=== PATIENT | female | born 1945 | race Caucasian/White ===

== ENCOUNTER 2021-06-27 11:33 | Inpatient (IN) | payer MEDICARE, SELFPAY ==
[2021-06-27] VITALS (10 sets, daily range): BP systolic 122–143; BP diastolic 59–66; PULSE 74–90; RESP 18–24; TEMP 37.4–37.6; O2SAT 87–97; BMI 22.8; BMI 20.2
--- NOTE | 2021-06-27 11:38 | ECG_ITS ---
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 Measurements Intervals [place] Rate: 84 P: 24 [place]: 155 QRS: -1 QRSD: 98 T: 13 QT: 357 QTc: 423 Interpretive Statements SINUS RHYTHM No previous ECG available for comparison Electronically Signed On 06-27-2021 17:29:30 CDT by Serg Asencio M.D. [id number]
--- NOTE | 2021-06-27 11:38 | XR_ITS ---
WS: [id number] PORTABLE CHEST HISTORY: dyspnea/cough COMPARISON: 10/25/2015 New subtle areas of increasing opacification in the RIGHT upper and RIGHT lower lobes and at the ling dominik. No dense areas of consolidation. No pleural effusion or pneumothorax. Cardiac size: Normal. Mediastinum/Aorta: Mild atherosclerosis aorta. Bilateral humeral head prostheses. Advanced thoracolumbar spondylosis. XR/XR chest 1V portable [id number] IMPRESSION: 1. New scattered subtle areas of subsegmental pneumonitis as above. 2. Mild atherosclerosis aorta.
[2021-06-27 12:05] LABS: ABG PCO2 31.2 mmHg (35-45); Arterial Blood Gas Hematocrit 39.8 % (37-47); Base Excess ABG 1.5 mmol/L (-2.0-2.0); Blood Gas Allen Test Pos; Blood Gas Operator Identificat glc; Blood Gas Sample Site Radial, left; Blood Gas Sample Type Arterial; Carboxyhemoglobin 0.6 %THgb (0.4-20.1); HCO3 ABG 24.1 mmol/L (22-26); HGB O2 Sat 92.4 % (95-100); Methemoglobin 0.4 % (0.4-1.5); Oxygen Device NC; Oxygen Saturation ABG 93.3; PO2 ABG 59.4 mmHg (80.0-100.0); Potassium Level - ABG 2.7 mmol/L (3.5-5.0)
[2021-06-27 12:39] LABS: Basophils % 0.2 %; Hematocrit 40.3 % (37.0-47.0); Hemoglobin 12.6 g/dL (11.5-15.3); Lymphocytes # 0.6 10^3/uL (0.8-4.8); Lymphocytes % 5.6 %; Mean Corpuscular HGB Conc 31.3 g/dL (30.0-36.0); Mean Corpuscular Hemoglobin 27.7 pg (28.0-34.0); Mean Corpuscular Volume 88.6 fl (81-99); Mean Platelet Volume 11.9 fL (7.4-10.4); Monocytes # 0.3 10^3/uL (0.2-0.9); Monocytes % 3.2 %; Neutrophils # 9.07 10^3/uL (1.8-7.7); Neutrophils % 86.9 %; Nucleated Red Blood Cells % 0 %; Platelet Count 146 10^3/cmm (130-400); Red Blood Count 4.55 10^6/uL (4.1-5.3); Red Cell Distribution Width 13.1 % (12.1-15.1); White Blood Count 10.4 10^3/uL (4.0-10.0)
--- NOTE | 2021-06-27 12:48 | CT_ITS ---
WS: [id number] CT CHEST ANGIOGRAPHY WITH REFORMATS HISTORY: COVID /hypoxia TECHNIQUE: Contiguous axial images are obtained through the chest during arterial injection of intrav enous contrast. Images are reconstructed to evaluate the pulmonary arteries. MIP imaging also reviewe d. All CT scans at [facility] use at least one of these dose optimization techniques: automat ed exposure control; mA and/or kV adjustment per patient size (includes targeted exams where dose is matched to clinical indication); or iterative reconstruction. CONTRAST: Visipaque 320; 70 mL IV. DLP: 415.06 mGy.cm COMPARISON: None available. Excellent opacification of the pulmonary arteries. No filling defects are evident. The opacification is limited in the periphery of the of all lobes due to the adjacent airspace disease. Pulmonary arter y is normal at 2.8 cm. Mild atherosclerosis aorta. Mild enlargement of LEFT heart chambers. No RIGHT heart strain. There is extensive, multi lobar groundglass opacifications and denser consolidations. The dense conso lidations are at the lung bases bilaterally. There is extensive soft tissue at the RIGHT hilum which is probably a combination of airspace disease and lymphadenopathy. Extensive small hiatal hernia. Janae or cholecystectomy. Advanced degenerative disc disease throughout the mid and lower thoracic spine. No fractures. Prior b ilateral humeral head prostheses. CT/CT angio chest PE protcl [id number] IMPRESSION: 1. No pulmonary embolism. 2. Multi lobar groundglass opacifications and consolidations from pneumonia as sociated with Covid 19. 3. RIGHT hilar consolidation probably combination of pneumonia and adenopathy. Consider follow-up chest CT angiogram after resolution of Covid 19 to be sure there is no underlying lymphadenopathy or persistent mass. 4. Mild LEFT heart enlargement.
[2021-06-27 13:10] LABS: Alanine Aminotransferase 15 U/L (0-33); Albumin Level 3.4 g/dL (3.5-5.2); Alkaline Phosphatase 92 IU/L (35-105); Aspartate Amino Transferase 55 U/L (0-32); Blood Urea Nitrogen 20 mg/dL (8-23); Calcium 8.3 mg/dL (8.5-10.5); Carbon Dioxide 23 mmol/L (22-29); Chloride 101 mmol/L (98-107); Creatine Phosphokinase 182 U/L (26-192); Glucose 130 mg/dL (65-115); Lactic Sepsis W/Reflex 2.4 mmol/L (0.5-2.2); Lipase 57 U/L (13-60); Osmolality Calculated 294 mOsm/kg (285-295); Sodium 140 mmol/L (136-145); Total Bilirubin 0.3 mg/dL (0.15-1.2); Total Protein 6.4 g/dL (6.6-8.7)
--- NOTE | 2021-06-27 13:23 | PC.PHAR ---
pt and pts unable to verify medications-pts states the pt normally takes care of her medications-pt brought in medication bottles-pt brought in medications bottles dated 04/21/2020 for zocor,hctz,protonix,carafate-pt brought in robaxin without a label it was last filled 12/2019-notes are made in the pharmacy comments
--- NOTE | 2021-06-27 13:28 | ED_ITS ---
HPI - COVID General: Chief Complaint: Shortness of Breath/Dyspnea Stated Complaint: AMS, COVID Time Seen by Provider: 06/27/21 11:35 Triage information: Has fever, cough or shortness of breath . Exposure to COVID + person last 14 days History of Present Illness: HPI Narrative: 76-year-old female presents the emergency room with complaints of cough shortness of breath she is mildly confused. Her was diagnosed last week with Covid and was hospitalized. She began having symptoms 5 days ago was tested on the same day at [facility] with a rapid antigen test as outpatient she does not have any documentation but she reports it was positive. Since then she become increasingly short of breath. On arrival here this morning via EMS she was hypoxic and requiring up to 6 L by nasal cannula. Patient mildly confused. She does remember when her symptoms started she reports she has had diarrhea cough and shortness of breath cough minimally productive myalgias as well. MD complaint: known COVID positive (Home [facility] test result not available) and reported COVID exposure Prior covid testing: yes, results known Prior testing date: 06/22/21 COVID 19 common symptoms: positive fever(s), chills, cough, non-productive cough, dyspnea, fatigue, body aches, headache(s), loss of sense of smell and/or taste, throat pain, nasal congestion, nausea, vomiting and diarrhea COVID 19 other sytmptoms: positive requiring oxygen; negative chest pain Onset (ago): day(s) (5) Pertinent comorbid conditions: hypertension Treatment prior to arrival: steroids COVID Results: SARS-CoV-2 Antigen (Rapid) Positive (Negative) H 06/27/21 13:46 06/27/21 Nasal/Oral Coronavirus 2019 PCR Pending 06/27/21 13:46 06/27/21 Review of Systems Const: Reports: fever(s), chills, body aches and fatigue ENMT: Reports: throat pain and nasal congestion Card: Denies: chest pain, edema, dyspnea on exertion or orthopnea Resp: Reports: dyspnea and non-productive cough GI: Reports: nausea, vomiting and diarrhea : Denies: flank pain, difficulty voiding, dysuria, urinary frequency or urinary urgency Skin/Breast: Denies: rash or pruritus Neuro: Reports: headache(s) Physical Exam Const: COMMON NORMALS: no acute distress GENERAL APPEARANCE: cooperative and comfortable ORIENTATION/CONSCIOUSNESS: Yes awake, Yes oriented to person, Yes oriented to place and Yes oriented to time HENMT: COMMON NORMALS: normocephalic, atraumatic and hearing grossly normal bilaterally HEAD & SCALP: normocephalic and atraumatic Neck/C-Spine: COMMON NORMALS: no JVD Lymph: LYMPHATIC: no lymphadenopathy noted and no lymphedema noted Resp: AUSCULTATION: crackles and wheezes Cardio: COMMON NORMALS: no JVD, regular rate, regular rhythm and No murmurs present (Cardio) RATE: regular rate RHYTHM: regular rhythm GI: COMMON NORMALS: Soft to palpation and No hepatosplenomegaly present AUSCULTATION: Yes normoactive bowel sounds PALPATION: Yes Soft to palpation, No Tenderness to palpation present (GI), No Guarding due to palpation present (GI) and Yes No hepatosplenomegaly present Extremity: COMMON NORMALS: normal to inspection, capillary refill normal, no c lubbing, cyanosis or edema, no calf tenderness and no pedal edema Neuro: SENSORIUM/ORIENTATION: Yes oriented to person, Yes oriented to place and Yes oriented to time Skin: COMMON NORMALS: no rashes or lesions noted GENERAL SKIN EXAM: no rashes or lesions noted Course Vital Signs: Vital signs: Vital Signs Temperature 99.3 F 06/27/21 11:54 Pulse Rate 87 06/27/21 13:56 Respiratory Rate 20 H 06/27/21 13:56 Blood Pressure 125/59 06/27/21 13:56 Pulse Oximetry 93 06/27/21 13:56 MDM - COVID MDM Narrative: Medical decision making narrative: Labs and imaging reviewed. CTA of the chest is pending Covid antigen positive patient given remdesivir dexamethasone will admit with oxygen support discussed with Dr. Diane orders written Lab Data: Labs: Lab Results 06/27/21 06/27/21 06/27/21 11:55 12:29 12:29 WBC 10.4 10^3/uL H 10 ^3/uL (4.0-10.0) RBC 4.55 10^6/uL 10^6 /uL (4.1-5.3) Hgb 12.6 g/dL g/dL (11.5-15.3) Hct 40.3 % % (37.0-47.0) MCV 88.6 fl fl (81-99) MCH 27.7 pg L pg (28.0-34.0) MCHC 31.3 g/dL g/dL (30.0-36.0) RDW 13.1 % % (12.1-15.1) Plt Count 146 10^3/cmm 10^3 /cmm (130-400) MPV 11.9 fL H fL (7.4-10.4) Neut % (Auto) 86.9 % % Lymph % (Auto) 5.6 % % [place] % (Auto) 3.2 % % Eos % (Auto) 0.0 % % Baso % (Auto) 0.2 % % Neut # (Auto) 9.07 10^3/uL H 10 ^3/uL (1.8-7.7) Lymph # (Auto) 0.6 10^3/uL L 10^ 3/uL (0.8-4.8) [place] # (Auto) 0.3 10^3/uL 10^3/ uL (0.2-0.9) Eos # (Auto) 0.0 10^3/uL 10^3/ uL (0.0-0.8) Baso # (Auto) 0.0 10^3/uL 10^3/ uL (0.0-0.1) Nucleated RBC % (a uto) 0 % % Nucleated RBCs # 0.0 /100WBC /100W BC Specimen Type Arterial Sample Site Radial, left ABG pH 7.50 H (7.35-7.45) ABG pCO2 31.2 mmHg L mmHg (35-45) ABG pO2 59.4 mmHg L mmHg (80.0-100.0) ABG HCO3 24.1 mmol/L mmol/ L (22-26) ABG O2 Saturation 93.3 ABG Base Excess 1.5 mmol/L mmol/L (-2.0-2.0) Tr Test Pos A-a O2 Gradient 28.0 mmHg H mmHg (5-10) Hematocrit 39.8 % % (37-47) Hgb O2 Saturation 92.4 % L % (95-100) Carboxyhemoglobin 0.6 %THgb %THgb (0.4-20.1) Methemoglobin 0.4 % % (0.4-1.5) Total Hemoglobin 13.0 g/dL g/dL (12-16) Sodium 143.0 mmol/L mmol /L (131-143) Potassium 2.7 mmol/L L mmol /L (3.5-5.0) Glucose 140.0 mg/dL H mg/ dL (70-115) Ionized Calcium 1.0 mmol/L L mmol /L (1.1-1.4) O2 Delivery Device Nc O2 Liters/Min 6.0 % % FiO2 44.0 % % [employer]or Reconnaissance Vehicle Crewman ID glc Chloride Carbon Dioxide Anion Gap BUN Creatinine GFR Calculation Calculated Osmolal ity Lactic Acid 2.4 mmol/L H mmol /L (0.5-2.2) Calcium Magnesium Total Bilirubin AST ALT Alkaline Phosphata se Creatine Kinase Total Protein Albumin Globulin Lipase Urine Color Urine Appearance Urine pH Ur Specific Gravit y Urine Protein Urine Glucose (UA) Urine Ketones Urine Blood Urine Nitrate Urine Bilirubin Urine Urobilinogen Ur Leukocyte Celi ase Urine RBC Urine WBC Ur Squamous Epith Cells Amorphous Sediment Urine Bacteria Urine Mucus SARS-CoV-2 Ag (Rap id) 06/27/21 06/27/21 06/27/21 12:29 12:37 13:46 WBC RBC Hgb Hct MCV MCH MCHC RDW Plt Count MPV Neut % (Auto) Lymph % (Auto) [place] % (Auto) Eos % (Auto) Baso % (Auto) Neut # (Auto) Lymph # (Auto) [place] # (Auto) Eos # (Auto) Baso # (Auto) Nucleated RBC % (a uto) Nucleated RBCs # Specimen Type Sample Site ABG pH ABG pCO2 ABG pO2 ABG HCO3 ABG O2 Saturation ABG Base Excess Tr Test A-a O2 Gradient Hematocrit Hgb O2 Saturation Carboxyhemoglobin Methemoglobin Total Hemoglobin Sodium 140 mmol/L mmol/L (136-145) Potassium 3.0 mmol/L L mmol /L (3.5-5.1) Glucose 130 mg/dL H mg/dL (65-115) Ionized Calcium O2 Delivery Device O2 Liters/Min FiO2 Arm[employer] Vehicle Crewman ID Chloride 101 mmol/L mmol/L (98-107) Carbon Dioxide 23 mmol/L mmol/L (22-29) Anion Gap 19.0 (5-19) BUN 20 mg/dL mg/dL (8-23) Creatinine 1.1 mg/dL H mg/dL (0.5-0.9) GFR Calculation Not Reportable Calculated Osmolal ity 294 mOsm/kg mOsm/ kg (285-295) Lactic Acid Calcium 8.3 mg/dL L mg/dL (8.5-10.5) Magnesium 2.0 mg/dL mg/dL (1.7-2.3) Total Bilirubin 0.3 mg/dL mg/dL (0.15-1.2) AST 55 U/L H U/L (0-32) ALT 15 U/L U/L (0-33) Alkaline Phosphata se 92 IU/L IU/L (35-105) Creatine Kinase 182 U/L U/L (26-192) Total Protein 6.4 g/dL L g/dL (6.6-8.7) Albumin 3.4 g/dL L g/dL (3.5-5.2) Globulin 3.0 g/dL g/dL (1.3-4.6) Lipase 57 U/L U/L (13-60) Urine Color Straw (Yellow) Urine Appearance Hazy A (CLEAR) Urine pH 6.5 (5-7) Ur Specific Gravit y 1.010 (1.005-1.030) Urine Protein 2+ H (Negative) Urine Glucose (UA) Norm (Normal) Urine Ketones Negative (Negative) Urine Blood 2+ H (Negative) Urine Nitrate Negative (Negative) Urine Bilirubin Neg (Negative) Urine Urobilinogen Norm mg/dL mg/dL (Negative) Ur Leukocyte Celi ase Negative (Negative) Urine RBC 0-4 /hpf H /hpf (0-2) Urine WBC 0-4 /hpf H /hpf (0-5) Ur Squamous Epith Cells 5-10 /hpf H /hpf (0-5) Amorphous Sediment Not Reportable Urine Bacteria Trace /hpf /hpf (NONE) Urine Mucus Trace /hpf /hpf SARS-CoV-2 Ag (Rap id) Positive H (Negative) COVID Results: SARS-CoV-2 Antigen (Rapid) Positive (Negative) H 06/27/21 13:46 06/27/21 Nasal/Oral Coronavirus 2019 PCR Pending 06/27/21 13:46 06/27/21 Discharge Plan Discharge Patient Disposition: Admitted As Inpatient Clinical Impression: Pneumonia due to 2019 novel coronavirus Condition: Stable Prescriptions: No Action trazodone 50 mg tablet 50 mg PO BEDTIME RF: 0 potassium chloride 10 mEq tablet extended release 5 meq PO DAILY RF: 0 pramipexole 0.25 mg tablet 0.5 mg PO DAILY RF: 0 Carafate 1 gram Tablet 1 g PO .BEFORE MEALS AND HS RF: 0 prednisolone acetate 1 % Drops,Suspension 1 drp ophthalmic (eye) . 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
[2021-06-27 13:42] LABS: Add Urine Microscopic? YES; Bilirubin Urine Neg (Negative); Blood Urine 2+ (Negative); Glucose Urine UA Norm (Normal); Ketones Urine Negative (Negative); Leukocyte Esterase Urine Negative (Negative); Nitrate Urine Negative (Negative); Protein Urine 2+ (Negative); Urine Appearance Hazy (CLEAR); Urine Color Straw (Yellow); Urobilinogen Urine Norm (Negative); pH Urine 6.5 (5-7)
[2021-06-27 13:43] LABS: Add Urine Culture? No; Bacteria Urine TRACE /hpf; Mucus Urine TRACE /hpf; RBC Urine 0-4 /hpf (0-2); WBC Urine 0-4 /hpf (0-5)
[2021-06-27 14:23] LABS: Reflex Lactate Order REFLEX LACTIC ORDERD
[2021-06-27] MEDS: iodixanol 320 mg/mL 100mL Btl IV (14:37)
[2021-06-27 14:46] LABS: SARS Covid-2 Antigen Positive (Negative)
[2021-06-27] MEDS: dexamethasone 10 mg/mL INJ 6 MG IVP (14:54)
[2021-06-27] MEDS: remdesivir 200 MG in sodium chloride 0.9% (100 ml) 60 ML 100 MG IV (14:55)
--- NOTE | 2021-06-27 15:05 | CT_ITS ---
WS: [id number] CT head wo con* [id number] REASON FOR EXAM: AMS IV CONTRAST ADMINISTERED: No intravenous contrast was administered however the examination is enhance d since it immediately followed a CT scan of the chest with contrast. TOTAL EXAM DLP: 755.[address] scans at [facility] use at least one of these dose optimization techniques: automat ed exposure control; mA and/or kV adjustment per patient size (includes targeted exams where dose is matched to clinical indication); or iterative reconstruction. FINDINGS: Current examination is unchanged compared to 8 previous study of 03/12/2017. There is no midline shift or other significant mass effect. There are no findings of intracranial hemorrhage and no extra-axial fluid collection. Calcifications in the basal ganglia. No acute brain parenchymal abnormality. CT/CT head wo con* [id number] IMPRESSION: No acute intracranial abnormality.
--- NOTE | 2021-06-27 15:16 | ECG_ITS ---
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 Measurements Intervals [place] Rate: 75 P: 17 SD: 162 QRS: -1 QRSD: 97 T: 23 QT: 381 QTc: 427 Interpretive Statements SINUS RHYTHM Compared to ECG 06/27/2021 12:09:39 No significant changes Electronically Signed On 06-27-2021 17:30:43 CDT by Serg Asencio M.D. [id number]
--- NOTE | 2021-06-27 15:20 | P.HP_ITS ---
Providers/Chief Complaint Admitting Physician: Benson Diane MD Chief Complaint: AMS, COVID History of Present Illness Clare Stewart is a 76 year old female is a 68-year-old female with a past medical history of hypertension, hyperlipidemia, who presents to [facility] due to cough, shortness of breath, confusion. Currently patient is alert to person, to place, not to time, does know who the president is, she does follow c ommands, but is quite forgetful during my examination, she does not remember how long she has had the symptoms for, she tells me that she did a home Covid test and that she was Covid positive, she does complain of cough, shortness of breath, she is not sure if she has had any fevers, denies any history of strokes, denies a history of heart attacks, no history of heart failure, no history of diabetes, no history of lung disease, denies smoking. In the emergency room patient was requiring 6 L, CT angiogram of the chest showed no pulmonary embolism, but multilobar groundglass opacifications, did show right hilar consolidation probably combination pneumonia and adenopathy. Currently patient saturating high 90s on 6 L, normotensive, normal sinus rhythm, afebrile, Review of Systems Const: Denies: fever(s) Card: Denies: chest pain Resp: Reports: dyspnea and non-productive cough GI: Denies: abdominal pain or nausea : Denies: dysuria Skin/Breast: Denies: rash Neuro: Denies: headache(s) Medications/Allergies Home Medications Medication Instructions Recorded Confirmed Last Taken Type hydrochlorothiazide 25 mg PO QAM 06/27/21 06/27/21 Unknown History methocarbamol [Robaxin] 750 - 1,500 mg PO TID PRN 06/27/21 06/27/21 Unknown History pantoprazole [Protonix] 40 mg PO DAILY 06/27/21 06/27/21 Unknown History potassium chloride 5 meq PO DAILY 06/27/21 06/27/21 Unknown History pramipexole 0.5 mg PO DAILY 06/27/21 06/27/21 Unknown History prednisolone acetate 1 drp OPHTHALMIC (EYE) . DIRECTED 06/27/21 06/27/21 Unknown History simvastatin [Zocor] 20 mg PO DAILY 06/27/21 06/27/21 Unknown History sucralfate [Carafate] 1 g PO .BEFORE MEALS AND HS 06/27/21 06/27/21 Unknown History trazodone 50 mg PO BEDTIME 06/27/21 06/27/21 Unknown History Allergies Allergy/AdvReac Type Severity Reaction Status Date / Time Unable to Assess Allergy Unverified 06/27/21 13:08 PFSH Acute PFSH: Medical History (Updated 06/27/21 @ 15:26 by Benson Diane MD) History of hyperlipidemia History of hypertension Surgical History (Updated 06/27/21 @ 15:24 by Benson Diane MD) No pertinent past surgical history Social History (Updated 06/27/21 @ 15:25 by Benson Diane MD) Smoking and tobacco status: never smoked Alcohol intake: never Substance/Drug Use: never Vitals/I&O/Wt Last Vital Signs Temp 99.3 F 06/27/21 11:54 Pulse 82 06/27/21 15:00 Resp 20 H 06/27/21 15:00 BP 143/59 06/27/21 15:00 Pulse Ox 94 06/27/21 15:00 Weight last 48 hrs Weight 56.699 kg Physical Exam Const: COMMON NORMALS: no acute distress ORIENTATION/CONSCIOUSNESS: Yes awake, Yes oriented to person and Yes confused; not oriented to place Resp: COMMON NORMALS: normal respiratory effort, No retractions, No use of accessory muscles and clear to auscultation bilaterally Cardio: COMMON NORMALS: regular rate, regular rhythm, S1 normal heart sound present and S2 normal heart sound present GI: COMMON NORMALS: Normal to inspection, nondistended, normoactive bowel sounds present, Soft to palpation and non-tender : COMMON NORMALS: Yes no CVA tenderness Extremity: COMMON NORMALS: no pedal edema Neuro: COMMON NORMALS: moves all extremities and no focal motor deficits SENSORIUM/ORIENTATION: Yes alert, Yes oriented to person, Yes oriented to place and No oriented to time OTHER: Difficult to follow neurologic testing Data : 06/27/21 12:29 06/27/21 12:29 A&P Assessment and plan (1) Pneumonia due to 2019 novel coronavirus: -Acute hypoxic respiratory failure -Acute encephalopathy -BETSY -secondary to COVID-19 pneumonia Plan: -Perform head CT -Aspiration precautions, neurochecks -Monitor respiratory status closely -Remdesivir day 1 of 5 -Decadron day 1 of 10 -Potassium for hypokalemia -Rocephin and azithromycin for secondary bacterial pneumonia -DuoNeb, budesonide -Sputum cultures, blood cultures -Vitamin C, zinc, vitamin D - incentive spirometer, flutter valve -Protonix for GI prophylaxis -Lovenox for DVT prophylaxis -Given her acute encephalopathy, for now we will continue full code Status: Acute (2) BETSY (acute kidney injury): Status: Acute (3) Acute encephalopathy: Status: Acute Attestations Medical Necessity Statement*: Patient requires hospitalization, inpatient, greater than 2 midnights, pneumonia sec to COVID-19, acute encephalopathy, BETSY Coding Level of Care Code Acute Applications Chemist for [facility] Diagnoses Pneumonia due to 2019 novel coronavirus U07.1; J12.82 BETSY (acute kidney injury) N17.9 Acute encephalopathy G93.40
[2021-06-27 16:12] LABS: Lactic Acid level (Lactate) 1.3 mmol/L (0.5-2.2)
[2021-06-27 17:15] LABS: Troponin(5th) Baseline 45 ng/L (0-10)
[2021-06-27 17:16] LABS: NT Pro B Type Natriuretic Pept 4522 pg/mL (0-450); Procalcitonin 4.34 ng/mL (0-0.5)
[2021-06-27] MEDS: docusate sodium 100 mg Capsule PO (17:21)
[2021-06-27] MEDS: pantoprazole DR 40 mg Tablet PO (17:21)
[2021-06-27] MEDS: ascorbic acid 500 mg Tablet PO (17:21)
[2021-06-27] MEDS: sucralfate 1 gm/10 mL Oral Liq UDC PO ×2 (17:22→21:54)
[2021-06-27] MEDS: cefTRIAXone 1,000 MG in sodium chloride 0.9% (plus) 50 ML 100 MG IV (17:24)
[2021-06-27 17:26] LABS: C Reactive Protein 228.2 mg/L (0.0-4.9)
[2021-06-27] MEDS: enoxaparin 40 mg/0.4 mL Syringe SUBCUT (17:30)
[2021-06-27] MEDS: lidocaine 1% 5 ML in potassium chloride premix 100 ML 25 ML IV (17:50)
[2021-06-27] MEDS: azithromycin 500 MG in sodium chloride 0.9% 250 ML 250 MG IV (18:06)
[2021-06-27 18:47] LABS: Troponin 5 2HR 48.75 ng/L (0-10); Troponin 5 2HR Delta 3.75 ABS# (0-10)
--- NOTE | 2021-06-27 19:42 | PC.NURSE ---
i reported low o2 88 to nurse
[2021-06-27] MEDS: budesonide 0.5 mg/2 mL Neb INHALATION (21:21)
[2021-06-27] MEDS: ipratropium-albuterol 3 mL Neb INHALATION (21:21)
[2021-06-27 21:42] LABS: Troponin 5 6HR 46.83 ng/L (0-10); Troponin 5 6HR Delta 1.83 ng/L (0-12)
[2021-06-28] VITALS (20 sets, daily range): BP systolic 94–137; BP diastolic 33–95; PULSE 75–107; RESP 12–24; TEMP 36.4–37.1; O2SAT 86–94
[2021-06-28 05:22] LABS: Basophils # 0.1 10^3/uL (0.0-0.1); Basophils % 0.4 %; Eosinophils % 0.1 %; Hematocrit 42.9 % (37.0-47.0); Hemoglobin 13.6 g/dL (11.5-15.3); Lymphocytes # 0.7 10^3/uL (0.8-4.8); Lymphocytes % 4.6 %; Mean Corpuscular HGB Conc 31.7 g/dL (30.0-36.0); Mean Corpuscular Volume 88.5 fl (81-99); Mean Platelet Volume 11.7 fL (7.4-10.4); Monocytes # 0.3 10^3/uL (0.2-0.9); Monocytes % 2.2 %; Neutrophils # 13.87 10^3/uL (1.8-7.7); Neutrophils % 90.5 %; Nucleated Red Blood Cells % 0 %; Platelet Count 188 10^3/cmm (130-400); Red Blood Count 4.85 10^6/uL (4.1-5.3); Red Cell Distribution Width 13.2 % (12.1-15.1); White Blood Count 15.3 10^3/uL (4.0-10.0)
[2021-06-28 05:37] LABS: INR 1.03 (0.8-1.2)
[2021-06-28 05:57] LABS: NT Pro B Type Natriuretic Pept 4847 pg/mL (0-450); Procalcitonin 7.47 ng/mL (0-0.5); Thyroid Stimulating Hormone 1.52 uIU/mL (0.27-4.20)
[2021-06-28 06:09] LABS: Alanine Aminotransferase 24 U/L (0-33); Albumin Level 3.5 g/dL (3.5-5.2); Alkaline Phosphatase 102 IU/L (35-105); Anion Gap 18.7 (5-19); Aspartate Amino Transferase 80 U/L (0-32); Blood Urea Nitrogen 21 mg/dL (8-23); Calcium 8.7 mg/dL (8.5-10.5); Carbon Dioxide 22 mmol/L (22-29); Chloride 106 mmol/L (98-107); Creatine Phosphokinase 272 U/L (26-192); Globulin 3.3 g/dL (1.3-4.6); Glucose 151 mg/dL (65-115); Magnesium 2.2 mg/dL (1.7-2.3); Osmolality Calculated 304 mOsm/kg (285-295); Phosphorus 1.9 mg/dL (2.5-4.5); Sodium 144 mmol/L (136-145); Total Bilirubin 0.4 mg/dL (0.15-1.2); Total Protein 6.8 g/dL (6.6-8.7)
[2021-06-28 06:11] LABS: Potassium 2.7 mmol/L (3.5-5.1)
[2021-06-28] MEDS: sucralfate 1 gm/10 mL Oral Liq UDC PO ×4 (06:18→20:29)
[2021-06-28 06:21] LABS: Ferritin 1678 ng/mL (15-150)
--- NOTE | 2021-06-28 07:00 | XR_ITS ---
WS: [id number] XR chest 1V portable [id number] REASON FOR EXAM: sob FINDINGS: Bilateral infiltrates are more apparent than on the examination of 06/27/2021. This appears to be due to decreased inspiratory effort. There are no new findings. XR/XR chest 1V portable [id number] IMPRESSION: Stable abnormal chest.
[2021-06-28] MEDS: docusate sodium 100 mg Capsule PO ×2 (09:06→18:10)
[2021-06-28] MEDS: cholecalciferol (vitamin D3) 1,000 unit Tablet 1000 UNIT PO (09:06)
[2021-06-28] MEDS: ascorbic acid 500 mg Tablet PO ×2 (09:06→18:09)
[2021-06-28] MEDS: pantoprazole DR 40 mg Tablet PO ×2 (09:06→18:09)
[2021-06-28] MEDS: zinc gluconate 50 mg Tablet PO (09:06)
[2021-06-28] MEDS: ipratropium-albuterol 3 mL Neb INHALATION (09:15)
[2021-06-28] MEDS: budesonide 0.5 mg/2 mL Neb INHALATION ×2 (09:20→20:45)
[2021-06-28] MEDS: vancomycin 750 MG in sodium chloride 0.9% 250 ML 250 MG IV (11:05)
--- NOTE | 2021-06-28 12:55 | PC.NUTR ---
Nutrition assessment completed for low BMI. Recommend to provide meal preferences as appropriate and encourage po intakes of meals. Recommend monitoring weight, given multiple weights of 111 vs 125 lbs at admit. Suggest diet order clarification given multiple diet orders in place. May benefit from WEDDING MAKEUP ARTIST evaluation given swallowing difficulty per admit screen. See full RD assessment for further details.
--- NOTE | 2021-06-28 13:57 | PC.NURSE ---
Patient to ICU 5 at 1340 via bed, VSS, HHFNC on and working. Patient AAOx4, no complaints of pain or discomfort. Belongings at bedside.
[2021-06-28] MEDS: dexamethasone 10 mg/mL INJ 6 MG IVP (15:12)
[2021-06-28] MEDS: FUROsemide 10 mg/mL SDV 2mL 20 MG IVP (15:13)
--- NOTE | 2021-06-28 17:44 | P.PN_ITS ---
Subjective Subjective: Interval history: This morning patient was examined, she is alert to person, to place, to time, she does require repeat questioning, she does become quite forgetful, but does follow all commands, she tells me that she feels a lot better, but her oxygen requirements have increased to 75% on high flow quickly, I am worried about her developing acute respiratory distress syn drome, given her age, I plan on moving her down to the ICU, I discussed her CODE STATUS in detail, she wants us to avoid intubation as much as possible however she is agreeable to elective intubation as a last resort, remains a full code, has not received Covid vaccinations, no history of lung disease, no history of smoking, no history of heart disease I spoke to patient's son tell me, Freddy tells me that his mom has had dementia for some time, but for the last year she has had a slower decline, has episodes of forgetfulness, which has been worsening recently, she lives with her , who is on dialysis, Vitals/I&O/Wt Last Vital Signs Temp 97.9 F 06/28/21 12:00 Pulse 75 06/28/21 14:12 Resp 22 H 06/28/21 14:12 BP 110/69 06/28/21 12:00 Pulse Ox 92 06/28/21 14:12 06/28/21 06/28/21 06/28/21 06:59 14:59 22:59 Intake Total 355 / 525 250 / 250 205.833 / 455.833 Balance 355 / 525 250 / 250 205.833 / 455.833 Weight last 48 hrs Weight 50.349 kg Weight 56.699 kg Physical Exam Narrative: EXAM NARRATIVE: Requires multiple redirections, repeat questioning, is quite forgetful, but does follow commands, does get answers correct after some period of time Const: COMMON NORMALS: no acute distress ORIENTATION/CONSCIOUSNESS: Yes awake, Yes oriented to person, Yes oriented to place and Yes oriented to time Chest: COMMONS NORMALS: normal inspection of the chest Resp: COMMON NORMALS: normal respiratory effort, No retractions, No use of accessory muscles and clear to auscultation bilaterally AUSCULTATION: clear to auscultation bilaterally Cardio: COMMON NORMALS: regular rate, regular rhythm, S1 normal heart sound present and S2 normal heart sound present RATE: regular rate RHYTHM: regular rhythm HEART SOUNDS: S1 normal heart sound present and S2 normal heart sound present GI: COMMON NORMALS: Normal to inspection, nondistended, normoactive bowel sounds present, Soft to palpation and non-tender PALPATION: Yes Soft to palpation Extremity: COMMON NORMALS: no pedal edema Neuro: SENSORIUM/ORIENTATION: Yes oriented to person, Yes oriented to place and Yes oriented to time Data : 06/28/21 05:14 06/28/21 05:14 Micro: Microbiology 06/27/21 15:28 Blood Culture - Preliminary Blood NEGATIVE TO DATE 06/27/21 15:20 Blood Culture - Preliminary Blood NEGATIVE TO DATE A&P Assessment and plan (1) Pneumonia due to 2019 novel coronavirus: -Acute respiratory distress syndrome -Acute hypoxic respiratory failure -Acute encephalopathy -BETSY -secondary to COVID-19 pneumonia Plan: -Requires ICU admission due quickly escalating oxygen requirements, increased forgetfulness, often removes her oxygen -Aspiration precautions, neurochecks -Monitor respiratory status closely -Remdesivir day 2 of 5 -Decadron day 2 of 10 -Pro-Chau 7.47, CRP 344, ferritin 1678, CT of the chest shows right hilar consolidation commendation of pneumonia and adenopathy, for now as there is concerns for possible bacterial infection will hold off on Actemra and baricitinib -BNP 4846, 1 dose Lasix, cardiac echo -Hypokalemia, replace potassium and phosphorus -Stop Rocephin azithromycin, escalate to vancomycin and Primaxin -DuoNeb, budesonide -Sputum cultures, blood cultures -Vitamin C, zinc, vitamin D - incentive spirometer, flutter valve -Protonix for GI prophylaxis -Lovenox for DVT prophylaxis -Patient is a full code Status: Acute (2) BETSY (acute kidney injury): Status: Acute (3) Acute encephalopathy: Status: Acute (4) Acute respiratory failure with hypoxia: Status: Acute (5) Acute respiratory distress syndrome: Status: Acute Attestations Medical Necessity Statement*: Patient requires hospitalization, for COVID-19 pneumonia, acute respiratory failure, acute respiratory distress syndrome Coding Level of Care Code Acute [employer] for [facility] Diagnoses Pneumonia due to 2019 novel coronavirus U07.1; J12.82 BETSY (acute kidney injury) N17.9 Acute encephalopathy G93.40 Acute respiratory failure with hypoxia J96.01 Acute respiratory distress syndrome J80
[2021-06-28] MEDS: enoxaparin 40 mg/0.4 mL Syringe SUBCUT (18:10)
[2021-06-28] MEDS: remdesivir 100 MG in sodium chloride 0.9% (100 ml) 80 ML IV (18:19)
[2021-06-29] VITALS (154 sets, daily range): BP systolic 113–161; BP diastolic 63–98; PULSE 70–113; RESP 14–30; TEMP 36.1–36.5; O2SAT 70–95
[2021-06-29 03:51] LABS: Coronavirus Test Green County Detected
[2021-06-29 04:54] LABS: ABG PCO2 33.5 mmHg (35-45); ABG PH Result 7.46 (7.35-7.45); Arterial Blood Gas Hematocrit 44.9 % (37-47); Base Excess ABG 0.7 mmol/L (-2.0-2.0); Blood Gas Allen Test Pos; Blood Gas Sample Type Arterial; HCO3 ABG 23.9 mmol/L (22-26); PO2 ABG 63.4 mmHg (80.0-100.0)
[2021-06-29 04:55] LABS: Blood Gas Sample Site Radial, right; Oxygen Device HAG
--- NOTE | 2021-06-29 05:01 | PC.NURSE ---
Shift Note Frequent safety and comfort rounds continue. Pt seemed restless at the beginning of the night but calmed down when we got her oxygen >90%. Orders and nursing care completed as indicated. Patient monitored for response to intervention and treatment. Education provided includes pain management. Patient verbalized understanding. Will continue care.
[2021-06-29] MEDS: sucralfate 1 gm/10 mL Oral Liq UDC PO ×4 (06:06→20:53)
--- NOTE | 2021-06-29 07:00 | XR_ITS ---
WS: [id number] XR chest 1V portable [id number] REASON FOR EXAM: sob FINDINGS: Compared to the previous examination of 06/28/2021, no significant improvement in the bilateral pulmon milton infiltrates predominating on the right. No new finding. XR/XR chest 1V portable [id number] IMPRESSION: Stable abnormal chest.
[2021-06-29] MEDS: ipratropium-albuterol 3 mL Neb INHALATION ×3 (08:25→20:17)
[2021-06-29] MEDS: budesonide 0.5 mg/2 mL Neb INHALATION ×2 (08:25→20:17)
--- NOTE | 2021-06-29 09:03 | PC.CHAP ---
Pastoral Care Encounter/Spiritual Assessment Type of Contact [] Declined child development director visit [] Patient/Family/Request visit [] Outpatient visit [] Follow-up visit [] Physician referral [] Code/Alert [x] Routine visit [] Staff referral [] Actively dying [] Patient sleeping [] Family support [] [] Out of room [] Palliative care [] [] Receiving care in room [] Pre-surgical visit [] Trauma [] Long length of stay [x] ICU visit [x] Other: covid Relational/Emotional Strength [] Patient feels connected with others/family/visitors/staff [] Distress [] Loneliness/isolation [] Abandonment Spirituality of Patient [] Person of Wendy [] Attends Buddhist of their Wendy [] Believes in Prayer [] Reads Bible or Sikh materials [] There are Spiritual issues to be addressed Soda Drier Feeder Interventions [x] Prayer [] Active listening [] Non-anxious presence [] Spiritual/emotional support [] Crisis/trauma care [] Spiritual counseling [] Bereavement support [] Provided bereavement packet [] Provided Bible/devotional materials [] Provided toy/stuffed animal, coloring book to patient or family member [] Provided Communion [] Anointing/[place] [] Salvation [x] Completed spiritual assessment [] Other: Impact on Illness or Injury [] Angry [] Fearful [] Anxious [] Often cries [] Exhaustion [] Unable to work [] Unable to attend catholic [] Unable to walk/stand [] Unable to read [] Unable to drive [] Unable to eat/drink [] Unable to sleep [] Unable to be with family [] Patient intubated [] Other: Summary Time spent with patient
[2021-06-29] MEDS: docusate sodium 100 mg Capsule PO ×2 (09:11→18:02)
[2021-06-29] MEDS: zinc gluconate 50 mg Tablet PO (09:11)
[2021-06-29] MEDS: pantoprazole DR 40 mg Tablet PO ×2 (09:11→18:02)
[2021-06-29] MEDS: ascorbic acid 500 mg Tablet PO ×2 (09:11→18:02)
[2021-06-29] MEDS: cholecalciferol (vitamin D3) 1,000 unit Tablet 1000 UNIT PO (09:11)
[2021-06-29 10:04] LABS: Basophils % 0.3 %; Hematocrit 40.5 % (37.0-47.0); Hemoglobin 13.1 g/dL (11.5-15.3); Lymphocytes # 0.7 10^3/uL (0.8-4.8); Lymphocytes % 4.8 %; Mean Corpuscular HGB Conc 32.3 g/dL (30.0-36.0); Mean Corpuscular Hemoglobin 28.2 pg (28.0-34.0); Mean Corpuscular Volume 87.1 fl (81-99); Mean Platelet Volume 12.1 fL (7.4-10.4); Monocytes # 0.4 10^3/uL (0.2-0.9); Monocytes % 2.8 %; Neutrophils # 14.14 10^3/uL (1.8-7.7); Neutrophils % 91.1 %; Nucleated Red Blood Cells % 0 %; Platelet Count 204 10^3/cmm (130-400); Red Blood Count 4.65 10^6/uL (4.1-5.3); Red Cell Distribution Width 13.3 % (12.1-15.1); White Blood Count 15.5 10^3/uL (4.0-10.0)
[2021-06-29 10:16] LABS: INR 1.28 (0.8-1.2)
[2021-06-29 10:25] LABS: Lactate (Lactic Acid level) 1.6 mmol/L (0.5-2.2)
[2021-06-29 10:35] LABS: NT Pro B Type Natriuretic Pept 1382 pg/mL (0-450); Procalcitonin 4.51 ng/mL (0-0.5)
[2021-06-29 10:36] LABS: Alanine Aminotransferase 22 U/L (0-33); Albumin Level 3.2 g/dL (3.5-5.2); Alkaline Phosphatase 92 IU/L (35-105); Anion Gap 17.9 (5-19); Aspartate Amino Transferase 56 U/L (0-32); Blood Urea Nitrogen 28 mg/dL (8-23); C Reactive Protein 285.7 mg/L (0.0-4.9); Calcium 8.2 mg/dL (8.5-10.5); Carbon Dioxide 23 mmol/L (22-29); Chloride 109 mmol/L (98-107); Globulin 3.1 g/dL (1.3-4.6); Glucose 129 mg/dL (65-115); Magnesium 2.2 mg/dL (1.7-2.3); NT Pro B Type Natriuretic Pept 1401 pg/mL (0-450); Osmolality Calculated 311 mOsm/kg (285-295); Phosphorus 2.9 mg/dL (2.5-4.5); Sodium 147 mmol/L (136-145); Total Bilirubin 0.5 mg/dL (0.15-1.2); Total Protein 6.3 g/dL (6.6-8.7)
[2021-06-29 10:47] LABS: Creatine Phosphokinase 311 U/L (26-192)
[2021-06-29] MEDS: polyethylene glycol 3350 Pkt 17 gm PO (10:53)
[2021-06-29 11:02] LABS: Ferritin 1575 ng/mL (15-150)
[2021-06-29 11:10] LABS: Potassium 2.9 mmol/L (3.5-5.1)
[2021-06-29] MEDS: vancomycin 750 MG in sodium chloride 0.9% 250 ML 250 MG IV (11:52)
--- NOTE | 2021-06-29 11:57 | PC.NURSE ---
Attempted to call family contact for rounding update. No answer.
[2021-06-29] MEDS: lidocaine 1% 5 ML in potassium chloride premix 100 ML 25 ML IV (12:00)
--- NOTE | 2021-06-29 13:24 | PM.PN ---
Subjective Subjective: Interval history: Patient was seen this morning, she remains on heated high flow, denies any chest pain, no nausea, vomiting, she is much more alert and awake, currently on 60 L 100%, Vitals/I&O/Wt Last Vital Signs Temp 96.9 F L 06/29/21 08:30 Pulse 87 06/29/21 11:54 Resp 24 H 06/29/21 11:54 BP 136/76 06/29/21 10:15 Pulse Ox 90 06/29/21 11:54 06/28/21 06/29/21 06/29/21 22:59 06:59 14:59 Intake Total 394.9239 / 644.9239 200 / 844.9239 100 / 100 Output Total 1000 / 1000 500 / 1500 250 / 250 Balance -605.0761 / -355.0761 -300 / -655.0761 -150 / -150 Weight last 48 hrs Weight 50.349 kg Physical Exam Const: COMMON NORMALS: no acute distress ORIENTATION/CONSCIOUSNESS: Yes awake, Yes oriented to person and Yes oriented to place; not oriented to time Resp: COMMON NORMALS: normal respiratory effort, No retractions, No use of accessory muscles and clear to auscultation bilaterally AUSCULTATION: clear to auscultation bilaterally Cardio: COMMON NORMALS: regular rate, regular rhythm, S1 normal heart sound present and S2 normal heart sound present RATE: regular rate RHYTHM: regular rhythm HEART SOUNDS: S1 normal heart sound present and S2 normal heart sound present GI: COMMON NORMALS: Normal to inspection, nondistended, normoactive bowel sounds present, Soft to palpation and non-tender PALPATION: Yes Soft to palpation Extremity: COMMON NORMALS: no pedal edema Neuro: SENSORIUM/ORIENTATION: Yes oriented to person, Yes oriented to place and No oriented to time Urinary Catheter Management^: Aggarwal: Cath Placed During This Visit: yes Reason for Continuing Indwelling Catheter: Accurate Measurement of Urinary Output in Critically Ill Patients Urinary Catheter Date of Insertion: 06/28/21 Urinary Catheter Time of Insertion: 18:41 Data : 06/29/21 09:50 06/29/21 09:50 Micro: Microbiology 06/28/21 12:13 MRSA Culture - Final Nose 06/27/21 15:28 Blood Culture - Preliminary Blood NEGATIVE TO DATE 06/27/21 15:20 Blood Culture - Preliminary Blood NEGATIVE TO DATE A&P Assessment and plan (1) Pneumonia due to 2019 novel coronavirus: -Acute respiratory distress syndrome -Acute hypoxic respiratory failure -Acute encephalopathy -BETSY -secondary to COVID-19 pneumonia Plan: -Currently being managed in ICU -Currently on heated high flow -Aspiration precautions, neurochecks -Monitor respiratory status closely -Remdesivir day 3 of 5 -Decadron day 3 of 10 -Pro-Chau 4.51, CRP 285,, CT of the chest shows right hilar consolidation commendation of pneumonia and adenopathy, for now as there is concerns for possible bacterial infection will hold off on Actemra and baricitinib -BNP 1382, hold off on Lasix, cardiac echo pending -Hyponatremia likely secondary diuresis as above hold -Hypokalemia, replace potassium and phosphorus -Stop Rocephin azithromycin, escalate to vancomycin and Primaxin -DuoNeb, budesonide -Sputum cultures, blood cultures -Vitamin C, zinc, vitamin D - incentive spirometer, flutter valve -Protonix for GI prophylaxis -Lovenox for DVT prophylaxis -Patient is a full code Status: Acute (2) BETSY (acute kidney injury): Status: Acute (3) Acute encephalopathy: Status: Acute (4) Acute respiratory failure with hypoxia: Status: Acute (5) Acute respiratory distress syndrome: Status: Acute Attestations Medical Necessity Statement*: Patient requires hospitalization for acute respiratory failure, acute respiratory distress syndrome BETSY, acute encephalopathy secondary to COVID-19 Coding Level of Care Code Acute [facility] for [facility] Diagnoses Pneumonia due to 2019 novel coronavirus U07.1; J12.82 BETSY (acute kidney injury) N17.9 Acute encephalopathy G93.40 Acute respiratory failure with hypoxia J96.01 Acute respiratory distress syndrome J80
--- NOTE | 2021-06-29 14:04 | PC.NURSE ---
Nurse called son Freddy Stewart. Gave update. Per Freddy, It is the patient's baseline to have difficulty finding words and experiences forgetfulness and brief periods of confusion, but can usually answer any questions appropriately if given enough time. This is currently the patient's baseline here in the ICU. Freddy thinks that she has early stages of dementia. Nurse observed today that when the patient was handed her glasses she appeared initially confused as to what they were and what to do with them, but figured it out after a minute or two.
--- NOTE | 2021-06-29 14:20 | PC.RESP ---
RT Shift Note Frequent safety and respiratory rounds continue. Orders completed as indicated. Patient monitored pre and post treatments throughout shift. Patient [Did.] tolerate treatments appropriately. Condition [.DidNotChange]. Patient and/or commercial pest control representative educated on respiratory treatment and medications. Patient and/or commercial pest control representative [reinforcement needed]. Will continue to monitor patient progress.
[2021-06-29] MEDS: enoxaparin 40 mg/0.4 mL Syringe SUBCUT (16:41)
[2021-06-29] MEDS: dexamethasone 10 mg/mL INJ 6 MG IVP (16:41)
[2021-06-29] MEDS: remdesivir 100 MG in sodium chloride 0.9% (100 ml) 80 ML IV (18:01)
--- NOTE | 2021-06-29 18:28 | PC.NURSE ---
SHift Summary: Uneventful shift. Patient rested in bed throughout the day. Oxygen requirements went up from 80%/45L to 100%/60L. Patient received medications as ordered. Nurse did not get patient up to a chair today as the patient desaturates to quickly to safely move at this time. Family has been updated on condition.
[2021-06-30] VITALS (62 sets, daily range): BP systolic 75–200; BP diastolic 46–118; PULSE 63–117; RESP 14–36; TEMP 36.3–36.7; O2SAT 86–100
[2021-06-30] MEDS: acetaminophen 325 mg Tablet 650 MG PO (00:48)
[2021-06-30] MEDS: ipratropium-albuterol 3 mL Neb INHALATION ×4 (03:07→20:06)
[2021-06-30 05:21] LABS: ABG PCO2 31.2 mmHg (35-45); ABG PH Result 7.49 (7.35-7.45); Arterial Blood Gas Hematocrit 37.9 % (37-47); Base Excess ABG 1.2 mmol/L (-2.0-2.0); Blood Gas Allen Test Pos; Blood Gas Sample Type Arterial; HCO3 ABG 23.9 mmol/L (22-26); PO2 ABG 55.6 mmHg (80.0-100.0)
[2021-06-30 05:23] LABS: Blood Gas Sample Site Radial, left; Oxygen Device HAG
--- NOTE | 2021-06-30 06:13 | PC.NURSE ---
Shift Note Frequent safety and comfort rounds continue. Pt confused on and off throughout the night. When confused pt would take out heated high flow. Orders and nursing care completed as indicated. Patient monitored for response to intervention and treatment(s). Education provided includes pain management. Patient verbalized understanding but needs reinforcement. Will continue care.
[2021-06-30] MEDS: sucralfate 1 gm/10 mL Oral Liq UDC PO ×3 (06:19→22:40)
[2021-06-30] MEDS: budesonide 0.5 mg/2 mL Neb INHALATION ×2 (08:22→20:06)
[2021-06-30] MEDS: FUROsemide 10 mg/mL SDV 2mL 20 MG IVP (08:34)
[2021-06-30] MEDS: lidocaine 1% 5 ML in potassium chloride premix 100 ML 25 ML IV ×2 (08:35→15:12)
[2021-06-30] MEDS: cholecalciferol (vitamin D3) 1,000 unit Tablet 1000 UNIT PO (08:36)
[2021-06-30] MEDS: ascorbic acid 500 mg Tablet PO ×2 (08:36→17:06)
[2021-06-30] MEDS: docusate sodium 100 mg Capsule PO ×2 (08:36→17:06)
[2021-06-30] MEDS: pantoprazole DR 40 mg Tablet PO (08:37)
[2021-06-30] MEDS: zinc gluconate 50 mg Tablet PO (08:37)
[2021-06-30] MEDS: polyethylene glycol 3350 Pkt 17 gm PO (08:37)
--- NOTE | 2021-06-30 10:48 | PC.CHAP ---
Pastoral Care Encounter/Spiritual Assessment Type of Contact [] Declined basketball coach visit [] Patient/Family/Request visit [] Outpatient visit [] Follow-up visit [] Physician referral [] Code/Alert [x] Routine visit [] Staff referral [] Actively dying [] Patient sleeping [] Family support [] [] Out of room [] Palliative care [] [] Receiving care in room [] Pre-surgical visit [] Trauma [] Long length of stay [x] ICU visit [x] Other: covid setting on side of bed eating breakfast Relational/Emotional Strength [] Patient feels connected with others/family/visitors/staff [] Distress [] Loneliness/isolation [] Abandonment Spirituality of Patient [] Person of Wendy [] Attends Presybeterian of their Wendy [] Believes in Prayer [] Reads Bible or Caodaism materials [] There are Spiritual issues to be addressed [place] Brusher Interventions x] Prayer [] Active listening [] Non-anxious presence [] Spiritual/emotional support [] Crisis/trauma care [] Spiritual counseling [] Bereavement support [] Provided bereavement packet [] Provided Bible/devotional materials [] Provided toy/stuffed animal, coloring book to patient or family member [] Provided Communion [] Anointing/[place] [] Salvation [x] Completed spiritual assessment [] Other: Impact on Illness or Injury [] Angry [] Fearful [] Anxious [] Often cries [] Exhaustion [] Unable to work [] Unable to attend shinto [] Unable to walk/stand [] Unable to read [] Unable to drive [] Unable to eat/drink [] Unable to sleep [] Unable to be with family [] Patient intubated [] Other: Summary Time spent with patient
[2021-06-30] MEDS: LORazepam 2 mg/mL INJ 1 mL 0.5 MG IVP (10:55)
--- NOTE | 2021-06-30 11:05 | PC.SOCIAL ---
IMM update IMM updated with patient's son. Verbalized an understanding. Initialled, dated, timed, and placed in chart.
[2021-06-30 12:27] LABS: Alanine Aminotransferase 21 U/L (0-33); Albumin Level 3.1 g/dL (3.5-5.2); Alkaline Phosphatase 108 IU/L (35-105); Blood Urea Nitrogen 24 mg/dL (8-23); Calcium 8.4 mg/dL (8.5-10.5); Carbon Dioxide 18 mmol/L (22-29); Chloride 110 mmol/L (98-107); Globulin 3.6 g/dL (1.3-4.6); Glucose 107 mg/dL (65-115); Magnesium 2.1 mg/dL (1.7-2.3); NT Pro B Type Natriuretic Pept 3001 pg/mL (0-450); Osmolality Calculated 305 mOsm/kg (285-295); Phosphorus 2.5 mg/dL (2.5-4.5); Sodium 145 mmol/L (136-145); Total Bilirubin 0.6 mg/dL (0.15-1.2); Total Protein 6.7 g/dL (6.6-8.7)
[2021-06-30 12:29] LABS: Anion Gap 20.4 (5-19); Aspartate Amino Transferase 45 U/L (0-32); Potassium 3.4 mmol/L (3.5-5.1)
[2021-06-30] MEDS: rocuronium 10 mg/mL INJ 5mL 50 MG IV (12:55)
[2021-06-30] MEDS: midazolam 1 mg/mL INJ 2 mL 2 MG IVP (12:56)
[2021-06-30] MEDS: fentaNYL 50 mcg/mL INJ 2mL IVP (12:56)
--- NOTE | 2021-06-30 13:42 | PM.PN ---
Subjective Subjective: Interval history: This morning patient was seen, she is alert to person, to place, to time, she follows all commands, she remains on 60 L, 100% FiO2, but does desat into the low 80s when talking with me, I readdressed her goals of care, she wants to remain a full code, I advised her that her oxygen requirements are maximal, we will do our best to avoid intubation, however she is a high risk of being intubated in the next few hours, she voiced understanding, is agreeable to proceed with plan, patient had a trial of BiPAP early in the morning due to evidence of respiratory distress, and desaturations however was not tolerating it the mass, was becoming more confused, decision was made to pursue intubation and mechanical ventilation I updated patient's son Freddy Stewart, about patient's critical status, he wants us to continue all medical interventions, agreeable to intubation, his father has dementia, and he tells me that he would like to talk to his father her status Vitals/I&O/Wt Last Vital Signs Temp 98.1 F 06/30/21 05:28 Pulse 107 H 06/30/21 12:30 Resp 29 H 06/30/21 12:30 BP 127/88 06/30/21 12:30 Pulse Ox 90 06/30/21 11:33 06/29/21 06/30/21 06/30/21 22:59 06:59 14:59 Intake Total 635 / 735 550 / 1285 Output Total 300 / 550 500 / 1050 Balance 335 / 185 50 / 235 Physical Exam Const: GENERAL APPEARANCE: cooperative ORIENTATION/CONSCIOUSNESS: Yes awake, Yes oriented to person, Yes oriented to place and Yes oriented to time Chest: COMMONS NORMALS: normal inspection of the chest Resp: COMMON NORMALS: normal respiratory effort, No retractions and No use of accessory muscles AUSCULTATION: wheezes Cardio: COMMON NORMALS: regular rate, regular rhythm, S1 normal heart sound present and S2 normal heart sound present RATE: regular rate RHYTHM: regular rhythm HEART SOUNDS: S1 normal heart sound present and S2 normal heart sound present GI: COMMON NORMALS: Normal to inspection, nondistended, normoactive bowel sounds present, Soft to palpation and non-tender PALPATION: Yes Soft to palpation Extremity: COMMON NORMALS: capillary refill normal, no clubbing, cyanosis or edema and no pedal edema Neuro: SENSORIUM/ORIENTATION: Yes oriented to person, Yes oriented to place and Yes oriented to time Urinary Catheter Management^: Aggarwal: Cath Placed During This Visit: yes Reason for Continuing Indwelling Catheter: Accurate Measurement of Urinary Output in Critically Ill Patients Urinary Catheter Date of Insertion: 06/28/21 Urinary Catheter Time of Insertion: 18:41 Data : 06/29/21 09:50 06/30/21 11:42 Micro: Microbiology 06/28/21 12:13 MRSA Culture - Final Nose A&P Assessment and plan (1) Pneumonia due to 2019 novel coronavirus: -Acute respiratory distress syndrome -Acute hypoxic respiratory failure -Acute encephalopathy with underlying dementia -BETSY -secondary to COVID-19 pneumonia Plan: -Currently being managed in ICU -We will proceed to intubation mechanical ventilation, pulmonary on consult -Start prone positioning tonight, with paralytic -Remdesivir day 4 of 5 -Decadron day 4 of 10 -CRP 190,, CT of the chest shows right hilar consolidation commendation of pneumonia and adenopathy, for now as there is concerns for possible bacterial infection will hold off on Actemra and baricitinib -BNP 3000, 1 dose Lasix today, cardiac echo pending -Hyponatremia likely secondary diuresis as above hold -Hypokalemia, replace potassium and phosphorus -Continue vancomycin and Primaxin -DuoNeb, budesonide -Sputum cultures, blood cultures -Vitamin C, zinc, vitamin D - incentive spirometer, flutter valve -Protonix for GI prophylaxis -Lovenox for DVT prophylaxis -Patient is a full code Status: Acute (2) BETSY (acute kidney injury): Status: Acute (3) Acute encephalopathy: Status: Acute (4) Acute respiratory failure with hypoxia: Status: Acute (5) Acute respiratory distress syndrome: Status: Acute Attestations Medical Necessity Statement*: Patient requires hospitalization for acute respiratory failure with hypoxia sec to COVID-19, acute respiratory distress syndrome, proceeding to intubation mechanical ventilation Coding Level of Care Code Acute Travelift Operator for [facility] Diagnoses Pneumonia due to 2019 novel coronavirus U07.1; J12.82 BETSY (acute kidney injury) N17.9 Acute encephalopathy G93.40 Acute respiratory failure with hypoxia J96.01 Acute respiratory distress syndrome J80
--- NOTE | 2021-06-30 13:51 | XR_ITS ---
WS: [id number] XR chest 1V portable [id number] REASON FOR EXAM: dyspnea/cough FINDINGS: Compared to the previous examination of earlier today, an endotracheal tube has been placed the tip i s at the origin of the right mainstem bronchus. Nasogastric tube is been placed with the tip at the level of the left hemidiaphragm. It is not past t he gastroesophageal junction. There is a hiatal hernia present. There is been placement of a left internal jugular central venous line. The catheter has turned later ally at the head of the clavicle and the tip is in the left axillary region probably within the left basilic/axillary vein. The chest is otherwise unchanged compared to the exam of earlier today. XR/XR chest 1V portable [id number] IMPRESSION: Tube and line placement as above.
[2021-06-30] MEDS: propofol 1,000 MG/100 ML INJ 3.02 MG IV (14:45)
--- NOTE | 2021-06-30 14:47 | PC.NURSE ---
1300 Received report on pt. RT at bedside prepping for intubation. 1319 Intubation started, etomidate given per orders, versed and fentanyl IVP given per orders. Pt intubated successfully by MD with 8.0 ETT, 24cm at lip. Vent settings per RT. OGT placed per this nurse. CVL placed by MD, turned down brachial vein per CXR. OGT advanced 4cm. CVL removed per MD orders, pressure held. New line to be placed. Rectal tube placed d/t liquid stools. Linens changed. No other issues noted. Will monitor.
--- NOTE | 2021-06-30 14:53 | PC.NURSE ---
Fentanyl and propofol gtts infusing per orders.
[2021-06-30] MEDS: dexamethasone 10 mg/mL INJ 6 MG IVP (15:49)
[2021-06-30 15:51] LABS: ABG PCO2 43.8 mmHg (35-45); ABG PH Result 7.36 (7.35-7.45); Alveolar-Arterial Oxygen Gradi 77.1 mmHg (5-10); Arterial Blood Gas Hematocrit 44.1 % (37-47); Base Excess ABG -0.8 mmol/L (-2.0-2.0); Blood Gas Allen Test Pos; Blood Gas Operator Identificat CAK; Blood Gas Sample Site Brachial, left; Blood Gas Sample Type Arterial; Blood Gas Tidal Volume 0.35; Carboxyhemoglobin 0.4 %THgb (0.4-20.1); HCO3 ABG 24.8 mmol/L (22-26); HGB O2 Sat 89.1 % (95-100); Ionized Calcium Level - ABG 1.1 mmol/L (1.1-1.4); Methemoglobin 0.7 % (0.4-1.5); Oxygen Device VENT; Oxygen Saturation ABG 90.1; PO2 ABG 64.3 mmHg (80.0-100.0); Potassium Level - ABG 3.4 mmol/L (3.5-5.0); Total Hemoglobin 14.4 g/dL (12-16)
--- NOTE | 2021-06-30 16:11 | P.CONIM_ITS ---
Providers/Reason For Consult Consulting Physician/Specialty*: Irwin Ocasio MD/ Pulmonary Critical Care Medicine Reason for Consult*: Acute hypoxic respiratory failure secondary to ARDS due to COVID-19 pneumonia impending respiratory failure on high flow nasal cannula Requesting Physician: Benson Diane MD Attending Physician: Benson Diane MD History of Present Illness History of Present Illness Clare Stewart is a 76 year old female with PMH dementia, hyperlipidemia hypertension, presented to [facility] due to cough, shortness of breath and confusion on 06/27/2021, admitted to ICU for acute hypoxic respiratory failure secondary to COVID-19 pneumonia. Upon chart review of admitting physician patient was quite forgetful during examination, she does not remember how long she has had the symptoms for and told that she did a home Covid test and was Covid positive. At that time denied cough, shortness of breath, subjective fevers, history of strokes, heart attacks, heart failure, diabetes, lung disease, smoking. In the ER patient required 6 L, CT angiogram of the chest showed no pulmonary embolism, but multilobar groundglass opacifications, did show right hilar consolidation probably combination pneumonia and adenopathy. Upon transfer to ICU her FiO2 requirements gradually increased and was placed on high flow nasal cannula 60 L 100%. Patient was becoming increasingly uncooperative. Pulmonary critical care consulted for AMS/acute hypoxic respiratory failure secondary to COVID-19 ARDS. As per patient's son-patient has had dementia for some time but for last year she has been having more episodes of forgetfulness and appears to be worsening. Patient remained full code she never received. Today I saw the patient at bedside multiple times Decision was made to intubate as she is saturating around 90% on HFNC 50 L at bedside. Post intubation she was sedated and paralyzed and plan is to prone her. She also had significant diarrhea and a rectal tube was placed. Other labs and imaging reviewed Review of Systems General: Reports: ROS unobtainable due to endotracheal tube, ROS unobtainable due to medical condition and ROS unobtainable due to mental status Meds/Allergies Home Medications and Allergies Home Medications Medication Instructions Recorded Confirmed Last Taken Type hydrochlorothiazide 25 mg PO QAM 06/27/21 06/27/21 Unknown History methocarbamol [Robaxin] 750 - 1,500 mg PO TID PRN 06/27/21 06/27/21 Unknown History pantoprazole [Protonix] 40 mg PO DAILY 06/27/21 06/27/21 Unknown History potassium chloride 5 meq PO DAILY 06/27/21 06/27/21 Unknown History pramipexole 0.5 mg PO DAILY 06/27/21 06/27/21 Unknown History prednisolone acetate 1 drp OPHTHALMIC (EYE) . DIRECTED 06/27/21 06/27/21 Unknown History simvastatin [Zocor] 20 mg PO DAILY 06/27/21 06/27/21 Unknown History sucralfate [Carafate] 1 g PO .BEFORE MEALS AND HS 06/27/21 06/27/21 Unknown History trazodone 50 mg PO BEDTIME 06/27/21 06/27/21 Unknown History Allergies Allergy/AdvReac Type Severity Reaction Status Date / Time Unable to Assess Allergy Unverified 06/27/21 13:08 Current Medications Current Medications Generic Name Dose Route Start Last Admin Trade Name Freq PRN Reason Stop Dose Admin Acetaminophen 650 mg 06/27/21 16:28 06/30/21 00:48 Acetaminophen 325 Mg Tablet PO 650 mg Q6H PRN Administration Mild/Mod Pain Or Temp >/= 101 Albuterol/Ipratropium 3 ml 06/27/21 16:28 06/30/21 14:00 Ipratropium-Albuterol 3 Ml Neb INHALATION 3 ml Q6H PRN Administration SHORTNESS OF BREATH Ascorbic Acid 500 mg 06/27/21 18:00 06/30/21 08:36 Ascorbic Acid 500 Mg Tablet PO 500 mg BID MARC Administration Budesonide 0.5 mg 06/27/21 20:00 06/30/21 08:22 Budesonide 0.5 Mg/2 Ml Neb INHALATION 0.5 mg BID.RESPIRATORY MARC Administration Dexamethasone 6 mg 06/28/21 15:30 06/30/21 15:49 Dexamethasone 10 Mg/Ml Inj IVP 6 mg Q24H MARC Administration Docusate Sodium 100 mg 06/27/21 18:00 06/30/21 08:36 Docusate Sodium 100 Mg Capsule PO 100 mg BID MARC Administration Enoxaparin Sodium 40 mg 06/27/21 17:00 06/29/21 16:41 Enoxaparin 40 Mg/0.4 Ml Syringe SUBCUT 40 mg Q24H MARC Administration Remdesivir 100 mg/ Sodium 80 mls @ 100 mls/hr 06/28/21 18:00 06/29/21 20:11 Chloride IV 07/01/21 18:47 Infused Q24H MARC Infusion Vancomycin HCl 750 mg/ Sodium 250 mls @ 250 mls/hr 06/28/21 10:30 06/29/21 17:02 Chloride IV Infused Q24H MARC Infusion Protocol As Directed Imipenem/Cilastatin Sodium 250 100 mls @ 200 mls/hr 06/28/21 11:30 06/30/21 14:43 mg/ Sodium Chloride IV Infused Q8H MARC Infusion Protocol Propofol 1,000 mg in 100 mls @ 0 mls/hr 06/30/21 13:00 06/30/21 16:10 Diprivan IV 40 mcg/kg/min .Q0M MARC 12.08 mls/hr Titration Protocol Per Protocol Fentanyl 1,000 mcg/ Sodium 100 mls @ 0 mls/hr 06/30/21 13:00 06/30/21 14:46 Chloride IV 50 mcg/hr .Q0M MARC 5 mls/hr Titration Protocol Per Protocol Lorazepam 0.5 mg 06/30/21 10:00 06/30/21 10:55 Lorazepam 2 Mg/Ml Inj 1 Ml IVP 0.5 mg Q4H PRN Administration ANXIETY Pantoprazole Sodium 40 mg 06/27/21 18:00 06/30/21 08:[address] 40 Mg Tablet PO 40 mg BID MARC Administration Polyethylene Glycol 17 gm 06/29/21 10:00 06/30/21 08:37 Polyethylene Glycol 3350 Pkt 17 Gm PO 17 gm DAILY MARC Administration Rocuronium Acra 50 mg 06/30/21 12:45 06/30/21 12:55 Rocuronium 10 Mg/Ml Inj 5ml IV 50 mg ONCE MARC Administration Sucralfate 1 gm 06/27/21 17:00 06/30/21 12:08 Sucralfate 1 Gm/10 Ml Oral Liq Udc PO Not Given AC&BEDTIME MARC Vitamin D 1,000 unit 06/28/21 09:00 06/30/21 08:36 Cholecalciferol (Vitamin D3) 1,000 Unit Tablet PO 1,000 unit DAILY MARC Administration Zinc Gluconate 50 mg 06/28/21 09:00 06/30/21 08:37 Zinc Gluconate 50 Mg Tablet PO 50 mg DAILY MARC Administration PFSH Acute PFSH: Medical History History of hyperlipidemia History of hypertension Surgical History No pertinent past surgical history Social History Smoking and tobacco status: never smoked Alcohol intake: never Substance/Drug Use: never Vitals/I&O/Wt Last Vital Signs Temp 98.1 F 06/30/21 05:28 Pulse 112 H 06/30/21 16:00 Resp 20 H 06/30/21 14:17 BP 157/114 06/30/21 16:00 Pulse Ox 90 06/30/21 16:00 06/30/21 06/30/21 06/30/21 06:59 14:59 22:59 Intake Total 550 / 1285 205.143 / 205.143 8.355 / 213.498 Output Total 500 / 1050 Balance 50 / 235 205.143 / 205.143 8.355 / 213.498 Physical Exam Narrative: EXAM NARRATIVE: PHYSICAL EXAM: General: lying in bed, sedated and intubated. HEENT:NCAT, PERRLA, EOMI Neck: Supple Lungs: Bilateral diffuse coarse abrasions Heart: s1/s2, RRR Abd: soft, NT, ND, BS + Normoactive Extremities: No edema JAVA WEB ENGINEER: sedated and limited JAVA WEB ENGINEER exam possible. SKIN: no rash LDA: # CVC: Right IJ 06/30/2021 # Aggarwal: 06/30/2021 Urinary Catheter Management^: Aggarwal: Cath Placed During This Visit: yes Reason for Continuing Indwelling Catheter: Accurate Measurement of Urinary Output in Critically Ill Patients Urinary Catheter Date of Insertion: 06/28/21 Urinary Catheter Time of Insertion: 18:41 Data Labs: Other Labs: Impressions Chest CTA 06/27/21 12:48 IMPRESSION: 1. No pulmonary embolism. 2. Multi lobar groundglass opacifications and consolidations from pneumonia associated with Covid 19. 3. RIGHT hilar consolidation probably combination of pneumonia and adenopathy. Consider follow-up chest CT angiogram after resolution of Covid 19 to be sure there is no underlying lymphadenopathy or persistent mass. 4. Mild LEFT heart enlargement. Head CT 06/27/21 15:05 IMPRESSION: No acute intracranial abnormality. Chest X-Ray 07/01/21 07:00 IMPRESSION: 1. An endotracheal tube is present, terminating above the franky by 3.5 cm. 2. Nasogastric tube has its proximal port in the lower esophagus, recommend advancement by 7-10 cm. 3. A right internal jugular central venous catheter is present, with its tip overlying the region of the superior vena cava and unchanged from prior exam. 4. Bilateral pulmonary opacities are again noted and appear unchanged. Radiation Dose CTDIVOL = (mGy): DLP = (mGy-cm) Micro: Micro: Microbiology 06/28/21 12:13 MRSA Culture - Fin al Nose A&P Assessment and plan (1) AMS (altered mental status): Status: Acute Qualifiers: Altered mental status type: disorientation Qualified Code(s): R41.0 - Disorientation, unspecified (2) Acute respiratory distress syndrome: Status: Acute (3) Acute respiratory failure with hypoxia: Status: Acute (4) Pneumonia due to 2019 novel coronavirus: Status: Acute (5) Acute encephalopathy: Status: Acute (6) BETSY (acute kidney injury): Status: Acute (7) Dementia: Status: Acute Qualifiers: Dementia type: unspecified type Dementia behavioral disturbance: without behavioral disturbance Qualified Code(s): F03.90 - Unspecified dementia without behavioral disturbance #Abdomen to status secondary to hypoxia and patient with underlying dementia #Acute hypoxic respiratory failure secondary to COVID-19 pneumonia #BETSY -Intubated 06/30/2021 -Currently sedated with propofol, fentanyl and plan is to paralyze and prone later today -ABG post intubation 7.36/43/64/24/90% on CMV 350/8/100 %FiO2 -We will continue lung protective strategies ARDS protocol-low tidal volume/high PEEP with target plateau pressures less than 30 and driving pressures less than 15 -Today day 5 remdesivir and currently dexamethasone 6 mg daily -Also receiving vancomycin for broader antibiotic coverage; patient pro Chau is high 4.34 at admission, cultures so far negative, sputum cultures pending -MRSA nares negative; I will recommend to discontinue vancomycin and imipenem, de-escalate antibiotics to Zosyn and complete 7 days treatment -Patient has diarrhea-recommended to send stool for C. difficile PCR; if positive will start p.o. vancomycin -BETSY resolved; I/O+ to 35 cc in last 24 hours-monitor I&O and try to keep net negative to even -Monitor electrolytes and renal functions -N.p.o. for now and start tube feeding at 15 mL/h when patient is not proned -GI prophylaxis PPI -Hold bowel regimen MiraLAX and Colace 100 mg p.o. twice daily as patient is having diarrhea -Sugars well controlled -DVT prophylaxis Lovenox -Prognosis guarded -Family updated Recommendations conveyed to hospitalist, RN, RT taking care of the patient Consult Attestations Medical Necessity Statement: AMS and acute hypoxic respiratory failure secondary to ARDS due to COVID-19 pneumonia Time Spent in Patient Care: Greater than 35 minutes (>than 50% of time spent in counselling and/or direct pt care on unit) . Critical Care Time: The high probability of a clinically significant, sudden or life threatening deterioration of the patient's [neurologic, pulmonary,] system(s) required my full and direct attention, intervention and personal management. The critical care time is as shown. This time is in addition to time spent performing any reported procedures but includes the following: [x] Data and vital sign review and interpretation [x] Patient assessment, examination and intervention [x] Documentation [x] Medication orders and management Critical Care Time (min): 110 Coding Level of Care Code New Pt Acute General Dentist for Chg Fwd Patient Type New History Comprehensive Exam Comprehensive Medical Decision Making High Complexity Diagnoses AMS (altered mental status) R41.0 Altered mental status type: disorientation Acute respiratory distress syndrome J80 Acute respiratory failure with hypoxia J96.01 Pneumonia due to 2019 novel coronavirus U07.1; J12.82 Acute encephalopathy G93.40 BETSY (acute kidney injury) N17.9 Dementia F03.90 Dementia type: unspecified type Dementia behavioral disturbance: without behavioral disturbance Time Spent (min) 110
--- NOTE | 2021-06-30 16:11 | PM.ACPR ---
Procedure/Consent Time out: Time Out Performed: Yes Consent: Consent for Procedure: Consent obtained from other (indicate) (VERBAL CONSENT OBTAINED FROM NOK), Emergency procedure, Risks & Benefits reviewed and Agrees to proceed with procedure Procedure Narrative: Endotracheal Intubation Procedure Note Time of the procedure:1250 Indication for endotracheal intubation: Impending respiratory failure secondary to ARDS due to COVID-19 pneumonia Consent: The patient was in immediate danger, and required the procedure emergently. Verbal consent obtained from NOK. Sedation: Etomidate 10 mg, Versed 2 mg, fentanyl 25 mg, Paralytic: rocuronium 50 mg Equipment: [place] scope blade 3 View: Grade 1 view Cricoid Pressure: No Number of attempts: 1 colorimeter, ETT location confirmed by condensation in ET tube, chest x-ray Irwin DatarMD Pulm/Critical Care Medicine Acute Procedures Epistaxis Control: Time out performed: Yes
--- NOTE | 2021-06-30 16:12 | P.PCN_ITS ---
Procedure/Consent Time out: Time Out Performed: Yes Consent: Consent for Procedure: Consent obtained from other (indicate) (Next of kin son), Risks & Benefits reviewed and Agrees to proceed with procedure Procedure Narrative: Procedure time: 1305 Procedure: Central venous access placement Indication: Multiple drips including sedation, paralytics, pressors Diving Supervisor(s): Irwin Ocasio MD Consent: Obtained from next of kin son and placed in the chart Time out called. [place] precautions applied. Site: Left internal jugular vein Catheter: 7 Fr, 20 cm, Triple Lumen Sutured at: 20 cm Anesthesia: 5 cc 1% lidocaine without epinephrine Description: Area prepped with chlorhexidine and draped in a universal sterile manner. The vessel anatomy and patency was examined by ultrasound probe which was covered with sterile probe cover. The needle was inserted into the vessel under ultrasound guidance, after venous blood aspirated the guidewire was inserted through the needle and kept in situ while the needle was removed. Placement of guidewire in the vein and in relation to the adjacent artery was verified by ultrasound. Catheter was then advanced over the guidewire after dilation and guidewire successfully removed.The catheter was sutured to the skin and sterile dressing with chlorhexidine patch placed. Number of attempts: 1 Dilator applied: 1, number of Dilations: 1 Placement Verified by: Ultrasound Blood draw from all ports and Ultrasound exam But post procedure chest x-ray showed the catheter has turned laterally at the head of the clavicle and the tip is in the left axillary region probably within the left basilic/axillary vein. EBL: 10 cc Complications: tip is in the left axillary region probably within the left basilic/axillary vein. Ultrasound guidance used: Yes Images saved: Yes Acute Procedures Epistaxis Control: Time out performed: Yes
[2021-06-30 16:16] LABS: Vancomycin Trough < 4.0 ug/mL (10-15)
--- NOTE | 2021-06-30 16:31 | PC.NUTR ---
Nutrition recommendations: On vent, oral diet remains in place, recommend clarify diet to NPO. Unclear at this time whether enteral nutrition will be warranted. NGT also appears inappropriately placed at this time. If appropriate at later time and consistent with goals of care, would suggest Osmolite 1.2, starting at 10 ml/hr, increasing by 10 ml/hr q 8 hrs to goal rate of 35 ml/hr, to provide 1008 kcal, 46 g protein, and 689 ml H2O, with additional free water flushes per MD discretion. 319 additional kcal/day from propofol at current rate. See full RD assessment for further details.
--- NOTE | 2021-06-30 16:58 | XRR_ITS ---
PROCEDURE INFORMATION: Exam: XR Chest Exam date and time: 06/30/2021 4:58 PM Age: 76 years old Clinical indication: Device placement; Other: Ett, central line, and ogt; Prior surgery; Additional info: Ett, central line and ogt TECHNIQUE: Imaging protocol: XR of the chest. Views: 1 view. Total images: 1 COMPARISON: CR XR chest 1V portable [id number] 06/30/2021 1:49 PM FINDINGS: Tubes, catheters and devices: Endotracheal tube in satisfactory position tip above the franky. Nasogastric tube tip below the diaphragm at the level of the body of the stomach. Right internal jugular central venous catheter tip right atrium. 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 Rare calcified granuloma of antecedent disease. Pleural spaces: No pleural effusion. No pneumothorax. Heart/Mediastinum: Cardiac structures and configuration with arteriosclerosis. Bones/joints: Bilateral shoulder prostheses. Scoliosis. XR/XR chest 1V portable [id number] IMPRESSION: Life support lines as detailed in text above. Radiation Dose CTDIVOL = (mGy): DLP = (mGy-cm)
[2021-06-30] MEDS: enoxaparin 40 mg/0.4 mL Syringe SUBCUT (17:06)
[2021-06-30] MEDS: remdesivir 100 MG in sodium chloride 0.9% (100 ml) 80 ML IV (17:06)
[2021-06-30] MEDS: vancomycin 750 MG in sodium chloride 0.9% 250 ML 250 MG IV (17:37)
[2021-06-30] MEDS: pantoprazole 40 mg SDV IVP (18:06)
--- NOTE | 2021-06-30 18:08 | PC.NURSE ---
Addendum entered by Osvaldo Farmer RN 06/30/21 18:10: Md gave ok to use CVL and OGT. Original Note: Shift Note Frequent safety and comfort rounds continue. Orders and/or nursing care completed as indicated. Patient monitored for response to intervention and treatment(s). Education provided includes treatment plan, medications, line and ETT placement and use. son verbalizes understanding. VSS at this time. Gtts infusing per orders. Bis monitor placed on pt, bis 66. Will monitor or adequate sedation. orders to paralyze and prone pt ana maria. Nimbex at bedside. FMS, martinez draining freely to BSD. No other issues noted. Will continue to monitor.
--- NOTE | 2021-06-30 18:23 | P.PCN_ITS ---
Procedure/Consent Time out: Time Out Performed: Yes Consent: Consent for Procedure: Consent obtained from other (indicate) (Son next of kin), Risks & Benefits reviewed and Agrees to proceed with procedure Procedure Narrative: Procedure time: 1544 Procedure: Right internal jugular Central venous access placement Indication: Post intubation left internal jugular central line placed and subsequent chest x-ray showed malposition with tip of the catheter deviated into left axillary/basilar vein. Site was removed and another consent obtained to place right internal jugular central line as patient needs multiple drips including sedation, paralytics, pressors Railroad Engineer(s): Irwin Knightr Consent: Obtained from next of kin son and placed in the chart Time out called. [place] precautions applied. Site: Left internal jugular vein Catheter: 7 Fr, 20 cm, Triple Lumen Sutured at: 20 cm Anesthesia: 5 cc 1% lidocaine without epinephrine Description: Area prepped with chlorhexidine and draped in a universal sterile manner. The vessel anatomy and patency was examined by ultrasound probe which was covered with sterile probe cover. The needle was inserted into the vessel under ultrasound guidance, after venous blood aspirated the guidewire was inserted through the needle and kept in situ while the needle was removed. Placement of guidewire in the vein and in relation to the adjacent artery was verified by ultrasound. Catheter was then advanced over the guidewire after dilation and guidewire successfully removed.The catheter was sutured to the skin and sterile dressing with chlorhexidine patch placed. Number of attempts: 1 Dilator applied: 1, number of Dilations: 1 Placement Verified by: Ultrasound; Blood draw from all ports and chest x-ray EBL: 10 cc Complications: None Ultrasound guidance used: Yes Images saved: Yes Acute Procedures Epistaxis Control: Time out performed: Yes
[2021-06-30 20:09] LABS: Basophils % 0.3 %; Hematocrit 38.2 % (37.0-47.0); Hemoglobin 12.1 g/dL (11.5-15.3); Lymphocytes # 0.4 10^3/uL (0.8-4.8); Lymphocytes % 2.7 %; Mean Corpuscular HGB Conc 31.7 g/dL (30.0-36.0); Mean Corpuscular Hemoglobin 28.3 pg (28.0-34.0); Mean Corpuscular Volume 89.5 fl (81-99); Mean Platelet Volume 11.4 fL (7.4-10.4); Monocytes # 0.4 10^3/uL (0.2-0.9); Monocytes % 2.9 %; Neutrophils # 12.91 10^3/uL (1.8-7.7); Neutrophils % 92.7 %; Nucleated Red Blood Cells % 0 %; Platelet Count 197 10^3/cmm (130-400); Red Blood Count 4.27 10^6/uL (4.1-5.3); Red Cell Distribution Width 13.6 % (12.1-15.1); White Blood Count 13.9 10^3/uL (4.0-10.0)
[2021-06-30 20:25] LABS: INR 1.38 (0.8-1.2)
[2021-06-30 20:31] LABS: Lactate (Lactic Acid level) 1.4 mmol/L (0.5-2.2)
[2021-06-30] MEDS: cisatracurium 100 MG in sodium chloride 0.9% 50 ML IV (20:32)
[2021-06-30] MEDS: propofol 1,000 MG/100 ML INJ 15.11 MG IV (20:44)
[2021-06-30 20:53] LABS: NT Pro B Type Natriuretic Pept 4436 pg/mL (0-450); Procalcitonin 1.76 ng/mL (0-0.5)
[2021-06-30 21:04] LABS: Creatine Phosphokinase 74 U/L (26-192); Ferritin 677 ng/mL (15-150)
[2021-07-01] VITALS (70 sets, daily range): BP systolic 89–130; BP diastolic 52–70; PULSE 79–101; RESP 14–16; TEMP 36–36.9; O2SAT 76–100
[2021-07-01] MEDS: propofol 1,000 MG/100 ML INJ 15.11 MG IV ×2 (02:31→06:11)
[2021-07-01] MEDS: ipratropium-albuterol 3 mL Neb INHALATION ×4 (02:44→20:38)
[2021-07-01 04:05] LABS: ABG PCO2 50.1 mmHg (35-45); ABG PH Result 7.26 (7.35-7.45); Arterial Blood Gas Hematocrit 38.6 % (37-47); Base Excess ABG -5.1 mmol/L (-2.0-2.0); Blood Gas Allen Test Pos; Blood Gas Sample Type Arterial; HCO3 ABG 22.3 mmol/L (22-26); PO2 ABG 99.2 mmHg (80.0-100.0)
[2021-07-01 04:07] LABS: Blood Gas Sample Site Radial, right; Blood Gas Tidal Volume 0.35; Oxygen Device VENT
[2021-07-01 05:18] LABS: Basophils % 0.2 %; Hematocrit 39.4 % (37.0-47.0); Hemoglobin 11.9 g/dL (11.5-15.3); Lymphocytes # 0.4 10^3/uL (0.8-4.8); Lymphocytes % 4.1 %; Mean Corpuscular HGB Conc 30.2 g/dL (30.0-36.0); Mean Corpuscular Volume 92.7 fl (81-99); Mean Platelet Volume 11.9 fL (7.4-10.4); Monocytes # 0.3 10^3/uL (0.2-0.9); Monocytes % 2.8 %; Neutrophils # 8.91 10^3/uL (1.8-7.7); Neutrophils % 91.3 %; Nucleated Red Blood Cells % 0 %; Platelet Count 165 10^3/cmm (130-400); Red Blood Count 4.25 10^6/uL (4.1-5.3); Red Cell Distribution Width 13.9 % (12.1-15.1); White Blood Count 9.8 10^3/uL (4.0-10.0)
[2021-07-01 05:46] LABS: INR 1.42 (0.8-1.2)
[2021-07-01 05:53] LABS: Alanine Aminotransferase 17 U/L (0-33); Albumin Level 2.8 g/dL (3.5-5.2); Alkaline Phosphatase 90 IU/L (35-105); Aspartate Amino Transferase 24 U/L (0-32); Blood Urea Nitrogen 33 mg/dL (8-23); Calcium 7.7 mg/dL (8.5-10.5); Carbon Dioxide 21 mmol/L (22-29); Chloride 108 mmol/L (98-107); Globulin 2.7 g/dL (1.3-4.6); Glucose 240 mg/dL (65-115); NT Pro B Type Natriuretic Pept 4348 pg/mL (0-450); Osmolality Calculated 311 mOsm/kg (285-295); Sodium 143 mmol/L (136-145); Total Bilirubin 0.3 mg/dL (0.15-1.2); Total Protein 5.5 g/dL (6.6-8.7)
[2021-07-01 05:56] LABS: Creatine Phosphokinase 62 U/L (26-192); NT Pro B Type Natriuretic Pept 4404 pg/mL (0-450)
[2021-07-01] MEDS: sucralfate 1 gm/10 mL Oral Liq UDC PO ×4 (06:00→22:51)
[2021-07-01] MEDS: pantoprazole 40 mg SDV IVP ×2 (06:00→16:59)
--- NOTE | 2021-07-01 06:25 | PC.NURSE ---
Patient remains intubated, sedated. Paralytic initiated at approx. 2030, 4/4 twitches TOF at 5mA noted. TOF checked q2h. Subsequent TOF revealed 0/4 twitches, decision to keep initiated rate of paralytic infusing as it was a very low rate (0.91mL/hr) in combination with TOF monitor unreliable. BIS 50-60 before versed infusion started, <40 after, therefore paralytic started. Proned with RT at approx. 2030. Uneventful. AM labs noted. Afebrile. VSS.
--- NOTE | 2021-07-01 07:00 | XRR_ITS ---
PROCEDURE INFORMATION: Exam: XR Chest Exam date and time: 07/01/2021 7:00 AM Age: 76 years old Clinical indication: Shortness of breath; Additional info: SOB TECHNIQUE: Imaging protocol: XR of the chest. Views: 1 view. Total images: 1 COMPARISON: CR (CHEST, ) 06/30/2021 4:54 PM FINDINGS: Tubes, catheters and devices: An endotracheal tube is present, terminating above the franky by 3.5 cm. Nasogastric tube has its proximal port in the lower esophagus, recommend advancement by 7-10 cm. A right internal jugular central venous catheter is present, with its tip overlying the region of the superior vena cava and unchanged from prior exam. Lungs: Bilateral pulmonary opacities are again noted and appear unchanged. Pleural spaces: Unremarkable. No pleural effusion. No pneumothorax. Heart/Mediastinum: Heart size is stable when compared to the prior exam. Bones/joints: Bilateral shoulder arthroplasties. Osseous structures are unchanged from the prior exam. Organs: Surgical clips are present in the right upper quadrant which are suggestive of prior cholecystectomy. XR/XR chest 1V portable [id number] IMPRESSION: 1. An endotracheal tube is present, terminating above the franky by 3.5 cm. 2. Nasogastric tube has its proximal port in the lower esophagus, recommend advancement by 7-10 cm. 3. A right internal jugular central venous catheter is present, with its tip overlying the region of the superior vena cava and unchanged from prior exam. 4. Bilateral pulmonary opacities are again noted and appear unchanged. Radiation Dose CTDIVOL = (mGy): DLP = (mGy-cm)
[2021-07-01] MEDS: lidocaine 1% 5 ML in potassium chloride premix 100 ML 25 ML IV (07:14)
--- NOTE | 2021-07-01 07:30 | PC.NURSE ---
0700 Report received, assessment completed. VSS. Pt remains intubated. Vent settings: Vt 350, Fio2 55%, RR 14, Peep 10. 23cm at lip. Bis monitor in place, bis 8 upon arrival. Sedation decreased per protocol. TOF 4/4, paralytic at 0.3mcg/kg/min. OGT remains in place, clamped. Gtts infusing per orders. FMS and martinez in place and draining freely. Will continue to monitor.
[2021-07-01] MEDS: budesonide 0.5 mg/2 mL Neb INHALATION ×2 (07:58→20:38)
[2021-07-01] MEDS: cholecalciferol (vitamin D3) 1,000 unit Tablet 1000 UNIT PO (08:28)
[2021-07-01] MEDS: zinc gluconate 50 mg Tablet PO (08:28)
[2021-07-01] MEDS: ascorbic acid 500 mg Tablet PO ×2 (08:28→16:59)
[2021-07-01] MEDS: docusate sodium 100 mg Capsule PO (08:29)
[2021-07-01] MEDS: polyethylene glycol 3350 Pkt 17 gm PO (08:29)
[2021-07-01] MEDS: FUROsemide 10 mg/mL SDV 4mL 40 MG IVP (08:29)
--- NOTE | 2021-07-01 09:07 | PM.PN ---
Subjective Subjective: Interval history: -Patient seen at bedside today -Patient is seen in prone position and saturating 93% on FiO2 65% -Plan is to return him to supine position today afternoon will taper off paralytic and sedation and start him on feeding for 8 hours -Other labs and imaging reviewed Medications: Reviewed: Yes Vitals/I&O/Wt Last Vital Signs Temp 97.2 F L 07/01/21 08:00 Pulse 93 07/01/21 09:00 Resp 14 07/01/21 08:00 BP 123/67 07/01/21 09:00 Pulse Ox 94 07/01/21 09:00 06/30/21 07/01/21 07/01/21 22:59 06:59 14:59 Intake Total 706.635 / 911.778 838.873 / 1750.651 Output Total 1000 / 1000 550 / 1550 Balance -293.365 / -88.222 288.873 / 200.651 Physical Exam Narrative: EXAM NARRATIVE: PHYSICAL EXAM: General: lying in bed, sedated and intubated, proned HEENT:NCAT, PERRLA, EOMI Neck: Supple Lungs: Bilateral diffuse crackles Heart: s1/s2, RRR Abd: soft, NT, ND, BS + Normoactive Extremities: No edema 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 SKIN: no rash LDA: # CVC: Right internal jugular 06/30/2021 # Aggarwal: 06/30/2021 Urinary Catheter Management^: Aggarwal: Cath Placed During This Visit: yes Reason for Continuing Indwelling Catheter: Accurate Measurement of Urinary Output in Critically Ill Patients Urinary Catheter Date of Insertion: 06/28/21 Urinary Catheter Time of Insertion: 18:41 Data : 07/01/21 04:05 07/01/21 04:05 Other Labs: Laboratory Results WBC 9.8 10^3/uL (4.0-10.0) 07/01/21 04:05 RBC 4.25 10^6/uL (4.1-5.3) 07/01/21 04:05 Hgb 11.9 g/dL (11.5-15.3) 07/01/21 04:05 Hct 39.4 % (37.0-47.0) 07/01/21 04:05 MCV 92.7 fl (81-99) 07/01/21 04:05 MCH 28.0 pg (28.0-34.0) 07/01/21 04:05 MCHC 30.2 g/dL (30.0-36.0) 07/01/21 04:05 RDW 13.9 % (12.1-15.1) 07/01/21 04:05 Plt Count 165 10^3/cmm (130-400) 07/01/21 04:05 MPV 11.9 fL (7.4-10.4) H 07/01/21 04:05 Neut % (Auto) 91.3 % 07/01/21 04:05 Lymph % (Auto) 4.1 % 07/01/21 04:05 [place] % (Auto) 2.8 % 07/01/21 04:05 Eos % (Auto) 0.0 % 07/01/21 04:05 Baso % (Auto) 0.2 % 07/01/21 04:05 Neut # (Auto) 8.91 10^3/uL (1.8-7.7) H 07/01/21 04:05 Lymph # (Auto) 0.4 10^3/uL (0.8-4.8) L 07/01/21 04:05 [place] # (Auto) 0.3 10^3/uL (0.2-0.9) 07/01/21 04:05 Eos # (Auto) 0.0 10^3/uL (0.0-0.8) 07/01/21 04:05 Baso # (Auto) 0.0 10^3/uL (0.0-0.1) 07/01/21 04:05 Nucleated RBC % (auto) 0 % 07/01/21 04:05 Nucleated RBCs # 0.0 /100WBC 07/01/21 04:05 PT 17.70 SECONDS (12.1-14.9) H 07/01/21 04:05 INR 1.42 (0.8-1.2) H 07/01/21 04:05 Specimen Type Arterial 07/01/21 03:51 Sample Site Radial, right 07/01/21 03:51 ABG pH 7.26 (7.35-7.45) L 07/01/21 03:51 ABG pCO2 50.1 mmHg (35-45) H 07/01/21 03:51 ABG pO2 99.2 mmHg (80.0-100.0) 07/01/21 03:51 ABG HCO3 22.3 mmol/L (22-26) 07/01/21 03:51 ABG O2 Saturation 90.1 06/30/21 15:39 ABG Base Excess -5.1 mmol/L (-2.0-2.0) L 07/01/21 03:51 Tr Test Pos 07/01/21 03:51 A-a O2 Gradient 77.1 mmHg (5-10) H 06/30/21 15:39 Hematocrit 38.6 % (37-47) 07/01/21 03:51 Hgb O2 Saturation 89.1 % (95-100) L 06/30/21 15:39 Carboxyhemoglobin 0.4 %THgb (0.4-20.1) 06/30/21 15:39 Methemoglobin 0.7 % (0.4-1.5) 06/30/21 15:39 Total Hemoglobin 14.4 g/dL (12-16) 06/30/21 15:39 Sodium 149.0 mmol/L (131-143) H 06/30/21 15:39 Potassium 3.4 mmol/L (3.5-5.0) L 06/30/21 15:39 Glucose 120.0 mg/dL (70-115) H 06/30/21 15:39 Ionized Calcium 1.1 mmol/L (1.1-1.4) 06/30/21 15:39 O2 Delivery Device Vent 07/01/21 03:51 O2 Liters/Min 60.0 % 06/30/21 05:09 FiO2 65.0 % 07/01/21 03:51 Tidal Volume 0.35 07/01/21 03:51 PEEP 10.0 cmH20 07/01/21 03:51 Jewel Diameter Gauger ID Hinja 07/01/21 03:51 Sodium 143 mmol/L (136-145) 07/01/21 04:05 Potassium 3.0 mmol/L (3.5-5.1) L 07/01/21 04:05 Chloride 108 mmol/L (98-107) H 07/01/21 04:05 Carbon Dioxide 21 mmol/L (22-29) L 07/01/21 04:05 Anion Gap 17.0 (5-19) 07/01/21 04:05 BUN 33 mg/dL (8-23) H 07/01/21 04:05 Creatinine 1.3 mg/dL (0.5-0.9) H 07/01/21 04:05 GFR Calculation Not Reportable 07/01/21 04:05 Glucose 240 mg/dL (65-115) H 07/01/21 04:05 Calculated Osmolality 311 mOsm/kg (285-295) H 07/01/21 04:05 Lactic Acid 2.4 mmol/L (0.5-2.2) H 06/27/21 12:29 Lactic Acid (Sepsis) 1.3 mmol/L (0.5-2.2) 06/27/21 15:20 Lactate 1.4 mmol/L (0.5-2.2) 06/30/21 19:45 Calcium 7.7 mg/dL (8.5-10.5) L 07/01/21 04:05 Phosphorus 2.5 mg/dL (2.5-4.5) 06/30/21 11:42 Magnesium 2.1 mg/dL (1.7-2.3) 06/30/21 11:42 Ferritin 677 ng/mL (15-150) H 06/30/21 19:45 Total Bilirubin 0.3 mg/dL (0.15-1.2) 07/01/21 04:05 AST 24 U/L (0-32) 07/01/21 04:05 ALT 17 U/L (0-33) 07/01/21 04:05 Alkaline Phosphatase 90 IU/L (35-105) 07/01/21 04:05 Creatine Kinase 62 U/L (26-192) 07/01/21 04:05 Troponin T Baseline 45 ng/L (0-10) H 06/27/21 15:20 Troponin T 120 Minute 48.75 ng/L (0-10) H 06/27/21 17:32 Delta Troponin T 3.75 ABS# (0-10) 06/27/21 17:32 Troponin T Hi Sens 6Hr 46.83 ng/L (0-10) H 06/27/21 21:03 Troponin T Hi Sens 6Hr Delta 1.83 ng/L (0-12) 06/27/21 21:03 C-Reactive Protein 190.0 mg/L (0.0-4.9) H 06/30/21 11:42 NT-Pro-B Natriuret Pep 4348 pg/mL (0-450) H 07/01/21 04:05 NT-Pro-B Natriuret Pep 4404 pg/mL (0-450) H 07/01/21 04:05 Total Protein 5.5 g/dL (6.6-8.7) L 07/01/21 04:05 Albumin 2.8 g/dL (3.5-5.2) L 07/01/21 04:05 Globulin 2.7 g/dL (1.3-4.6) 07/01/21 04:05 Lipase 57 U/L (13-60) 06/27/21 12:29 Procalcitonin 1.76 ng/mL (0-0.5) H 06/30/21 19:45 TSH 1.52 uIU/mL (0.27-4.20) 06/28/21 05:14 Urine Color Straw (Yellow) 06/27/21 12:37 Urine Appearance Hazy (CLEAR) A 06/27/21 12:37 Urine pH 6.5 (5-7) 06/27/21 12:37 Ur Specific [place] 1.010 (1.005-1.030) 06/27/21 12:37 Urine Protein 2+ (Negative) H 06/27/21 12:37 Urine Glucose (UA) Norm (Normal) 06/27/21 12:37 Urine Ketones Negative (Negative) 06/27/21 12:37 Urine Blood 2+ (Negative) H 06/27/21 12:37 Urine Nitrate Negative (Negative) 06/27/21 12:37 Urine Bilirubin Neg (Negative) 06/27/21 12:37 Urine Urobilinogen Norm mg/dL (Negative) 06/27/21 12:37 Ur Leukocyte Esterase Negative (Negative) 06/27/21 12:37 Urine RBC 0-4 /hpf (0-2) H 06/27/21 12:37 Urine WBC 0-4 /hpf (0-5) H 06/27/21 12:37 Ur Squamous Epith Cells 5-10 /hpf (0-5) H 06/27/21 12:37 Amorphous Sediment Not Reportable 06/27/21 12:37 Urine Bacteria Trace /hpf (NONE) 06/27/21 12:37 Urine Mucus Trace /hpf 06/27/21 12:37 Vancomycin Trough < 4.0 ug/mL (10-15) L 06/30/21 15:20 Nasal/Oral COVID-19 PCR Detected H 06/27/21 13:46 SARS-CoV-2 Ag (Rapid) Positive (Negative) H 06/27/21 13:46 Impressions Chest CTA 06/27/21 12:48 IMPRESSION: 1. No pulmonary embolism. 2. Multi lobar groundglass opacifications and consolidations from pneumonia associated with Covid 19. 3. RIGHT hilar consolidation probably combination of pneumonia and adenopathy. Consider follow-up chest CT angiogram after resolution of Covid 19 to be sure there is no underlying lymphadenopathy or persistent mass. 4. Mild LEFT heart enlargement. Head CT 06/27/21 15:05 IMPRESSION: No acute intracranial abnormality. Chest X-Ray 07/01/21 07:00 IMPRESSION: 1. An endotracheal tube is present, terminating above the franky by 3.5 cm. 2. Nasogastric tube has its proximal port in the lower esophagus, recommend advancement by 7-10 cm. 3. A right internal jugular central venous catheter is present, with its tip overlying the region of the superior vena cava and unchanged from prior exam. 4. Bilateral pulmonary opacities are again noted and appear unchanged. Radiation Dose CTDIVOL = (mGy): DLP = (mGy-cm) Micro: Microbiology 06/30/21 17:35 Gram Stain - Final Sputum - Endotracheal Tube Aspirate A&P Assessment and plan (1) AMS (altered mental status): Status: Acute Qualifiers: Altered mental status type: disorientation Qualified Code(s): R41.0 - Disorientation, unspecified (2) Acute respiratory distress syndrome: Status: Acute (3) Acute respiratory failure with hypoxia: Status: Acute (4) Pneumonia due to 2019 novel coronavirus: Status: Acute (5) Acute encephalopathy: Status: Acute (6) BETSY (acute kidney injury): Status: Acute (7) Dementia: Status: Acute Qualifiers: Dementia type: unspecified type Dementia behavioral disturbance: without behavioral disturbance Qualified Code(s): F03.90 - Unspecified dementia without behavioral disturbance #Abdomen to status secondary to hypoxia and patient with underlying dementia #Acute hypoxic respiratory failure secondary to COVID-19 pneumonia #BETSY -Intubated 06/30/2021 -Currently sedated with propofol, fentanyl and paralyzed and prone position -ABG 7.2 50/99/22/90% on CMV 350/65%/10-increased TV to 380 -We will continue lung protective strategies ARDS protocol-low tidal volume/high PEEP with target plateau pressures less than 30 and driving pressures less than 15 -Today day 5 remdesivir and currently dexamethasone 6 mg daily -Also receiving vancomycin for broader antibiotic coverage; patient pro Chau is high 4.34 at admission, cultures so far negative, sputum cultures pending -MRSA nares negative; I will recommend to discontinue vancomycin and imipenem, de-escalate antibiotics to Zosyn and complete 7 days treatment -Patient has diarrhea-recommended to send stool for C. difficile PCR; if positive will start p.o. vancomycin -BNP > 4000-ordered echo and Lasix 40 mg given -BETSY ; I/O+ 200 cc in last 24 hours-monitor I&O and try to keep net negative to even -Potassium 3-supplemented; monitor electrolytes and renal functions -N.p.o. for now and start tube feeding at 15 mL/h when patient is not proned -GI prophylaxis PPI -Held bowel regimen MiraLAX and Colace 100 mg p.o. twice daily as patient is having diarrhea -Sugars well controlled -DVT prophylaxis Lovenox -Prognosis guarded -Family updated Recommendations conveyed to hospitalist, RN, RT taking care of the patient Attestations Medical Necessity Statement*: AMS and acute hypoxic respiratory failure secondary to ARDS due to COVID-19 pneumonia Time Spent in Patient Care: Greater than 35 minutes (>than 50% of time spent in counselling and/or direct pt care on unit). Critical Care Time: The high probability of a clinically significant, sudden or life threatening deterioration of the patient's [neurologic, pulmonary] system(s) required my full and direct attention, intervention and personal management. The critical care time is as shown. This time is in addition to time spent performing any reported procedures but includes the following: [x] Data and vital sign review and interpretation [x] Patient assessment, examination and intervention [x] Documentation [x] Medication orders and management Critical Care Time (min): 45 Coding Level of Care Code Established Pt Acute [place] for Chg Fwd Patient Type Established History Comprehensive Exam Comprehensive Medical Decision Making High Complexity Diagnoses AMS (altered mental status) R41.0 Altered mental status type: disorientation Acute respiratory distress syndrome J80 Acute respiratory failure with hypoxia J96.01 Pneumonia due to 2019 novel coronavirus U07.1; J12.82 Acute encephalopathy G93.40 BETSY (acute kidney injury) N17.9 Dementia F03.90 Dementia type: unspecified type Dementia behavioral disturbance: without behavioral disturbance Time Spent (min) 45
[2021-07-01] MEDS: vancomycin 750 MG in sodium chloride 0.9% 250 ML 250 MG IV (10:14)
--- NOTE | 2021-07-01 13:24 | PC.NURSE ---
Pt supined at 1300. Tolerated well. Sedation decreased per orders, paralytic turned off. OGT hooked to LWS, moderate amount of yellow stomach contents returned. Bed bath given, martinez care and oral care completed. BIS disconnected at this time. Will continue to monitor.
--- NOTE | 2021-07-01 14:47 | PM.PN ---
Subjective Subjective: Interval history: Due to increasing oxygen requirements, and encephalopathy yesterday afternoon patient was intubated placed mechanical ventilation, central line placed, started on prone positioning This morning patient was seen, currently she is in prone position, afebrile overnight, normotensive, afebrile, on 55% FiO2 Vitals/I&O/Wt Last Vital Signs Temp 96.8 F L 07/01/21 12:00 Pulse 80 07/01/21 14:26 Resp 14 07/01/21 14:20 BP 122/67 07/01/21 12:00 Pulse Ox 92 07/01/21 14:20 06/30/21 07/01/21 07/01/21 22:59 06:59 14:59 Intake Total 706.635 / 911.778 838.873 / 1750.651 686.483 / 686.483 Output Total 1000 / 1000 550 / 1550 Balance -293.365 / -88.222 288.873 / 200.651 686.483 / 686.483 Physical Exam Narrative: EXAM NARRATIVE: Intubated, sedated, on prone positioning Eye: COMMON NORMALS: Equal, round and reactive pupils present PUPIL: Yes Equal, round and reactive pupils present Resp: COMMON NORMALS: normal respiratory effort, No retractions, No use of accessory muscles and clear to auscultation bilaterally AUSCULTATION: clear to auscultation bilaterally Cardio: COMMON NORMALS: regular rate, regular rhythm, S1 normal heart sound present and S2 normal heart sound present RATE: regular rate RHYTHM: regular rhythm HEART SOUNDS: S1 normal heart sound present and S2 normal heart sound present GI: COMMON NORMALS: Normal to inspection, nondistended, normoactive bowel sounds present, Soft to palpation and non-tender PALPATION: Yes Soft to palpation Extremity: COMMON NORMALS: no pedal edema Urinary Catheter Management^: Aggarwal: Cath Placed During This Visit: yes Reason for Continuing Indwelling Catheter: Accurate Measurement of Urinary Output in Critically Ill Patients Urinary Catheter Date of Insertion: 06/28/21 Urinary Catheter Time of Insertion: 18:41 Data : 07/01/21 04:05 07/01/21 04:05 Micro: Microbiology 06/30/21 17:35 Gram Stain - Final Sputum - Endotracheal Tube Aspirate A&P Assessment and plan (1) Pneumonia due to 2019 novel coronavirus: -Acute respiratory distress syndrome -Acute hypoxic respiratory failure -Acute encephalopathy with underlying dementia -BETSY -secondary to COVID-19 pneumonia -Intubated 06/30/2021 Plan: -Currently being managed in ICU -Intubated, sedated, propofol, fentanyl, Versed for sedation -Minimize tidal volume, minimize FiO2, optimize PEEP -Prone positioning 16 hours, with Nimbex, when supine and minimize sedation -Remdesivir day 5 of 5 -Decadron day 5 of 10 -Pro-Chau 1.76, CT of the chest shows right hilar consolidation commendation of pneumonia and adenopathy, for now as there is concerns for possible bacterial infection will hold off on Actemra and baricitinib -BNP elevated, 1 dose Lasix today, cardiac echo pending -Replace electrolytes as needed -Continue vancomycin and Primaxin -DuoNeb, budesonide -Sputum cultures, blood cultures -Vitamin C, zinc, vitamin D -Protonix for GI prophylaxis -Lovenox for DVT prophylaxis -Patient is a full code -Pulmonary critical care on consult Status: Acute (2) BETSY (acute kidney injury): Status: Acute (3) Acute encephalopathy: Status: Acute (4) Acute respiratory failure with hypoxia: Status: Acute (5) Acute respiratory distress syndrome: Status: Acute Attestations Medical Necessity Statement*: Patient requires hospitalization due to pneumonia secondary COVID-19, acute respiratory distress syndrome, Coding Level of Care Code 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
[2021-07-01] MEDS: dexamethasone 10 mg/mL INJ 6 MG IVP (14:54)
--- NOTE | 2021-07-01 15:16 | PC.NURSE ---
Tube feeds started per orders at 15ml/h with 60ml/h h20 flushes. Jevity 1.2. Oral care performed. VSS. Will monitor.
[2021-07-01] MEDS: enoxaparin 40 mg/0.4 mL Syringe SUBCUT (16:23)
[2021-07-01] MEDS: propofol 1,000 MG/100 ML INJ 6.04 MG IV (16:56)
[2021-07-01] MEDS: remdesivir 100 MG in sodium chloride 0.9% (100 ml) 80 ML IV (16:59)
--- NOTE | 2021-07-01 17:45 | PC.NURSE ---
Shift Note Frequent safety and comfort rounds continue. Orders and/or nursing care completed as indicated. Patient monitored for response to intervention and treatment(s). Education provided includes treatment plan, medication regimen and oxygen therapy. Son verbalizes understanding. Gtts infusing per orders. Vent settings per RT. Aggarwla and FMS draining freely to BSD. Will continue to monitor.
[2021-07-01] MEDS: piperacillin-tazobactam 3.375 GM in sodium chloride 0.9% (plus) 50 ML IV (18:04)
--- NOTE | 2021-07-01 20:23 | PC.NURSE ---
BIS monitoring placed, BIS >50, sedation increased to achieve BIS <40.
[2021-07-02] VITALS (62 sets, daily range): BP systolic 79–136; BP diastolic 49–77; PULSE 74–132; RESP 14–18; TEMP 33.7–37.7; O2SAT 85–100
[2021-07-02] MEDS: propofol 1,000 MG/100 ML INJ 12.08 MG IV (00:57)
[2021-07-02] MEDS: piperacillin-tazobactam 3.375 GM in sodium chloride 0.9% (plus) 50 ML IV (01:59)
[2021-07-02] MEDS: ipratropium-albuterol 3 mL Neb INHALATION ×4 (03:22→20:04)
[2021-07-02 03:50] LABS: ABG PCO2 45.8 mmHg (35-45); Arterial Blood Gas Hematocrit 35.8 % (37-47); Base Excess ABG -3.9 mmol/L (-2.0-2.0); Blood Gas Allen Test Pos; Blood Gas Sample Site Radial, left; Blood Gas Sample Type Arterial; Blood Gas Tidal Volume 0.38; HCO3 ABG 22.5 mmol/L (22-26); Oxygen Device VENT; PO2 ABG 74.7 mmHg (80.0-100.0)
[2021-07-02 05:22] LABS: Basophils % 0.2 %; Hemoglobin 10.9 g/dL (11.5-15.3); Lymphocytes # 0.3 10^3/uL (0.8-4.8); Lymphocytes % 2.5 %; Mean Corpuscular HGB Conc 30.3 g/dL (30.0-36.0); Mean Corpuscular Volume 92.5 fl (81-99); Mean Platelet Volume 12.4 fL (7.4-10.4); Monocytes # 0.3 10^3/uL (0.2-0.9); Monocytes % 2.9 %; Neutrophils # 10.21 10^3/uL (1.8-7.7); Neutrophils % 90.6 %; Nucleated Red Blood Cells % 0 %; Platelet Count 165 10^3/cmm (130-400); Red Blood Count 3.89 10^6/uL (4.1-5.3); White Blood Count 11.3 10^3/uL (4.0-10.0)
--- NOTE | 2021-07-02 05:46 | PC.NURSE ---
EKG performed while patient was proned.
[2021-07-02 05:48] LABS: Vancomycin Trough 17.2 ug/mL (10-15)
[2021-07-02 05:50] LABS: INR 1.29 (0.8-1.2)
[2021-07-02 05:58] LABS: Alanine Aminotransferase 12 U/L (0-33); Albumin Level 2.6 g/dL (3.5-5.2); Alkaline Phosphatase 81 IU/L (35-105); Anion Gap 17.9 (5-19); Aspartate Amino Transferase 21 U/L (0-32); Blood Urea Nitrogen 37 mg/dL (8-23); C Reactive Protein 107.5 mg/L (0.0-4.9); Calcium 7.8 mg/dL (8.5-10.5); Carbon Dioxide 22 mmol/L (22-29); Chloride 113 mmol/L (98-107); Globulin 2.6 g/dL (1.3-4.6); Glucose 185 mg/dL (65-115); Magnesium 2.1 mg/dL (1.7-2.3); NT Pro B Type Natriuretic Pept 2935 pg/mL (0-450); Osmolality Calculated 323 mOsm/kg (285-295); Phosphorus 4.6 mg/dL (2.5-4.5); Sodium 150 mmol/L (136-145); Thyroid Stimulating Hormone 0.52 uIU/mL (0.27-4.20); Total Bilirubin 0.3 mg/dL (0.15-1.2); Total Protein 5.2 g/dL (6.6-8.7)
[2021-07-02 06:00] LABS: NT Pro B Type Natriuretic Pept 2984 pg/mL (0-450); Procalcitonin 2.06 ng/mL (0-0.5)
--- NOTE | 2021-07-02 06:00 | ECG_ITS ---
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 Measurements Intervals [place] Rate: 77 P: 67 IA: 148 QRS: 43 QRSD: 94 T: 71 QT: 331 QTc: 375 Interpretive Statements SINUS RHYTHM POSSIBLE RIGHT VENTRICULAR CONDUCTION DELAY [RSR (QR) IN V1/V2] NONSPECIFIC T-WAVE ABNORMALITY Compared to ECG 06/27/2021 16:25:28 T-wave abnormality now present Electronically Signed On 07-02-2021 23:24:09 CDT by Benjie Mary M.D. [email or web address]
[2021-07-02] MEDS: sucralfate 1 gm/10 mL Oral Liq UDC PO ×4 (06:09→20:28)
[2021-07-02] MEDS: pantoprazole 40 mg SDV IVP ×2 (06:09→17:01)
[2021-07-02 06:11] LABS: Creatine Phosphokinase 137 U/L (26-192)
[2021-07-02 06:15] LABS: Potassium 2.9 mmol/L (3.5-5.1)
[2021-07-02] MEDS: propofol 1,000 MG/100 ML INJ 15.11 MG IV (06:26)
--- NOTE | 2021-07-02 06:26 | PC.NURSE ---
Patient BIS >40 beginning of shift, sedation titrated for BIS <40. Proned, paralyzed at 2200. TOF 4/4 at 7mA, 0/4 subsequent checks q2h. EKG performed d/t possible rhythm change (see note). Hypothermia noted around 0400, barehugger applied. VSS
[2021-07-02] MEDS: potassium chloride premix 100 ML 25 MEQ IV (06:33)
--- NOTE | 2021-07-02 07:00 | XRR_ITS ---
PROCEDURE INFORMATION: Exam: XR Chest Exam date and time: 07/02/2021 7:00 AM Age: 76 years old Clinical indication: Shortness of breath; Additional info: SOB TECHNIQUE: Imaging protocol: XR of the chest. Views: 1 view. COMPARISON: CR (CHEST, ) 07/01/2021 6:10 AM FINDINGS: Tubes, catheters and devices: Intubation with tip 0.8 cm above the franky. Retraction of approximately 3.5 cm is suggested. Right IJ central line with tip over the distal SVC. Gastric tube tip in the mid stomach. Lungs: Patchy ground-glass opacities in both lungs are not significantly changed. Pleural spaces: Unremarkable. No pleural effusion. No pneumothorax. Heart/Mediastinum: Unremarkable. No cardiomegaly. Bones/joints: Bilateral shoulder arthroplasties. XR/XR chest 1V portable [id number] IMPRESSION: 1. Stable multilobar pneumonia. 2. Intubation with tip 0.8 cm above the franky. Retraction of approximately 3.5 cm is suggested. Radiation Dose CTDIVOL = (mGy): DLP = (mGy-cm)
--- NOTE | 2021-07-02 07:22 | PC.NURSE ---
Report received, assessment completed. Remains intubated and sedated. BIS shows 15. Paralytic infusing per orders. Gtts infusing per orders. Ett at 23cm. Vent settings: Vt380. FiO2 45%, peep 10, RR 16. Aggarwal cath and FMS in place. Rachel hugger in place d/t hypothermia. Will continue to monitor.
[2021-07-02] MEDS: albumin 12.5 GM/50 ML VIAL IV (08:19)
[2021-07-02] MEDS: FUROsemide 10 mg/mL SDV 2mL 20 MG IVP (08:19)
[2021-07-02] MEDS: cholecalciferol (vitamin D3) 1,000 unit Tablet 1000 UNIT PO (08:20)
[2021-07-02] MEDS: zinc gluconate 50 mg Tablet PO (08:20)
[2021-07-02] MEDS: polyethylene glycol 3350 Pkt 17 gm PO (08:20)
[2021-07-02] MEDS: ascorbic acid 500 mg Tablet PO ×2 (08:20→17:01)
[2021-07-02] MEDS: budesonide 0.5 mg/2 mL Neb INHALATION ×2 (08:50→20:04)
--- NOTE | 2021-07-02 09:05 | PM.PN ---
Subjective Subjective: Interval history: She is intubated, sedated, proned. Vitals/I&O/Wt Last Vital Signs Temp 94.7 F L 07/02/21 08:00 Pulse 91 07/02/21 08:55 Resp 16 07/02/21 08:51 BP 99/53 07/02/21 08:30 Pulse Ox 94 07/02/21 08:51 07/01/21 07/02/21 07/02/21 22:59 06:59 14:59 Intake Total 319.121 / 1005.604 988.149 / 1993.753 187.02 / 187.02 Output Total 300 / 300 650 / 950 Balance 19.121 / 705.604 338.149 / 1043.753 187.02 / 187.02 Physical Exam Const: GENERAL APPEARANCE: patient mechanically ventilated OTHER: Intubated, sedated, paralyzed, proned. HENMT: COMMON NORMALS: oropharynx normal Neck/C-Spine: COMMON NORMALS: no JVD Resp: COMMON NORMALS: normal respiratory effort and clear to auscultation bilaterally AUSCULTATION: clear to auscultation bilaterally Cardio: COMMON NORMALS: no JVD, regular rhythm, S1 normal heart sound present, S2 normal heart sound present and No murmurs present (Cardio) RHYTHM: regular rhythm HEART SOUNDS: S1 normal heart sound present and S2 normal heart sound present GI: COMMON NORMALS: Normal to inspection, nondistended, normoactive bowel sounds present and Soft to palpation PALPATION: Yes Soft to palpation Extremity: COMMON NORMALS: no joint enlargement and no pedal edema Neuro: COMMON NORMALS: moves all extremities Skin: COMMON NORMALS: no rashes or lesions noted GENERAL SKIN EXAM: no rashes or lesions noted Urinary Catheter Management^: Aggarwal: Cath Placed During This Visit: yes Reason for Continuing Indwelling Catheter: Accurate Measurement of Urinary Output in Critically Ill Patients Urinary Catheter Date of Insertion: 06/28/21 Urinary Catheter Time of Insertion: 18:41 Data : 07/02/21 04:40 07/02/21 04:40 Micro: Microbiology 06/30/21 17:35 Gram Stain - Final Sputum - Endotracheal Tube Aspirate A&P Assessment and plan (1) Pneumonia due to 2019 novel coronavirus: Oxygenation gradual improvement, decreasing FiO2 requirement, currently down to 45%. Currently proning. Continue Decadron. Continue Zosyn, with worsening renal function will renally adjust dosing. Appreciate methods specialist recommendations. Discussion Lasix dose also decreased down to 20 mg, with albumin infusion currently due to worsening renal function. All sputum culture, rare gram-positive cocci in pairs, rare gram-negative rods on Gram stain. MRSA PCR negative. Continue Lovenox DVT prophylaxis Obtain TTE Completed course of remdesivir. Procalcitonin elevated. Status: Acute (2) BETSY (acute kidney injury): Worsening BETSY. Possibly secondary to COVID-19 itself. Perhaps less likely contrast-induced nephropathy as CTA was on 06/27, unless is at peak creatinine currently and may expect improvement otherwise, possibly prerenal component, Lasix dose decreased. Receiving albumin. CK normal. Monitor I&O. Status: Acute (3) Acute encephalopathy: Currently sedated, paralyzed, reassess mental status with weaning. Status: Acute (4) Acute respiratory failure with hypoxia: Status: Acute (5) Acute respiratory distress syndrome: Status: Acute Additional A&P Information Hypokalemia: Replace HTN HLD Attestations Medical Necessity Statement*: Continue admission for hypoxic respiratory failure secondary to severe COVID-19. 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
--- NOTE | 2021-07-02 10:31 | PM.PN ---
Subjective Subjective: Interval history: -Patient seen at bedside today -Currently she is sedated, paralyzed and proned for second session and will be turned supine at 2 PM -FiO2 down to 45% and saturating 92% -Labs and imaging reviewed Medications: Reviewed: Yes Vitals/I&O/Wt Last Vital Signs Temp 94.7 F L 07/02/21 08:00 Pulse 91 07/02/21 08:55 Resp 16 07/02/21 10:23 BP 99/53 07/02/21 08:30 Pulse Ox 94 07/02/21 10:23 07/01/21 07/02/21 07/02/21 22:59 06:59 14:59 Intake Total 319.121 / 1005.604 988.149 / 1993.753 237.02 / 237.02 Output Total 300 / 300 650 / 950 Balance 19.121 / 705.604 338.149 / 1043.753 237.02 / 237.02 Physical Exam Narrative: EXAM NARRATIVE: General: lying in bed, sedated and intubated, proned HEENT:NCAT, PERRLA, EOMI Neck: Supple Lungs: Improving breath sounds bilaterally Heart: s1/s2, RRR Abd: soft, NT, ND, BS + Normoactive Extremities: No edema CABLE LAYER: sedated and limited CABLE LAYER exam possible. SKIN: no rash LDA: # CVC: Right internal jugular 06/30/2021 # Aggarwal: 06/30/2021 Urinary Catheter Management^: Aggarwal: Cath Placed During This Visit: yes Reason for Continuing Indwelling Catheter: Accurate Measurement of Urinary Output in Critically Ill Patients Urinary Catheter Date of Insertion: 06/28/21 Urinary Catheter Time of Insertion: 18:41 Data : 07/02/21 04:40 07/02/21 04:40 Other Labs: Laboratory Results WBC 11.3 10^3/uL (4.0-10.0) H 07/02/21 04:40 RBC 3.89 10^6/uL (4.1-5.3) L 07/02/21 04:40 Hgb 10.9 g/dL (11.5-15.3) L 07/02/21 04:40 Hct 36.0 % (37.0-47.0) L 07/02/21 04:40 MCV 92.5 fl (81-99) 07/02/21 04:40 MCH 28.0 pg (28.0-34.0) 07/02/21 04:40 MCHC 30.3 g/dL (30.0-36.0) 07/02/21 04:40 RDW 14.0 % (12.1-15.1) 07/02/21 04:40 Plt Count 165 10^3/cmm (130-400) 07/02/21 04:40 MPV 12.4 fL (7.4-10.4) H 07/02/21 04:40 Neut % (Auto) 90.6 % 07/02/21 04:40 Lymph % (Auto) 2.5 % 07/02/21 04:40 [place] % (Auto) 2.9 % 07/02/21 04:40 Eos % (Auto) 0.0 % 07/02/21 04:40 Baso % (Auto) 0.2 % 07/02/21 04:40 Neut # (Auto) . 10^3/uL (1.8-7.7) H 07/02/21 04:40 Lymph # (Auto) 0.3 10^3/uL (0.8-4.8) L 07/02/21 04:40 [place] # (Auto) 0.3 10^3/uL (0.2-0.9) 07/02/21 04:40 Eos # (Auto) 0.0 10^3/uL (0.0-0.8) 07/02/21 04:40 Baso # (Auto) 0.0 10^3/uL (0.0-0.1) 07/02/21 04:40 Nucleated RBC % (auto) 0 % 07/02/21 04:40 Nucleated RBCs # 0.0 /100WBC 07/02/21 04:40 PT 16.40 SECONDS (12.1-14.9) H 07/02/21 04:40 INR 1.29 (0.8-1.2) H 07/02/21 04:40 Specimen Type Arterial 07/02/21 04:00 Sample Site Radial, left 07/02/21 04:00 ABG pH 7.30 (7.35-7.45) L 07/02/21 04:00 ABG pCO2 45.8 mmHg (35-45) H 07/02/21 04:00 ABG pO2 74.7 mmHg (80.0-100.0) L 07/02/21 04:00 ABG HCO3 22.5 mmol/L (22-26) 07/02/21 04:00 ABG O2 Saturation 90.1 06/30/21 15:39 ABG Base Excess -3.9 mmol/L (-2.0-2.0) L 07/02/21 04:00 Tr Test Pos 07/02/21 04:00 A-a O2 Gradient 77.1 mmHg (5-10) H 06/30/21 15:39 Hematocrit 35.8 % (37-47) L 07/02/21 04:00 Hgb O2 Saturation 89.1 % (95-100) L 06/30/21 15:39 Carboxyhemoglobin 0.4 %THgb (0.4-20.1) 06/30/21 15:39 Methemoglobin 0.7 % (0.4-1.5) 06/30/21 15:39 Total Hemoglobin 14.4 g/dL (12-16) 06/30/21 15:39 Sodium 149.0 mmol/L (131-143) H 06/30/21 15:39 Potassium 3.4 mmol/L (3.5-5.0) L 06/30/21 15:39 Glucose 120.0 mg/dL (70-115) H 06/30/21 15:39 Ionized Calcium 1.1 mmol/L (1.1-1.4) 06/30/21 15:39 O2 Delivery Device Vent 07/02/21 04:00 O2 Liters/Min 60.0 % 06/30/21 05:09 FiO2 45.0 % 07/02/21 04:00 Tidal Volume 0.38 07/02/21 04:00 PEEP 10.0 cmH20 07/02/21 04:00 Comfort Filler ID ellpe 07/02/21 04:00 Sodium 150 mmol/L (136-145) H 07/02/21 04:40 Potassium 2.9 mmol/L (3.5-5.1) L 07/02/21 04:40 Chloride 113 mmol/L (98-107) H 07/02/21 04:40 Carbon Dioxide 22 mmol/L (22-29) 07/02/21 04:40 Anion Gap 17.9 (5-19) 07/02/21 04:40 BUN 37 mg/dL (8-23) H 07/02/21 04:40 Creatinine 1.7 mg/dL (0.5-0.9) H 07/02/21 04:40 GFR Calculation Not Reportable 07/02/21 04:40 Glucose 185 mg/dL (65-115) H 07/02/21 04:40 Calculated Osmolality 323 mOsm/kg (285-295) H 07/02/21 04:40 Lactic Acid 2.4 mmol/L (0.5-2.2) H 06/27/21 12:29 Lactic Acid (Sepsis) 1.3 mmol/L (0.5-2.2) 06/27/21 15:20 Lactate 1.4 mmol/L (0.5-2.2) 06/30/21 19:45 Calcium 7.8 mg/dL (8.5-10.5) L 07/02/21 04:40 Phosphorus 4.6 mg/dL (2.5-4.5) H 07/02/21 04:40 Magnesium 2.1 mg/dL (1.7-2.3) 07/02/21 04:40 Ferritin 677 ng/mL (15-150) H 06/30/21 19:45 Total Bilirubin 0.3 mg/dL (0.15-1.2) 07/02/21 04:40 AST 21 U/L (0-32) 07/02/21 04:40 ALT 12 U/L (0-33) 07/02/21 04:40 Alkaline Phosphatase 81 IU/L (35-105) 07/02/21 04:40 Creatine Kinase 137 U/L (26-192) 07/02/21 04:40 Troponin T Baseline 45 ng/L (0-10) H 06/27/21 15:20 Troponin T 120 Minute 48.75 ng/L (0-10) H 06/27/21 17:32 Delta Troponin T 3.75 ABS# (0-10) 06/27/21 17:32 Troponin T Hi Sens 6Hr 46.83 ng/L (0-10) H 06/27/21 21:03 Troponin T Hi Sens 6Hr Delta 1.83 ng/L (0-12) 06/27/21 21:03 C-Reactive Protein 107.5 mg/L (0.0-4.9) H 07/02/21 04:40 NT-Pro-B Natriuret Pep 2935 pg/mL (0-450) H 07/02/21 04:40 NT-Pro-B Natriuret Pep 2984 pg/mL (0-450) H 07/02/21 04:40 Total Protein 5.2 g/dL (6.6-8.7) L 07/02/21 04:40 Albumin 2.6 g/dL (3.5-5.2) L 07/02/21 04:40 Globulin 2.6 g/dL (1.3-4.6) 07/02/21 04:40 Lipase 57 U/L (13-60) 06/27/21 12:29 Procalcitonin 2.06 ng/mL (0-0.5) H 07/02/21 04:40 TSH 0.52 uIU/mL (0.27-4.20) 07/02/21 04:40 Urine Color Straw (Yellow) 06/27/21 12:37 Urine Appearance Hazy (CLEAR) A 06/27/21 12:37 Urine pH 6.5 (5-7) 06/27/21 12:37 Ur Specific [place] 1.010 (1.005-1.030) 06/27/21 12:37 Urine Protein 2+ (Negative) H 06/27/21 12:37 Urine Glucose (UA) Norm (Normal) 06/27/21 12:37 Urine Ketones Negative (Negative) 06/27/21 12:37 Urine Blood 2+ (Negative) H 06/27/21 12:37 Urine Nitrate Negative (Negative) 06/27/21 12:37 Urine Bilirubin Neg (Negative) 06/27/21 12:37 Urine Urobilinogen Norm mg/dL (Negative) 06/27/21 12:37 Ur Leukocyte Esterase Negative (Negative) 06/27/21 12:37 Urine RBC 0-4 /hpf (0-2) H 06/27/21 12:37 Urine WBC 0-4 /hpf (0-5) H 06/27/21 12:37 Ur Squamous Epith Cells 5-10 /hpf (0-5) H 06/27/21 12:37 Amorphous Sediment Not Reportable 06/27/21 12:37 Urine Bacteria Trace /hpf (NONE) 06/27/21 12:37 Urine Mucus Trace /hpf 06/27/21 12:37 Vancomycin Trough 17.2 ug/mL (10-15) H 07/02/21 04:40 Nasal/Oral COVID-19 PCR Detected H 06/27/21 13:46 SARS-CoV-2 Ag (Rapid) Positive (Negative) H 06/27/21 13:46 Impressions Chest CTA 06/27/21 12:48 IMPRESSION: 1. No pulmonary embolism. 2. Multi lobar groundglass opacifications and consolidations from pneumonia associated with Covid 19. 3. RIGHT hilar consolidation probably combination of pneumonia and adenopathy. Consider follow-up chest CT angiogram after resolution of Covid 19 to be sure there is no underlying lymphadenopathy or persistent mass. 4. Mild LEFT heart enlargement. Head CT 06/27/21 15:05 IMPRESSION: No acute intracranial abnormality. Chest X-Ray 07/01/21 07:00 IMPRESSION: 1. An endotracheal tube is present, terminating above the franky by 3.5 cm. 2. Nasogastric tube has its proximal port in the lower esophagus, recommend advancement by 7-10 cm. 3. A right internal jugular central venous catheter is present, with its tip overlying the region of the superior vena cava and unchanged from prior exam. 4. Bilateral pulmonary opacities are again noted and appear unchanged. Radiation Dose CTDIVOL = (mGy): DLP = (mGy-cm) Micro: Microbiology 06/30/21 17:35 Gram Stain - Final Sputum - Endotracheal Tube Aspirate A&P Assessment and plan (1) AMS (altered mental status): Status: Acute Qualifiers: Altered mental status type: disorientation Qualified Code(s): R41.0 - Disorientation, unspecified (2) Acute respiratory distress syndrome: Status: Acute (3) Acute respiratory failure with hypoxia: Status: Acute (4) Pneumonia due to 2019 novel coronavirus: Status: Acute (5) Acute encephalopathy: Status: Acute (6) BETSY (acute kidney injury): Status: Acute (7) Dementia: Status: Acute Qualifiers: Dementia type: unspecified type Dementia behavioral disturbance: without behavioral disturbance Qualified Code(s): F03.90 - Unspecified dementia without behavioral disturbance (8) Hypernatremia: Status: Acute (9) Hyperchloremic metabolic acidosis: Status: Acute (10) Hypokalemia: Status: Acute #Abdomen to status secondary to hypoxia and patient with underlying dementia #Acute hypoxic respiratory failure secondary to COVID-19 pneumonia #BETSY #Hypernatremia and hyperchloremia-anion gap metabolic acidosis with possible hyperchloremic metabolic acidosis as well -Intubated 06/30/2021 -Currently sedated with propofol, fentanyl and paralyzed and prone position second session -ABG 7.3 0/45/74/20 2/92% on CMV 380/45%/10 -We will continue lung protective strategies ARDS protocol-low tidal volume/high PEEP with target plateau pressures less than 30 and driving pressures less than 15 -After completion of second on exertion-recommended to discontinue paralytic and Versed and taper down fentanyl to 25-50 MCG per hour -We will plan for awakening trial and breathing trial for tomorrow -S/p 5 day remdesivir and currently dexamethasone 6 mg daily -Also receiving vancomycin for broader antibiotic coverage; patient pro Chau is high 4.34 at admission, cultures so far negative, sputum cultures pending -MRSA nares negative; discontinued vancomycin and escalated imipenem to Zosyn to complete 7 days on 07/04/2021 -Patient has diarrhea-patient was on lactulose and senna-both were discontinued if patient continues to have diarrhea recommended to send stool for C. difficile PCR; if positive will start p.o. vancomycin -BNP > 4000-echo done and report pending -BETSY ; albumin 2.5 : Sodium 150, chloride 113 corrected anion gap 20 -We will change all carrier fluids into dextrose and Given 1 dose of Lasix 20 mg IV push and 1 dose albumin -I/O+ 1000 cc in last 24 hours-monitor I&O and try to keep net negative to even -potassium 2.9-supplemented; monitor electrolytes and renal functions -Repeat BMP and magnesium in the evening -start tube feeding at 15 mL/h when patient is not proned -GI prophylaxis PPI -Held bowel regimen MiraLAX and Colace 100 mg p.o. twice daily as patient is having diarrhea -Sugars well controlled -DVT prophylaxis Lovenox -Prognosis guarded -Family updated Recommendations conveyed to hospitalist, RN, RT taking care of the patient Attestations Medical Necessity Statement*: AMS and acute hypoxic respiratory failure secondary to ARDS due to COVID-19 pneumonia Time Spent in Patient Care: Greater than 35 minutes (>than 50% of time spent in counselling and/or direct pt care on unit). Critical Care Time: The high probability of a clinically significant, sudden or life threatening deterioration of the patient's [neurologic, pulmonary] system(s) required my full and direct attention, intervention and personal management. The critical care time is as shown. 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 for Chg Fwd Patient Type Established History Comprehensive Exam Comprehensive Medical Decision Making High Complexity Diagnoses AMS (altered mental status) R41.0 Altered mental status type: disorientation Acute respiratory distress syndrome J80 Acute respiratory failure with hypoxia J96.01 Pneumonia due to 2019 novel coronavirus U07.1; J12.82 Acute encephalopathy G93.40 BETSY (acute kidney injury) N17.9 Dementia F03.90 Dementia type: unspecified type Dementia behavioral disturbance: without behavioral disturbance Hypernatremia E87.0 Hyperchloremic metabolic acidosis E87.2 Hypokalemia E87.6 Time Spent (min) 36
--- NOTE | 2021-07-02 13:50 | PC.NURSE ---
Pt placed in supine position per staff x4. Tolerated repositioning fair, O2 sat in mid to upper 80's on 45% FIO2. Central line dressing changed. Aggarwal and oral care performed. Paralytic turned off. Sedation infusing per orders. No s/s of pain or SOB. Will continue to monitor.
--- NOTE | 2021-07-02 14:10 | PC.NURSE ---
FIO2 increased to 55% per RT. Rachel klein during supination. Will monitor.
[2021-07-02] MEDS: piperacillin-tazobactam 3.375 GM in dextrose 5% (plus) 50 ML IV (14:37)
[2021-07-02] MEDS: dexamethasone 10 mg/mL INJ 6 MG IVP (14:38)
[2021-07-02] MEDS: propofol 1,000 MG/100 ML INJ 9.06 MG IV ×2 (15:46→23:43)
[2021-07-02] MEDS: enoxaparin 30 mg/0.3 mL Syringe SUBCUT (17:01)
[2021-07-02 17:10] LABS: Anion Gap 17.9 (5-19); Blood Urea Nitrogen 41 mg/dL (8-23); Calcium 8.2 mg/dL (8.5-10.5); Carbon Dioxide 21 mmol/L (22-29); Chloride 113 mmol/L (98-107); Glucose 96 mg/dL (65-115); Magnesium 1.9 mg/dL (1.7-2.3); Osmolality Calculated 316 mOsm/kg (285-295); Potassium 3.9 mmol/L (3.5-5.1); Sodium 148 mmol/L (136-145)
--- NOTE | 2021-07-02 18:11 | PC.NURSE ---
Shift Note Frequent safety and comfort rounds continue. Orders and/or nursing care completed as indicated. Patient monitored for response to intervention and treatment(s). Education provided includes treatment plan and medication regimen. Patient and/or telecommunications sales representative verbalizes understanding. Pt is slightly tachycardic, MD aware, all other VSS. Temp remains WNL at this time. Vent settings per RT. Sedation infusing per orders. Pt not to be proned any more per MD orders. Aggarwal cath draining small amount of urine to BSD, MD aware. No drainage noted to FMS. Will continue to monitor.
[2021-07-03] VITALS (56 sets, daily range): BP systolic 97–171; BP diastolic 63–86; PULSE 74–124; RESP 16–17; TEMP 36.6–37.2; O2SAT 91–98
[2021-07-03] MEDS: piperacillin-tazobactam 3.375 GM in dextrose 5% (plus) 50 ML IV ×2 (02:29→13:48)
[2021-07-03] MEDS: ipratropium-albuterol 3 mL Neb INHALATION ×3 (03:07→20:14)
[2021-07-03 03:47] LABS: Basophils % 0.2 %; Eosinophils % 0.2 %; Hemoglobin 10.8 g/dL (11.5-15.3); Lymphocytes # 0.6 10^3/uL (0.8-4.8); Lymphocytes % 5.1 %; Mean Corpuscular HGB Conc 30.9 g/dL (30.0-36.0); Mean Corpuscular Hemoglobin 27.9 pg (28.0-34.0); Mean Corpuscular Volume 90.4 fl (81-99); Mean Platelet Volume 12.4 fL (7.4-10.4); Monocytes # 0.4 10^3/uL (0.2-0.9); Monocytes % 3.4 %; Neutrophils % 82.5 %; Nucleated Red Blood Cells % 0.3 %; Platelet Count 206 10^3/cmm (130-400); Red Blood Count 3.87 10^6/uL (4.1-5.3); Red Cell Distribution Width 14.5 % (12.1-15.1); White Blood Count 11.9 10^3/uL (4.0-10.0)
[2021-07-03 03:59] LABS: INR 1.29 (0.8-1.2)
[2021-07-03 04:18] LABS: Alanine Aminotransferase 17 U/L (0-33); Albumin Level 2.9 g/dL (3.5-5.2); Alkaline Phosphatase 76 IU/L (35-105); Anion Gap 18.6 (5-19); Aspartate Amino Transferase 52 U/L (0-32); Blood Urea Nitrogen 51 mg/dL (8-23); C Reactive Protein 100.1 mg/L (0.0-4.9); Calcium 7.7 mg/dL (8.5-10.5); Carbon Dioxide 21 mmol/L (22-29); Chloride 114 mmol/L (98-107); Glucose 127 mg/dL (65-115); Magnesium 2.1 mg/dL (1.7-2.3); NT Pro B Type Natriuretic Pept 2457 pg/mL (0-450); Osmolality Calculated 323 mOsm/kg (285-295); Phosphorus 3.3 mg/dL (2.5-4.5); Potassium 4.6 mmol/L (3.5-5.1); Sodium 149 mmol/L (136-145); Total Bilirubin 0.4 mg/dL (0.15-1.2); Total Protein 4.9 g/dL (6.6-8.7)
[2021-07-03 04:19] LABS: NT Pro B Type Natriuretic Pept 2404 pg/mL (0-450); Procalcitonin 1.74 ng/mL (0-0.5)
[2021-07-03 04:37] LABS: Creatine Phosphokinase 1487 U/L (26-192); Slide Review Slide Review Perform
[2021-07-03 05:47] LABS: ABG PCO2 39.9 mmHg (35-45); ABG PH Result 7.34 (7.35-7.45); Arterial Blood Gas Hematocrit 34.9 % (37-47); Base Excess ABG -4.3 mmol/L (-2.0-2.0); Blood Gas Allen Test Pos; Blood Gas Operator Identificat JB; Blood Gas Sample Site Radial, right; Blood Gas Sample Type Arterial; HCO3 ABG 21.3 mmol/L (22-26); Oxygen Device VENT; PO2 ABG 72.2 mmHg (80.0-100.0)
[2021-07-03 05:48] LABS: Blood Gas Tidal Volume 0.38
--- NOTE | 2021-07-03 06:00 | ECG_ITS ---
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 Measurements Intervals [place] Rate: 125 P: ND: QRS: 36 QRSD: 92 T: 226 QT: 283 QTc: 408 Interpretive Statements ATRIAL FLUTTER/TACHYCARDIA WITH RAPID VENTRICULAR RESPONSE ST DEVIATION AND MODERATE T-WAVE ABNORMALITY, CONSIDER LATERAL ISCHEMIA [-0.1+ mV T-WAVE IN I/aVL/V5/V6] ST DEVIATION AND MODERATE T-WAVE ABNORMALITY, CONSIDER INFERIOR ISCHEMIA [-0.1+ mV T-WAVE IN II/aVF] Compared to ECG 07/02/2021 05:32:01 Possible ischemia now present Sinus rhythm no longer present T-wave abnormality still present Electronically Signed On 07-03-2021 15:51:50 CDT by Benjie Mary M.D. [id number]
[2021-07-03] MEDS: pantoprazole 40 mg SDV IVP ×2 (06:10→17:51)
[2021-07-03] MEDS: propofol 1,000 MG/100 ML INJ 9.06 MG IV ×2 (06:17→14:44)
--- NOTE | 2021-07-03 07:44 | XR_ITS ---
WS: [id number] PORTABLE CHEST HISTORY: pneumonia COMPARISON: 07/02/2021 Tip of the endotracheal tube is directed toward the proximal RIGHT mainstem bronchus. Endotracheal tu be should be retracted 2.5 to 3.0 cm. Nasogastric tube is present. The tip is not included but extends below the GE junction. RIGHT internal jugular line is present with tip overlying the RIGHT atrium Mild haziness and coarse and reticulations predominantly at the lung bases. Overall slight improvemen t since the prior examination. No pleural effusion or pneumothorax. Cardiac size: Normal. Mediastinum/Aorta: Mild atherosclerosis aorta. Osteopenia. Bilateral humeral head prostheses. XR/XR chest 1V portable [id number] IMPRESSION: 1. Recommend retracting endotracheal tube 2.5 to 3.0 cm for optimal positionin g. 2. Recommend retracting the RIGHT IJ line 4.0 cm for more optimal positioning. 3. Mild improved aeration of both lungs.
[2021-07-03] MEDS: sucralfate 1 gm/10 mL Oral Liq UDC PO ×2 (07:58→11:31)
[2021-07-03] MEDS: polyethylene glycol 3350 Pkt 17 gm PO (07:59)
[2021-07-03] MEDS: cholecalciferol (vitamin D3) 1,000 unit Tablet 1000 UNIT PO (07:59)
[2021-07-03] MEDS: zinc gluconate 50 mg Tablet PO (07:59)
[2021-07-03] MEDS: ascorbic acid 500 mg Tablet PO (07:59)
[2021-07-03] MEDS: budesonide 0.5 mg/2 mL Neb INHALATION ×2 (08:39→20:13)
--- NOTE | 2021-07-03 09:12 | PC.NURSE ---
retracted CVL approx 4cm, new dressing applied. Orders to prone pt given. Pharmacy notified for nimbex gtt. BIS monitor placed, 30 at this time. Sedation infusing per orders. TF stopped in preparation for proning. ETT in place, vent settings per RT. VSS. Remains slightly tachycardic. Aggarwal draining small amount of urine noted. Will monitor.
--- NOTE | 2021-07-03 09:47 | PC.NURSE ---
Addendum entered by Osvaldo Farmer RN 07/03/21 09:56: TOF 12/25 Original Note: BIS 39, Nimbex infusion started. Plan to prone at 1100
--- NOTE | 2021-07-03 09:48 | PC.CHAP ---
Pastoral Care Encounter/Spiritual Assessment Type of Contact [] Declined microchip specialist visit [] Patient/Family/Request visit [] Outpatient visit [] Follow-up visit [] Physician referral [] Code/Alert [x] Routine visit [] Staff referral [] Actively dying [x] Patient sleeping [] Family support [] [] Out of room [] Palliative care [] [] Receiving care in room [] Pre-surgical visit [] Trauma [] Long length of stay [x] ICU visit [x] Other: vent Relational/Emotional Strength [] Patient feels connected with others/family/visitors/staff [] Distress [] Loneliness/isolation [] Abandonment Spirituality of Patient [] Person of Wendy [] Attends Sabianism of their Wendy [] Believes in Prayer [] Reads Bible or Amish materials [] There are Spiritual issues to be addressed 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 Interventions [x] Prayer [] Active listening [] Non-anxious presence [] Spiritual/emotional support [] Crisis/trauma care [] Spiritual counseling [] Bereavement support [] Provided bereavement packet [] Provided Bible/devotional materials [] Provided toy/stuffed animal, coloring book to patient or family member [] Provided Communion [] Anointing/[place] [] Salvation [x] Completed spiritual assessment [] Other: Impact on Illness or Injury [] Angry [] Fearful [] Anxious [] Often cries [] Exhaustion [] Unable to work [] Unable to attend mormon [] Unable to walk/stand [] Unable to read [] Unable to drive [] Unable to eat/drink [] Unable to sleep [] Unable to be with family [] Patient intubated [] Other: Summary Time spent with patient
--- NOTE | 2021-07-03 10:47 | PC.NURSE ---
Pt proned at 1035. BIS prior to proning 42, post proning bis 75. Sedation increased. Will monitor
--- NOTE | 2021-07-03 12:06 | PC.NURSE ---
Attempted to call son Freddy for family rounding. No answer. Left Voicemail.
--- NOTE | 2021-07-03 13:37 | PM.PN ---
Subjective Subjective: Interval history: Intubated, sedated, paralyzed. Vitals/I&O/Wt Last Vital Signs Temp 98.4 F 07/03/21 12:00 Pulse 107 H 07/03/21 12:00 Resp 16 07/03/21 12:00 BP 143/73 07/03/21 12:00 Pulse Ox 95 07/03/21 12:00 07/02/21 07/03/21 07/03/21 22:59 06:59 14:59 Intake Total 288.770 / 711.547 935.104 / 1646.651 303.227 / 303.227 Output Total 125 / 125 250 / 375 Balance 163.770 / 586.547 685.104 / 1271.651 303.227 / 303.227 Weight last 48 hrs Weight 49.895 kg Physical Exam Const: GENERAL APPEARANCE: patient mechanically ventilated OTHER: Intubated, sedated, paralyzed. HENMT: COMMON NORMALS: oropharynx normal Neck/C-Spine: COMMON NORMALS: no JVD Resp: COMMON NORMALS: clear to auscultation bilaterally AUSCULTATION: clear to auscultation bilaterally Cardio: COMMON NORMALS: no JVD, regular rhythm, S1 normal heart sound present, S2 normal heart sound present and No murmurs present (Cardio) RHYTHM: regular rhythm HEART SOUNDS: S1 normal heart sound present and S2 normal heart sound present GI: COMMON NORMALS: Normal to inspection, nondistended, normoactive bowel sounds present and Soft to palpation PALPATION: Yes Soft to palpation Extremity: COMMON NORMALS: no joint enlargement and no pedal edema Skin: COMMON NORMALS: no rashes or lesions noted GENERAL SKIN EXAM: no rashes or lesions noted Urinary Catheter Management^: Aggarwal: Cath Placed During This Visit: yes Reason for Continuing Indwelling Catheter: Accurate Measurement of Urinary Output in Critically Ill Patients Urinary Catheter Date of Insertion: 06/28/21 Urinary Catheter Time of Insertion: 18:41 Data : 07/03/21 03:25 07/03/21 03:25 Micro: Microbiology 06/30/21 17:35 Gram Stain - Final Sputum - Endotracheal Tube Aspirate Sputum Culture - Final Yeast 06/27/21 15:28 Blood Culture - Final Blood NO GROWTH AFTER 5 DAYS 06/27/21 15:20 Blood Culture - Final Blood NO GROWTH AFTER 5 DAYS A&P Assessment and plan (1) Pneumonia due to 2019 novel coronavirus: FiO2 improved with proning, but requirement again up to 65% this morning while supine. Repeating additional proning session. Continue Decadron. Continue Zosyn, with worsening renal function with renally adjusted dosing. All sputum culture, rare gram-positive cocci in pairs, rare gram-negative rods on Gram stain. MRSA PCR negative. Continue Lovenox DVT prophylaxis, renally adjusted Requested TTE Completed course of remdesivir. Procalcitonin elevated. Could not reach son to discuss. Status: Acute (2) BETSY (acute kidney injury): Worsening BETSY. Mild rhabdomyolysis. Recheck CK. Well request kidney ultrasound. Possibly secondary to COVID-19 itself. Perhaps less likely contrast-induced nephropathy as CTA was on 06/27, unless is peaking and may expect improvement otherwise, possibly prerenal component, Lasix stopped. Received albumin. Monitor I&O. Status: Acute (3) Acute encephalopathy: Currently sedated, paralyzed, reassess mental status with weaning. Status: Acute (4) Acute respiratory failure with hypoxia: Status: Acute (5) Acute respiratory distress syndrome: Status: Acute Additional A&P Information Hypokalemia: Replaced Possible atrial flutter: Computer read on EKG, but I do not appreciate flutter waves. Does appear to have some inferolateral T wave inversions. Follow-up TTE. Monitor on telemetry. Add aspirin. HTN HLD Attestations Medical Necessity Statement*: Continue admission for assessment of management of hypoxic respite failure secondary to severe COVID-19. Coding Level of Care Code Acute Lime Sludge Mixer for Librado Fwnir Diagnoses Pneumonia due to 2019 novel coronavirus U07.1; J12.82 BETSY (acute kidney injury) N17.9 Acute encephalopathy G93.40 Acute respiratory failure with hypoxia J96.01 Acute respiratory distress syndrome J80
[2021-07-03] MEDS: aspirin 325 mg Tablet OG-TUBE (14:35)
[2021-07-03] MEDS: dexamethasone 10 mg/mL INJ 6 MG IVP (14:35)
--- NOTE | 2021-07-03 15:59 | PM.CONSULT ---
Providers/Reason For Consult Consulting Physician/Specialty*: preet kimbrough md / telenephrology Reason for Consult*: oliguric BETSY, hypernatremia Attending Physician: Lars Valentine History of Present Illness History of Present Illness Clare Stewart is a 76 year old female w/ COVID-19 SARS PNA. She is intubated and proned. history per chart, RN, and MD. Pt has h/o htn, hyperlipidemia. She presented on 06-27-21 w/ severe SOB and had a CTA and was dx w/ COVID-19. She was treated w/ rocephon and azithromycin, vit c, vit d, and zinc. She received steroids and remdesivir. She was started on lasix on 06-28-21, and abx changed to vancomycin and primaxin. Pt continued to decline and was intubated on 06/30/21, proned, and given lasix. Pt also developed diarrhea. her abx was decreased to zosyn on 06-30-21. her cr started to rise on 07-01-21- cr 1.3 mg/dl, 07-02-21 cr was 1.7 mg/dl. renal called today as cr is 2.9 mg/dl and she is oliguric. Pt is not able to give a ROS. BP improving and not on pressers. Review of Systems General: Reports: ROS unobtainable due to mental status Meds/Allergies Home Medications and Allergies Home Medications Medication Instructions Recorded Confirmed Last Taken Type hydrochlorothiazide 25 mg PO QAM 06/27/21 06/27/21 Unknown History methocarbamol [Robaxin] 750 - 1,500 mg PO TID PRN 06/27/21 06/27/21 Unknown History pantoprazole [Protonix] 40 mg PO DAILY 06/27/21 06/27/21 Unknown History potassium chloride 5 meq PO DAILY 06/27/21 06/27/21 Unknown History pramipexole 0.5 mg PO DAILY 06/27/21 06/27/21 Unknown History prednisolone acetate 1 drp OPHTHALMIC (EYE) . DIRECTED 06/27/21 06/27/21 Unknown History simvastatin [Zocor] 20 mg PO DAILY 06/27/21 06/27/21 Unknown History sucralfate [Carafate] 1 g PO .BEFORE MEALS AND HS 06/27/21 06/27/21 Unknown History trazodone 50 mg PO BEDTIME 06/27/21 06/27/21 Unknown History Allergies Allergy/AdvReac Type Severity Reaction Status Date / Time Unable to Assess Allergy Unverified 06/27/21 13:08 Current Medications Current Medications Generic Name Dose Route Start Last Admin Trade Name Freq PRN Reason Stop Dose Admin Acetaminophen 650 mg 06/27/21 16:28 06/30/21 00:48 Acetaminophen 325 Mg Tablet PO 650 mg Q6H PRN Administration Mild/Mod Pain Or Temp >/= 101 Albuterol/Ipratropium 3 ml 06/27/21 16:28 07/03/21 08:39 Ipratropium-Albuterol 3 Ml Neb INHALATION 3 ml Q6H PRN Administration SHORTNESS OF BREATH Ascorbic Acid 500 mg 06/27/21 18:00 07/03/21 07:59 Ascorbic Acid 500 Mg Tablet PO 500 mg BID MARC Administration Aspirin 325 mg 07/03/21 13:50 07/03/21 14:35 Aspirin 325 Mg Tablet OG-TUBE 325 mg DAILY MARC Administration Budesonide 0.5 mg 06/27/21 20:00 07/03/21 08:39 Budesonide 0.5 Mg/2 Ml Neb INHALATION 0.5 mg BID.RESPIRATORY MARC Administration Dexamethasone 6 mg 06/28/21 15:30 07/03/21 14:35 Dexamethasone 10 Mg/Ml Inj IVP 6 mg Q24H MARC Administration Docusate Sodium 100 mg 06/27/21 18:00 07/01/21 08:29 Docusate Sodium 100 Mg Capsule PO 100 mg BID MARC Administration Enoxaparin Sodium 30 mg 07/02/21 17:00 07/02/21 17:01 Enoxaparin 30 Mg/0.3 Ml Syringe SUBCUT 30 mg Q24H MARC Administration Propofol 1,000 mg in 100 mls @ 0 mls/hr 06/30/21 13:00 07/03/21 14:44 Diprivan IV 30 mcg/kg/min .Q0M MARC 9.06 mls/hr Administration Protocol Per Protocol Cisatracurium Besylate 100 mg/ 100 mls @ 0 mls/hr 07/02/21 08:15 07/03/21 10:35 Dextrose IV 0.5 mcg/kg/min .Q0M MARC 1.51 mls/hr Titration Protocol Per Protocol Fentanyl 1,000 mcg/ Dextrose 100 mls @ 0 mls/hr 07/02/21 08:30 07/03/21 08:58 IV 75 mcg/hr .Q0M MARC 7.5 mls/hr Administration Protocol Per Protocol Midazolam HCl 100 mg/ Dextrose 100 mls @ 0 mls/hr 07/02/21 08:30 07/03/21 15:52 IV 3 mg/hr .Q0M MARC 3 mls/hr Titration Protocol Per Protocol Piperacillin Sod/Tazobactam 50 mls @ 12.5 mls/hr 07/02/21 14:00 07/03/21 13:48 Sod 3.375 gm/ Dextrose IV 12.5 mls/hr Q12H MARC Administration Protocol Lorazepam 0.5 mg 06/30/21 10:00 06/30/21 10:55 Lorazepam 2 Mg/Ml Inj 1 Ml IVP 0.5 mg Q4H PRN Administration ANXIETY Pantoprazole Sodium 40 mg 06/30/21 18:00 07/03/21 06:10 Pantoprazole 40 Mg Sdv IVP 40 mg Q12H MARC Administration Polyethylene Glycol 17 gm 06/29/21 10:00 07/03/21 07:59 Polyethylene Glycol 3350 Pkt 17 Gm PO 17 gm DAILY MARC Administration Sucralfate 1 gm 06/27/21 17:00 07/03/21 11:31 Sucralfate 1 Gm/10 Ml Oral Liq Udc PO 1 gm AC&BEDTIME MARC Administration Vitamin D 1,000 unit 06/28/21 09:00 07/03/21 07:59 Cholecalciferol (Vitamin D3) 1,000 Unit Tablet PO 1,000 unit DAILY MARC Administration Zinc Gluconate 50 mg 06/28/21 09:00 07/03/21 07:59 Zinc Gluconate 50 Mg Tablet PO 50 mg DAILY MARC Administration PFSH Acute PFSH: Medical History History of hyperlipidemia History of hypertension Surgical History No pertinent past surgical history Social History Smoking and tobacco status: never smoked Alcohol intake: never Substance/Drug Use: never Vitals/I&O/Wt Last Vital Signs Temp 98.4 F 07/03/21 12:00 Pulse 103 H 07/03/21 14:00 Resp 16 07/03/21 12:00 BP 143/73 07/03/21 12:00 Pulse Ox 95 07/03/21 12:00 07/03/21 07/03/21 07/03/21 06:59 14:59 22:59 Intake Total 935.104 / 1646.651 379.784 / 379.784 20.333 / 400.117 Output Total 250 / 375 Balance 685.104 / 1271.651 379.784 / 379.784 20.333 / 400.117 Weight last 48 hrs Weight 49.895 kg Physical Exam Narrative: EXAM NARRATIVE: exam by RN- as pt has COVID-19 to preserve sterility of telehealth cart vs noted vent TV 380/ Fio2=50%, PEEP 10, RR 16 heent- nc/at neck no jvp lungs clear heart- tachycardic abd soft, nt, nd, +bs ext no edema neuro- sedated Urinary Catheter Management^: Aggarwal: Cath Placed During This Visit: yes Reason for Continuing Indwelling Catheter: Accurate Measurement of Urinary Output in Critically Ill Patients Urinary Catheter Date of Insertion: 06/28/21 Urinary Catheter Time of Insertion: 18:41 Data Micro: Micro: Microbiology 06/30/21 17:35 Gram Stain - Final Sputum - Endotrac heal Tube Aspirate Sputum Culture - F inal Yeast 06/27/21 15:28 Blood Culture - Fi nal Blood NO GROWTH AFTER 5 DAYS 06/27/21 15:20 Blood Culture - Fi nal Blood NO GROWTH AFTER 5 DAYS A&P Additional A&P Information 76 yr old female SARS PNA/ COVID-19+ 1. BETSY- concern for COVID nephropathy vs prerenal azotemia, vs ATN, AIN from meds. Can be HOME- as cr started to rise 2 to 3 days after admission -recs- renal us -repeat urine studies- ua, ur eos, ur na -note original had hematuria -give ivf -monitor uop and chemistries -DOSE ALL MEDS FOR GFR UNDER 15 2. hypernatremia- check ur lytes -give LR ivf 3. mild AGMA from BETSY. may have a Non AGMA from diarrhea 4, rhabdromyolysis- ivf, monitor ck and cr seen and examine dw/ RN- telehealth visit Consult Attestations Medical Necessity Statement: vdrf, SARS PNA from COVID-19, betsy Time Spent in Patient Care: Greater than 35 minutes Coding Level of Care Code Acute Internal Medicine Nurse Practitioner for [facility]
--- NOTE | 2021-07-03 16:16 | PC.NURSE ---
Vent alarmed with high RR, went in to room, stomach contents noted in OGT. OGT connected to LWS, approximately 200ml of greenish emesis obtained. RR alarm issue resolved. Will monitor.
[2021-07-03] MEDS: lactated ringers 1,000 ML 100 ML IV (16:31)
[2021-07-03] MEDS: enoxaparin 30 mg/0.3 mL Syringe SUBCUT (16:31)
[2021-07-03 17:44] LABS: Blood Urine 3+ (Negative); Glucose Urine UA Norm (Normal); Ketones Urine 1+ (Negative); Protein Urine 1+ (Negative); Urine Appearance Cloudy (CLEAR); Urine Color Yellow (Yellow); pH Urine 5 (5-7)
[2021-07-03 17:45] LABS: Add Urine Culture? No; Amorphous Sediment Urine 1+ /hpf; Bacteria Urine 1+ /hpf; Bilirubin Urine Neg (Negative); Coarse Granular Casts Urine 25-40 /lpf; Leukocyte Esterase Urine Negative (Negative); Nitrate Urine Negative (Negative); Squamous Epithelial Cell Urine 0-4 /hpf (0-5); Transitional Epi Cells Urine 0-4 /hpf; Urobilinogen Urine Norm (Negative); WBC Urine 0-4 /hpf (0-5)
--- NOTE | 2021-07-03 18:04 | PC.NURSE ---
Shift Note Frequent safety and comfort rounds continue. Orders and/or nursing care completed as indicated. Patient monitored for response to intervention and treatment(s). Education provided includes treatment plan, medications, oxygen and proning. Son verbalizes understanding. VSS, BIS in place, 32. TOF 4/4. Sedation and paralytic infusing per orders. OGT continues to be connected to LWS d/t stomach contents. Increased UOP from yesterday, LR infusing per nephrology orders. Will continue to monitor.
[2021-07-03 18:23] LABS: Alanine Aminotransferase 27 U/L (0-33); Albumin Level 2.7 g/dL (3.5-5.2); Alkaline Phosphatase 85 IU/L (35-105); Anion Gap 17.3 (5-19); Aspartate Amino Transferase 123 U/L (0-32); Blood Urea Nitrogen 61 mg/dL (8-23); Calcium 7.9 mg/dL (8.5-10.5); Carbon Dioxide 20 mmol/L (22-29); Chloride 111 mmol/L (98-107); Globulin 2.4 g/dL (1.3-4.6); Glucose 141 mg/dL (65-115); Osmolality Calculated 318 mOsm/kg (285-295); Potassium 4.3 mmol/L (3.5-5.1); Sodium 144 mmol/L (136-145); Thyroid Stimulating Hormone 0.45 uIU/mL (0.27-4.20); Total Bilirubin 0.4 mg/dL (0.15-1.2); Total Protein 5.1 g/dL (6.6-8.7); Uric Acid 4.9 mg/dL (2.4-5.7)
[2021-07-03 18:43] LABS: Creatine Phosphokinase 3295 U/L (26-192)
--- NOTE | 2021-07-03 18:51 | PC.NURSE ---
Spoke with Dr. Ocasio concerning critical CK level. He advised me that nephrology ordered. Called telenephrology line to inform them and left message with call back number. Oncoming nurse notified of level
--- NOTE | 2021-07-03 19:33 | PM.PN ---
Subjective Subjective: Interval history: -Patient seen at bedside today - FiO2 back up to 65% with PaO2 72 -Patient made to perform her for third session today and accordingly placed her back on paralytic, Versed along with fentanyl and propofol -Nephrology consulted for worsening renal functions-appreciate renal recommendations -Pull ET tube 2 cm and also retracted right IJ CVC 3 cm based on chest x-ray -Labs and imaging reviewed Medications: Reviewed: Yes Vitals/I&O/Wt Last Vital Signs Temp 97.9 F 07/03/21 16:00 Pulse 97 07/03/21 16:00 Resp 16 07/03/21 18:07 BP 149/81 07/03/21 16:00 Pulse Ox 97 07/03/21 18:07 07/03/21 07/03/21 07/03/21 06:59 14:59 22:59 Intake Total 935.104 / 1646.651 379.784 / 379.784 149.812 / 529.596 Output Total 250 / 375 450 / 450 Balance 685.104 / 1271.651 379.784 / 379.784 -300.188 / 79.596 Weight last 48 hrs Weight 110 lb Physical Exam Narrative: EXAM NARRATIVE: General: lying in bed, sedated and intubated, proned HEENT:NCAT, PERRLA, EOMI Neck: Supple Lungs: Improving breath sounds bilaterally Heart: s1/s2, RRR Abd: soft, NT, ND, BS + Normoactive Extremities: No edema MANAGER TRAINEE: sedated and limited MANAGER TRAINEE exam possible. SKIN: no rash LDA: # CVC: Right internal jugular 06/30/2021 # Aggarwal: 06/30/2021 Urinary Catheter Management^: Aggarwal: Cath Placed During This Visit: yes Reason for Continuing Indwelling Catheter: Accurate Measurement of Urinary Output in Critically Ill Patients Urinary Catheter Date of Insertion: 06/28/21 Urinary Catheter Time of Insertion: 18:41 Data : 07/03/21 03:25 07/03/21 17:18 Other Labs: Laboratory Results WBC 11.9 10^3/uL (4.0-10.0) H 07/03/21 03:25 RBC 3.87 10^6/uL (4.1-5.3) L 07/03/21 03:25 Hgb 10.8 g/dL (11.5-15.3) L 07/03/21 03:25 Hct 35.0 % (37.0-47.0) L 07/03/21 03:25 MCV 90.4 fl (81-99) 07/03/21 03:25 MCH 27.9 pg (28.0-34.0) L 07/03/21 03:25 MCHC 30.9 g/dL (30.0-36.0) 07/03/21 03:25 RDW 14.5 % (12.1-15.1) 07/03/21 03:25 Plt Count 206 10^3/cmm (130-400) 07/03/21 03:25 MPV 12.4 fL (7.4-10.4) H 07/03/21 03:25 Neut % (Auto) 82.5 % 07/03/21 03:25 Lymph % (Auto) 5.1 % 07/03/21 03:25 Millard % (Auto) 3.4 % 07/03/21 03:25 Eos % (Auto) 0.2 % 07/03/21 03:25 Baso % (Auto) 0.2 % 07/03/21 03:25 Neut # (Auto) 9.80 10^3/uL (1.8-7.7) H 07/03/21 03:25 Lymph # (Auto) 0.6 10^3/uL (0.8-4.8) L 07/03/21 03:25 Millard # (Auto) 0.4 10^3/uL (0.2-0.9) 07/03/21 03:25 Eos # (Auto) 0.0 10^3/uL (0.0-0.8) 07/03/21 03:25 Baso # (Auto) 0.0 10^3/uL (0.0-0.1) 07/03/21 03:25 Nucleated RBC % (auto) 0.3 % 07/03/21 03:25 Nucleated RBCs # 0.0 /100WBC 07/03/21 03:25 PT 16.40 SECONDS (12.1-14.9) H 07/03/21 03:25 INR 1.29 (0.8-1.2) H 07/03/21 03:25 Specimen Type Arterial 07/03/21 05:34 Sample Site Radial, right 07/03/21 05:34 ABG pH 7.34 (7.35-7.45) L 07/03/21 05:34 ABG pCO2 39.9 mmHg (35-45) 07/03/21 05:34 ABG pO2 72.2 mmHg (80.0-100.0) L 07/03/21 05:34 ABG HCO3 21.3 mmol/L (22-26) L 07/03/21 05:34 ABG O2 Saturation 90.1 06/30/21 15:39 ABG Base Excess -4.3 mmol/L (-2.0-2.0) L 07/03/21 05:34 Tr Test Pos 07/03/21 05:34 A-a O2 Gradient 77.1 mmHg (5-10) H 06/30/21 15:39 Hematocrit 34.9 % (37-47) L 07/03/21 05:34 Hgb O2 Saturation 89.1 % (95-100) L 06/30/21 15:39 Carboxyhemoglobin 0.4 %THgb (0.4-20.1) 06/30/21 15:39 Methemoglobin 0.7 % (0.4-1.5) 06/30/21 15:39 Total Hemoglobin 14.4 g/dL (12-16) 06/30/21 15:39 Sodium 149.0 mmol/L (131-143) H 06/30/21 15:39 Potassium 3.4 mmol/L (3.5-5.0) L 06/30/21 15:39 Glucose 120.0 mg/dL (70-115) H 06/30/21 15:39 Ionized Calcium 1.1 mmol/L (1.1-1.4) 06/30/21 15:39 O2 Delivery Device Vent 07/03/21 05:34 O2 Liters/Min 60.0 % 06/30/21 05:09 FiO2 65.0 % 07/03/21 05:34 Tidal Volume 0.38 07/03/21 05:34 PEEP 10.0 cmH20 07/03/21 05:34 Sdv Pilot/Navigator/Dds Operator ID Vargas 07/03/21 05:34 Sodium 144 mmol/L (136-145) 07/03/21 17:18 Potassium 4.3 mmol/L (3.5-5.1) 07/03/21 17:18 Chloride 111 mmol/L (98-107) H 07/03/21 17:18 Carbon Dioxide 20 mmol/L (22-29) L 07/03/21 17:18 Anion Gap 17.3 (5-19) 07/03/21 17:18 BUN 61 mg/dL (8-23) H 07/03/21 17:18 Creatinine 3.0 mg/dL (0.5-0.9) H 07/03/21 17:18 GFR Calculation Not Reportable 07/03/21 17:18 Glucose 141 mg/dL (65-115) H 07/03/21 17:18 Calculated Osmolality 318 mOsm/kg (285-295) H 07/03/21 17:18 Lactic Acid 2.4 mmol/L (0.5-2.2) H 06/27/21 12:29 Lactic Acid (Sepsis) 1.3 mmol/L (0.5-2.2) 06/27/21 15:20 Lactate 1.4 mmol/L (0.5-2.2) 06/30/21 19:45 Uric Acid 4.9 mg/dL (2.4-5.7) 07/03/21 17:18 Uric Acid Cancelled 07/03/21 17:18 Calcium 7.9 mg/dL (8.5-10.5) L 07/03/21 17:18 Phosphorus 3.3 mg/dL (2.5-4.5) 07/03/21 03:25 Magnesium 2.1 mg/dL (1.7-2.3) 07/03/21 03:25 Ferritin 677 ng/mL (15-150) H 06/30/21 19:45 Total Bilirubin 0.4 mg/dL (0.15-1.2) 07/03/21 17:18 AST 123 U/L (0-32) H 07/03/21 17:18 ALT 27 U/L (0-33) 07/03/21 17:18 Alkaline Phosphatase 85 IU/L (35-105) 07/03/21 17:18 Creatine Kinase 3295 U/L (26-192) H* D 07/03/21 17:18 Troponin T Baseline 45 ng/L (0-10) H 06/27/21 15:20 Troponin T 120 Minute 48.75 ng/L (0-10) H 06/27/21 17:32 Delta Troponin T 3.75 ABS# (0-10) 06/27/21 17:32 Troponin T Hi Sens 6Hr 46.83 ng/L (0-10) H 06/27/21 21:03 Troponin T Hi Sens 6Hr Delta 1.83 ng/L (0-12) 06/27/21 21:03 C-Reactive Protein 100.1 mg/L (0.0-4.9) H 07/03/21 03:25 NT-Pro-B Natriuret Pep 2404 pg/mL (0-450) H 07/03/21 03:25 NT-Pro-B Natriuret Pep 2457 pg/mL (0-450) H 07/03/21 03:25 Total Protein 5.1 g/dL (6.6-8.7) L 07/03/21 17:18 Albumin 2.7 g/dL (3.5-5.2) L 07/03/21 17:18 Globulin 2.4 g/dL (1.3-4.6) 07/03/21 17:18 Lipase 57 U/L (13-60) 06/27/21 12:29 Procalcitonin 1.74 ng/mL (0-0.5) H 07/03/21 03:25 TSH 0.45 uIU/mL (0.27-4.20) 07/03/21 17:18 Urine Color Yellow (Yellow) 07/03/21 16:48 Urine Appearance Cloudy (CLEAR) 07/03/21 16:48 Urine pH 5 (5-7) 07/03/21 16:48 Ur Specific [place] 1.010 (1.005-1.030) 07/03/21 16:48 Urine Protein 1+ (Negative) H 07/03/21 16:48 Urine Glucose (UA) Norm (Normal) 07/03/21 16:48 Urine Ketones 1+ (Negative) H 07/03/21 16:48 Urine Blood 3+ (Negative) H 07/03/21 16:48 Urine Nitrate Negative (Negative) 07/03/21 16:48 Urine Bilirubin Neg (Negative) 07/03/21 16:48 Urine Urobilinogen Norm mg/dL (Negative) 07/03/21 16:48 Ur Leukocyte Esterase Negative (Negative) 07/03/21 16:48 Urine RBC 5-10 /hpf (0-2) H 07/03/21 16:48 Urine WBC 0-4 /hpf (0-5) H 07/03/21 16:48 Ur Squamous Epith Cells 0-4 /hpf (0-5) H 07/03/21 16:48 Ur Transition Epith Cell 0-4 /hpf 07/03/21 16:48 Amorphous Sediment 1+ /hpf 07/03/21 16:48 Urine Bacteria 1+ /hpf (NONE) H 07/03/21 16:48 Coarse Granular Casts 25-40 /lpf H 07/03/21 16:48 Urine Mucus Trace /hpf 06/27/21 12:37 Vancomycin Trough 17.2 ug/mL (07-07) H 07/02/21 04:40 Nasal/Oral COVID-19 PCR Detected H 06/27/21 13:46 SARS-CoV-2 Ag (Rapid) Positive (Negative) H 06/27/21 13:46 Impressions Chest CTA 06/27/21 12:48 IMPRESSION: 1. No pulmonary embolism. 2. Multi lobar groundglass opacifications and consolidations from pneumonia associated with Covid 19. 3. RIGHT hilar consolidation probably combination of pneumonia and adenopathy. Consider follow-up chest CT angiogram after resolution of Covid 19 to be sure there is no underlying lymphadenopathy or persistent mass. 4. Mild LEFT heart enlargement. Head CT 06/27/21 15:05 IMPRESSION: No acute intracranial abnormality. Chest X-Ray 07/03/21 07:44 IMPRESSION: 1. Recommend retracting endotracheal tube 2.5 to 3.0 cm for optimal positioning. 2. Recommend retracting the RIGHT IJ line 4.0 cm for more optimal positioning. 3. Mild improved aeration of both lungs. Micro: Microbiology 06/30/21 17:35 Gram Stain - Final Sputum - Endotracheal Tube Aspirate Sputum Culture - Final Yeast 06/27/21 15:28 Blood Culture - Final Blood NO GROWTH AFTER 5 DAYS 06/27/21 15:20 Blood Culture - Final Blood NO GROWTH AFTER 5 DAYS A&P Assessment and plan (1) AMS (altered mental status): Status: Acute Qualifiers: Altered mental status type: disorientation Qualified Code(s): R41.0 - Disorientation, unspecified (2) Acute respiratory distress syndrome: Status: Acute (3) Acute respiratory failure with hypoxia: Status: Acute (4) Pneumonia due to 2019 novel coronavirus: Status: Acute (5) Acute encephalopathy: Status: Acute (6) BETSY (acute kidney injury): Status: Acute (7) Dementia: Status: Acute Qualifiers: Dementia type: unspecified type Dementia behavioral disturbance: without behavioral disturbance Qualified Code(s): F03.90 - Unspecified dementia without behavioral disturbance (8) Hypernatremia: Status: Acute (9) Hyperchloremic metabolic acidosis: Status: Acute (10) Hypokalemia: Status: Acute #Abdomen to status secondary to hypoxia and patient with underlying dementia #Acute hypoxic respiratory failure secondary to COVID-19 pneumonia #BETSY-prerenal BETSY versus prerenal #Hypernatremia and hyperchloremia-anion gap metabolic acidosis with possible hyperchloremic metabolic acidosis as well -Intubated 06/30/2021; -Currently sedated with propofol, fentanyl and paralyzed and prone position 3rd session -ABG 7.3 4/39/72/21/90% on CMV 380/65%/10 -We will continue lung protective strategies ARDS protocol-low tidal volume/high PEEP with target plateau pressures less than 30 and driving pressures less than 15 -S/p 5 day remdesivir and currently dexamethasone 6 mg daily - patient pro Chau is high 4.34 at admission, cultures so far negative, sputum cultures-yeast -MRSA nares negative; discontinued vancomycin and deescalated imipenem to Zosyn to complete 7 days on 07/04/2021 -Patient has diarrhea-patient was on lactulose and senna-both were discontinued if patient continues to have diarrhea recommended to send stool for C. difficile PCR; if positive will start p.o. vancomycin -BNP > 4000-echo done and report pending -BETSY ; gradually worsening renal functions, albumin 2. 7: Sodium 144, chloride 111 corrected anion gap 24 -Renal recommended LR at 100 cc/h progress prerenal component -I/O+ 1200 cc in last 24 hours-monitor I&O and try to keep net negative to even -Monitor electrolytes and renal functions -start tube feeding at 15 mL/h when patient is not proned -GI prophylaxis PPI -Held bowel regimen MiraLAX and Colace 100 mg p.o. twice daily as patient is having diarrhea -Sugars well controlled -DVT prophylaxis Lovenox -Prognosis guarded -Family updated Recommendations conveyed to hospitalist, RN, RT taking care of the patient Attestations Medical Necessity Statement*: AMS and acute hypoxic respiratory failure secondary to ARDS due to COVID-19 pneumonia Time Spent in Patient Care: Greater than 35 minutes (>than 50% of time spent in counselling and/or direct pt care on unit). Critical Care Time: The high probability of a clinically significant, sudden or life threatening deterioration of the patient's [neurologic, pulmonary, renal] system(s) required my full and direct attention, intervention and personal management. The critical care time is as shown. This time is in addition to time spent performing any reported procedures but includes the following: [x] Data and vital sign review and interpretation [x] Patient assessment, examination and intervention [x] Documentation [x] Medication orders and management Critical Care Time (min): 41 Coding Level of Care Code Acute Wood Drill Operator for [facility] Fwd Diagnoses AMS (altered mental status) R41.0 Altered mental status type: disorientation Acute respiratory distress syndrome J80 Acute respiratory failure with hypoxia J96.01 Pneumonia due to 2019 novel coronavirus U07.1; J12.82 Acute encephalopathy G93.40 BETSY (acute kidney injury) N17.9 Dementia F03.90 Dementia type: unspecified type Dementia behavioral disturbance: without behavioral disturbance Hypernatremia E87.0 Hyperchloremic metabolic acidosis E87.2 Hypokalemia E87.6
[2021-07-03] MEDS: propofol 1,000 MG/100 ML INJ 15.11 MG IV (22:10)
[2021-07-04] VITALS (61 sets, daily range): BP systolic 100–189; BP diastolic 56–90; PULSE 42–123; RESP 16–21; TEMP 33.3–37.6; O2SAT 89–98
[2021-07-04 02:14] LABS: Potassium, Radom Urine 44 mmol/L; Urine Creatinine 65 mg/dL (28-217); Urine Random Chloride 28 mmol/L; Urine Random Sodium 38 mmol/L
[2021-07-04] MEDS: piperacillin-tazobactam 3.375 GM in dextrose 5% (plus) 50 ML IV ×2 (02:29→14:42)
[2021-07-04] MEDS: labetalol 5 mg/mL SDV 20mL 10 MG IVP (02:29)
[2021-07-04] MEDS: lactated ringers 1,000 ML 100 ML IV (02:32)
[2021-07-04] MEDS: ipratropium-albuterol 3 mL Neb INHALATION ×4 (02:49→20:08)
[2021-07-04 03:52] LABS: Basophils % 0.4 %; Eosinophils % 0.2 %; Hematocrit 32.5 % (37.0-47.0); Hemoglobin 10.5 g/dL (11.5-15.3); Lymphocytes # 0.5 10^3/uL (0.8-4.8); Lymphocytes % 4.5 %; Mean Corpuscular HGB Conc 32.3 g/dL (30.0-36.0); Mean Corpuscular Volume 86.7 fl (81-99); Mean Platelet Volume 12.6 fL (7.4-10.4); Monocytes # 0.3 10^3/uL (0.2-0.9); Monocytes % 2.3 %; Neutrophils # 9.17 10^3/uL (1.8-7.7); Neutrophils % 82.5 %; Nucleated Red Blood Cells % 0 %; Platelet Count 172 10^3/cmm (130-400); Red Blood Count 3.75 10^6/uL (4.1-5.3); Red Cell Distribution Width 14.4 % (12.1-15.1); White Blood Count 11.1 10^3/uL (4.0-10.0)
[2021-07-04 04:00] LABS: INR 1.19 (0.8-1.2)
[2021-07-04 04:02] LABS: D Dimer 1.85 ug/mIFEU (0-0.59)
[2021-07-04 04:04] LABS: ABG PCO2 36.1 mmHg (35-45); ABG PH Result 7.37 (7.35-7.45); Arterial Blood Gas Hematocrit 45.8 % (37-47); Base Excess ABG -3.6 mmol/L (-2.0-2.0); Blood Gas Allen Test Pos; Blood Gas Sample Type Arterial
[2021-07-04 04:05] LABS: Blood Gas Operator Identificat JB; Blood Gas Sample Site Radial, left; Blood Gas Tidal Volume 0.38; Oxygen Device VENT
[2021-07-04 04:07] LABS: Alanine Aminotransferase 30 U/L (0-33); Albumin Level 2.5 g/dL (3.5-5.2); Alkaline Phosphatase 80 IU/L (35-105); Anion Gap 16.1 (5-19); Aspartate Amino Transferase 127 U/L (0-32); Blood Urea Nitrogen 58 mg/dL (8-23); C Reactive Protein 123.5 mg/L (0.0-4.9); Calcium 7.8 mg/dL (8.5-10.5); Carbon Dioxide 20 mmol/L (22-29); Chloride 112 mmol/L (98-107); Globulin 2.4 g/dL (1.3-4.6); Glucose 165 mg/dL (65-115); Magnesium 2.1 mg/dL (1.7-2.3); Osmolality Calculated 318 mOsm/kg (285-295); Phosphorus 4.3 mg/dL (2.5-4.5); Potassium 4.1 mmol/L (3.5-5.1); Sodium 144 mmol/L (136-145); Total Bilirubin 0.3 mg/dL (0.15-1.2); Total Protein 4.9 g/dL (6.6-8.7)
[2021-07-04 04:12] LABS: NT Pro B Type Natriuretic Pept 1186 pg/mL (0-450); Procalcitonin 0.95 ng/mL (0-0.5)
[2021-07-04 04:13] LABS: Slide Review Slide Review Perform
[2021-07-04 04:43] LABS: Creatine Phosphokinase 2667 U/L (26-192)
--- NOTE | 2021-07-04 05:39 | PC.NURSE ---
Shift Note Frequent safety and comfort rounds continue. Orders and/or nursing care completed as indicated. Patient monitored for response to intervention and treatment(s). Education provided includes positioning for optimal ventilation . 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 Will continue to monitor.
[2021-07-04] MEDS: sucralfate 1 gm/10 mL Oral Liq UDC PO ×4 (05:57→21:32)
[2021-07-04] MEDS: pantoprazole 40 mg SDV IVP ×2 (05:57→17:08)
--- NOTE | 2021-07-04 06:30 | XR_ITS ---
WS: [id number] XR chest 1V portable [id number] REASON FOR EXAM: pnemonia FINDINGS: Right jugular central venous line, endotracheal tube, nasogastric tube remain in proper position. No significant interval change in the bilateral infiltrates compared to 07/03/2021. No new findings. XR/XR chest 1V portable [id number] IMPRESSION: Stable abnormal chest.
--- NOTE | 2021-07-04 06:47 | PC.NURSE ---
Report received, assessment completed. Pt resting in bed with eyes closed. No s/s of pain or SOB. ETT at 23cm, Vt 38, FIO2 40%, peep 10, RR 16. OGT in place with TF infusing at 15ml/h. Bradycardia noted. MD aware. Aggarwal cath draining freely. Gtts infusing per orders. Will monitor.
--- NOTE | 2021-07-04 06:56 | P.PN_ITS ---
Subjective Subjective: Interval history: sedated on vent Medications: Reviewed: Yes Medication Review Details: Current Medications Acetaminophen (Acetaminophen 325 Mg Tablet) 650 mg PO Q6H PRN PRN Reason: Mild/Mod Pain Or Temp >/= 101 Last Admin: 06/30/21 00:48 Dose: 650 mg Documented by: Albuterol/Ipratropium (Ipratropium-Albuterol 3 Ml Neb) 3 ml INHALATION Q6H PRN PRN Reason: SHORTNESS OF BREATH Last Admin: 07/04/21 02:49 Dose: 3 ml Documented by: Artificial Tears (Artificial Tears Op Oint 3.5 Gm) 1 applic EYE-BOTH PRN PRN PRN Reason: DRY EYE(S) Ascorbic Acid (Ascorbic Acid 500 Mg Tablet) 500 mg PO BID [facility] Last Admin: 07/03/21 17:50 Dose: Not Given Documented by: Aspirin (Aspirin 325 Mg Tablet) 325 mg OG-TUBE DAILY [facility] Last Admin: 07/03/21 14:35 Dose: 325 mg Documented by: Bisacodyl (Bisacodyl 10 Mg Supp) 10 mg [place] ONCE PRN; Protocol PRN Reason: Constipation (see protocol) Budesonide (Budesonide 0.5 Mg/2 Ml Neb) 0.5 mg INHALATION BID.RESPIRATORY MARC Last Admin: 07/03/21 20:13 Dose: 0.5 mg Documented by: Dexamethasone (Dexamethasone 10 Mg/Ml Inj) 6 mg IVP Q24H MARC Last Admin: 07/03/21 14:35 Dose: 6 mg Documented by: Docusate Sodium (Docusate Sodium 100 Mg Capsule) 100 mg PO BID MARC Last Admin: 07/01/21 08:29 Dose: 100 mg Documented by: Enoxaparin Sodium (Enoxaparin 30 Mg/0.3 Ml Syringe) 30 mg SUBCUT Q24H MARC Last Admin: 07/03/21 16:31 Dose: 30 mg Documented by: Norepinephrine Bitartrate 4 mg (/ Dextrose) 254 mls @ 0 mls/hr IV .Q0M MARC; Protocol Propofol (Diprivan) 1,000 mg in 100 mls @ 0 mls/hr IV .Q0M MARC; Protocol Last Titration: 07/04/21 04:42 Dose: 50 mcg/kg/min, 15.11 mls/hr Documented by: Cisatracurium Besylate 100 mg/ (Dextrose) 100 mls @ 0 mls/hr IV .Q0M MARC; Protocol Last Titration: 07/03/21 10:35 Dose: 0.5 mcg/kg/min, 1.51 mls/hr Documented by: Fentanyl 1,000 mcg/ Dextrose 100 mls @ 0 mls/hr IV .Q0M MARC; Protocol Last Admin: 07/03/21 19:37 Dose: 75 mcg/hr, 7.5 mls/hr Documented by: Midazolam HCl 100 mg/ Dextrose 100 mls @ 0 mls/hr IV .Q0M MARC; Protocol Last Titration: 07/04/21 06:47 Dose: 2 mg/hr, 2 mls/hr Documented by: Piperacillin Sod/Tazobactam (Sod 3.375 gm/ Dextrose) 50 mls @ 12.5 mls/hr IV Q12H MARC; Protocol Last Infusion: 07/04/21 06:47 Dose: Infused Documented by: Lactated Ringer's (Lactated Ringers) 1,000 mls @ 100 mls/hr IV .Q10H MARC Last Admin: 07/04/21 02:32 Dose: 100 mls/hr Documented by: Lactulose (Lactulose Oral Liq 20 Gm/30 Ml Udc) 10 gm PO DAILY PRN; Protocol PRN Reason: Constipation (see protocol) Lorazepam (Lorazepam 2 Mg/Ml Inj 1 Ml) 0.5 mg IVP Q4H PRN PRN Reason: ANXIETY Last Admin: 06/30/21 10:55 Dose: 0.5 mg Documented by: Ondansetron HCl (Ondansetron 2 Mg/Ml Sdv 2 Ml) 4 mg IVP Q8H PRN PRN Reason: vomiting, or N/V if npo Pantoprazole Sodium (Pantoprazole 40 Mg Sdv) 40 mg IVP Q12H MARC Last Admin: 07/04/21 05:57 Dose: 40 mg Documented by: Polyethylene Glycol (Polyethylene Glycol 3350 Pkt 17 Gm) 17 gm PO DAILY [facility] Last Admin: 07/03/21 07:59 Dose: 17 gm Documented by: Sucralfate (Sucralfate 1 Gm/10 Ml Oral Liq Udc) 1 gm PO AC&BEDTIME MARC Last Admin: 07/04/21 05:57 Dose: 1 gm Documented by: Vitamin D (Cholecalciferol (Vitamin D3) 1,000 Unit Tablet) 1,000 unit PO DAILY [facility] Last Admin: 07/03/21 07:59 Dose: 1,000 unit Documented by: Zinc Gluconate (Zinc Gluconate 50 Mg Tablet) 50 mg PO DAILY [facility] Last Admin: 07/03/21 07:59 Dose: 50 mg Documented by: Vitals/I&O/Wt Last Vital Signs Temp 98.8 F 07/04/21 04:00 Pulse 49 L 07/04/21 05:58 Resp 16 07/04/21 02:51 BP 187/84 07/04/21 04:30 Pulse Ox 93 07/04/21 04:30 07/03/21 07/03/21 07/04/21 14:59 22:59 06:59 Intake Total 379.784 / 379.784 320.768 / 043.034 5485.219 / 3653.771 Output Total 450 / 450 550 / 1000 Balance 379.784 / 379.784 -129.232 / 925.783 1106.219 / 2653.771 Weight last 48 hrs Weight 50.349 kg Weight 49.895 kg Physical Exam Narrative: EXAM NARRATIVE: exam by RN- telehealth visit vs noted - bp elevated, bradycardic vent TV 380/ Fio2=40%, PEEP 10, RR 16 heent- nc/at neck no jvp lungs clear heart- tachycardic abd soft, nt, nd, +bs ext no edema neuro- sedated Urinary Catheter Management^: Aggarwal: Cath Placed During This Visit: yes Reason for Continuing Indwelling Catheter: Accurate Measurement of Urinary Output in Critically Ill Patients Urinary Catheter Date of Insertion: 06/28/21 Urinary Catheter Time of Insertion: 18:41 Data : 07/04/21 03:00 07/04/21 03:00 Micro: Microbiology 06/30/21 17:35 Gram Stain - Final Sputum - Endotracheal Tube Aspirate Sputum Culture - Final Yeast A&P Additional A&P Information 76 yr old female SARS PNA/ COVID-19+ 1. BETSY- concern for COVID nephropathy vs prerenal azotemia, vs ATN, AIN from meds. Can be HOME- as cr started to rise 2 to 3 days after admission -recs- renal us pending -cr improving -repeat urine studies noted- u/a with 3+ blood, 5-10 rbc- q rhabdo, q from infection related gn or COVID-nephropathy, ur eos pending, - ur na 36 c/w ATN- though after lasix -renal fxn improved w/ ivf - dec dose -monitor uop and chemistries -DOSE ALL MEDS FOR GFR UNDER 15 2. hypernatremia- improving w/ ivf 3. mild AGMA from BETSY. may have a Non AGMA from diarrhea 4, rhabdromyolysis- ivf, monitor ck and cr- ck down from 3295 to 2667 5. hgb stable at 10.5 6. acid/ base status- balanced 7. 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
[2021-07-04] MEDS: propofol 1,000 MG/100 ML INJ 12.08 MG IV (07:13)
--- NOTE | 2021-07-04 07:45 | PC.NURSE ---
Rectal temp 91.9, natasha hugger applied. Restraints applied per orders.
[2021-07-04] MEDS: budesonide 0.5 mg/2 mL Neb INHALATION ×2 (08:03→20:07)
[2021-07-04] MEDS: zinc gluconate 50 mg Tablet PO (08:04)
[2021-07-04] MEDS: ascorbic acid 500 mg Tablet PO ×2 (08:04→17:09)
[2021-07-04] MEDS: aspirin 325 mg Tablet OG-TUBE (08:04)
[2021-07-04] MEDS: polyethylene glycol 3350 Pkt 17 gm PO (08:04)
[2021-07-04] MEDS: cholecalciferol (vitamin D3) 1,000 unit Tablet 1000 UNIT PO (08:04)
--- NOTE | 2021-07-04 09:13 | USCV_ITS ---
Clare Stewart Age: 76 Gender: F : 1945 Exam Date: 07/04/2021 09:02 Ordering Phys: Lars Valentine MD Technologist: Loreta Ordoñez Exam Location: [facility] [place] Indication: HPOXIA RESP FAILURE BP: 125 / 62 HR: 55 Rhythm: Sinus Technical Quality: Technically difficult study MEASUREMENTS (Male / Female) Normal Values 2D ECHO LV Diastolic Diameter PLAX 3.7 cm 4.2 - 5.9 / 3.9 - 5.3 cm LV Systolic Diameter PLAX 2.3 cm IVS Diastolic Thickness 1.1 cm 0.6 - 1.0 / 0.6 - 0.9 cm IVS Systolic Thickness 1.7 cm LVPW Diastolic Thickness 1.5 cm 0.6 - 1.0 / 0.6 - 0.9 cm LVPW Systolic Thickness 1.8 cm LVOT Diameter 2.0 cm LV Ejection Fraction 2D Teich 69.0 % LV Ejection Fraction MOD 2C 83.9 % LV Ejection Fraction 2C AL 84.7 % LA Diameter 2.8 cm LA Width 2.5 cm LA Height 2.6 cm Aorta at Sinotubular Diameter 2.8 cm M-MODE MV E Point Septal Separation 0.1 cm DOPPLER AV Peak Velocity 108.0 cm/s LVOT Peak Velocity 111.0 cm/s AV Area Cont Eq vti 2.2 cm squared AV Area Cont Eq pk 3.2 cm squared MV Peak Velocity 83.0 cm/s MV Area PHT 3.1 cm squared Mitral E to A Ratio 1.1 MV E' Velocity 34.0 cm/s Mitral E to MV E' Ratio 12.6 Mitral E to LV E' Lateral Ratio 10.9 Mitral E to LV E' Septal Ratio 15.5 Right Atrial Pressure 3.0 mmHg FINDINGS Left Ventricle Normal left ventricular size and systolic function, EF 88 %. Mild left ventricular hypertrophy. No regional wall motion abnormalities. Grade I/IV diastolic dysfunction (abnormal relaxation filling pattern), normal to mildly elevated filling pressures. Right Ventricle Normal right ventricular size and systolic function. Right Atrium The right atrium is normal in size. Left Atrium The left atrium is normal in size. Mitral Valve Minimally thickened mitral valve Aortic Valve Trace to mild aortic valve regurgitation. hickened aortic valve. T Tricuspid Valve No gross abnormalities noted Pulmonic Valve Not visualized well Pericardium Normal pericardium without effusion. Aorta Normal ascending aorta dimension. CONCLUSIONS Normal left ventricular size and systolic function, EF 88 %. Mild left ventricular hypertrophy. No regional wall motion abnormalities. Grade I/IV diastolic dysfunction (abnormal relaxation filling pattern), normal to mildly elevated filling pressures. Minimally thickened mitral valve. Thickened aortic valve. Trace to mild aortic valve regurgitation. There is no pericardial effusion. There are no intracardiac masses. No similar previous studies are available for comparison Dr Serg Asencio MD FAC (Electronically Signed) Final Date: 04 July 2021 23:32 S
--- NOTE | 2021-07-04 09:45 | PC.SOCIAL ---
IMM Not Updated Pg. 2 of IMM not updated; patient intubated and not anticipated to discharge within the next 48hours.
--- NOTE | 2021-07-04 10:45 | PC.NUTR ---
When proning finished and when appropriate to resume current order of TF Jevity 1.2 @ 15 ml/hr with 60 ml H2O flushes Q6H, recommend consideration of goal rate of 25 ml/hr. Jevity 1.2 @ 25 ml/hr will provide 720 kcals + 319 kcal from Prop = 1039 kcals or 95% est kcal needs as well as 33 grams prot or 60% est prot needs and 484 ml H2O plus 240 ml from FW flushes. See RD assessment for more details.
--- NOTE | 2021-07-04 11:09 | P.PN_ITS ---
Subjective Subjective: Interval history: Intubated, sedated. Weaning of paralytics. Vitals/I&O/Wt Last Vital Signs Temp 91.9 F L 07/04/21 08:00 Pulse 50 L 07/04/21 08:32 Resp 16 07/04/21 08:52 BP 139/69 07/04/21 08:00 Pulse Ox 91 07/04/21 08:52 07/03/21 07/04/21 07/04/21 22:59 06:59 14:59 Intake Total 320.768 / 301.470 1572.219 / 3653.771 647.145 / 647.145 Output Total 450 / 450 550 / 1000 Balance -129.232 / 305.912 8498.219 / 2653.771 647.145 / 647.145 Weight last 48 hrs Weight 50.349 kg Weight 49.895 kg Physical Exam Const: GENERAL APPEARANCE: patient mechanically ventilated OTHER: Int ubated, sedated. HENMT: COMMON NORMALS: oropharynx normal Neck/C-Spine: COMMON NORMALS: no JVD Resp: COMMON NORMALS: clear to auscultation bilaterally AUSCULTATION: clear to auscultation bilaterally Cardio: COMMON NORMALS: no JVD, regular rhythm, S1 normal heart sound present, S2 normal heart sound present and No murmurs present (Cardio) RHYTHM: regular rhythm HEART SOUNDS: S1 normal heart sound present and S2 normal heart sound present GI: COMMON NORMALS: Normal to inspection, nondistended, normoactive bowel sounds present and Soft to palpation PALPATION: Yes Soft to palpation Extremity: COMMON NORMALS: no joint enlargement and no pedal edema Neuro: COMMON NORMALS: moves all extremities Skin: COMMON NORMALS: no rashes or lesions noted GENERAL SKIN EXAM: no rashes or lesions noted Urinary Catheter Management^: Aggarwal: Cath Placed During This Visit: yes Reason for Continuing Indwelling Catheter: Accurate Measurement of Urinary Output in Critically Ill Patients Urinary Catheter Date of Insertion: 06/28/21 Urinary Catheter Time of Insertion: 18:41 Data : 07/04/21 03:00 07/04/21 03:00 Micro: Microbiology 06/30/21 17:35 Gram Stain - Final Sputum - Endotracheal Tube Aspirate Sputum Culture - Final Yeast A&P Assessment and plan (1) Pneumonia due to 2019 novel coronavirus: CAPOX. Supinated today. Average requirement down to 40%. Weaning of paralytics. Appreciate brim plater recommendations. Will wean off sedation today, assess mental status, reassess respiratory status, weaning trial, consideration of possible extubation. Discussed with her son, discussed no guarantees that she may be able to extubate today, however, overall seems to be showing gradual improvement. Continue Decadron. Continue Zosyn. All sputum culture, rare gram-positive cocci in pairs, rare gram-negative rods on Gram stain. MRSA PCR negative. Continue Lovenox DVT prophylaxis, renally adjusted Requested TTE Completed course of remdesivir. Procalcitonin elevated. Status: Acute (2) BETSY (acute kidney injury): Now with improvement. Responding to gentle fluid challenge. Mild rhabdomyolysis. Decreasing CK. Well request kidney ultrasound. Possibly secondary to COVID-19 itself. Perhaps less likely contrast-induced nephropathy as CTA was on 06/27, unless is peaking and may expect improvement otherwise, possibly prerenal component. Monitor I&O. Status: Acute (3) Acute encephalopathy: Currently sedated, paralyzed, reassess mental status with weaning. Status: Acute (4) Acute respiratory failure with hypoxia: Status: Acute (5) Acute respiratory distress syndrome: Status: Acute Additional A&P Information Hypokalemia: Replaced Possible atrial flutter: Computer read on EKG, but I do not appreciate flutter waves. Does appear to have some inferolateral T wave inversions. Follow-up TTE. Monitor on telemetry. Added aspirin. HTN HLD Attestations Medical Necessity Statement*: Continue admission for assessment management of hypoxic respiratory failure secondary to severe COVID-19, weaning down paralytics, sedation, mechanical ventilatory support, reassessment for possibility of extubation. Coding Level of Care Code Acute Urban Designer for [facility] Fwd Diagnoses Pneumonia due to 2019 novel coronavirus U07.1; J12.82 BETSY (acute kidney injury) N17.9 Acute encephalopathy G93.40 Acute respiratory failure with hypoxia J96.01 Acute respiratory distress syndrome J80
--- NOTE | 2021-07-04 13:41 | PC.NURSE ---
250ml residual noted in OGT. Spoke with MD and received order for reglan 5mg per tube to increase gastric motility. TF continues at 15ml/h, will monitor.
[2021-07-04] MEDS: metoclopramide 10 mg Tablet 5 MG PO ×2 (14:40→21:33)
[2021-07-04] MEDS: dexamethasone 10 mg/mL INJ 6 MG IVP (14:40)
[2021-07-04] MEDS: lactated ringers 1,000 ML 65 ML IV (14:43)
--- NOTE | 2021-07-04 16:17 | US_ITS ---
WS: [id number] RENAL ULTRASOUND HISTORY: cristino COMPARISON: None available. TECHNIQUE: 2-D and color Doppler imaging of the kidney submitted. Right kidney: 10.2 cm x 4.5 cm x 4.3 cm. Normal echogenicity with no hydronephrosis or mass. Left kidney: 9.5 cm x 5.4 cm x 3.8 cm. Normal echogenicity with no hydronephrosis or mass. Aorta: Mild atherosclerosis with no aneurysm. Urinary Bladder: Nondistended bladder. Aggarwal catheter balloon is noted distended within the bladder. US/US renal BI* [id number] IMPRESSION: Normal renal ultrasound.
[2021-07-04] MEDS: enoxaparin 30 mg/0.3 mL Syringe SUBCUT (17:08)
--- NOTE | 2021-07-04 18:02 | PC.NURSE ---
Shift Note Frequent safety and comfort rounds continue. Orders and/or nursing care completed as indicated. Patient monitored for response to intervention and treatment(s). Education provided includes treatment plan and medications. Spoke with son, Dimas, and explained that pt is off sedation but is not waking up at this time. If pt does not wake up by tomorrow, plans for head CT. Urine draining freely. Temp normalized, natasha hugger still in use. Will continue to monitor.
--- NOTE | 2021-07-04 22:16 | PM.PN ---
Subjective Subjective: Interval history: -Patient seen at bedside today -Observation-patient is still very drowsy-continue awakening trial -Renal functions improving with LR 100 mL/h; reduced to 65 ml hour -Patient had gastric residuals to 50 cc-started on Reglan -Other labs and imaging reviewed Medications: Reviewed: Yes Vitals/I&O/Wt Last Vital Signs Temp 96.9 F L 07/04/21 16:00 Pulse 111 H 07/04/21 20:08 Resp 19 H 07/04/21 20:09 BP 116/61 07/04/21 16:00 Pulse Ox 92 07/04/21 20:09 07/04/21 07/04/21 07/04/21 06:59 14:59 22:59 Intake Total 2953.219 / 3653.771 1169.059 / 1169.059 410 / 1579.059 Output Total 550 / 1000 850 / 850 Balance 2403.219 / 2653.771 1169.059 / 1169.059 -440 / 729.059 Weight last 48 hrs Weight 111 lb Weight 110 lb Physical Exam Narrative: EXAM NARRATIVE: General: lying in bed, sedated and intubated, proned HEENT:NCAT, PERRLA, EOMI Neck: Supple Lungs: Improving breath sounds bilaterally Heart: s1/s2, RRR Abd: soft, NT, ND, BS + Normoactive Extremities: No edema GLOBAL MARKETING COORDINATOR: sedated and limited GLOBAL MARKETING COORDINATOR exam possible. SKIN: no rash LDA: # CVC: Right internal jugular 06/30/2021 # Aggarwal: 06/30/2021 Urinary Catheter Management^: Aggarwal: Cath Placed During This Visit: yes Reason for Continuing Indwelling Catheter: Accurate Measurement of Urinary Output in Critically Ill Patients Urinary Catheter Date of Insertion: 06/28/21 Urinary Catheter Time of Insertion: 18:41 Data : 07/05/21 04:30 07/05/21 04:30 Micro: Microbiology 07/04/21 01:20 C.difficile Toxin B Gene (PCR) - Final Stool A&P Assessment and plan (1) AMS (altered mental status): Status: Acute Qualifiers: Altered mental status type: disorientation Qualified Code(s): R41.0 - Disorientation, unspecified (2) Acute respiratory distress syndrome: Status: Acute (3) Acute respiratory failure with hypoxia: Status: Acute (4) Pneumonia due to 2019 novel coronavirus: Status: Acute (5) Acute encephalopathy: Status: Acute (6) BETSY (acute kidney injury): Status: Acute (7) Dementia: Status: Acute Qualifiers: Dementia type: unspecified type Dementia behavioral disturbance: without behavioral disturbance Qualified Code(s): F03.90 - Unspecified dementia without behavioral disturbance (8) Hypernatremia: Status: Acute (9) Hyperchloremic metabolic acidosis: Status: Acute (10) Hypokalemia: Status: Acute #Abdomen to status secondary to hypoxia and patient with underlying dementia #Acute hypoxic respiratory failure secondary to COVID-19 pneumonia #BETSY-prerenal BETSY vs Covid nephropathy/HOME -Intubated 06/30/2021; -completed 3 proning sessions -Currently sedated with propofol, fentanyl-plan is to taper off sedation and continue awakening trial -ABG 7.3 04/21/129/21 on CMV 380/10/40 % -We will continue lung protective strategies ARDS protocol-low tidal volume/high PEEP with target plateau pressures less than 30 and driving pressures less than 15 -S/p 5 day remdesivir and currently dexamethasone 6 mg daily - patient pro Chau is high 4.34 at admission, cultures so far negative, sputum cultures-yeast -MRSA nares negative; discontinued vancomycin and deescalated imipenem to Zosyn -C. difficile PCR negative-no more diarrhea; -BNP > 4000-echo normal LV systolic function with EF 88% grade 1 diastolic dysfunction. Thickened aortic valve. -BETSY-prerenal versus Covid nephropathy/HOME; -Improving LR at 100 cc/h-today reduced to 65 cc/h -I/O+ 2600 cc in last 24 hours-monitor I&O and try to keep net negative to even -Monitor electrolytes and renal functions -start tube feeding at 15 mL/h when patient is not proned -GI prophylaxis PPI -Started on Reglan -Sugars well controlled -DVT prophylaxis Lovenox -Prognosis guarded -Family updated Recommendations conveyed to hospitalist, RN, RT taking care of the patient Attestations Medical Necessity Statement*: AMS and acute hypoxic respiratory failure secondary to ARDS due to COVID-19 pneumonia Time Spent in Patient Care: Greater than 35 minutes (>than 50% of time spent in counselling and/or direct pt care on unit). Critical Care Time: The high probability of a clinically significant, sudden or life threatening deterioration of the patient's [neurologic, pulmonary, renal] system(s) required my full and direct attention, intervention and personal management. The critical care time is as shown. 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
[2021-07-05] VITALS (65 sets, daily range): BP systolic 119–187; BP diastolic 64–104; PULSE 83–114; RESP 16–29; TEMP 36.6–37.1; O2SAT 85–99; BMI 24.7
[2021-07-05] MEDS: piperacillin-tazobactam 3.375 GM in dextrose 5% (plus) 50 ML IV ×2 (02:27→14:32)
[2021-07-05] MEDS: ipratropium-albuterol 3 mL Neb INHALATION ×4 (02:30→20:05)
[2021-07-05 04:56] LABS: Basophils # 0.1 10^3/uL (0.0-0.1); Basophils % 0.6 %; Eosinophils % 0.3 %; Hematocrit 34.3 % (37.0-47.0); Hemoglobin 10.9 g/dL (11.5-15.3); Lymphocytes # 0.6 10^3/uL (0.8-4.8); Lymphocytes % 4.5 %; Mean Corpuscular HGB Conc 31.8 g/dL (30.0-36.0); Mean Corpuscular Hemoglobin 27.7 pg (28.0-34.0); Mean Corpuscular Volume 87.1 fl (81-99); Mean Platelet Volume 13.1 fL (7.4-10.4); Monocytes # 0.4 10^3/uL (0.2-0.9); Monocytes % 3.5 %; Neutrophils # 9.87 10^3/uL (1.8-7.7); Neutrophils % 79.9 %; Nucleated Red Blood Cells % 0.2 %; Platelet Count 221 10^3/cmm (130-400); Red Blood Count 3.94 10^6/uL (4.1-5.3); Red Cell Distribution Width 14.4 % (12.1-15.1); White Blood Count 12.4 10^3/uL (4.0-10.0)
[2021-07-05 05:02] LABS: ABG PH Result 7.46 (7.35-7.45); Arterial Blood Gas Hematocrit 46.5 % (37-47); Base Excess ABG -1.3 mmol/L (-2.0-2.0); Blood Gas Allen Test Pos; Blood Gas Sample Site Radial, right; Blood Gas Sample Type Arterial; Blood Gas Tidal Volume 0.38; HCO3 ABG 21.3 mmol/L (22-26); Oxygen Device VENT; PO2 ABG 50.6 mmHg (80.0-100.0)
[2021-07-05] MEDS: pantoprazole 40 mg SDV IVP ×2 (05:05→17:33)
[2021-07-05] MEDS: lactated ringers 1,000 ML 65 ML IV (05:05)
[2021-07-05 05:16] LABS: D Dimer 2.79 ug/mIFEU (0-0.59)
[2021-07-05 05:22] LABS: Alanine Aminotransferase 34 U/L (0-33); Albumin Level 2.6 g/dL (3.5-5.2); Alkaline Phosphatase 80 IU/L (35-105); Aspartate Amino Transferase 102 U/L (0-32); Blood Urea Nitrogen 57 mg/dL (8-23); Calcium 7.9 mg/dL (8.5-10.5); Carbon Dioxide 21 mmol/L (22-29); Chloride 108 mmol/L (98-107); Globulin 2.7 g/dL (1.3-4.6); Glucose 121 mg/dL (65-115); Magnesium 1.9 mg/dL (1.7-2.3); Osmolality Calculated 311 mOsm/kg (285-295); Phosphorus 3.1 mg/dL (2.5-4.5); Sodium 142 mmol/L (136-145); Total Bilirubin 0.3 mg/dL (0.15-1.2); Total Protein 5.3 g/dL (6.6-8.7)
[2021-07-05 05:31] LABS: Slide Review Slide Review Perform
[2021-07-05 05:33] LABS: Creatine Phosphokinase 1270 U/L (26-192)
--- NOTE | 2021-07-05 06:18 | PC.NURSE ---
Shift Note Frequent safety and comfort rounds continue. Orders and/or nursing care completed as indicated. Patient monitored for response to intervention and treatment(s). The patient has been off sedation since day shift with only a few episodes bucking the ventilator, with respirations in the upper 20's. Neuo perla the patient does not respond to commands, does not react to painful stimuli, positive for weak gag with no cough, and pupils are equal round and sluggish to light. Urine output for the patient was 565 mL, and a critical CK lab was reported this morning as being decreased since the night before. Rectal tube had about 95 cc of brownish loose stool with lumps. Vitals have been within normal limits during the shift.
[2021-07-05] MEDS: sucralfate 1 gm/10 mL Oral Liq UDC PO ×4 (06:51→21:27)
--- NOTE | 2021-07-05 07:13 | PM.PN ---
Subjective Subjective: Interval history: moves eyes, not verbal. on vent Medications: Reviewed: Yes Medication Review Details: Current Medications Acetaminophen (Acetaminophen 325 Mg Tablet) 650 mg PO Q6H PRN PRN Reason: Mild/Mod Pain Or Temp >/= 101 Last Admin: 06/30/21 00:48 Dose: 650 mg Documented by: Albuterol/Ipratropium (Ipratropium-Albuterol 3 Ml Neb) 3 ml INHALATION Q6H PRN PRN Reason: SHORTNESS OF BREATH Last Admin: 07/05/21 02:30 Dose: 3 ml Documented by: Artificial Tears (Artificial Tears Op Oint 3.5 Gm) 1 applic EYE-BOTH PRN PRN PRN Reason: DRY EYE(S) Ascorbic Acid (Ascorbic Acid 500 Mg Tablet) 500 mg PO BID [facility] Last Admin: 07/04/21 17:09 Dose: 500 mg Documented by: Aspirin (Aspirin 325 Mg Tablet) 325 mg OG-TUBE DAILY MARC Last Admin: 07/04/21 08:04 Dose: 325 mg Documented by: Bisacodyl (Bisacodyl 10 Mg Supp) 10 mg AK ONCE PRN; Protocol PRN Reason: Constipation (see protocol) Budesonide (Budesonide 0.5 Mg/2 Ml Neb) 0.5 mg INHALATION BID.RESPIRATORY MARC Last Admin: 07/04/21 20:07 Dose: 0.5 mg Documented by: Dexamethasone (Dexamethasone 10 Mg/Ml Inj) 6 mg IVP Q24H MARC Last Admin: 07/04/21 14:40 Dose: 6 mg Documented by: Docusate Sodium (Docusate Sodium 100 Mg Capsule) 100 mg PO BID MARC Last Admin: 07/01/21 08:29 Dose: 100 mg Documented by: Enoxaparin Sodium (Enoxaparin 30 Mg/0.3 Ml Syringe) 30 mg SUBCUT Q24H MARC Last Admin: 07/04/21 17:08 Dose: 30 mg Documented by: Norepinephrine Bitartrate 4 mg (/ Dextrose) 254 mls @ 0 mls/hr IV .Q0M MARC; Protocol Propofol (Diprivan) 1,000 mg in 100 mls @ 0 mls/hr IV .Q0M MARC; Protocol Last Titration: 07/04/21 13:36 Dose: 0 mcg/kg/min, 0 mls/hr Documented by: Cisatracurium Besylate 100 mg/ (Dextrose) 100 mls @ 0 mls/hr IV .Q0M MARC; Protocol Last Titration: 07/04/21 07:09 Dose: 0 mcg/kg/min, 0 mls/hr Documented by: Fentanyl 1,000 mcg/ Dextrose 100 mls @ 0 mls/hr IV .Q0M MARC; Protocol Last Titration: 07/04/21 13:36 Dose: 0 mcg/hr, 0 mls/hr Documented by: Midazolam HCl 100 mg/ Dextrose 100 mls @ 0 mls/hr IV .Q0M MARC; Protocol Last Titration: 07/04/21 10:31 Dose: 0 mg/hr, 0 mls/hr Documented by: Piperacillin Sod/Tazobactam (Sod 3.375 gm/ Dextrose) 50 mls @ 12.5 mls/hr IV Q12H MARC; Protocol Last Admin: 07/05/21 02:27 Dose: 12.5 mls/hr Documented by: Lactated Ringer's (Lactated Ringers) 1,000 mls @ 65 mls/hr IV .[id number] MARC Last Admin: 07/05/21 05:05 Dose: 65 mls/hr Documented by: Lactulose (Lactulose Oral Liq 20 Gm/30 Ml Udc) 10 gm PO DAILY PRN; Protocol PRN Reason: Constipation (see protocol) Metoclopramide HCl (Metoclopramide 10 Mg Tablet) 5 mg PO TID MARC Last Admin: 07/04/21 21:33 Dose: 5 mg Documented by: Ondansetron HCl (Ondansetron 2 Mg/Ml Sdv 2 Ml) 4 mg IVP Q8H PRN PRN Reason: vomiting, or N/V if npo Pantoprazole Sodium (Pantoprazole 40 Mg Sdv) 40 mg IVP Q12H MARC Last Admin: 07/05/21 05:05 Dose: 40 mg Documented by: Polyethylene Glycol (Polyethylene Glycol 3350 Pkt 17 Gm) 17 gm PO DAILY MARC Last Admin: 07/04/21 08:04 Dose: 17 gm Documented by: Sucralfate (Sucralfate 1 Gm/10 Ml Oral Liq Udc) 1 gm PO AC&BEDTIME MARC Last Admin: 07/05/21 06:51 Dose: 1 gm Documented by: Vitamin D (Cholecalciferol (Vitamin D3) 1,000 Unit Tablet) 1,000 unit PO DAILY [facility] Last Admin: 07/04/21 08:04 Dose: 1,000 unit Documented by: Zinc Gluconate (Zinc Gluconate 50 Mg Tablet) 50 mg PO DAILY [facility] Last Admin: 07/04/21 08:04 Dose: 50 mg Documented by: Vitals/I&O/Wt Last Vital Signs Temp 98.2 F 07/05/21 04:00 Pulse 89 07/05/21 06:00 Resp 22 H 07/05/21 05:40 BP 133/79 07/05/21 06:00 Pulse Ox 91 07/05/21 06:00 07/04/21 07/05/21 07/05/21 22:59 06:59 14:59 Intake Total 410 / 1961.706 1335.833 / 2782.892 Output Total 850 / 850 565 / 1415 Balance -440 / 729.059 638.833 / 1367.892 Weight last 48 hrs Weight 61.49 kg Weight 50.349 kg Physical Exam Narrative: EXAM NARRATIVE: exam by RN- telehealth visit vs noted and normal vent TV 380/ Fio2=45%, PEEP 10, RR 18 heent- nc/at neck no jvp lungs clear heart- RRR, + s1, s2, no rub abd soft, nt, nd, +bs ext no edema neuro-off of sedation, moves eyes, not moving extremities Urinary Catheter Management^: Aggarwal: Cath Placed During This Visit: yes Reason for Continuing Indwelling Catheter: Accurate Measurement of Urinary Output in Critically Ill Patients Urinary Catheter Date of Insertion: 06/28/21 Urinary Catheter Time of Insertion: 18:41 Data : 07/05/21 04:30 07/05/21 04:30 Micro: Microbiology 07/04/21 01:20 C.difficile Toxin B Gene (PCR) - Final Stool A&P Additional A&P Information 76 yr old female SARS PNA/ COVID-19+ 1. BETSY- concern for COVID nephropathy vs prerenal azotemia, vs ATN, AIN from meds. Can be HOME- as cr started to rise 2 to 3 days after admission -normal renal us -cr improving -repeat urine studies noted- u/a with 3+ blood, 5-10 rbc- q rhabdo, q from infection related gn or COVID-nephropathy, ur eos pending, - ur na 36 c/w ATN- though after lasix -renal fxn improved w/ ivf - dec dose -monitor uop and chemistries -DOSE ALL MEDS FOR GFR UNDER 15 2. hypernatremia- improved w/ ivf 3. resp alkalosis 4, rhabdomyolysis- ivf, monitor ck and cr- ck down from 3295 to 2667 to 1270- dec ivf 5. hgb stable at 10.9 6. poor MS / neuro exam per medicine seen and examined w/ RN- telehealth visit Attestations Medical Necessity Statement*: vdrf, betsy, covid- per medicine Time Spent in Patient Care: 16 - 35 minutes Coding Level of Care Code Acute Commutator Operator for Librado Paz
[2021-07-05] MEDS: ascorbic acid 500 mg Tablet PO ×2 (08:27→17:33)
[2021-07-05] MEDS: cholecalciferol (vitamin D3) 1,000 unit Tablet 1000 UNIT PO (08:27)
[2021-07-05] MEDS: aspirin 325 mg Tablet OG-TUBE (08:27)
[2021-07-05] MEDS: metoclopramide 10 mg Tablet 5 MG PO ×3 (08:27→21:27)
[2021-07-05] MEDS: budesonide 0.5 mg/2 mL Neb INHALATION ×2 (08:27→20:05)
[2021-07-05] MEDS: polyethylene glycol 3350 Pkt 17 gm PO (08:27)
[2021-07-05] MEDS: zinc gluconate 50 mg Tablet PO (08:27)
--- NOTE | 2021-07-05 09:19 | PC.CHAP ---
Pastoral Care Encounter/Spiritual Assessment Type of Contact [] Declined recovery room rn visit [] Patient/Family/Request visit [] Outpatient visit [] Follow-up visit [] Physician referral [] Code/Alert [x] Routine visit [] Staff referral [] Actively dying [] Patient sleeping [] Family support [] [] Out of room [] Palliative care [] [] Receiving care in room [] Pre-surgical visit [] Trauma [] Long length of stay [x] ICU visit [x] Other:x covid vent Relational/Emotional Strength [] Patient feels connected with others/family/visitors/staff [] Distress [] Loneliness/isolation [] Abandonment Spirituality of Patient [] Person of Wendy [] Attends Uatsdin of their Wendy [] Believes in Prayer [] Reads Bible or Scientologist materials [] There are Spiritual issues to be addressed Economics Instructor Interventions [x] Prayer [] Active listening [] Non-anxious presence [] Spiritual/emotional support [] Crisis/trauma care [] Spiritual counseling [] Bereavement support [] Provided bereavement packet [] Provided Bible/devotional materials [] Provided toy/stuffed animal, coloring book to patient or family member [] Provided Communion [] Anointing/[place] [] Salvation [x] Completed spiritual assessment [] Other: Impact on Illness or Injury [] Angry [] Fearful [] Anxious [] Often cries [] Exhaustion [] Unable to work [] Unable to attend catholic [] Unable to walk/stand [] Unable to read [] Unable to drive [] Unable to eat/drink [] Unable to sleep [] Unable to be with family [] Patient intubated [] Other: Summary Time spent with patient
[2021-07-05] MEDS: dexamethasone 10 mg/mL INJ 6 MG IVP (14:25)
[2021-07-05] MEDS: enoxaparin 30 mg/0.3 mL Syringe SUBCUT (17:33)
--- NOTE | 2021-07-05 18:16 | PM.PN ---
Subjective Subjective: Interval history: Initially well incision appears to be looking in the direction of her name being called, however, not following commands, not answering questions, subsequently sedation had to be resumed. Vitals/I&O/Wt Last Vital Signs Temp 98.2 F 07/05/21 16:00 Pulse 88 07/05/21 16:00 Resp 25 H 07/05/21 17:59 BP 133/79 07/05/21 16:00 Pulse Ox 94 07/05/21 17:59 07/05/21 07/05/21 07/05/21 06:59 14:59 22:59 Intake Total 1253.833 / 2832.892 Output Total 565 / 1415 Balance 688.833 / 1417.892 Weight last 48 hrs Weight 61.49 kg Weight 50.349 kg Physical Exam Const: GENERAL APPEARANCE: patient mechanically ventilated OTHER: Intubated, sedated. Eyes partially open spontaneously, does not appear to have gaze preference, not making eye contact HENMT: COMMON NORMALS: oropharynx normal Neck/C-Spine: COMMON NORMALS: no JVD Resp: COMMON NORMALS: clear to auscultation bilaterally AUSCULTATION: clear to auscultation bilaterally Cardio: COMMON NORMALS: no JVD, regular rhythm, S1 normal heart sound present, S2 normal heart sound present and No murmurs present (Cardio) RHYTHM: regular rhythm HEART SOUNDS: S1 normal heart sound present and S2 normal heart sound present GI: COMMON NORMALS: Normal to inspection, nondistended, normoactive bowel sounds present and Soft to palpation PALPATION: Yes Soft to palpation Extremity: COMMON NORMALS: no joint enlargement and no pedal edema Neuro: COMMON NORMALS: moves all extremities Skin: COMMON NORMALS: no rashes or lesions noted GENERAL SKIN EXAM: no rashes or lesions noted Urinary Catheter Management^: Aggarwal: Cath Placed During This Visit: yes Reason for Continuing Indwelling Catheter: Accurate Measurement of Urinary Output in Critically Ill Patients Urinary Catheter Date of Insertion: 06/28/21 Urinary Catheter Time of Insertion: 18:41 Data : 07/05/21 04:30 07/05/21 04:30 Micro: Microbiology 07/04/21 01:20 C.difficile Toxin B Gene (PCR) - Final Stool A&P Assessment and plan (1) Pneumonia due to 2019 novel coronavirus: With delirium, persistent acute encephalopathy not improving so far, unable to wake up well to follow commands, answer questions. Unsuccessful weaning attempt of sedation today. Sedation resumed. Reattempt weaning. EEG has been ordered. Requesting that it be coordinated with weaning of sedation. Continue attempts to wean. Continue Decadron. Continue Zosyn. Strep agalactiae growing in sputum. All sputum culture, rare gram-positive cocci in pairs, rare gram-negative rods on Gram stain. MRSA PCR negative. Continue Lovenox DVT prophylaxis, renally adjusted TTE with normal ejection fraction, mild LVH, no regional wall motion abnormality, grade 1 diastolic dysfunction mild AR Completed course of remdesivir. Status: Acute (2) BETSY (acute kidney injury): Improving. Appears to be responding to gentle fluid challenge. Some worsening hypoxia today. IVF rate decreased. Mild rhabdomyolysis improving. Decreasing CK. Unremarkable renal US. Possibly secondary to COVID-19 itself. Perhaps less likely contrast-induced nephropathy as CTA was on 06/27, unless is peaking and may expect improvement otherwise, possibly prerenal component. Monitor I&O. Status: Acute (3) Acute encephalopathy: Currently sedated, paralyzed, reassess mental status with weaning. Status: Acute (4) Acute respiratory failure with hypoxia: Status: Acute (5) Acute respiratory distress syndrome: Status: Acute Additional A&P Information Anemia: Normocytic, some worsening hemoglobin down to 10.9. Check Hemoccult. Hypokalemia: Replaced Possible atrial flutter: Computer read on EKG, but I do not appreciate flutter waves. Does appear to have some inferolateral T wave inversions. Nonvalvular. Monitor on telemetry. Added aspirin. HTN HLD Attestations Medical Necessity Statement*: Continue admission for assessment management of hypoxic respiratory failure, weaning of sedation, waking trials, attempts to wean off mechanical ventilation. Coding Level of Care Code Acute Public Information Coordinator for g Fwd Diagnoses Pneumonia due to 2019 novel coronavirus U07.1; J12.82 BETSY (acute kidney injury) N17.9 Acute encephalopathy G93.40 Acute respiratory failure with hypoxia J96.01 Acute respiratory distress syndrome J80
--- NOTE | 2021-07-05 18:31 | PC.NURSE ---
Shift Note Frequent safety and comfort rounds continue. Orders and/or nursing care completed as indicated. Patient monitored for response to intervention and treatment(s). Education provided includes sedation weaning to family. Patient and/or phlebotomy services representative verbalize understanding. Will continue to monitor.
[2021-07-05] MEDS: fentaNYL 50 mcg/mL INJ 2mL 25 MCG IVP (19:25)
--- NOTE | 2021-07-05 22:29 | P.PN_ITS ---
Subjective Subjective: Interval history: -Patient seen at bedside today -Continue with awakening trial-today opens eyes and appears to follow commands- still very drowsy -Labs and imaging reviewed Medications: Reviewed: Yes Vitals/I&O/Wt Last Vital Signs Temp 98.8 F 07/05/21 20:00 Pulse 92 07/05/21 20:11 Resp 20 H 07/05/21 21:51 BP 133/79 07/05/21 16:00 Pulse Ox 93 07/05/21 21:51 07/05/21 07/05/21 07/05/21 06:59 14:59 22:59 Intake Total 1253.833 / 2832.892 350 / 350 Output Total 565 / 1415 920 / 920 Balance 688.833 / 1417.892 -570 / -570 Weight last 48 hrs Weight 135 lb 9 oz Weight 111 lb Physical Exam Narrative: EXAM NARRATIVE: General: lying in bed, sedated and intubated HEENT:NCAT, PERRLA, EOMI Neck: Supple Lungs: Improving breath sounds bilaterally Heart: s1/s2, RRR Abd: soft, NT, ND, BS + Normoactive Extremities: No edema APPRENTICE PATTERN MAKER: sedated and limited APPRENTICE PATTERN MAKER exam possible. SKIN: no rash LDA: # CVC: Right internal jugular 06/30/2021 # Aggarwal: 06/30/2021 Urinary Catheter Management^: Aggarwal: Cath Placed During This Visit: yes Reason for Continuing Indwelling Catheter: Accurate Measurement of Urinary Output in Critically Ill Patients Urinary Catheter Date of Insertion: 06/28/21 Urinary Catheter Time of Insertion: 18:41 Data : 07/05/21 04:30 07/05/21 04:30 Other Labs: Laboratory Results WBC 12.4 10^3/uL (4.0-10.0) H 07/05/21 04:30 RBC 3.94 10^6/uL (4.1-5.3) L 07/05/21 04:30 Hgb 10.9 g/dL (11.5-15.3) L 07/05/21 04:30 Hct 34.3 % (37.0-47.0) L 07/05/21 04:30 MCV 87.1 fl (81-99) 07/05/21 04:30 MCH 27.7 pg (28.0-34.0) L 07/05/21 04:30 MCHC 31.8 g/dL (30.0-36.0) 07/05/21 04:30 RDW 14.4 % (12.1-15.1) 07/05/21 04:30 Plt Count 221 10^3/cmm (130-400) 07/05/21 04:30 MPV 13.1 fL (7.4-10.4) H 07/05/21 04:30 Neut % (Auto) 79.9 % 07/05/21 04:30 Lymph % (Auto) 4.5 % 07/05/21 04:30 [place] % (Auto) 3.5 % 07/05/21 04:30 Eos % (Auto) 0.3 % 07/05/21 04:30 Baso % (Auto) 0.6 % 07/05/21 04:30 Neut # (Auto) 9.87 10^3/uL (1.8-7.7) H 07/05/21 04:30 Lymph # (Auto) 0.6 10^3/uL (0.8-4.8) L 07/05/21 04:30 [place] # (Auto) 0.4 10^3/uL (0.2-0.9) 07/05/21 04:30 Eos # (Auto) 0.0 10^3/uL (0.0-0.8) 07/05/21 04:30 Baso # (Auto) 0.1 10^3/uL (0.0-0.1) 07/05/21 04:30 Nucleated RBC % (auto) 0.2 % 07/05/21 04:30 Nucleated RBCs # 0.0 /100WBC 07/05/21 04:30 PT 15.50 SECONDS (12.1-14.9) H 07/04/21 03:00 INR 1.19 (0.8-1.2) 07/04/21 03:00 D-Dimer 2.79 ug/mIFEU (0-0.59) H 07/05/21 04:30 Specimen Type Arterial 07/05/21 04:45 Sample Site Radial, right 07/05/21 04:45 ABG pH 7.46 (7.35-7.45) H 07/05/21 04:45 ABG pCO2 30.0 mmHg (35-45) L 07/05/21 04:45 ABG pO2 50.6 mmHg (80.0-100.0) L 07/05/21 04:45 ABG HCO3 21.3 mmol/L (22-26) L 07/05/21 04:45 ABG O2 Saturation 90.1 06/30/21 15:39 ABG Base Excess -1.3 mmol/L (-2.0-2.0) 07/05/21 04:45 Tr Test Pos 07/05/21 04:45 A-a O2 Gradient 77.1 mmHg (5-10) H 06/30/21 15:39 Hematocrit 46.5 % (37-47) 07/05/21 04:45 Hgb O2 Saturation 89.1 % (95-100) L 06/30/21 15:39 Carboxyhemoglobin 0.4 %THgb (0.4-20.1) 06/30/21 15:39 Methemoglobin 0.7 % (0.4-1.5) 06/30/21 15:39 Total Hemoglobin 14.4 g/dL (12-16) 06/30/21 15:39 Sodium 149.0 mmol/L (131-143) H 06/30/21 15:39 Potassium 3.4 mmol/L (3.5-5.0) L 06/30/21 15:39 Glucose 120.0 mg/dL (70-115) H 06/30/21 15:39 Ionized Calcium 1.1 mmol/L (1.1-1.4) 06/30/21 15:39 Respiration Rate 16.0 % 07/05/21 04:45 O2 Delivery Device Vent 07/05/21 04:45 O2 Liters/Min 60.0 % 06/30/21 05:09 FiO2 40.0 % 07/05/21 04:45 Tidal Volume 0.38 07/05/21 04:45 PEEP 10.0 cmH20 07/05/21 04:45 Emergency Medical Dispatcher ID Krista 07/05/21 04:45 Sodium 142 mmol/L (136-145) 07/05/21 04:30 Potassium 4.0 mmol/L (3.5-5.1) 07/05/21 04:30 Chloride 108 mmol/L (98-107) H 07/05/21 04:30 Carbon Dioxide 21 mmol/L (22-29) L 07/05/21 04:30 Anion Gap 17.0 (5-19) 07/05/21 04:30 BUN 57 mg/dL (8-23) H 07/05/21 04:30 Creatinine 2.2 mg/dL (0.5-0.9) H 07/05/21 04:30 GFR Calculation Not Reportable 07/05/21 04:30 Glucose 121 mg/dL (65-115) H 07/05/21 04:30 Calculated Osmolality 311 mOsm/kg (285-295) H 07/05/21 04:30 Lactic Acid 2.4 mmol/L (0.5-2.2) H 06/27/21 12:29 Lactic Acid (Sepsis) 1.3 mmol/L (0.5-2.2) 06/27/21 15:20 Lactate 1.4 mmol/L (0.5-2.2) 06/30/21 19:45 Uric Acid 4.9 mg/dL (2.4-5.7) 07/03/21 17:18 Uric Acid Cancelled 07/03/21 17:18 Calcium 7.9 mg/dL (8.5-10.5) L 07/05/21 04:30 Phosphorus 3.1 mg/dL (2.5-4.5) 07/05/21 04:30 Magnesium 1.9 mg/dL (1.7-2.3) 07/05/21 04:30 Ferritin 677 ng/mL (15-150) H 06/30/21 19:45 Total Bilirubin 0.3 mg/dL (0.15-1.2) 07/05/21 04:30 AST 102 U/L (0-32) H 07/05/21 04:30 ALT 34 U/L (0-33) H 07/05/21 04:30 Alkaline Phosphatase 80 IU/L (35-105) 07/05/21 04:30 Creatine Kinase 1270 U/L (26-192) H* 07/05/21 04:30 Troponin T Baseline 45 ng/L (0-10) H 06/27/21 15:20 Troponin T 120 Minute 48.75 ng/L (0-10) H 06/27/21 17:32 Delta Troponin T 3.75 ABS# (0-10) 06/27/21 17:32 Troponin T Hi Sens 6Hr 46.83 ng/L (0-10) H 06/27/21 21:03 Troponin T Hi Sens 6Hr Delta 1.83 ng/L (0-12) 06/27/21 21:03 C-Reactive Protein 123.5 mg/L (0.0-4.9) H 07/04/21 03:00 NT-Pro-B Natriuret Pep 1186 pg/mL (0-450) H 07/04/21 03:00 Total Protein 5.3 g/dL (6.6-8.7) L 07/05/21 04:30 Albumin 2.6 g/dL (3.5-5.2) L 07/05/21 04:30 Globulin 2.7 g/dL (1.3-4.6) 07/05/21 04:30 Lipase 57 U/L (13-60) 06/27/21 12:29 Procalcitonin 0.95 ng/mL (0-0.5) H 07/04/21 03:00 TSH 0.45 uIU/mL (0.27-4.20) 07/03/21 17:18 Urine Color Yellow (Yellow) 07/03/21 16:48 Urine Appearance Cloudy (CLEAR) 07/03/21 16:48 Urine pH 5 (5-7) 07/03/21 16:48 Ur Specific Loman 1.010 (1.005-1.030) 07/03/21 16:48 Urine Protein 1+ (Negative) H 07/03/21 16:48 Urine Glucose (UA) Norm (Normal) 07/03/21 16:48 Urine Ketones 1+ (Negative) H 07/03/21 16:48 Urine Blood 3+ (Negative) H 07/03/21 16:48 Urine Nitrate Negative (Negative) 07/03/21 16:48 Urine Bilirubin Neg (Negative) 07/03/21 16:48 Urine Urobilinogen Norm mg/dL (Negative) 07/03/21 16:48 Ur Leukocyte Esterase Negative (Negative) 07/03/21 16:48 Urine RBC 5-10 /hpf (0-2) H 07/03/21 16:48 Urine WBC 0-4 /hpf (0-5) H 07/03/21 16:48 Ur Squamous Epith Cells 0-4 /hpf (0-5) H 07/03/21 16:48 Ur Transition Epith Cell 0-4 /hpf 07/03/21 16:48 Amorphous Sediment 1+ /hpf 07/03/21 16:48 Urine Bacteria 1+ /hpf (NONE) H 07/03/21 16:48 Coarse Granular Casts 25-40 /lpf H 07/03/21 16:48 Urine Mucus Trace /hpf 06/27/21 12:37 Ur Random Sodium 38 mmol/L 07/04/21 01:20 Ur Random Potassium 44 mmol/L 07/04/21 01:20 Ur Random Chloride 28 mmol/L 07/04/21 01:20 Urine Creatinine 65 mg/dL (28-217) 07/04/21 01:20 Vancomycin Trough 17.2 ug/mL (10-15) H 07/02/21 04:40 Nasal/Oral COVID-19 PCR Detected H 06/27/21 13:46 SARS-CoV-2 Ag (Rapid) Positive (Negative) H 06/27/21 13:46 Impressions Chest CTA 06/27/21 12:48 IMPRESSION: 1. No pulmonary embolism. 2. Multi lobar groundglass opacifications and consolidations from pneumonia associated with Covid 19. 3. RIGHT hilar consolidation probably combination of pneumonia and adenopathy. Consider follow-up chest CT angiogram after resolution of Covid 19 to be sure there is no underlying lymphadenopathy or persistent mass. 4. Mild LEFT heart enlargement. Head CT 06/27/21 15:05 IMPRESSION: No acute intracranial abnormality. Chest X-Ray 07/04/21 06:30 IMPRESSION: Stable abnormal chest. Renal Ultrasound 07/04/21 16:17 IMPRESSION: Normal renal ultrasound. A&P Assessment and plan (1) AMS (altered mental status): Status: Acute Qualifiers: Altered mental status type: disorientation Qualified Code(s): R41.0 - Disorientation, unspecified (2) Acute respiratory distress syndrome: Status: Acute (3) Acute respiratory failure with hypoxia: Status: Acute (4) Pneumonia due to 2019 novel coronavirus: Status: Acute (5) Acute encephalopathy: Status: Acute (6) BETSY (acute kidney injury): Status: Acute (7) Dementia: Status: Acute Qualifiers: Dementia type: unspecified type Dementia behavioral disturbance: without behavioral disturbance Qualified Code(s): F03.90 - Unspecified dementia without behavioral disturbance (8) Hypernatremia: Status: Acute (9) Hyperchloremic metabolic acidosis: Status: Acute (10) Hypokalemia: Status: Acute #Abdomen to status secondary to hypoxia and patient with underlying dementia #Acute hypoxic respiratory failure secondary to COVID-19 pneumonia #BETSY-prerenal BETSY vs Covid nephropathy/HOME #Transaminitis secondary to Covid-improving -Intubated 06/30/2021; -completed 3 proning sessions -Currently sedated with propofol, fentanyl-plan is to taper off sedation and continue awakening trial -ABG 7.4 6/50/21 on CMV 380/10/40 % -We will continue lung protective strategies ARDS protocol-low tidal volume/high PEEP with target plateau pressures less than 30 and driving pressures less than 15 -S/p 5 day remdesivir and currently dexamethasone 6 mg daily - patient pro Chau is high 4.34 at admission, cultures so far negative, sputum cultures-yeast identification pending -MRSA nares negative; discontinued vancomycin and deescalated imipenem to Zosyn -C. difficile PCR negative-no more diarrhea; -BNP > 4000-echo normal LV systolic function with EF 88% grade 1 diastolic dysfunction. Thickened aortic valve. -BETSY-prerenal versus Covid nephropathy/HOME;Improving LR at 65 cc/h-today reduced to 25 cc/h -I/O+ 1400 cc in last 24 hours-monitor I&O and try to keep net negative to even -Improving CK -Monitor electrolytes and renal functions -tube feeding at 15 mL/h when patient is not proned -GI prophylaxis PPI ; bowel regimen Colace, on Reglan -COVID-19 transaminitis-improving -Sugars well controlled -DVT prophylaxis Lovenox -Prognosis guarded -Family updated Recommendations conveyed to hospitalist, RN, RT taking care of the patient Attestations Medical Necessity Statement*: AMS and acute hypoxic respiratory failure secondary to ARDS due to COVID-19 pneumonia Time Spent in Patient Care: Greater than 35 minutes (>than 50% of time spent in counselling and/or direct pt care on unit) . Critical Care Time: The high probability of a clinically significant, sudden or life threatening deterioration of the patient's [neurologic, pulmonary, renal] system(s) required my full and direct attention, intervention and personal management. The critical care time is as shown. This time is in addition to time spent performing any reported procedures but includes the following: [x] Data and vital sign review and interpretation [x] Patient assessment, examination and intervention [x] Documentation [x] Medication orders and management Critical Care Time (min): 45 Coding Level of Care Code Established Pt Acute Filler Machine Operator for Chg Fwd Patient Type Established History Comprehensive Exam Comprehensive Medical Decision Making High Complexity Diagnoses AMS (altered mental status) R41.0 Altered mental status type: disorientation Acute respiratory distress syndrome J80 Acute respiratory failure with hypoxia J96.01 Pneumonia due to 2019 novel coronavirus U07.1; J12.82 Acute encephalopathy G93.40 BETSY (acute kidney injury) N17.9 Dementia F03.90 Dementia type: unspecified type Dementia behavioral disturbance: without behavioral disturbance Hypernatremia E87.0 Hyperchloremic metabolic acidosis E87.2 Hypokalemia E87.6 Time Spent (min) 45
[2021-07-06] VITALS (64 sets, daily range): BP systolic 112–199; BP diastolic 63–107; PULSE 63–105; RESP 12–30; TEMP 36.4–36.9; O2SAT 86–98; BMI 24.6
[2021-07-06] MEDS: piperacillin-tazobactam 3.375 GM in dextrose 5% (plus) 50 ML IV ×2 (01:59→14:31)
[2021-07-06] MEDS: hyDRALAzine 20 mg/mL INJ 1 mL 10 MG IVP ×3 (03:36→17:08)
[2021-07-06] MEDS: dexmedeTOMIDine 0.9 % NaCL 400 MCG/100 ML PREMIX IV (04:09)
[2021-07-06 04:45] LABS: ABG PH Result 7.53 (7.35-7.45); Arterial Blood Gas Hematocrit 36.1 % (37-47); Base Excess ABG -0.3 mmol/L (-2.0-2.0); Blood Gas Allen Test Pos; Blood Gas Sample Site Radial, left; Blood Gas Sample Type Arterial; HCO3 ABG 21.4 mmol/L (22-26); Oxygen Device VENT; PO2 ABG 51.8 mmHg (80.0-100.0)
[2021-07-06 04:46] LABS: Blood Gas Tidal Volume 0.38
[2021-07-06] MEDS: pantoprazole 40 mg SDV IVP ×2 (05:02→16:59)
[2021-07-06 05:05] LABS: Hematocrit 34.2 % (37.0-47.0); Hemoglobin 11.2 g/dL (11.5-15.3); Mean Corpuscular HGB Conc 32.7 g/dL (30.0-36.0); Mean Corpuscular Hemoglobin 27.8 pg (28.0-34.0); Mean Corpuscular Volume 84.9 fl (81-99); Mean Platelet Volume 12.8 fL (7.4-10.4); Platelet Count 228 10^3/cmm (130-400); Red Blood Count 4.03 10^6/uL (4.1-5.3); Red Cell Distribution Width 14.4 % (12.1-15.1); White Blood Count 11.8 10^3/uL (4.0-10.0)
[2021-07-06 05:29] LABS: Alanine Aminotransferase 30 U/L (0-33); Albumin Level 2.6 g/dL (3.5-5.2); Alkaline Phosphatase 83 IU/L (35-105); Anion Gap 15.4 (5-19); Aspartate Amino Transferase 67 U/L (0-32); Blood Urea Nitrogen 50 mg/dL (8-23); Calcium 7.8 mg/dL (8.5-10.5); Carbon Dioxide 21 mmol/L (22-29); Chloride 105 mmol/L (98-107); Glucose 118 mg/dL (65-115); Magnesium 1.9 mg/dL (1.7-2.3); Osmolality Calculated 300 mOsm/kg (285-295); Phosphorus 2.7 mg/dL (2.5-4.5); Potassium 3.4 mmol/L (3.5-5.1); Sodium 138 mmol/L (136-145); Total Bilirubin 0.4 mg/dL (0.15-1.2); Total Protein 5.6 g/dL (6.6-8.7)
[2021-07-06 05:32] LABS: Slide Review Slide Review Perform
[2021-07-06 05:37] LABS: Absolute Neutrophil 9.7 10^3/cmm (1.4-6.5); Absolute Segmented Neutrophil 9.3 10/cmm (1.6-7.1); Band Neutrophils Absolute 0.4 10^3/cmm (0.0-1.2); Eosinophils 0 %; Lymphocytes 7 %; Lymphocytes Absolute 0.9 10^3/cmm (1.2-3.4); Monocytes Absolute 0.1 10^3/cmm (0.1-0.6); Platelet Estimate Normal (Normal); Segmented Neutrophils 79 %; Total Cells Counted 100 (0-100)
[2021-07-06 05:42] LABS: Creatine Phosphokinase 649 U/L (26-192)
[2021-07-06] MEDS: sucralfate 1 gm/10 mL Oral Liq UDC PO ×4 (06:04→20:44)
--- NOTE | 2021-07-06 07:08 | PC.NURSE ---
Shift Note Frequent safety and comfort rounds continue. Orders and/or nursing care completed as indicated. Patient monitored for response to intervention and treatment(s). Patient is still intubated and sedation was turned on during the shift due to the patient fighting the ventilator. A fentanyl drip is currently running along with a precedex drip, and a LR drip. The patient was observed during the shift to reach for her tube, so a new order for restraints was received. Before the precedex drip was turned on the patient was starting to look around the room. Patient did not follow commands, and did not tract with her eyes. From the previous power and recovery shift engineer the patient would only blankly stare in one direction, so the movement of the arms and the eyes moving around the room was a new development. Temperature, and heart rate were both within normal ranges during the shift. The first part of the shift the patient was experiencing episodes of hypertension, which was later controlled with medication. Urine output was 625 mL and the rectal tube had about 50 mL of stool.
--- NOTE | 2021-07-06 07:13 | P.PN_ITS ---
Subjective Subjective: Interval history: sedated on vent Medications: Reviewed: Yes Medication Review Details: Current Medications Acetaminophen (Acetaminophen 325 Mg Tablet) 650 mg PO Q6H PRN PRN Reason: Mild/Mod Pain Or Temp >/= 101 Last Admin: 06/30/21 00:48 Dose: 650 mg Documented by: Albuterol/Ipratropium (Ipratropium-Albuterol 3 Ml Neb) 3 ml INHALATION Q6H PRN PRN Reason: SHORTNESS OF BREATH Last Admin: 07/05/21 20:05 Dose: 3 ml Documented by: Artificial Tears (Artificial Tears Op Oint 3.5 Gm) 1 applic EYE-BOTH PRN PRN PRN Reason: DRY EYE(S) Ascorbic Acid (Ascorbic Acid 500 Mg Tablet) 500 mg PO BID [facility] Last Admin: 07/05/21 17:33 Dose: 500 mg Documented by: Aspirin (Aspirin 325 Mg Tablet) 325 mg OG-TUBE DAILY [facility] Last Admin: 07/05/21 08:27 Dose: 325 mg Documented by: Bisacodyl (Bisacodyl 10 Mg Supp) 10 mg OK ONCE PRN; Protocol PRN Reason: Constipation (see protocol) Budesonide (Budesonide 0.5 Mg/2 Ml Neb) 0.5 mg INHALATION BID.RESPIRATORY [facility] Last Admin: 07/05/21 20:05 Dose: 0.5 mg Documented by: Dexamethasone (Dexamethasone 10 Mg/Ml Inj) 6 mg IVP Q24H [facility] Last Admin: 07/05/21 14:25 Dose: 6 mg Documented by: Docusate Sodium (Docusate Sodium 100 Mg Capsule) 100 mg PO BID [facility] Last Admin: 07/01/21 08:29 Dose: 100 mg Documented by: Enoxaparin Sodium (Enoxaparin 30 Mg/0.3 Ml Syringe) 30 mg SUBCUT Q24H [facility] Last Admin: 07/05/21 17:33 Dose: 30 mg Documented by: Fentanyl (Fentanyl 50 Mcg/Ml Inj 2ml) 25 mcg IVP Q2H PRN PRN Reason: SEVERE PAIN Last Admin: 07/05/21 19:25 Dose: 25 mcg Documented by: Hydralazine HCl (Hydralazine 20 Mg/Ml Inj 1 Ml) 10 mg IVP Q6H PRN PRN Reason: HYPERTENSION Last Admin: 07/06/21 03:36 Dose: 10 mg Documented by: Norepinephrine Bitartrate 4 mg (/ Dextrose) 254 mls @ 0 mls/hr IV .Q0M [facility]; Protocol Propofol (Diprivan) 1,000 mg in 100 mls @ 0 mls/hr IV .Q0M [facility]; Protocol Last Titration: 07/04/21 13:36 Dose: 0 mcg/kg/min, 0 mls/hr Documented by: Cisatracurium Besylate 100 mg/ (Dextrose) 100 mls @ 0 mls/hr IV .Q0M [facility]; Protocol Last Titration: 07/04/21 07:09 Dose: 0 mcg/kg/min, 0 mls/hr Documented by: Fentanyl 1,000 mcg/ Dextrose 100 mls @ 0 mls/hr IV .Q0M [facility]; Protocol Last Titration: 07/06/21 01:55 Dose: 50 mcg/hr, 5 mls/hr Documented by: Midazolam HCl 100 mg/ Dextrose 100 mls @ 0 mls/hr IV .Q0M [facility]; Protocol Last Titration: 07/04/21 10:31 Dose: 0 mg/hr, 0 mls/hr Documented by: Piperacillin Sod/Tazobactam (Sod 3.375 gm/ Dextrose) 50 mls @ 12.5 mls/hr IV Q12H [facility]; Protocol Last Admin: 07/06/21 01:59 Dose: 12.5 mls/hr Documented by: dexmedeTOMIDine 0.9 % NaCL (Dexmedetomidine-Ns) 400 mcg in 100 mls @ 0 mls/hr IV .Q0M [facility]; Protocol Last Titration: 07/06/21 05:00 Dose: 0.3 mcg/kg/hr, 4.61 mls/hr Documented by: Lactulose (Lactulose Oral Liq 20 Gm/30 Ml Udc) 10 gm PO DAILY PRN; Protocol PRN Reason: Constipation (see protocol) Metoclopramide HCl (Metoclopramide 10 Mg Tablet) 5 mg PO TID [facility] Last Admin: 07/05/21 21:27 Dose: 5 mg Documented by: Ondansetron HCl (Ondansetron 2 Mg/Ml Sdv 2 Ml) 4 mg IVP Q8H PRN PRN Reason: vomiting, or N/V if npo Pantoprazole Sodium (Pantoprazole 40 Mg Sdv) 40 mg IVP Q12H [facility] Last Admin: 07/06/21 05:02 Dose: 40 mg Documented by: Polyethylene Glycol (Polyethylene Glycol 3350 Pkt 17 Gm) 17 gm PO DAILY [facility] Last Admin: 07/05/21 08:27 Dose: 17 gm Documented by: Sucralfate (Sucralfate 1 Gm/10 Ml Oral Liq Udc) 1 gm PO AC&BEDTIME [facility] Last Admin: 07/06/21 06:04 Dose: 1 gm Documented by: Vitamin D (Cholecalciferol (Vitamin D3) 1,000 Unit Tablet) 1,000 unit PO DAILY [facility] Last Admin: 07/05/21 08:27 Dose: 1,000 unit Documented by: Zinc Gluconate (Zinc Gluconate 50 Mg Tablet) 50 mg PO DAILY [facility] Last Admin: 07/05/21 08:27 Dose: 50 mg Documented by: Vitals/I&O/Wt Last Vital Signs Temp 98.1 F 07/06/21 04:00 Pulse 90 07/06/21 06:00 Resp 18 07/06/21 06:28 BP 184/107 07/06/21 03:00 Pulse Ox 93 07/06/21 06:28 07/05/21 07/06/21 07/06/21 22:59 06:59 14:59 Intake Total 350 / 350 291.871 / 641.871 Output Total 920 / 920 675 / 1595 Balance -570 / -570 -383.129 / -953.129 Weight last 48 hrs Weight 61.037 kg Weight 61.49 kg Physical Exam Narrative: EXAM NARRATIVE: sedated in bed, on vent no pressers vent ac/va rr 16 tv 380 fio2=50%, peep 10 heent- nc/at, eomi, anicteric neck supple lungs clear heart reg, no rub abd soft, nt, nd, + bs ext- no edema neuro- sedated Urinary Catheter Management^: Aggarwal: Cath Placed During This Visit: yes Reason for Continuing Indwelling Catheter: Accurate Measurement of Urinary Output in Critically Ill Patients Urinary Catheter Date of Insertion: 06/28/21 Urinary Catheter Time of Insertion: 18:41 Data : 07/06/21 04:40 07/06/21 04:40 A&P Additional A&P Information 76 yr old female COVID-19 PNA 1. VDRF and resp alkalosis as per medicine -consider lasix 2. BETSY- improving cr -D dx is COVID- nephropathy vs HOME vs ATN -less likely rhabdo as ck always under 10,000 -renal us w/o hydronephrosis -u/a noted w/ 3+ blood , 5-10 rbc 3. hgb stable 4. replete k bu OG tube 5. ck down to 649 seen and examined w/ RN- telehealth visit time spent 30 min renal will see prn Attestations Medical Necessity Statement*: VDRF, COVID-19 pna Time Spent in Patient Care: 16 - 35 minutes Coding Level of Care Code Acute Fur Drummer for Librado Paz
--- NOTE | 2021-07-06 07:56 | PC.NURSE ---
Report received, assessment completed. Remains ventilated, settings per RT flowsheet. Gtts infusing per protocol. Reacts to verbal and tactile stimuli. Restraints in place per orders. Aggarwal cath FMS in place. VSS. Will monitor.
[2021-07-06] MEDS: aspirin 325 mg Tablet OG-TUBE (08:06)
[2021-07-06] MEDS: cholecalciferol (vitamin D3) 1,000 unit Tablet 1000 UNIT PO (08:06)
[2021-07-06] MEDS: metoclopramide 10 mg Tablet 5 MG PO ×3 (08:06→20:44)
[2021-07-06] MEDS: polyethylene glycol 3350 Pkt 17 gm PO (08:06)
[2021-07-06] MEDS: zinc gluconate 50 mg Tablet PO (08:06)
[2021-07-06] MEDS: ascorbic acid 500 mg Tablet PO ×2 (08:06→16:59)
[2021-07-06] MEDS: potassium chloride oral liq 20 mEq/15 mL UDC 40 MEQ PO (08:06)
--- NOTE | 2021-07-06 08:43 | PC.SOCIAL ---
IMM update IMM not updated as patient is intubated and not expected to dc in the next 24-48 hours.
--- NOTE | 2021-07-06 09:07 | P.PN_ITS ---
Subjective Subjective: Interval history: Intubated, sedated. Opens eyes to loud voice, but does not make eye contact, does not communicate or follow commands. Vitals/I&O/Wt Last Vital Signs Temp 97.9 F 07/06/21 08:00 Pulse 75 07/06/21 08:30 Resp 18 07/06/21 06:28 BP 148/80 07/06/21 08:30 Pulse Ox 91 07/06/21 08:30 07/05/21 07/06/21 07/06/21 22:59 06:59 14:59 Intake Total 350 / 350 291.871 / 847.334 3499 / 1050 Output Total 920 / 920 675 / 1595 Balance -570 / -570 -383.129 / -215.596 9257 / 1050 Weight last 48 hrs Weight 61.037 kg Weight 61.49 kg Physical Exam Const: GENERAL APPEARANCE: patient mechanically ventilated ORIENTATION/CONSCIOUSNESS: Yes confused OTHER: Intubated, sedated. Opens eyes, does not appear to have gaze preference, not making eye contact HENMT: COMMON NORMALS: oropharynx normal Neck/C-Spine: COMMON NORMALS: no JVD Resp: COMMON NORMALS: clear to auscultation bilaterally AUSCULTATION: clear to auscultation bilaterally Cardio: COMMON NORMALS: no JVD, regular rhythm, S1 normal heart sound present, S2 normal heart sound present and No murmurs present (Cardio) RHYTHM: regular rhythm HEART SOUNDS: S1 normal heart sound present and S2 normal heart sound present GI: COMMON NORMALS: Normal to inspection, nondistended, normoactive bowel sounds present and Soft to palpation PALPATION: Yes Soft to palpation Extremity: COMMON NORMALS: no joint enlargement and no pedal edema Skin: COMMON NORMALS: no rashes or lesions noted GENERAL SKIN EXAM: no rashes or lesions noted Urinary Catheter Management^: Aggarwal: Cath Placed During This Visit: yes Reason for Continuing Indwelling Catheter: Accurate Measurement of Urinary Output in Critically Ill Patients Urinary Catheter Date of Insertion: 06/28/21 Urinary Catheter Time of Insertion: 18:41 Data : 07/06/21 04:40 07/06/21 04:40 A&P Assessment and plan (1) Pneumonia due to 2019 novel coronavirus: Appears to be awake, opens eyes, but not communicating, not following commands. Acute encephalopathy with delirium, SPECT multifactorial secondary to medications, sedatives, possibly withdrawal from home medicines including Robaxin, pramipexole. At home was also on trazodone. Oxygenation with gradual improvement. FiO2 requirement down to 45%. Yeast growing in sputum, although continues to improve, so doubt active infection at this time. MRSA PCR negative. Continue Decadron. Continue Zosyn. Continue Lovenox DVT prophylaxis, renally adjusted TTE with normal ejection fraction, mild LVH, no regional wall motion abnormality, grade 1 diastolic dysfunction mild AR Completed course of remdesivir. As per discusssion with software project engineer this morning, discussed with his son and will discuss with case management about possible arrangements for LTAC. Status: Acute (2) Acute encephalopathy: Making it difficult to wean. She is waking up somewhat, open the eyes, but not communicating, not following commands. Suspect multifactorial due to acute illness, hypoxia, sedatives, as well as medications, at home on methocarbamol, pramipexole, which could be contributing. Also on trazodone. Son also states that even at home he noticed occasional mild confusion. Appears she may be more prone to delirium compared to average. Status: Acute (3) BETSY (acute kidney injury): Improving. Responded to gentle fluid challenge. Stopped. Mild rhabdomyolysis improving. Decreasing CK. Unremarkable renal US. Possibly secondary to COVID-19 itself. Perhaps less likely contrast-induced nephropathy as CTA was on 06/27, unless is peaking and may expect improvement otherwise, possibly prerenal component. Monitor I&O. Status: Acute (4) Acute respiratory failure with hypoxia: Status: Acute (5) Acute respiratory distress syndrome: Status: Acute Additional A&P Information Anemia: Normocytic, some worsening hemoglobin down to 10.9. Check Hemoccult. Hypokalemia: Replaced Possible atrial flutter: Computer read on EKG, but I do not appreciate flutter waves. Does appear to have some inferolateral T wave inversions. Nonvalvular. Monitor on telemetry. Aspirin. Consider event monitor. HTN HLD Attestations Medical Necessity Statement*: Continue admission for assessment of management of hypoxic respiratory failure secondary to severe COVID-19, delirium. Coding Level of Care Code Acute Management Supervisor for Chg Fwd Exam Comprehensive Diagnoses Pneumonia due to 2019 novel coronavirus U07.1; J12.82 Acute encephalopathy G93.40 BETSY (acute kidney injury) N17.9 Acute respiratory failure with hypoxia J96.01 Acute respiratory distress syndrome J80
--- NOTE | 2021-07-06 09:10 | PC.CHAP ---
Pastoral Care Encounter/Spiritual Assessment Type of Contact [] Declined water treatment plant repairer visit [] Patient/Family/Request visit [] Outpatient visit [] Follow-up visit [] Physician referral [] Code/Alert [x] Routine visit [] Staff referral [] Actively dying [] Patient sleeping [] Family support [] [] Out of room [] Palliative care [] [x] Receiving care in room [] Pre-surgical visit [] Trauma [] Long length of stay [x] ICU visit [x] Other: vent Relational/Emotional Strength [] Patient feels connected with others/family/visitors/staff [] Distress [] Loneliness/isolation [] Abandonment Spirituality of Patient [] Person of Wendy [] Attends Mormon of their Wendy [] Believes in Prayer [] Reads Bible or Protestant materials [] There are Spiritual issues to be addressed Train Controller Interventions [x] Prayer [] Active listening [] Non-anxious presence [] Spiritual/emotional support [] Crisis/trauma care [] Spiritual counseling [] Bereavement support [] Provided bereavement packet [] Provided Bible/devotional materials [] Provided toy/stuffed animal, coloring book to patient or family member [] Provided Communion [] Anointing/[place] [] Salvation [x] Completed spiritual assessment [] Other: Impact on Illness or Injury [] Angry [] Fearful [] Anxious [] Often cries [] Exhaustion [] Unable to work [] Unable to attend restorationist [] Unable to walk/stand [] Unable to read [] Unable to drive [] Unable to eat/drink [] Unable to sleep [] Unable to be with family [] Patient intubated [] Other: Summary Time spent with patient
[2021-07-06] MEDS: ipratropium-albuterol 3 mL Neb INHALATION ×3 (09:11→20:15)
[2021-07-06] MEDS: budesonide 0.5 mg/2 mL Neb INHALATION ×2 (09:11→20:15)
[2021-07-06] MEDS: docusate sodium 100 mg Capsule PO ×2 (09:43→16:59)
--- NOTE | 2021-07-06 10:04 | PM.PN ---
Subjective Subjective: Interval history: -Patient seen at bedside today -Opening eyes and plan is to taper off sedation and continue awakening trial -Yesterday night patient is tachypneic and still has to start her back on sedation -Today morning ABG showed respiratory alkalosis and PO2 51 on 45%-time patient minute ventilation was 16 L-not for sedation patient-patient was down to 7.2 and also her FiO2 increased to 50% -Other labs and imaging reviewed Medications: Reviewed: Yes Vitals/I&O/Wt Last Vital Signs Temp 97.9 F 07/06/21 08:00 Pulse 79 07/06/21 09:22 Resp 12 07/06/21 09:19 BP 148/80 07/06/21 08:30 Pulse Ox 93 07/06/21 09:19 07/05/21 07/06/21 07/06/21 22:59 06:59 14:59 Intake Total 350 / 350 291.871 / 803.217 5247.417 / 1087.417 Output Total 920 / 920 675 / 1595 Balance -570 / -570 -383.129 / -661.231 4794.417 / 1087.417 Weight last 48 hrs Weight 134 lb 9 oz Weight 135 lb 9 oz Physical Exam Narrative: EXAM NARRATIVE: Laboratory Results WBC 11.8 10^3/uL (4.0 -10.0) H 07/06/21 04:40 RBC 4.03 10^6/uL (4.1 -5.3) L 07/06/21 04:40 Hgb 11.2 g/dL (11.5-1 5.3) L 07/06/21 04:40 Hct 34.2 % (37.0-47.0 ) L 07/06/21 04:40 MCV 84.9 fl (81-99) 07/06/21 04:40 MCH 27.8 pg (28.0-34. 0) L 07/06/21 04:40 MCHC 32.7 g/dL (30.0-3 6.0) 07/06/21 04:40 RDW 14.4 % (12.1-15.1 ) 07/06/21 04:40 Plt Count 228 10^3/cmm (130 -400) 07/06/21 04:40 MPV 12.8 fL (7.4-10.4 ) H 07/06/21 04:40 Neut % (Auto) 79.9 % 07/05/21 04:30 Lymph % (Auto) Not Reportable 07/06/21 04:40 [place] % (Auto) Not Reportable 07/06/21 04:40 Eos % (Auto) 0.3 % 07/05/21 04:30 Baso % (Auto) 0.6 % 07/05/21 04:30 Neut # (Auto) 9.87 10^3/uL (1.8 -7.7) H 07/05/21 04:30 Lymph # (Auto) Not Reportable 07/06/21 04:40 [place] # (Auto) Not Reportable 07/06/21 04:40 Eos # (Auto) 0.0 10^3/uL (0.0- 0.8) 07/05/21 04:30 Baso # (Auto) 0.1 10^3/uL (0.0- 0.1) 07/05/21 04:30 Nucleated RBC % (a uto) 0.2 % 07/05/21 04:30 Total Counted 100 (0-100) 07/06/21 04:40 Atypical Lymphs % 1.0 % (0-5) 07/06/21 04:40 Absolute Neutrophi ls 9.7 10^3/cmm (1.4 -6.5) H 07/06/21 04:40 Segmented Neutroph ils 79 % 07/06/21 04:40 Abs Segm Neuts (Ma n) 9.3 10/cmm (1.6-7 .1) H 07/06/21 04:40 Band Neutrophils 3.0 % 07/06/21 04:40 Abs Band Neuts (Ma n) 0.4 10^3/cmm (0.0 -1.2) 07/06/21 04:40 Absolute Lymphocyt es 0.9 10^3/cmm (1.2 -3.4) L 07/06/21 04:40 Lymphocytes (Manua l) 7 % 07/06/21 04:40 Monocytes (Manual) 1.0 % 07/06/21 04:40 Absolute Monocytes 0.1 10^3/cmm (0.1 -0.6) 07/06/21 04:40 Eosinophils (Manua l) 0 % 07/06/21 04:40 Absolute Eosinophi ls 0.0 10^3/cmm (0.0 -0.7) 07/06/21 04:40 Basophils (Manual) 0.0 % 07/06/21 04:40 Absolute Basophils 0.0 10^3/cmm (0.0 -0.2) 07/06/21 04:40 Metamyelocytes 9.0 % 07/06/21 04:40 Nucleated RBCs # 0.0 /100WBC 07/05/21 04:30 Platelet Estimate Normal (Normal) 07/06/21 04:40 PT 15.50 SECONDS (12 .1-14.9) H 07/04/21 03:00 INR 1.19 (0.8-1.2) 07/04/21 03:00 D-Dimer 2.79 ug/mIFEU (0- 0.59) H 07/05/21 04:30 Specimen Type Arterial 07/06/21 04:33 Sample Site Radial, left 07/06/21 04:33 ABG pH 7.53 (7.35-7.45) H 07/06/21 04:33 ABG pCO2 26.0 mmHg (35-45) L 07/06/21 04:33 ABG pO2 51.8 mmHg (80.0-1 00.0) L 07/06/21 04:33 ABG HCO3 21.4 mmol/L (22-2 6) L 07/06/21 04:33 ABG O2 Saturation 90.1 06/30/21 15:39 ABG Base Excess -0.3 mmol/L (-2.0 -2.0) 07/06/21 04:33 Tr Test Pos 07/06/21 04:33 A-a O2 Gradient 77.1 mmHg (5-10) H 06/30/21 15:39 Hematocrit 36.1 % (37-47) L 07/06/21 04:33 Hgb O2 Saturation 89.1 % (95-100) L 06/30/21 15:39 Carboxyhemoglobin 0.4 %THgb (0.4-20 .1) 06/30/21 15:39 Methemoglobin 0.7 % (0.4-1.5) 06/30/21 15:39 Total Hemoglobin 14.4 g/dL (12-16) 06/30/21 15:39 Sodium 149.0 mmol/L (131 -143) H 06/30/21 15:39 Potassium 3.4 mmol/L (3.5-5 .0) L 06/30/21 15:39 Glucose 120.0 mg/dL (70-1 15) H 06/30/21 15:39 Ionized Calcium 1.1 mmol/L (1.1-1 .4) 06/30/21 15:39 Respiration Rate 16.0 % 07/05/21 04:45 O2 Delivery Device Vent 07/06/21 04:33 O2 Liters/Min 60.0 % 06/30/21 05:09 FiO2 45.0 % 07/06/21 04:33 Tidal Volume 0.38 07/06/21 04:33 PEEP 10.0 cmH20 07/06/21 04:33 Machine Straw Hat Presser ID Buttr 07/06/21 04:33 Sodium 138 mmol/L (136-1 45) 07/06/21 04:40 Potassium 3.4 mmol/L (3.5-5 .1) L 07/06/21 04:40 Chloride 105 mmol/L (98-10 7) 07/06/21 04:40 Carbon Dioxide 21 mmol/L (22-29) L 07/06/21 04:40 Anion Gap 15.4 (5-19) 07/06/21 04:40 BUN 50 mg/dL (8-23) H 07/06/21 04:40 Creatinine 1.5 mg/dL (0.5-0. 9) H 07/06/21 04:40 GFR Calculation Not Reportable 07/06/21 04:40 Glucose 118 mg/dL (65-115 ) H 07/06/21 04:40 Calculated Osmolal ity 300 mOsm/kg (285- 295) H 07/06/21 04:40 Lactic Acid 2.4 mmol/L (0.5-2 .2) H 06/27/21 12:29 Lactic Acid (Sepsi s) 1.3 mmol/L (0.5-2 .2) 06/27/21 15:20 Lactate 1.4 mmol/L (0.5-2 .2) 06/30/21 19:45 Uric Acid 4.9 mg/dL (2.4-5. 7) 07/03/21 17:18 Uric Acid Cancelled 07/03/21 17:18 Calcium 7.8 mg/dL (8.5-10 .5) L 07/06/21 04:40 Phosphorus 2.7 mg/dL (2.5-4. 5) 07/06/21 04:40 Magnesium 1.9 mg/dL (1.7-2. 3) 07/06/21 04:40 Ferritin 677 ng/mL (15-150 ) H 06/30/21 19:45 Total Bilirubin 0.4 mg/dL (0.15-1 .2) 07/06/21 04:40 AST 67 U/L (0-32) H 07/06/21 04:40 ALT 30 U/L (0-33) 07/06/21 04:40 Alkaline Phosphata se 83 IU/L (35-105) 07/06/21 04:40 Creatine Kinase 649 U/L (26-192) H* 07/06/21 04:40 Troponin T Baselin e 45 ng/L (0-10) H 06/27/21 15:20 Troponin T 120 Min [place] 48.75 ng/L (0-10) H 06/27/21 17:32 Delta Troponin T 3.75 ABS# (0-10) 06/27/21 17:32 Troponin T Hi Sens 6Hr 46.83 ng/L (0-10) H 06/27/21 21:03 Troponin T Hi Sens 6Hr Delta 1.83 ng/L (0-12) 06/27/21 21:03 C-Reactive Protein 123.5 mg/L (0.0-4 .9) H 07/04/21 03:00 NT-Pro-B Natriuret Pep 1186 pg/mL (0-450 ) H 07/04/21 03:00 Total Protein 5.6 g/dL (6.6-8.7 ) L 07/06/21 04:40 Albumin 2.6 g/dL (3.5-5.2 ) L 07/06/21 04:40 Globulin 3.0 g/dL (1.3-4.6 ) 07/06/21 04:40 Lipase 57 U/L (13-60) 06/27/21 12:29 Procalcitonin 0.95 ng/mL (0-0.5 ) H 07/04/21 03:00 TSH 0.45 uIU/mL (0.27 -4.20) 07/03/21 17:18 Urine Color Yellow (Yellow) 07/03/21 16:48 Urine Appearance Cloudy (CLEAR) 07/03/21 16:48 Urine pH 5 (5-7) 07/03/21 16:48 Ur Specific Gravit y 1.010 (1.005-1.0 30) 07/03/21 16:48 Urine Protein 1+ (Negative) H 07/03/21 16:48 Urine Glucose (UA) Norm (Normal) 07/03/21 16:48 Urine Ketones 1+ (Negative) H 07/03/21 16:48 Urine Blood 3+ (Negative) H 07/03/21 16:48 Urine Nitrate Negative (Negati ve) 07/03/21 16:48 Urine Bilirubin Neg (Negative) 07/03/21 16:48 Urine Urobilinogen Norm mg/dL (Negat lewis) 07/03/21 16:48 Ur Leukocyte Celi ase Negative (Negati ve) 07/03/21 16:48 Urine RBC 5-10 /hpf (0-2) H 07/03/21 16:48 Urine WBC 0-4 /hpf (0-5) H 07/03/21 16:48 Ur Squamous Epith Cells 0-4 /hpf (0-5) H 07/03/21 16:48 Ur Transition Epit h Cell 0-4 /hpf 07/03/21 16:48 Amorphous Sediment 1+ /hpf 07/03/21 16:48 Urine Bacteria 1+ /hpf (NONE) H 07/03/21 16:48 Coarse Granular Ca sts 25-40 /lpf H 07/03/21 16:48 Urine Mucus Trace /hpf 06/27/21 12:37 Ur Random Sodium 38 mmol/L 07/04/21 01:20 Ur Random Potassiu m 44 mmol/L 07/04/21 01:20 Ur Random Chloride 28 mmol/L 07/04/21 01:20 Urine Creatinine 65 mg/dL (28-217) 07/04/21 01:20 Vancomycin Trough 17.2 ug/mL (10-15 ) H 07/02/21 04:40 Nasal/Oral COVID-1 9 PCR Detected H 06/27/21 13:46 SARS-CoV-2 Ag (Rap id) Positive (Negati ve) H 06/27/21 13:46 Impressions Chest CTA 06/27/21 12:48 IMPRESSION: 1. No pulmonary embolism. 2. Multi lobar groundglass opacifications and consolidations from pneumonia associated with Covid 19. 3. RIGHT hilar consolidation probably combination of pneumonia and adenopathy. Consider follow-up chest CT angiogram after resolution of Covid 19 to be sure there is no underlying lymphadenopathy or persistent mass. 4. Mild LEFT heart enlargement. Head CT 06/27/21 15:05 IMPRESSION: No acute intracranial abnormality. Chest X-Ray 07/04/21 06:30 IMPRESSION: Stable abnormal chest. Renal Ultrasound 07/04/21 16:17 IMPRESSION: Normal renal ultrasound. Urinary Catheter Management^: Aggarwal: Cath Placed During This Visit: yes Reason for Continuing Indwelling Catheter: Accurate Measurement of Urinary Output in Critically Ill Patients Urinary Catheter Date of Insertion: 06/28/21 Urinary Catheter Time of Insertion: 18:41 Data : 07/06/21 04:40 07/06/21 04:40 Other Labs: Laboratory Results WBC 11.8 10^3/uL (4.0-10.0) H 07/06/21 04:40 RBC 4.03 10^6/uL (4.1-5.3) L 07/06/21 04:40 Hgb 11.2 g/dL (11.5-15.3) L 07/06/21 04:40 Hct 34.2 % (37.0-47.0) L 07/06/21 04:40 MCV 84.9 fl (81-99) 07/06/21 04:40 MCH 27.8 pg (28.0-34.0) L 07/06/21 04:40 MCHC 32.7 g/dL (30.0-36.0) 07/06/21 04:40 RDW 14.4 % (12.1-15.1) 07/06/21 04:40 Plt Count 228 10^3/cmm (130-400) 07/06/21 04:40 MPV 12.8 fL (7.4-10.4) H 07/06/21 04:40 Neut % (Auto) 79.9 % 07/05/21 04:30 Lymph % (Auto) Not Reportable 07/06/21 04:40 [place] % (Auto) Not Reportable 07/06/21 04:40 Eos % (Auto) 0.3 % 07/05/21 04:30 Baso % (Auto) 0.6 % 07/05/21 04:30 Neut # (Auto) 9.87 10^3/uL (1.8-7.7) H 07/05/21 04:30 Lymph # (Auto) Not Reportable 07/06/21 04:40 [place] # (Auto) Not Reportable 07/06/21 04:40 Eos # (Auto) 0.0 10^3/uL (0.0-0.8) 07/05/21 04:30 Baso # (Auto) 0.1 10^3/uL (0.0-0.1) 07/05/21 04:30 Nucleated RBC % (auto) 0.2 % 07/05/21 04:30 Total Counted 100 (0-100) 07/06/21 04:40 Atypical Lymphs % 1.0 % (0-5) 07/06/21 04:40 Absolute Neutrophils 9.7 10^3/cmm (1.4-6.5) H 07/06/21 04:40 Segmented Neutrophils 79 % 07/06/21 04:40 Abs Segm Neuts (Man) 9.3 10/cmm (1.6-7.1) H 07/06/21 04:40 Band Neutrophils 3.0 % 07/06/21 04:40 Abs Band Neuts (Man) 0.4 10^3/cmm (0.0-1.2) 07/06/21 04:40 Absolute Lymphocytes 0.9 10^3/cmm (1.2-3.4) L 07/06/21 04:40 Lymphocytes (Manual) 7 % 07/06/21 04:40 Monocytes (Manual) 1.0 % 07/06/21 04:40 Absolute Monocytes 0.1 10^3/cmm (0.1-0.6) 07/06/21 04:40 Eosinophils (Manual) 0 % 07/06/21 04:40 Absolute Eosinophils 0.0 10^3/cmm (0.0-0.7) 07/06/21 04:40 Basophils (Manual) 0.0 % 07/06/21 04:40 Absolute Basophils 0.0 10^3/cmm (0.0-0.2) 07/06/21 04:40 Metamyelocytes 9.0 % 07/06/21 04:40 Nucleated RBCs # 0.0 /100WBC 07/05/21 04:30 Platelet Estimate Normal (Normal) 07/06/21 04:40 PT 15.50 SECONDS (12.1-14.9) H 07/04/21 03:00 INR 1.19 (0.8-1.2) 07/04/21 03:00 D-Dimer 2.79 ug/mIFEU (0-0.59) H 07/05/21 04:30 Specimen Type Arterial 07/06/21 04:33 Sample Site Radial, left 07/06/21 04:33 ABG pH 7.53 (7.35-7.45) H 07/06/21 04:33 ABG pCO2 26.0 mmHg (35-45) L 07/06/21 04:33 ABG pO2 51.8 mmHg (80.0-100.0) L 07/06/21 04:33 ABG HCO3 21.4 mmol/L (22-26) L 07/06/21 04:33 ABG O2 Saturation 90.1 06/30/21 15:39 ABG Base Excess -0.3 mmol/L (-2.0-2.0) 07/06/21 04:33 Tr Test Pos 07/06/21 04:33 A-a O2 Gradient 77.1 mmHg (5-10) H 06/30/21 15:39 Hematocrit 36.1 % (37-47) L 07/06/21 04:33 Hgb O2 Saturation 89.1 % (95-100) L 06/30/21 15:39 Carboxyhemoglobin 0.4 %THgb (0.4-20.1) 06/30/21 15:39 Methemoglobin 0.7 % (0.4-1.5) 06/30/21 15:39 Total Hemoglobin 14.4 g/dL (12-16) 06/30/21 15:39 Sodium 149.0 mmol/L (131-143) H 06/30/21 15:39 Potassium 3.4 mmol/L (3.5-5.0) L 06/30/21 15:39 Glucose 120.0 mg/dL (70-115) H 06/30/21 15:39 Ionized Calcium 1.1 mmol/L (1.1-1.4) 06/30/21 15:39 Respiration Rate 16.0 % 07/05/21 04:45 O2 Delivery Device Vent 07/06/21 04:33 O2 Liters/Min 60.0 % 06/30/21 05:09 FiO2 45.0 % 07/06/21 04:33 Tidal Volume 0.38 07/06/21 04:33 PEEP 10.0 cmH20 07/06/21 04:33 Machine Straw Hat Presser ID Buttr 07/06/21 04:33 Sodium 138 mmol/L (136-145) 07/06/21 04:40 Potassium 3.4 mmol/L (3.5-5.1) L 07/06/21 04:40 Chloride 105 mmol/L (98-107) 07/06/21 04:40 Carbon Dioxide 21 mmol/L (22-29) L 07/06/21 04:40 Anion Gap 15.4 (5-19) 07/06/21 04:40 BUN 50 mg/dL (8-23) H 07/06/21 04:40 Creatinine 1.5 mg/dL (0.5-0.9) H 07/06/21 04:40 GFR Calculation Not Reportable 07/06/21 04:40 Glucose 118 mg/dL (65-115) H 07/06/21 04:40 Calculated Osmolality 300 mOsm/kg (285-295) H 07/06/21 04:40 Lactic Acid 2.4 mmol/L (0.5-2.2) H 06/27/21 12:29 Lactic Acid (Sepsis) 1.3 mmol/L (0.5-2.2) 06/27/21 15:20 Lactate 1.4 mmol/L (0.5-2.2) 06/30/21 19:45 Uric Acid 4.9 mg/dL (2.4-5.7) 07/03/21 17:18 Uric Acid Cancelled 07/03/21 17:18 Calcium 7.8 mg/dL (8.5-10.5) L 07/06/21 04:40 Phosphorus 2.7 mg/dL (2.5-4.5) 07/06/21 04:40 Magnesium 1.9 mg/dL (1.7-2.3) 07/06/21 04:40 Ferritin 677 ng/mL (15-150) H 06/30/21 19:45 Total Bilirubin 0.4 mg/dL (0.15-1.2) 07/06/21 04:40 AST 67 U/L (0-32) H 07/06/21 04:40 ALT 30 U/L (0-33) 07/06/21 04:40 Alkaline Phosphatase 83 IU/L (35-105) 07/06/21 04:40 Creatine Kinase 649 U/L (26-192) H* 07/06/21 04:40 Troponin T Baseline 45 ng/L (0-10) H 06/27/21 15:20 Troponin T 120 Minute 48.75 ng/L (0-10) H 06/27/21 17:32 Delta Troponin T 3.75 ABS# (0-10) 06/27/21 17:32 Troponin T Hi Sens 6Hr 46.83 ng/L (0-10) H 06/27/21 21:03 Troponin T Hi Sens 6Hr Delta 1.83 ng/L (0-12) 06/27/21 21:03 C-Reactive Protein 123.5 mg/L (0.0-4.9) H 07/04/21 03:00 NT-Pro-B Natriuret Pep 1186 pg/mL (0-450) H 07/04/21 03:00 Total Protein 5.6 g/dL (6.6-8.7) L 07/06/21 04:40 Albumin 2.6 g/dL (3.5-5.2) L 07/06/21 04:40 Globulin 3.0 g/dL (1.3-4.6) 07/06/21 04:40 Lipase 57 U/L (13-60) 06/27/21 12:29 Procalcitonin 0.95 ng/mL (0-0.5) H 07/04/21 03:00 TSH 0.45 uIU/mL (0.27-4.20) 07/03/21 17:18 Urine Color Yellow (Yellow) 07/03/21 16:48 Urine Appearance Cloudy (CLEAR) 07/03/21 16:48 Urine pH 5 (5-7) 07/03/21 16:48 Ur Specific [facility] 1.010 (1.005-1.030) 07/03/21 16:48 Urine Protein 1+ (Negative) H 07/03/21 16:48 Urine Glucose (UA) Norm (Normal) 07/03/21 16:48 Urine Ketones 1+ (Negative) H 07/03/21 16:48 Urine Blood 3+ (Negative) H 07/03/21 16:48 Urine Nitrate Negative (Negative) 07/03/21 16:48 Urine Bilirubin Neg (Negative) 07/03/21 16:48 Urine Urobilinogen Norm mg/dL (Negative) 07/03/21 16:48 Ur Leukocyte Esterase Negative (Negative) 07/03/21 16:48 Urine RBC 5-10 /hpf (0-2) H 07/03/21 16:48 Urine WBC 0-4 /hpf (0-5) H 07/03/21 16:48 Ur Squamous Epith Cells 0-4 /hpf (0-5) H 07/03/21 16:48 Ur Transition Epith Cell 0-4 /hpf 07/03/21 16:48 Amorphous Sediment 1+ /hpf 07/03/21 16:48 Urine Bacteria 1+ /hpf (NONE) H 07/03/21 16:48 Coarse Granular Casts 25-40 /lpf H 07/03/21 16:48 Urine Mucus Trace /hpf 06/27/21 12:37 Ur Random Sodium 38 mmol/L 07/04/21 01:20 Ur Random Potassium 44 mmol/L 07/04/21 01:20 Ur Random Chloride 28 mmol/L 07/04/21 01:20 Urine Creatinine 65 mg/dL (28-217) 07/04/21 01:20 Vancomycin Trough 17.2 ug/mL (10-15) H 07/02/21 04:40 Nasal/Oral COVID-19 PCR Detected H 06/27/21 13:46 SARS-CoV-2 Ag (Rapid) Positive (Negative) H 06/27/21 13:46 Impressions Chest CTA 06/27/21 12:48 IMPRESSION: 1. No pulmonary embolism. 2. Multi lobar groundglass opacifications and consolidations from pneumonia associated with Covid 19. 3. RIGHT hilar consolidation probably combination of pneumonia and adenopathy. Consider follow-up chest CT angiogram after resolution of Covid 19 to be sure there is no underlying lymphadenopathy or persistent mass. 4. Mild LEFT heart enlargement. Head CT 06/27/21 15:05 IMPRESSION: No acute intracranial abnormality. Chest X-Ray 07/04/21 06:30 IMPRESSION: Stable abnormal chest. Renal Ultrasound 07/04/21 16:17 IMPRESSION: Normal renal ultrasound. Micro: Microbiology 07/06/21 08:50 Occult Blood (FIT) - Final Stool - Stool Aspirate A&P Assessment and plan (1) AMS (altered mental status): Status: Acute Qualifiers: Altered mental status type: disorientation Qualified Code(s): R41.0 - Disorientation, unspecified (2) Acute respiratory distress syndrome: Status: Acute (3) Acute respiratory failure with hypoxia: Status: Acute (4) Pneumonia due to 2019 novel coronavirus: Status: Acute (5) Acute encephalopathy: Status: Acute (6) BETSY (acute kidney injury): Status: Acute (7) Dementia: Status: Acute Qualifiers: Dementia type: unspecified type Dementia behavioral disturbance: without behavioral disturbance Qualified Code(s): F03.90 - Unspecified dementia without behavioral disturbance (8) Hypernatremia: Status: Acute (9) Hyperchloremic metabolic acidosis: Status: Acute (10) Hypokalemia: Status: Acute #Abdomen to status secondary to hypoxia and patient with underlying dementia #Acute hypoxic respiratory failure secondary to COVID-19 pneumonia #BETSY-prerenal BETSY vs Covid nephropathy/HOME #Transaminitis secondary to Covid-improving -Intubated 06/30/2021; -completed 3 proning sessions -Currently sedated with propofol, fentanyl-plan is to taper off sedation and continue awakening trial -ABG 7.5 12/16/ on CMV 45%/380/10 -FiO2 increased to 50% -We will continue lung protective strategies ARDS protocol-low tidal volume/high PEEP with target plateau pressures < 30 and driving pressures less than 15 -S/p 5 day remdesivir and currently dexamethasone 6 mg daily - patient pro Chau is high 4.34 at admission, cultures so far negative, sputum cultures-yeast identification pending -MRSA nares negative; discontinued vancomycin and deescalated imipenem to Zosyn -C. difficile PCR negative-no more diarrhea; -BNP > 4000-echo normal LV systolic function with EF 88% grade 1 diastolic dysfunction. Thickened aortic valve. -BETSY-prerenal versus Covid nephropathy/HOME;Improving with LR -I/O - 900 cc in last 24 hours-monitor I&O and try to keep net negative to even -Will discuss respiratory status and urine output give Lasix 20 mg if needed -Improving CK -Hypokalemia 3.4-supplemented Plan monitor electrolytes and renal functions -Continue tube feeding -GI prophylaxis PPI ; bowel regimen Colace, on Reglan -COVID-19 transaminitis-improving -Sugars well controlled -DVT prophylaxis Lovenox -Prognosis guarded -Family updated Elderly patient on ventilator for 6 days-needs rehab-if unable to extubate him next 2 days-goals of care discussions regarding trach and PEG with family and transfer to LTAC Recommendations conveyed to hospitalist, RN, RT taking care of the patient Attestations Medical Necessity Statement*: AMS and acute hypoxic respiratory failure secondary to ARDS due to COVID-19 pneumonia Time Spent in Patient Care: Greater than 35 minutes (>than 50% of time spent in counselling and/or direct pt care on unit). Critical Care Time: The high probability of a clinically significant, sudden or life threatening deterioration of the patient's [neurologic, pulmonary, renal] system(s) required my full and direct attention, intervention and personal management. The critical care time is as shown. This time is in addition to time spent performing any reported procedures but includes the following: [x] Data and vital sign review and interpretation [x] Patient assessment, examination and intervention [x] Documentation [x] Medication orders and management Critical Care Time (min): 45 Coding Level of Care Code Established Pt Acute Hardscape Foreman for g Fwd Patient Type Established History Comprehensive Exam Comprehensive Medical Decision Making High Complexity Diagnoses AMS (altered mental status) R41.0 Altered mental status type: disorientation Acute respiratory distress syndrome J80 Acute respiratory failure with hypoxia J96.01 Pneumonia due to 2019 novel coronavirus U07.1; J12.82 Acute encephalopathy G93.40 BETSY (acute kidney injury) N17.9 Dementia F03.90 Dementia type: unspecified type Dementia behavioral disturbance: without behavioral disturbance Hypernatremia E87.0 Hyperchloremic metabolic acidosis E87.2 Hypokalemia E87.6 Time Spent (min) 45
--- NOTE | 2021-07-06 10:27 | XR_ITS ---
WS: [id number] XR chest 1V portable [id number] REASON FOR EXAM: pneumonia FINDINGS: The chest is unchanged compared to 07/04/2021. Right jugular vein central venous line, endotracheal tube, and nasogastric tube remain in proper posi tion. Diffuse bilateral pulmonary infiltrates predominating in the lower lobes. No significant interval donna nge. No new findings. XR/XR chest 1V portable [id number] IMPRESSION: Stable abnormal chest.
--- NOTE | 2021-07-06 12:09 | PC.NUTR ---
Pt currently receiving TF of Jevity 1.2 @ 15 ml/hr with 60 ml FW flushes Q6H. If medically necessary to continue w/TF, recommend consideration of increasing goal rate to Jevity 1.2 @ 30 ml/hr with 60 ml FW flushes Q6H.
[2021-07-06] MEDS: dexamethasone 10 mg/mL INJ 6 MG IVP (14:32)
[2021-07-06 15:33] LABS: ABG PCO2 23.8 mmHg (35-45); ABG PH Result 7.55 (7.35-7.45); Alveolar-Arterial Oxygen Gradi 9.1 mmHg (5-10); Arterial Blood Gas Hematocrit 35.7 % (37-47); Base Excess ABG -0.2 mmol/L (-2.0-2.0); Blood Gas Allen Test Pos; Blood Gas Operator Identificat CAK; Blood Gas Sample Site Brachial, left; Blood Gas Sample Type Arterial; Carboxyhemoglobin 0.6 %THgb (0.4-20.1); HCO3 ABG 20.9 mmol/L (22-26); HGB O2 Sat 87.7 % (95-100); Ionized Calcium Level - ABG 1.2 mmol/L (1.1-1.4); Oxygen Device VENT; Oxygen Saturation ABG 89.1; PO2 ABG 48.8 mmHg (80.0-100.0); Potassium Level - ABG 3.4 mmol/L (3.5-5.0); Total Hemoglobin 11.7 g/dL (12-16)
--- NOTE | 2021-07-06 16:06 | PC.NURSE ---
PT had CPAP trial, Po2 came back low and pt placed back on AC. VSS. Pt repositioned and pral care and martinez care performed. Will monitor.
[2021-07-06] MEDS: enoxaparin 30 mg/0.3 mL Syringe SUBCUT (16:59)
[2021-07-06] MEDS: propofol 1,000 MG/100 ML INJ 6.04 MG IV (17:52)
[2021-07-06] MEDS: dexmedeTOMIDine 0.9 % NaCL 400 MCG/100 ML PREMIX 10.76 MCG IV (17:57)
--- NOTE | 2021-07-06 17:58 | PC.NURSE ---
Shift Note Frequent safety and comfort rounds continue. Orders and/or nursing care completed as indicated. Patient monitored for response to intervention and treatment(s). Education provided includes treatment plan, medications, ventilator and LTAC plans. Son verbalizes understanding. Attempted CPAP, had to place back on AC. Sedation increased per orders, propofol restarted. VSS. Will monitor. Will continue to monitor.
[2021-07-07] VITALS (65 sets, daily range): BP systolic 102–182; BP diastolic 52–96; PULSE 56–97; RESP 14–27; TEMP 36.4–37.5; O2SAT 81–99; BMI 24.7
[2021-07-07] MEDS: piperacillin-tazobactam 3.375 GM in dextrose 5% (plus) 50 ML IV ×2 (01:30→14:55)
[2021-07-07] MEDS: dexmedeTOMIDine 0.9 % NaCL 400 MCG/100 ML PREMIX 10.76 MCG IV (02:06)
[2021-07-07] MEDS: ipratropium-albuterol 3 mL Neb INHALATION ×3 (02:38→20:18)
[2021-07-07 05:04] LABS: Basophils % 0.3 %; Eosinophils % 0.1 %; Hematocrit 33.4 % (37.0-47.0); Hemoglobin 10.8 g/dL (11.5-15.3); Lymphocytes # 0.5 10^3/uL (0.8-4.8); Lymphocytes % 4.6 %; Mean Corpuscular HGB Conc 32.3 g/dL (30.0-36.0); Mean Corpuscular Hemoglobin 28.3 pg (28.0-34.0); Mean Corpuscular Volume 87.7 fl (81-99); Mean Platelet Volume 12.9 fL (7.4-10.4); Monocytes # 0.4 10^3/uL (0.2-0.9); Monocytes % 3.6 %; Neutrophils # 9.48 10^3/uL (1.8-7.7); Neutrophils % 84.5 %; Nucleated Red Blood Cells % 0 %; Platelet Count 218 10^3/cmm (130-400); Red Blood Count 3.81 10^6/uL (4.1-5.3); Red Cell Distribution Width 14.6 % (12.1-15.1); White Blood Count 11.2 10^3/uL (4.0-10.0)
[2021-07-07 05:33] LABS: Alanine Aminotransferase 29 U/L (0-33); Albumin Level 2.4 g/dL (3.5-5.2); Alkaline Phosphatase 80 IU/L (35-105); Anion Gap 15.8 (5-19); Aspartate Amino Transferase 52 U/L (0-32); Blood Urea Nitrogen 46 mg/dL (8-23); Calcium 8.1 mg/dL (8.5-10.5); Carbon Dioxide 21 mmol/L (22-29); Chloride 110 mmol/L (98-107); Creatine Phosphokinase 224 U/L (26-192); Globulin 2.7 g/dL (1.3-4.6); Glucose 133 mg/dL (65-115); Osmolality Calculated 310 mOsm/kg (285-295); Potassium 3.8 mmol/L (3.5-5.1); Sodium 143 mmol/L (136-145); Total Bilirubin 0.3 mg/dL (0.15-1.2); Total Protein 5.1 g/dL (6.6-8.7)
[2021-07-07] MEDS: pantoprazole 40 mg SDV IVP ×2 (05:43→17:37)
[2021-07-07] MEDS: sucralfate 1 gm/10 mL Oral Liq UDC PO ×4 (06:03→20:43)
[2021-07-07 06:06] LABS: Slide Review Slide Review Perform
--- NOTE | 2021-07-07 06:31 | PC.NURSE ---
Shift Note Frequent safety and comfort rounds continue. Orders and/or nursing care completed as indicated. Patient monitored for response to intervention and treatment(s). The only change that occurred with the patient was during the middle of the shift when her temperature dropped. The temperature drop of the patient required a bear hugger. Last temperature taken was 99.2.
--- NOTE | 2021-07-07 07:06 | PC.NURSE ---
Gave shift report [place].
[2021-07-07] MEDS: propofol 1,000 MG/100 ML INJ 6.04 MG IV (07:22)
[2021-07-07] MEDS: budesonide 0.5 mg/2 mL Neb INHALATION ×2 (08:10→20:18)
[2021-07-07] MEDS: aspirin 325 mg Tablet OG-TUBE (08:46)
[2021-07-07] MEDS: ascorbic acid 500 mg Tablet PO ×2 (08:47→17:37)
[2021-07-07] MEDS: cholecalciferol (vitamin D3) 1,000 unit Tablet 1000 UNIT PO (08:47)
[2021-07-07] MEDS: zinc gluconate 50 mg Tablet PO (08:47)
[2021-07-07] MEDS: metoclopramide 10 mg Tablet 5 MG PO ×3 (08:47→20:43)
[2021-07-07] MEDS: docusate sodium 100 mg Capsule PO (08:47)
--- NOTE | 2021-07-07 08:56 | CT_ITS ---
WS: [id number] CT head wo con* [id number] REASON FOR EXAM: not responding to stimuli IV CONTRAST ADMINISTERED: None TOTAL EXAM DLP: 718.[address] scans at [facility] use at least one of these dose optimization techniques: automat ed exposure control; mA and/or kV adjustment per patient size (includes targeted exams where dose is matched to clinical indication); or iterative reconstruction. FINDINGS: The current examination is unchanged compared to the previous study of 06/27/2021. There is no midline shift or other significant mass effect. There are no findings of intracranial hemorrhage and no extra-axial fluid collection is noted. There are symmetric bilateral basal ganglia calcifications. No focal acute brain parenchymal abnormality in the cerebral hemispheres, cerebellar hemispheres, bra instem is identified. CT/CT head wo con* [id number] IMPRESSION: No change in the examination with no acute intracranial abnormality identified.
[2021-07-07 09:03] LABS: ABG PCO2 26.6 mmHg (35-45); ABG PH Result 7.51 (7.35-7.45); Alveolar-Arterial Oxygen Gradi 35.1 mmHg (5-10); Arterial Blood Gas Hematocrit 35.6 % (37-47); Base Excess ABG -0.5 mmol/L (-2.0-2.0); Blood Gas Allen Test Pos; Blood Gas Operator Identificat CAK; Blood Gas Sample Site Radial, left; Blood Gas Sample Type Arterial; Blood Gas Tidal Volume 0.38; Carboxyhemoglobin 0.7 %THgb (0.4-20.1); HCO3 ABG 21.4 mmol/L (22-26); HGB O2 Sat 87.5 % (95-100); Ionized Calcium Level - ABG 1.2 mmol/L (1.1-1.4); Oxygen Device VENT; Oxygen Saturation ABG 89.1; PO2 ABG 50.3 mmHg (80.0-100.0); Potassium Level - ABG 3.5 mmol/L (3.5-5.0); Total Hemoglobin 11.6 g/dL (12-16)
[2021-07-07] MEDS: dexmedeTOMIDine 0.9 % NaCL 400 MCG/100 ML PREMIX 15.37 MCG IV ×3 (10:18→21:31)
--- NOTE | 2021-07-07 11:27 | PC.CHAP ---
Pastoral Care Encounter/Spiritual Assessment Type of Contact [] Declined information resources director visit [] Patient/Family/Request visit [] Outpatient visit [] Follow-up visit [] Physician referral [] Code/Alert [x] Routine visit [] Staff referral [] Actively dying [] Patient sleeping [] Family support [] [] Out of room [] Palliative care [] [x] Receiving care in room [] Pre-surgical visit [] Trauma [] Long length of stay [x] ICU visit [x] Other: covid/vent... changes from day to day Relational/Emotional Strength [] Patient feels connected with others/family/visitors/staff [] Distress [] Loneliness/isolation [] Abandonment Spirituality of Patient [] Person of Wendy [] Attends Jain of their Wendy [] Believes in Prayer [] Reads Bible or Uatsdin materials [] There are Spiritual issues to be addressed Community Support Specialist Interventions [x] Prayer [] Active listening [] Non-anxious presence [] Spiritual/emotional support [] Crisis/trauma care [] Spiritual counseling [] Bereavement support [] Provided bereavement packet [] Provided Bible/devotional materials [] Provided toy/stuffed animal, coloring book to patient or family member [] Provided Communion [] Anointing/[place] [] Salvation [x] Completed spiritual assessment [] Other: Impact on Illness or Injury [] Angry [] Fearful [] Anxious [] Often cries [] Exhaustion [] Unable to work [] Unable to attend yarsani [] Unable to walk/stand [] Unable to read [] Unable to drive [] Unable to eat/drink [] Unable to sleep [] Unable to be with family [] Patient intubated [] Other: Summary Time spent with patient
--- NOTE | 2021-07-07 14:25 | PM.PN ---
Subjective Subjective: Interval history: Intubated, sedated. Vitals/I&O/Wt Last Vital Signs Temp 99.5 F 07/07/21 11:19 Pulse 86 07/07/21 13:00 Resp 18 07/07/21 13:16 BP 150/91 07/07/21 13:00 Pulse Ox 93 07/07/21 13:16 07/06/21 07/07/21 07/07/21 22:59 06:59 14:59 Intake Total 444.330 / 1663.289 417.694 / 2080.983 173.076 / 173.076 Output Total 525 / 645 395 / 1040 Balance -80.670 / 1018.289 22.694 / 1040.983 173.076 / 173.076 Weight last 48 hrs Weight 61.377 kg Weight 61.037 kg Physical Exam Const: GENERAL APPEARANCE: patient mechanically ventilated ORIENTATION/CONSCIOUSNESS: Yes confused OTHER: Intubated, sedated. HENMT: COMMON NORMALS: oropharynx normal Neck/C-Spine: COMMON NORMALS: no JVD Resp: COMMON NORMALS: clear to auscultation bilaterally AUSCULTATION: clear to auscultation bilaterally Cardio: COMMON NORMALS: no JVD, regular rhythm, S1 normal heart sound present, S2 normal heart sound present and No murmurs present (Cardio) RHYTHM: regular rhythm HEART SOUNDS: S1 normal heart sound present and S2 normal heart sound present GI: COMMON NORMALS: Normal to inspection, nondistended, normoactive bowel sounds present and Soft to palpation PALPATION: Yes Soft to palpation Extremity: COMMON NORMALS: no joint enlargement and no pedal edema Neuro: COMMON NORMALS: moves all extremities Skin: COMMON NORMALS: no rashes or lesions noted GENERAL SKIN EXAM: no rashes or lesions noted Urinary Catheter Management^: Aggarwal: Cath Placed During This Visit: yes Reason for Continuing Indwelling Catheter: Accurate Measurement of Urinary Output in Critically Ill Patients Urinary Catheter Date of Insertion: 06/28/21 Urinary Catheter Time of Insertion: 18:41 Data : 07/07/21 04:30 07/07/21 04:30 Micro: Microbiology 07/06/21 08:50 Occult Blood (FIT) - Final Stool - Stool Aspirate A&P Assessment and plan (1) Pneumonia due to 2019 novel coronavirus: Some worsening hypoxia today, had to go up to 50% FiO2 to bring up saturation to 88-89%, ICU that they had to increase FiO2 further. Will give 20 mg IV Lasix push as per discussion. Additional weaning off sedation today. Reassess mental status. Obtain CT of the head. Yeast growing in sputum, was not considered an infection as she has been improving. If no significant improvement in oxygenation with Lasix, consider adding antifungal. MRSA PCR negative. Continue Decadron. Continue Zosyn. Continue Lovenox DVT prophylaxis TTE with normal ejection fraction, mild LVH, no regional wall motion abnormality, grade 1 diastolic dysfunction mild AR Completed course of remdesivir. As per discusssion with manager aerospace this morning, discussed with his son and will discuss with case management about possible arrangements for LTAC. Status: Acute (2) Acute encephalopathy: Additional attempt to wean sedation. Assess CT head. Making it difficult to wean. She is waking up somewhat, open the eyes, but not communicating, not following commands. Suspect multifactorial due to acute illness, hypoxia, sedatives, as well as medications, at home on methocarbamol, pramipexole, which could be contributing. Also on trazodone. Son also states that even at home he noticed occasional mild confusion. Appears she may be more prone to delirium compared to average. Status: Acute (3) BETSY (acute kidney injury): Improving. Responded to gentle fluid challenge. Stopped. Mild rhabdomyolysis improving. Decreasing CK. Unremarkable renal US. Possibly secondary to COVID-19 itself. Perhaps less likely contrast-induced nephropathy as CTA was on 06/27, unless is peaking and may expect improvement otherwise, possibly prerenal component. Monitor I&O. Status: Acute (4) Acute respiratory failure with hypoxia: Status: Acute (5) Acute respiratory distress syndrome: Status: Acute Additional A&P Information Anemia: Normocytic, some worsening hemoglobin down to 10.9. Negative Hemoccult. Hypokalemia: Replaced Possible atrial flutter: Follow-up twelve-lead EKG. Computer read on EKG, but I do not appreciate flutter waves. Does appear to have some inferolateral T wave inversions. Nonvalvular. Monitor on telemetry. Aspirin. Consider event monitor. HTN HLD Attestations Medical Necessity Statement*: Continue attempts to liberate off sedation, mechanical ventilation. Additional assessment of persistent encephalopathy. Coding Level of Care Code Acute Head Of Training And Development for Chg Fwd Diagnoses Pneumonia due to 2019 novel coronavirus U07.1; J12.82 Acute encephalopathy G93.40 BETSY (acute kidney injury) N17.9 Acute respiratory failure with hypoxia J96.01 Acute respiratory distress syndrome J80
--- NOTE | 2021-07-07 14:33 | ECG_ITS ---
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 Measurements Intervals [place] Rate: 82 P: 33 HI: 168 QRS: 55 QRSD: 92 T: 75 QT: 356 QTc: 416 Interpretive Statements SINUS RHYTHM Compared to ECG 07/03/2021 09:16:58 Atrial flutter no longer present T-wave abnormality no longer present Possible ischemia no longer present Electronically Signed On 07-07-2021 18:39:11 CDT by Benjie Mary M.D. [id number]
[2021-07-07] MEDS: dexamethasone 10 mg/mL INJ 6 MG IVP (14:56)
[2021-07-07] MEDS: FUROsemide 10 mg/mL SDV 2mL 20 MG IVP (14:56)
--- NOTE | 2021-07-07 16:15 | PC.NURSE ---
Son called unit, update given.
[2021-07-07] MEDS: enoxaparin 30 mg/0.3 mL Syringe SUBCUT (17:37)
--- NOTE | 2021-07-07 17:40 | PM.PN ---
Subjective Subjective: Interval history: -Seen patient at bedside today -Still no meaningful neurological response, opens eyes but does not move her limbs displayed being off of Versed and fentanyl -Went for CT head-did not show any acute changes -Increased FiO2 to 60%-continue to prone 1 more session -Overall I feel-without much neurological recovery-patient would most likely need trach and PEG and long-term acute care facility placement Labs and other imaging reviewed Medications: Reviewed: Yes Vitals/I&O/Wt Last Vital Signs Temp 99.5 F 07/07/21 11:19 Pulse 75 07/07/21 17:00 Resp 14 07/07/21 17:00 BP 156/89 07/07/21 17:00 Pulse Ox 93 07/07/21 17:00 07/07/21 07/07/21 07/07/21 06:59 14:59 22:59 Intake Total 417.694 / 2080.983 216.118 / 216.118 87.865 / 303.983 Output Total 395 / 1040 Balance 22.694 / 1040.983 216.118 / 216.118 87.865 / 303.983 Weight last 48 hrs Weight 135 lb 5 oz Weight 134 lb 9 oz Physical Exam Narrative: EXAM NARRATIVE: EXAM NARRATIVE: General: lying in bed, sedated and intubated HEENT:NCAT, PERRLA, EOMI Neck: Supple Lungs: Improving breath sounds bilaterally Heart: s1/s2, RRR Abd: soft, NT, ND, BS + Normoactive Extremities: No edema [employer]: sedated and limited [employer] exam possible. SKIN: no rash LDA: # CVC: Right internal jugular 06/30/2021 # Aggarwal: 06/30/2021 Urinary Catheter Management^: Aggarwal: Cath Placed During This Visit: yes Reason for Continuing Indwelling Catheter: Accurate Measurement of Urinary Output in Critically Ill Patients Urinary Catheter Date of Insertion: 06/28/21 Urinary Catheter Time of Insertion: 18:41 Data : 07/08/21 04:15 07/08/21 04:15 Other Labs: Laboratory Results WBC 11.7 10^3/uL (4.0-10.0) H 07/08/21 04:15 RBC 3.67 10^6/uL (4.1-5.3) L 07/08/21 04:15 Hgb 10.2 g/dL (11.5-15.3) L 07/08/21 04:15 Hct 32.8 % (37.0-47.0) L 07/08/21 04:15 MCV 89.4 fl (81-99) 07/08/21 04:15 MCH 27.8 pg (28.0-34.0) L 07/08/21 04:15 MCHC 31.1 g/dL (30.0-36.0) 07/08/21 04:15 RDW 14.4 % (12.1-15.1) 07/08/21 04:15 Plt Count 176 10^3/cmm (130-400) 07/08/21 04:15 MPV 13.3 fL (7.4-10.4) H 07/08/21 04:15 Neut % (Auto) 86.9 % 07/08/21 04:15 Lymph % (Auto) 4.4 % 07/08/21 04:15 [place] % (Auto) 3.8 % 07/08/21 04:15 Eos % (Auto) 0.3 % 07/08/21 04:15 Baso % (Auto) 0.3 % 07/08/21 04:15 Neut # (Auto) 10.18 10^3/uL (1.8-7.7) H 07/08/21 04:15 Lymph # (Auto) 0.5 10^3/uL (0.8-4.8) L 07/08/21 04:15 [place] # (Auto) 0.5 10^3/uL (0.2-0.9) 07/08/21 04:15 Eos # (Auto) 0.0 10^3/uL (0.0-0.8) 07/08/21 04:15 Baso # (Auto) 0.0 10^3/uL (0.0-0.1) 07/08/21 04:15 Nucleated RBC % (auto) 0 % 07/08/21 04:15 Total Counted 100 (0-100) 07/06/21 04:40 Atypical Lymphs % 1.0 % (0-5) 07/06/21 04:40 Absolute Neutrophils 9.7 10^3/cmm (1.4-6.5) H 07/06/21 04:40 Segmented Neutrophils 79 % 07/06/21 04:40 Abs Segm Neuts (Man) 9.3 10/cmm (1.6-7.1) H 07/06/21 04:40 Band Neutrophils 3.0 % 07/06/21 04:40 Abs Band Neuts (Man) 0.4 10^3/cmm (0.0-1.2) 07/06/21 04:40 Absolute Lymphocytes 0.9 10^3/cmm (1.2-3.4) L 07/06/21 04:40 Lymphocytes (Manual) 7 % 07/06/21 04:40 Monocytes (Manual) 1.0 % 07/06/21 04:40 Absolute Monocytes 0.1 10^3/cmm (0.1-0.6) 07/06/21 04:40 Eosinophils (Manual) 0 % 07/06/21 04:40 Absolute Eosinophils 0.0 10^3/cmm (0.0-0.7) 07/06/21 04:40 Basophils (Manual) 0.0 % 07/06/21 04:40 Absolute Basophils 0.0 10^3/cmm (0.0-0.2) 07/06/21 04:40 Metamyelocytes 9.0 % 07/06/21 04:40 Nucleated RBCs # 0.0 /100WBC 07/08/21 04:15 Platelet Estimate Normal (Normal) 07/06/21 04:40 PT 15.50 SECONDS (12.1-14.9) H 07/04/21 03:00 INR 1.19 (0.8-1.2) 07/04/21 03:00 D-Dimer 2.79 ug/mIFEU (0-0.59) H 07/05/21 04:30 Specimen Type Arterial 07/07/21 08:52 Sample Site Radial, left 07/07/21 08:52 ABG pH 7.51 (7.35-7.45) H 07/07/21 08:52 ABG pCO2 26.6 mmHg (35-45) L 07/07/21 08:52 ABG pO2 50.3 mmHg (80.0-100.0) L 07/07/21 08:52 ABG HCO3 21.4 mmol/L (22-26) L 07/07/21 08:52 ABG O2 Saturation 89.1 10/15/21 08:52 ABG Base Excess -0.5 mmol/L (-2.0-2.0) 07/07/21 08:52 Tr Test Pos 07/07/21 08:52 A-a O2 Gradient 35.1 mmHg (5-10) H 07/07/21 08:52 Hematocrit 35.6 % (37-47) L 07/07/21 08:52 Hgb O2 Saturation 87.5 % (95-100) L 07/07/21 08:52 Carboxyhemoglobin 0.7 %THgb (0.4-20.1) 07/07/21 08:52 Methemoglobin 1.0 % (0.4-1.5) 07/07/21 08:52 Total Hemoglobin 11.6 g/dL (12-16) L 07/07/21 08:52 Sodium 143.0 mmol/L (131-143) 07/07/21 08:52 Potassium 3.5 mmol/L (3.5-5.0) 07/07/21 08:52 Glucose 88.0 mg/dL (70-115) 07/07/21 08:52 Ionized Calcium 1.2 mmol/L (1.1-1.4) 07/07/21 08:52 Respiration Rate 16.0 % 07/05/21 04:45 O2 Delivery Device Vent 07/07/21 08:52 O2 Liters/Min 60.0 % 06/30/21 05:09 FiO2 50.0 % 07/07/21 08:52 Tidal Volume 0.38 07/07/21 08:52 PEEP 8.0 cmH20 07/07/21 08:52 Compress Machine Operator ID Cak 07/07/21 08:52 Sodium 143 mmol/L (136-145) 07/08/21 04:15 Potassium 3.5 mmol/L (3.5-5.1) 07/08/21 04:15 Chloride 109 mmol/L (98-107) H 07/08/21 04:15 Carbon Dioxide 22 mmol/L (22-29) 07/08/21 04:15 Anion Gap 15.5 (5-19) 07/08/21 04:15 BUN 40 mg/dL (8-23) H 07/08/21 04:15 Creatinine 1.2 mg/dL (0.5-0.9) H 07/08/21 04:15 GFR Calculation Not Reportable 07/08/21 04:15 Glucose 120 mg/dL (65-115) H 07/08/21 04:15 Calculated Osmolality 307 mOsm/kg (285-295) H 07/08/21 04:15 Lactic Acid 2.4 mmol/L (0.5-2.2) H 06/27/21 12:29 Lactic Acid (Sepsis) 1.3 mmol/L (0.5-2.2) 06/27/21 15:20 Lactate 1.4 mmol/L (0.5-2.2) 06/30/21 19:45 Uric Acid 4.9 mg/dL (2.4-5.7) 07/03/21 17:18 Uric Acid Cancelled 07/03/21 17:18 Calcium 8.0 mg/dL (8.5-10.5) L 07/08/21 04:15 Phosphorus 2.7 mg/dL (2.5-4.5) 07/06/21 04:40 Magnesium 1.9 mg/dL (1.7-2.3) 07/06/21 04:40 Ferritin 677 ng/mL (15-150) H 06/30/21 19:45 Total Bilirubin 0.2 mg/dL (0.15-1.2) 07/08/21 04:15 AST 30 U/L (0-32) 07/08/21 04:15 ALT 26 U/L (0-33) 07/08/21 04:15 Alkaline Phosphatase 82 IU/L (35-105) 07/08/21 04:15 Creatine Kinase 224 U/L (26-192) H 07/07/21 04:30 Troponin T Baseline 45 ng/L (0-10) H 06/27/21 15:20 Troponin T 120 Minute 48.75 ng/L (0-10) H 06/27/21 17:32 Delta Troponin T 3.75 ABS# (0-10) 06/27/21 17:32 Troponin T Hi Sens 6Hr 46.83 ng/L (0-10) H 06/27/21 21:03 Troponin T Hi Sens 6Hr Delta 1.83 ng/L (0-12) 06/27/21 21:03 C-Reactive Protein 123.5 mg/L (0.0-4.9) H 07/04/21 03:00 NT-Pro-B Natriuret Pep 1186 pg/mL (0-450) H 07/04/21 03:00 Total Protein 5.3 g/dL (6.6-8.7) L 07/08/21 04:15 Albumin 2.5 g/dL (3.5-5.2) L 07/08/21 04:15 Globulin 2.8 g/dL (1.3-4.6) 07/08/21 04:15 Lipase 57 U/L (13-60) 06/27/21 12:29 Procalcitonin 0.95 ng/mL (0-0.5) H 07/04/21 03:00 TSH 0.45 uIU/mL (0.27-4.20) 07/03/21 17:18 Urine Color Yellow (Yellow) 07/03/21 16:48 Urine Appearance Cloudy (CLEAR) 07/03/21 16:48 Urine pH 5 (5-7) 07/03/21 16:48 Ur Specific [place] 1.010 (1.005-1.030) 07/03/21 16:48 Urine Protein 1+ (Negative) H 07/03/21 16:48 Urine Glucose (UA) Norm (Normal) 07/03/21 16:48 Urine Ketones 1+ (Negative) H 07/03/21 16:48 Urine Blood 3+ (Negative) H 07/03/21 16:48 Urine Nitrate Negative (Negative) 07/03/21 16:48 Urine Bilirubin Neg (Negative) 07/03/21 16:48 Urine Urobilinogen Norm mg/dL (Negative) 07/03/21 16:48 Ur Leukocyte Esterase Negative (Negative) 07/03/21 16:48 Urine RBC 5-10 /hpf (0-2) H 07/03/21 16:48 Urine WBC 0-4 /hpf (0-5) H 07/03/21 16:48 Ur Squamous Epith Cells 0-4 /hpf (0-5) H 07/03/21 16:48 Ur Transition Epith Cell 0-4 /hpf 07/03/21 16:48 Amorphous Sediment 1+ /hpf 07/03/21 16:48 Urine Bacteria 1+ /hpf (NONE) H 07/03/21 16:48 Coarse Granular Casts 25-40 /lpf H 07/03/21 16:48 Urine Mucus Trace /hpf 06/27/21 12:37 Ur Random Sodium 38 mmol/L 07/04/21 01:20 Ur Random Potassium 44 mmol/L 07/04/21 01:20 Ur Random Chloride 28 mmol/L 07/04/21 01:20 Urine Creatinine 65 mg/dL (28-217) 07/04/21 01:20 Vancomycin Trough 17.2 ug/mL (10-15) H 07/02/21 04:40 Nasal/Oral COVID-19 PCR Detected H 06/27/21 13:46 SARS-CoV-2 Ag (Rapid) Positive (Negative) H 06/27/21 13:46 Impressions Chest CTA 06/27/21 12:48 IMPRESSION: 1. No pulmonary embolism. 2. Multi lobar groundglass opacifications and consolidations from pneumonia associated with Covid 19. 3. RIGHT hilar consolidation probably combination of pneumonia and adenopathy. Consider follow-up chest CT angiogram after resolution of Covid 19 to be sure there is no underlying lymphadenopathy or persistent mass. 4. Mild LEFT heart enlargement. Renal Ultrasound 07/04/21 16:17 IMPRESSION:Normal renal ultrasound. Chest X-Ray 07/06/21 10:27 IMPRESSION: Stable abnormal chest. Head CT 07/07/21 08:56 IMPRESSION: No change in the examination with no acute intracranial abnormality identified. A&P Assessment and plan (1) AMS (altered mental status): Status: Acute Qualifiers: Altered mental status type: disorientation Qualified Code(s): R41.0 - Disorientation, unspecified (2) Acute respiratory distress syndrome: Status: Acute (3) Acute respiratory failure with hypoxia: Status: Acute (4) Pneumonia due to 2019 novel coronavirus: Status: Acute (5) Acute encephalopathy: Status: Acute (6) BETSY (acute kidney injury): Status: Acute (7) Dementia: Status: Acute Qualifiers: Dementia type: unspecified type Dementia behavioral disturbance: without behavioral disturbance Qualified Code(s): F03.90 - Unspecified dementia without behavioral disturbance (8) Hypernatremia: Status: Acute (9) Hyperchloremic metabolic acidosis: Status: Acute (10) Hypokalemia: Status: Acute #Abdomen to status secondary to hypoxia and patient with underlying dementia #Acute hypoxic respiratory failure secondary to COVID-19 pneumonia #BETSY-prerenal BETSY vs Covid nephropathy/HOME #Transaminitis secondary to Covid-improving -Intubated 06/30/2021; -completed 3 proning sessions -Currently sedated with propofol, fentanyl-plan is to taper off sedation and continue awakening trial -Opens eyes but does not have meaningful response to commands -CT head-no acute -ABG 7.5 10/18/50/20 % on CMV 50 %/380/10 -FiO2 increased to 60% later in the evening-decided to do 1 more proning session -We will continue lung protective strategies ARDS protocol-low tidal volume/high PEEP with target plateau pressures < 30 and driving pressures less than 15 -S/p 5 day remdesivir and currently dexamethasone 6 mg daily - patient pro Chau is high 4.34 at admission, cultures so far negative, sputum cultures-yeast identification pending -MRSA nares negative; discontinued vancomycin and deescalated imipenem to Zosyn -Continues to have diarrhea-earlier C. difficile PCR is negative, we will resend C. difficile PCR -BNP > 4000-echo normal LV systolic function with EF 88% grade 1 diastolic dysfunction. Thickened aortic valve. -BETSY-prerenal versus Covid nephropathy/HOME;Improving with LR -I/O +1040cc in last 24 hours-monitor I&O and try to keep net negative to even-Given 1 dose Lasix 20 mg -Improving CK -Hypokalemia 3.5-supplemented.; Plan monitor electrolytes and renal functions -Continue tube feeding -GI prophylaxis PPI ; bowel regimen Colace, on Reglan -COVID-19 transaminitis-improving -Sugars well controlled -DVT prophylaxis Lovenox -Prognosis guarded -Family updated Elderly patient on ventilator for 7 days-needs rehab-given poor mental status-goals of care discussions regarding trach and PEG with family and transfer to LTAC Recommendations conveyed to hospitalist, RN, RT taking care of the patient Attestations Medical Necessity Statement*: AMS and acute hypoxic respiratory failure secondary to ARDS due to COVID-19 pneumonia Time Spent in Patient Care: Greater than 35 minutes (>than 50% of time spent in counselling and/or direct pt care on unit). Critical Care Time: The high probability of a clinically significant, sudden or life threatening deterioration of the patient's [neurologic, pulmonary, renal] system(s) required my full and direct attention, intervention and personal management. The critical care time is as shown. This time is in addition to time spent performing any reported procedures but includes the following: [x] Data and vital sign review and interpretation [x] Patient assessment, examination and intervention [x] Documentation [x] Medication orders and management Critical Care Time (min): 45 Coding Level of Care Code Established Pt Acute Stable Helper for Chg Fwd Patient Type Established History Comprehensive Exam Comprehensive Medical Decision Making High Complexity Diagnoses AMS (altered mental status) R41.0 Altered mental status type: disorientation Acute respiratory distress syndrome J80 Acute respiratory failure with hypoxia J96.01 Pneumonia due to 2019 novel coronavirus U07.1; J12.82 Acute encephalopathy G93.40 BETSY (acute kidney injury) N17.9 Dementia F03.90 Dementia type: unspecified type Dementia behavioral disturbance: without behavioral disturbance Hypernatremia E87.0 Hyperchloremic metabolic acidosis E87.2 Hypokalemia E87.6 Time Spent (min) 45
[2021-07-07] MEDS: propofol 1,000 MG/100 ML INJ 12.08 MG IV (23:44)
[2021-07-08] VITALS (45 sets, daily range): BP systolic 88–175; BP diastolic 47–82; PULSE 65–99; RESP 14–19; TEMP 36.2–36.5; O2SAT 89–97; BMI 26.9
[2021-07-08] MEDS: hyDRALAzine 20 mg/mL INJ 1 mL 10 MG IVP (00:47)
[2021-07-08] MEDS: ipratropium-albuterol 3 mL Neb INHALATION ×3 (02:41→20:30)
[2021-07-08] MEDS: piperacillin-tazobactam 3.375 GM in dextrose 5% (plus) 50 ML IV ×2 (02:45→15:45)
[2021-07-08] MEDS: dexmedeTOMIDine 0.9 % NaCL 400 MCG/100 ML PREMIX 15.37 MCG IV (03:40)
[2021-07-08 04:56] LABS: Basophils % 0.3 %; Eosinophils % 0.3 %; Hematocrit 32.8 % (37.0-47.0); Hemoglobin 10.2 g/dL (11.5-15.3); Lymphocytes # 0.5 10^3/uL (0.8-4.8); Lymphocytes % 4.4 %; Mean Corpuscular HGB Conc 31.1 g/dL (30.0-36.0); Mean Corpuscular Hemoglobin 27.8 pg (28.0-34.0); Mean Corpuscular Volume 89.4 fl (81-99); Mean Platelet Volume 13.3 fL (7.4-10.4); Monocytes # 0.5 10^3/uL (0.2-0.9); Monocytes % 3.8 %; Neutrophils # 10.18 10^3/uL (1.8-7.7); Neutrophils % 86.9 %; Nucleated Red Blood Cells % 0 %; Platelet Count 176 10^3/cmm (130-400); Red Blood Count 3.67 10^6/uL (4.1-5.3); Red Cell Distribution Width 14.4 % (12.1-15.1); White Blood Count 11.7 10^3/uL (4.0-10.0)
[2021-07-08] MEDS: pantoprazole 40 mg SDV IVP ×2 (05:27→17:30)
[2021-07-08 05:28] LABS: Alanine Aminotransferase 26 U/L (0-33); Albumin Level 2.5 g/dL (3.5-5.2); Alkaline Phosphatase 82 IU/L (35-105); Anion Gap 15.5 (5-19); Aspartate Amino Transferase 30 U/L (0-32); Blood Urea Nitrogen 40 mg/dL (8-23); Carbon Dioxide 22 mmol/L (22-29); Chloride 109 mmol/L (98-107); Globulin 2.8 g/dL (1.3-4.6); Glucose 120 mg/dL (65-115); Osmolality Calculated 307 mOsm/kg (285-295); Potassium 3.5 mmol/L (3.5-5.1); Sodium 143 mmol/L (136-145); Total Bilirubin 0.2 mg/dL (0.15-1.2); Total Protein 5.3 g/dL (6.6-8.7)
[2021-07-08] MEDS: propofol 1,000 MG/100 ML INJ 13.59 MG IV ×2 (06:10→12:39)
[2021-07-08] MEDS: sucralfate 1 gm/10 mL Oral Liq UDC PO ×4 (06:14→20:55)
--- NOTE | 2021-07-08 06:52 | PC.NURSE ---
Shift Note Frequent safety and comfort rounds continue. Orders and/or nursing care completed as indicated. Patient monitored for response to intervention and treatment(s). Patient was proned at 2215 with respiratory assisting. Patient tolerated the proning well during the shift. Tidal volume has been in the mid 300 range and ventilator synchrony had been achieve for most of the shift. There were a few episodes experience where the BIS was either too low or too high after moving the patient to a different position. The first part of the shift the patient was having slightly higher blood pressure, so hydralazine was administered once. Following drips are currently running: Fentanyl, Propofol, Precedex, and Nimbex.
[2021-07-08] MEDS: budesonide 0.5 mg/2 mL Neb INHALATION ×2 (07:47→20:30)
[2021-07-08] MEDS: ascorbic acid 500 mg Tablet PO ×2 (09:04→17:31)
[2021-07-08] MEDS: metoclopramide 10 mg Tablet 5 MG PO ×3 (09:05→20:55)
[2021-07-08] MEDS: aspirin 325 mg Tablet OG-TUBE (09:05)
[2021-07-08] MEDS: cholecalciferol (vitamin D3) 1,000 unit Tablet 1000 UNIT PO (09:05)
[2021-07-08] MEDS: zinc gluconate 50 mg Tablet PO (09:05)
--- NOTE | 2021-07-08 12:30 | PC.NUTR ---
PT currently NPO R/T proning and high residuals from TF. When medically appropriate, recommend resuming Jevity 1.2 @ 15ml/hr with H2O flushes 60 ml Q6H; with a goal rate of 30 ml/hr with H2O flushes 60 ml Q6H. See full RD assessment for details.
--- NOTE | 2021-07-08 13:57 | PC.SOCIAL ---
IMM Update pg 2 of IMM updated via voice mail for son Freddy.
--- NOTE | 2021-07-08 14:56 | PM.PN ---
Subjective Subjective: Interval history: Intubated, sedated, paralyzed, prone. Vitals/I&O/Wt Last Vital Signs Temp 97.7 F 07/08/21 12:00 Pulse 66 07/08/21 12:00 Resp 14 07/08/21 12:00 BP 95/56 07/08/21 12:00 Pulse Ox 94 07/08/21 12:00 07/07/21 07/08/21 07/08/21 22:59 06:59 14:59 Intake Total 573.629 / 789.747 262.857 / 1052.604 275.371 / 275.371 Output Total 1225 / 1225 700 / 1925 Balance -651.371 / -435.253 -437.143 / -872.396 275.371 / 275.371 Weight last 48 hrs Weight 66.877 kg Weight 61.377 kg Physical Exam Const: GENERAL APPEARANCE: patient mechanically ventilated ORIENTATION/CONSCIOUSNESS: Yes confused OTHER: Intubated, sedated, paralyzed, proned. HENMT: COMMON NORMALS: oropharynx normal Neck/C-Spine: COMMON NORMALS: no JVD Resp: AUSCULTATION: rhonchi (Suctioned) Cardio: COMMON NORMALS: no JVD, regular rhythm, S1 normal heart sound present, S2 normal heart sound present and No murmurs present (Cardio) RHYTHM: regular rhythm HEART SOUNDS: S1 normal heart sound present and S2 normal heart sound present GI: COMMON NORMALS: Normal to inspection, nondistended, normoactive bowel sounds present and Soft to palpation PALPATION: Yes Soft to palpation Extremity: COMMON NORMALS: no joint enlargement and no pedal edema Neuro: COMMON NORMALS: moves all extremities Skin: COMMON NORMALS: no rashes or lesions noted GENERAL SKIN EXAM: no rashes or lesions noted Urinary Catheter Management^: Aggarwal: Cath Placed During This Visit: yes Reason for Continuing Indwelling Catheter: Accurate Measurement of Urinary Output in Critically Ill Patients Urinary Catheter Date of Insertion: 06/28/21 Urinary Catheter Time of Insertion: 18:41 Data : 07/08/21 04:15 07/08/21 04:15 A&P Assessment and plan (1) Pneumonia due to 2019 novel coronavirus: Worsening hypoxia per discussion with uc architect, requiring up to 70% FiO2, sedated again, paralyzed, proned. If unable to wean down further, consider tracheostomy early next week. Some worsening hypoxia today, had to go up to 50% FiO2 to bring up saturation to 88-89%, ICU that they had to increase FiO2 further. Will give 20 mg IV Lasix push as per discussion. Additional weaning off sedation today. Reassess mental status. Obtain CT of the head. Yeast growing in sputum, was not considered an infection, however, with worsening hypoxia we will add Diflucan. MRSA PCR negative. Continue Decadron. Continue Zosyn. Continue Lovenox DVT prophylaxis TTE with normal ejection fraction, mild LVH, no regional wall motion abnormality, grade 1 diastolic dysfunction mild AR Completed course of remdesivir. Per discussion with case management, as per her insurance may qualify for LTAC after 21 days in ICU, if considering tracheostomy, after 7 days following tracheostomy. Status: Acute (2) Acute encephalopathy: To be resedated, paralyzed, proned due to worsening oxygenation. Once improving, reassess mental status for improvement in delirium, resume attempts at weaning sedation. She was waking up somewhat, would open eyes, but not communicating, not following commands. Suspected multifactorial due to acute illness, hypoxia, sedatives, as well as medications, at home on methocarbamol, pramipexole, which could be contributing. Also on trazodone. Son also states that even at home he noticed occasional mild confusion. Reported forgetfulness. Appears she may be more prone to delirium compared to average. Status: Acute (3) BETSY (acute kidney injury): Improving. Responded to gentle fluid challenge. Stopped. Mild rhabdomyolysis improving. Decreasing CK. Unremarkable renal US. Possibly secondary to COVID-19 itself. Perhaps less likely contrast-induced nephropathy as CTA was on 06/27, unless is peaking and may expect improvement otherwise, possibly prerenal component. Monitor I&O. Status: Acute (4) Acute respiratory failure with hypoxia: Status: Acute (5) Acute respiratory distress syndrome: Status: Acute Additional A&P Information Anemia: Normocytic, some worsening hemoglobin down to 10.9. Negative Hemoccult. Hypokalemia: Replaced Possible atrial flutter: Repeat EKG with sinus rhythm. Computer read on EKG, but I do not appreciate flutter waves. Does appear to have some inferolateral T wave inversions. Nonvalvular. Monitor on telemetry. Aspirin. Consider event monitor. Diarrhea: C. difficile negative HTN HLD Attestations Medical Necessity Statement*: Continue admission for hypoxic respiratory failure following severe COVID-19, persistent encephalopathy and delirium, currently worsening hypoxia requiring additional paralytic and proning. Coding Level of Care Code Acute Vacuum Metalizer Operator for [facility] Fwd Diagnoses Pneumonia due to 2019 novel coronavirus U07.1; J12.82 Acute encephalopathy G93.40 BETSY (acute kidney injury) N17.9 Acute respiratory failure with hypoxia J96.01 Acute respiratory distress syndrome J80
[2021-07-08] MEDS: dexamethasone 10 mg/mL INJ 6 MG IVP (15:46)
[2021-07-08] MEDS: fluconazole premix 400 MG/200 ML PIGGYBACK 200 MG IV (16:32)
[2021-07-08] MEDS: enoxaparin 30 mg/0.3 mL Syringe SUBCUT (16:32)
[2021-07-08] MEDS: propofol 1,000 MG/100 ML INJ 4.53 MG IV (22:45)
[2021-07-09] VITALS (61 sets, daily range): BP systolic 86–165; BP diastolic 50–79; PULSE 67–95; RESP 14–20; TEMP 35.6–36.7; O2SAT 92–99
[2021-07-09] MEDS: piperacillin-tazobactam 3.375 GM in dextrose 5% (plus) 50 ML IV ×3 (02:25→18:03)
[2021-07-09] MEDS: ipratropium-albuterol 3 mL Neb INHALATION ×3 (02:36→20:10)
--- NOTE | 2021-07-09 02:36 | PC.NURSE ---
bis 60s to 70s, propofol and fentanyl maxed out, bp 80s/40s, dr. Claros notified and gave t.o. for versed and levophed drip
[2021-07-09 04:17] LABS: Basophils % 0.2 %; Hemoglobin 10.1 g/dL (11.5-15.3); Lymphocytes # 0.3 10^3/uL (0.8-4.8); Lymphocytes % 2.2 %; Mean Corpuscular HGB Conc 30.6 g/dL (30.0-36.0); Mean Corpuscular Hemoglobin 27.7 pg (28.0-34.0); Mean Corpuscular Volume 90.4 fl (81-99); Mean Platelet Volume 13.4 fL (7.4-10.4); Monocytes # 0.3 10^3/uL (0.2-0.9); Neutrophils # 11.42 10^3/uL (1.8-7.7); Neutrophils % 91.6 %; Nucleated Red Blood Cells % 0 %; Platelet Count 176 10^3/cmm (130-400); Red Blood Count 3.65 10^6/uL (4.1-5.3); Red Cell Distribution Width 14.5 % (12.1-15.1); White Blood Count 12.5 10^3/uL (4.0-10.0)
[2021-07-09 04:42] LABS: Alanine Aminotransferase 25 U/L (0-33); Albumin Level 2.4 g/dL (3.5-5.2); Alkaline Phosphatase 91 IU/L (35-105); Anion Gap 17.4 (5-19); Aspartate Amino Transferase 26 U/L (0-32); Blood Urea Nitrogen 41 mg/dL (8-23); Carbon Dioxide 21 mmol/L (22-29); Chloride 103 mmol/L (98-107); Globulin 3.2 g/dL (1.3-4.6); Glucose 114 mg/dL (65-115); Osmolality Calculated 297 mOsm/kg (285-295); Potassium 3.4 mmol/L (3.5-5.1); Sodium 138 mmol/L (136-145); Total Bilirubin 0.3 mg/dL (0.15-1.2); Total Protein 5.6 g/dL (6.6-8.7)
[2021-07-09] MEDS: sucralfate 1 gm/10 mL Oral Liq UDC PO ×3 (05:27→20:06)
[2021-07-09] MEDS: pantoprazole 40 mg SDV IVP ×2 (05:27→17:29)
[2021-07-09] MEDS: propofol 1,000 MG/100 ML INJ 6.04 MG IV (07:34)
[2021-07-09] MEDS: budesonide 0.5 mg/2 mL Neb INHALATION ×2 (09:02→20:10)
[2021-07-09] MEDS: lanolin oint 7 gm 1 APPLIC TOPICAL (10:40)
[2021-07-09] MEDS: aspirin 325 mg Tablet OG-TUBE (12:04)
[2021-07-09] MEDS: cholecalciferol (vitamin D3) 1,000 unit Tablet 1000 UNIT PO (12:04)
[2021-07-09] MEDS: metoclopramide 10 mg Tablet 5 MG PO ×2 (12:05→20:06)
[2021-07-09] MEDS: zinc gluconate 50 mg Tablet PO (12:05)
[2021-07-09] MEDS: docusate sodium 100 mg Capsule PO ×2 (12:05→17:29)
[2021-07-09] MEDS: ascorbic acid 500 mg Tablet PO ×2 (12:05→17:29)
[2021-07-09] MEDS: dexamethasone 10 mg/mL INJ 6 MG IVP (15:17)
[2021-07-09] MEDS: fluconazole premix 400 MG/200 ML PIGGYBACK 200 MG IV (15:20)
[2021-07-09] MEDS: enoxaparin 30 mg/0.3 mL Syringe SUBCUT (17:29)
--- NOTE | 2021-07-09 18:12 | PC.NURSE ---
Prone to Supine 1500: Pt turned from prone to supine with the help of RT and nursing staff.
--- NOTE | 2021-07-09 18:33 | PM.PN ---
Subjective Subjective: Interval history: Patient was seen this morning, is currently in prone position, third cycle, remains on minimal Levophed, remains afebrile, 50% FiO2 Vitals/I&O/Wt Last Vital Signs Temp 98.0 F 07/09/21 16:00 Pulse 72 07/09/21 16:00 Resp 14 07/09/21 17:48 BP 104/59 07/09/21 16:00 Pulse Ox 98 07/09/21 17:48 07/09/21 07/09/21 07/09/21 06:59 14:59 22:59 Intake Total 98.342 / 813.980 38.386 / 38.386 450.62 / 489.006 Output Total 400 / 1025 950 / 950 Balance -301.658 / -211.020 38.386 / 38.386 -499.38 / -460.994 Weight last 48 hrs Weight 66.3 kg Weight 66.877 kg Physical Exam Narrative: EXAM NARRATIVE: Currently prone, paralyzed, Urinary Catheter Management^: Aggarwal: Cath Placed During This Visit: yes Reason for Continuing Indwelling Catheter: Accurate Measurement of Urinary Output in Critically Ill Patients Urinary Catheter Date of Insertion: 06/28/21 Urinary Catheter Time of Insertion: 18:41 Data : 07/09/21 03:30 07/09/21 03:30 A&P Assessment and plan (1) Pneumonia due to 2019 novel coronavirus: Worsening hypoxia per discussion with casino cage cashier, requiring up to 70% FiO2, sedated again, paralyzed, proned. Currently completing third session of proning, currently on 50% FiO2, when supine can start tube feedings, Plan on discussing with family of trach and PEG in the next 2448 hrs. Hold Lasix for today minimal sedation today when supine. Reassess mental status. CT head within normal limits Yeast growing in sputum, was not considered an infection, however, with worsening hypoxia Diflucan was added MRSA PCR negative. Continue Decadron. Continue Zosyn. Continue Lovenox DVT prophylaxis TTE with normal ejection fraction, mild LVH, no regional wall motion abnormality, grade 1 diastolic dysfunction mild AR Completed course of remdesivir. Per discussion with case management, as per her insurance may qualify for LTAC after 21 days in ICU, if considering tracheostomy, after 7 days following tracheostomy. Status: Acute (2) Acute encephalopathy: Complaining proning session. Once improving, reassess mental status for improvement in delirium, resume attempts at weaning sedation. Suspected multifactorial due to acute illness, hypoxia, sedatives, as well as medications, at home on methocarbamol, pramipexole, which could be contributing. Also on trazodone. Son also states that even at home he noticed occasional mild confusion. Reported forgetfulness. Appears she may be more prone to delirium compared to average. Status: Acute (3) BETSY (acute kidney injury): Improving. Responded to gentle fluid challenge. Stopped. Mild rhabdomyolysis improving. Decreasing CK. Unremarkable renal US. Possibly secondary to COVID-19 itself. Perhaps less likely contrast-induced nephropathy as CTA was on 06/27, unless is peaking and may expect improvement otherwise, possibly prerenal component. Monitor I&O. Status: Acute (4) Acute respiratory failure with hypoxia: Status: Acute (5) Acute respiratory distress syndrome: Status: Acute Additional A&P Information Anemia: Normocytic, some worsening hemoglobin down to 10.9. Negative Hemoccult. Hypokalemia: Replaced Possible atrial flutter: Repeat EKG with sinus rhythm. Computer read on EKG, but I do not appreciate flutter waves. Does appear to have some inferolateral T wave inversions. Nonvalvular. Monitor on telemetry. Aspirin. Consider event monitor. Diarrhea: C. difficile negative, diarrhea, rectal tube in place HTN HLD Attestations Medical Necessity Statement*: Patient requires hospitalization for acute respiratory failure, acute encephalopathy Coding Level of Care Code Acute Manager Water Wastewater for [facility] Fwd Diagnoses Pneumonia due to 2019 novel coronavirus U07.1; J12.82 Acute encephalopathy G93.40 BETSY (acute kidney injury) N17.9 Acute respiratory failure with hypoxia J96.01 Acute respiratory distress syndrome J80
--- NOTE | 2021-07-09 18:50 | PC.NURSE ---
Shift Note Frequent safety and comfort rounds continue. Orders and/or nursing care completed as indicated. Patient monitored for response to intervention and treatment(s). Education provided includes possible trach and peg placement to miguel Hayes. Patient and/or signs sales representative verbalized understanding. Pt's nimbex stopped at 1800. Levophed off. Will continue to monitor.
[2021-07-09 19:02] LABS: INR 1.04 (0.8-1.2)
[2021-07-09] MEDS: propofol 1,000 MG/100 ML INJ 7.55 MG IV (19:30)
[2021-07-10] VITALS (62 sets, daily range): BP systolic 102–188; BP diastolic 55–93; PULSE 71–110; RESP 13–25; TEMP 36.1–36.9; O2SAT 91–97
[2021-07-10] MEDS: ipratropium-albuterol 3 mL Neb INHALATION ×4 (02:46→19:50)
[2021-07-10] MEDS: piperacillin-tazobactam 3.375 GM in dextrose 5% (plus) 50 ML IV ×3 (02:54→18:05)
[2021-07-10 04:34] LABS: ABG PCO2 35.6 mmHg (35-45); ABG PH Result 7.42 (7.35-7.45); Arterial Blood Gas Hematocrit 38.2 % (37-47); Base Excess ABG -1.2 mmol/L (-2.0-2.0); Blood Gas Sample Type Arterial; HCO3 ABG 22.9 mmol/L (22-26); PO2 ABG 65.8 mmHg (80.0-100.0)
[2021-07-10 04:36] LABS: Blood Gas Sample Site Brachial, right; Blood Gas Tidal Volume 0.38; Oxygen Device VENT
[2021-07-10 05:24] LABS: Basophils % 0.2 %; Hemoglobin 9.6 g/dL (11.5-15.3); Lymphocytes # 0.2 10^3/uL (0.8-4.8); Lymphocytes % 2.1 %; Mean Corpuscular Hemoglobin 27.7 pg (28.0-34.0); Mean Corpuscular Volume 89.3 fl (81-99); Mean Platelet Volume 13.5 fL (7.4-10.4); Monocytes # 0.2 10^3/uL (0.2-0.9); Monocytes % 1.8 %; Neutrophils # 10.18 10^3/uL (1.8-7.7); Neutrophils % 93.2 %; Nucleated Red Blood Cells % 0 %; Platelet Count 178 10^3/cmm (130-400); Red Blood Count 3.47 10^6/uL (4.1-5.3); Red Cell Distribution Width 14.6 % (12.1-15.1); White Blood Count 10.9 10^3/uL (4.0-10.0)
[2021-07-10 05:31] LABS: INR 1.06 (0.8-1.2)
[2021-07-10] MEDS: pantoprazole 40 mg SDV IVP ×2 (05:54→18:05)
[2021-07-10 05:55] LABS: NT Pro B Type Natriuretic Pept 716 pg/mL (0-450); Procalcitonin 0.22 ng/mL (0-0.5)
[2021-07-10 06:06] LABS: Alanine Aminotransferase 22 U/L (0-33); Albumin Level 2.4 g/dL (3.5-5.2); Alkaline Phosphatase 88 IU/L (35-105); Anion Gap 15.5 (5-19); Aspartate Amino Transferase 19 U/L (0-32); Blood Urea Nitrogen 37 mg/dL (8-23); C Reactive Protein 73.8 mg/L (0.0-4.9); Carbon Dioxide 20 mmol/L (22-29); Chloride 105 mmol/L (98-107); Creatine Phosphokinase 48 U/L (26-192); Globulin 2.9 g/dL (1.3-4.6); Glucose 154 mg/dL (65-115); Magnesium 1.9 mg/dL (1.7-2.3); Osmolality Calculated 296 mOsm/kg (285-295); Phosphorus 3.5 mg/dL (2.5-4.5); Potassium 3.5 mmol/L (3.5-5.1); Sodium 137 mmol/L (136-145); Total Bilirubin 0.2 mg/dL (0.15-1.2); Total Protein 5.3 g/dL (6.6-8.7)
--- NOTE | 2021-07-10 06:11 | PC.NURSE ---
Patient was stable throughout shift. RN able to wean sedation down per protocol. Oral care and repositioning done Q2. Vitals remains table. Will continue to monitor.
--- NOTE | 2021-07-10 07:00 | XRR_ITS ---
PROCEDURE INFORMATION: Exam: XR Chest Exam date and time: 07/10/2021 7:00 AM Age: 76 years old Clinical indication: Dyspnea; Additional info: SOB TECHNIQUE: Imaging protocol: XR of the chest. Views: 1 view. COMPARISON: CR XR chest 1V portable [id number] 07/06/2021 10:30 AM FINDINGS: Tubes, catheters and devices: An endotracheal tube is placed with its tip 3.3 cm from the franky. A nasogastric tube is present with its tip at least in the proximal stomach. A right internal jugular vein central venous line is placed with its tip at the level of the superior cavoatrial junction. Lungs: Bilateral interstitial infiltrates are again seen predominately within the lower hemithoraces appearing stable compared with 07/06/2021. Pleural spaces: Unremarkable. No pleural effusion. No pneumothorax. Heart/Mediastinum: Unremarkable. No cardiomegaly. Bones/joints: Status post bilateral shoulder replacements. XR/XR chest 1V portable [id number] IMPRESSION: 1. Stable life support tubing 2. Bilateral predominately lower lobe interstitial infiltrates essentially unchanged from 07/06/2021. Radiation Dose CTDIVOL = (mGy): DLP = (mGy-cm)
[2021-07-10] MEDS: aspirin 325 mg Tablet OG-TUBE (08:14)
[2021-07-10] MEDS: sucralfate 1 gm/10 mL Oral Liq UDC PO ×3 (08:15→15:48)
[2021-07-10] MEDS: zinc gluconate 50 mg Tablet PO (08:15)
[2021-07-10] MEDS: ascorbic acid 500 mg Tablet PO (08:15)
[2021-07-10] MEDS: metoclopramide 10 mg Tablet 5 MG PO ×2 (08:15→15:47)
[2021-07-10] MEDS: docusate sodium 100 mg Capsule PO (08:15)
[2021-07-10] MEDS: polyethylene glycol 3350 Pkt 17 gm PO (08:15)
[2021-07-10] MEDS: cholecalciferol (vitamin D3) 1,000 unit Tablet 1000 UNIT PO (08:15)
[2021-07-10] MEDS: budesonide 0.5 mg/2 mL Neb INHALATION ×2 (08:25→19:50)
[2021-07-10] MEDS: lidocaine 1% 5 ML in potassium chloride premix 100 ML 50 ML IV (08:51)
[2021-07-10] MEDS: FUROsemide 10 mg/mL SDV 4mL 40 MG IVP (08:51)
--- NOTE | 2021-07-10 11:50 | PC.NUTR ---
Current TF is Jevity 1.2 @ 15 ml/hr with FW flushes 60 ml Q6H. If TF continues and if medically appropriate, recommend increasing goal rate to Jevity 1.2 @ 25 ml/hr with H2O flushes 60 ml Q6H. See full RD assessment for details.
[2021-07-10] MEDS: fluconazole premix 400 MG/200 ML PIGGYBACK 200 MG IV (15:48)
[2021-07-10] MEDS: dexamethasone 10 mg/mL INJ 6 MG IVP (15:48)
[2021-07-10] MEDS: enoxaparin 30 mg/0.3 mL Syringe SUBCUT (15:48)
--- NOTE | 2021-07-10 16:00 | PM.PN ---
Subjective Subjective: Interval history: The patient was seen and examined. She is on MV, 45% FiO2. On no sedation. Opening her eyes intermittently, not following commands. Blinks to visual threatening. Medications: Reviewed: Yes Vitals/I&O/Wt Last Vital Signs Temp 97.2 F L 07/10/21 04:00 Pulse 100 07/10/21 14:42 Resp 16 07/10/21 15:28 BP 134/76 07/10/21 12:30 Pulse Ox 92 07/10/21 15:28 07/10/21 07/10/21 07/10/21 06:59 14:59 22:59 Intake Total 417.95 / 1029.033 311.433 / 311.433 50 / 361.433 Output Total 450 / 1400 Balance -32.05 / -370.967 311.433 / 311.433 50 / 361.433 Weight last 48 hrs Weight 146 lb Weight 146 lb 2.664 oz Physical Exam Narrative: EXAM NARRATIVE: General: Patient is intubated. Not on sedation. Opens eyes intermittently, not following commands Neck: No JVD Respiratory: Auscultation: Minimal crackles at bilateral lung bases, no wheezing or rhonchi Cardiovascular: Regular rate and rhythm, S1-S2 present, no murmur, no peripheral edema. Abdomen: Soft, nondistended, positive bowel sound Skin: No rash Neuro: Opens eyes intermittently, not moving her extremities Urinary Catheter Management^: Aggarwal: Cath Placed During This Visit: yes Reason for Continuing Indwelling Catheter: Accurate Measurement of Urinary Output in Critically Ill Patients Urinary Catheter Date of Insertion: 06/28/21 Urinary Catheter Time of Insertion: 18:41 Data : 07/10/21 04:36 07/10/21 04:36 Attestation for Other Data: I personally reviewed and interpreted the following: Other data: I have reviewed the patient's laboratory, microbiologic and radiologic data. The patient has mild anion gap metabolic acidosis. Procalcitonin level is normal. Creatinine is coming down. The chest x-ray appears to be similar to before. A&P Assessment and plan (1) Acute respiratory distress syndrome: This is a 76-year-old lady with severe COVID-19. She suffered from ARDS secondary to COVID-19. Currently the patient is on 45% oxygen. She is on MV. The patient is empirically covered with Zosyn for the time being. The primary problem with attempts to extubation is the patient's mental status. The patient is opening her eyes however she is unable to follow any command. Her CT scan had been negative for any vascular insult. At this point, the patient is not any sedation. We will continue without any sedation for the time being. If the patient is uncomfortable, we will start the patient on small dose of Precedex. Status: Acute (2) Acute respiratory failure with hypoxia: See above Status: Acute (3) Pneumonia due to 2019 novel coronavirus: The patient has received more than 10 days of dexamethasone. At this point I am going to discontinue it. Status: Acute (4) AMS (altered mental status): The altered mental status is the primary deterrent for extubation evaluation. I am going to start the patient on half dose of her home trazodone. If she does not have any meaningful mental status she will likely need a tracheostomy and PEG tube placement. Status: Acute Qualifiers: Altered mental status type: disorientation Qualified Code(s): R41.0 - Disorientation, unspecified (5) BETSY (acute kidney injury): She is recovering from her BETSY. The patient has mild anion gap metabolic acidosis. I will give her a 500 cc dose of Ringer's lactate. Status: Acute Attestations Medical Necessity Statement*: Will defer to the primary team Coding Level of Care Code Acute Radio Interference Supervisor for [facility] Fw Diagnoses Acute respiratory distress syndrome J80 Acute respiratory failure with hypoxia J96.01 Pneumonia due to 2019 novel coronavirus U07.1; J12.82 AMS (altered mental status) R41.0 Altered mental status type: disorientation BETSY (acute kidney injury) N17.9 Time Spent (min) 33
[2021-07-10] MEDS: lactated ringers 500 ML 50 ML IV (16:28)
--- NOTE | 2021-07-10 16:55 | P.PN_ITS ---
Subjective Subjective: Interval history: This morning patient was examined, she is afebrile, normotensive, on 40% FiO2, her sedation has been slowly weaned down, she does have spontaneous eye opening, does not withdraw from pain, does have a gag reflex, does have pupillary reflexes, but does not follow commands I had a discussion with patient's son in the presence of nursing staff, -Currently patient's does not want to be present, he is on dialysis, but his son tells me that he talks his father every day about his mother status, and that his father wants everything done, and his son represents his decisions -I discussed our current concerns for Clare's persistent encephalopathy, c oncerning for hypoxia, COVID-19, polypharmacy, sedating medications -She remains ventilator dependent, however her mentation precludes us from any extubation trials -I discussed her options available include proceeding with comfort care versus continued medical intervention in pursuing tracheostomy and PEG tube placement -Patient's son tells me that it was her desire to continue to live, she has many grandchildren's, and he wants to give his mother a chance -After discussing the risks and benefits of all options, he voiced understanding, all questions answered, agreed to proceed with medical i nterventions including tracheostomy and PEG tube -I discussed the risks and benefits involved of tracheostomy PEG tube placement, he voiced understanding, all questions answered agreed to proceed -I advised him that we will continue to hold her sedation for the next 24 to 48 hours, continue to monitor mentation, possibly pursue trach and PEG placement in the next few days and ultimately placement at a long-term care facility -He agreed with current plan Vitals/I&O/Wt Last Vital Signs Temp 97.2 F L 07/10/21 04:00 Pulse 97 07/10/21 16:30 Resp 16 07/10/21 16:00 BP 133/76 07/10/21 16:30 Pulse Ox 94 07/10/21 16:30 07/10/21 07/10/21 07/10/21 06:59 14:59 22:59 Intake Total 417.95 / 1029.033 311.433 / 311.433 50 / 361.433 Output Total 450 / 1400 1600 / 1600 Balance -32.05 / -370.967 311.433 / 311.433 -1550 / -1238.567 Weight last 48 hrs Weight 66.224 kg Weight 66.3 kg Physical Exam 2 Narrative: EXAM NARRATIVE: Currently intubated, on minimal sedation, does have eye opening, does not follow commands, does not withdraw from pain, does have pupillary reflexes Resp: COMMON NORMALS: normal respiratory effort, No retractions, No use of accessory muscles and clear to auscultation bilaterally AUSCULTATION: clear to auscultation bilaterally Cardio: COMMON NORMALS: regular rate, regular rhythm, S1 normal heart sound present and S2 normal heart sound present RATE: regular rate RHYTHM: regular rhythm HEART SOUNDS: S1 normal heart sound present and S2 normal heart sound present GI: COMMON NORMALS: Normal to inspection, nondistended, normoactive bowel sounds present, Soft to palpation and non-tender PALPATION: Yes Soft to palpation Extremity: COMMON NORMALS: no pedal edema Urinary Catheter Management^: Aggarwal: Cath Placed During This Visit: yes Reason for Continuing Indwelling Catheter: Accurate Measurement of Urinary Output in Critically Ill Patients Urinary Catheter Date of Insertion: 06/28/21 Urinary Catheter Time of Insertion: 18:41 Data : 07/10/21 04:36 07/10/21 04:36 A&P Assessment and plan (1) Pneumonia due to 2019 novel coronavirus: Acute hypoxic respiratory failure secondary to COVID-19 pneumonia -With acute respiratory distress syndrome -Completed remdesivir course -Decadron will be discontinued today -Completed three proning sessions completed -Empirically covered with Zosyn -Currently intubated, on mechanical ventilation, minimize tidal volume, minimize FiO2 -Sedating medications on hold monitoring mentation, as needed for agitation, if uncomfortable -Currently altered mental status precluding extubation trial -Plan on tracheostomy and PEG tube placement in the next 24-48 hrs. Acute encephalopathy, multifactorial hypoxia, COVID-19, polypharmacy, underlying dementia, CT head so far negative for vascular insult, carotid artery ultrasound pending, continue neurochecks, monitor mentation, hold sedating medications BETSY, creatinine 1.0 Anemia, Status: Acute (2) Acute encephalopathy: Status: Acute (3) BETSY (acute kidney injury): Improving. Responded to gentle fluid challenge. Stopped. Mild rhabdomyolysis improving. Decreasing CK. Unremarkable renal US. Possibly secondary to COVID-19 itself. Perhaps less likely contrast-induced nephropathy as CTA was on 10/5, unless is peaking and may expect improvement otherwise, possibly prerenal component. Monitor I&O. Status: Acute (4) Acute respiratory failure with hypoxia: Status: Acute (5) Acute respiratory distress syndrome: Status: Acute Additional A&P Information Anemia: Normocytic, some worsening hemoglobin down to 10.9. Negative Hemoccult. Hypokalemia: Replaced Possible atrial flutter: Repeat EKG with sinus rhythm. Computer read on EKG, but I do not appreciate flutter waves. Does appear to have some inferolateral T wave inversions. Nonvalvular. Monitor on telemetry. Aspirin. Consider event monitor. Diarrhea: C. difficile negative, diarrhea, rectal tube in place HTN HLD Attestations Medical Necessity Statement*: Patient requires hospitalization for COVID-19 pneumonia, acute respiratory distress syndrome, with acute encephalopathy Coding Level of Care Code Acute Customer Solutions Specialist for [facility] Fw Diagnoses Pneumonia due to 2019 novel coronavirus U07.1; J12.82 Acute encephalopathy G93.40 BETSY (acute kidney injury) N17.9 Acute respiratory failure with hypoxia J96.01 Acute respiratory distress syndrome J80
--- NOTE | 2021-07-10 18:22 | PC.NURSE ---
Shift Note Frequent safety and comfort rounds continue. Orders and nursing care completed as indicated. Patient off sedation this am, complainant with the ventilator. Pt not responding to commands, keeps eyes open but doesn't track movement. Pt had 1,600ml out in urine. Family meeting with sonFreddy this evening discussing plans of care- see physician's note. Pt position changed Q2H along with oral care with assistance of other nursing staff. Patient monitored for response to intervention and treatments. ]. Will continue to monitor.
[2021-07-10] MEDS: hyDRALAzine 20 mg/mL INJ 1 mL 10 MG IVP (20:01)
[2021-07-10] MEDS: trazodone 50 mg Tablet 25 MG PO (21:24)
[2021-07-11] VITALS (61 sets, daily range): BP systolic 96–165; BP diastolic 53–105; PULSE 69–108; RESP 13–28; TEMP 36.8–36.9; O2SAT 88–99
[2021-07-11] MEDS: dexmedeTOMIDine 0.9 % NaCL 400 MCG/100 ML PREMIX IV (00:14)
[2021-07-11] MEDS: piperacillin-tazobactam 3.375 GM in dextrose 5% (plus) 50 ML IV ×3 (02:19→18:09)
[2021-07-11] MEDS: hyDRALAzine 20 mg/mL INJ 1 mL 10 MG IVP (02:45)
[2021-07-11] MEDS: ipratropium-albuterol 3 mL Neb INHALATION ×3 (02:58→20:11)
[2021-07-11 03:25] LABS: ABG PCO2 31.2 mmHg (35-45); ABG PH Result 7.49 (7.35-7.45); Arterial Blood Gas Hematocrit 32.5 % (37-47); Blood Gas Allen Test Pos; Blood Gas Sample Site Radial, right; Blood Gas Sample Type Arterial; HCO3 ABG 23.9 mmol/L (22-26); Oxygen Device VENT; PO2 ABG 66.1 mmHg (80.0-100.0)
[2021-07-11 04:45] LABS: Basophils % 0.2 %; Hematocrit 31.4 % (37.0-47.0); Lymphocytes # 0.3 10^3/uL (0.8-4.8); Lymphocytes % 2.2 %; Mean Corpuscular HGB Conc 31.8 g/dL (30.0-36.0); Mean Corpuscular Hemoglobin 27.9 pg (28.0-34.0); Mean Corpuscular Volume 87.5 fl (81-99); Mean Platelet Volume 12.9 fL (7.4-10.4); Monocytes # 0.4 10^3/uL (0.2-0.9); Monocytes % 3.5 %; Neutrophils # 10.66 10^3/uL (1.8-7.7); Nucleated Red Blood Cells % 0 %; Platelet Count 188 10^3/cmm (130-400); Red Blood Count 3.59 10^6/uL (4.1-5.3); Red Cell Distribution Width 14.3 % (12.1-15.1); White Blood Count 11.6 10^3/uL (4.0-10.0)
[2021-07-11 05:10] LABS: INR 1.06 (0.8-1.2)
[2021-07-11 05:17] LABS: Lactate (Lactic Acid level) 1.1 mmol/L (0.5-2.2)
[2021-07-11 05:35] LABS: Alanine Aminotransferase 21 U/L (0-33); Albumin Level 2.5 g/dL (3.5-5.2); Alkaline Phosphatase 89 IU/L (35-105); Anion Gap 15.9 (5-19); Aspartate Amino Transferase 18 U/L (0-32); Blood Urea Nitrogen 40 mg/dL (8-23); C Reactive Protein 44.5 mg/L (0.0-4.9); Calcium 7.9 mg/dL (8.5-10.5); Carbon Dioxide 23 mmol/L (22-29); Chloride 100 mmol/L (98-107); Glucose 127 mg/dL (65-115); Magnesium 1.7 mg/dL (1.7-2.3); Osmolality Calculated 293 mOsm/kg (285-295); Phosphorus 3.1 mg/dL (2.5-4.5); Sodium 136 mmol/L (136-145); Total Bilirubin 0.3 mg/dL (0.15-1.2); Total Protein 5.5 g/dL (6.6-8.7)
[2021-07-11] MEDS: pantoprazole 40 mg SDV IVP ×2 (05:40→18:10)
[2021-07-11 05:45] LABS: NT Pro B Type Natriuretic Pept 1726 pg/mL (0-450); Procalcitonin 0.19 ng/mL (0-0.5)
[2021-07-11 06:01] LABS: Creatine Phosphokinase 33 U/L (26-192)
[2021-07-11 06:02] LABS: Potassium 2.9 mmol/L (3.5-5.1)
[2021-07-11] MEDS: budesonide 0.5 mg/2 mL Neb INHALATION ×2 (08:15→20:11)
[2021-07-11] MEDS: aspirin 81 mg Chew Tablet PO (08:35)
[2021-07-11] MEDS: lidocaine 1% 5 ML in potassium chloride premix 100 ML 25 ML IV (08:35)
[2021-07-11] MEDS: polyethylene glycol 3350 Pkt 17 gm PO (08:35)
--- NOTE | 2021-07-11 11:17 | P.PN_ITS ---
Subjective Subjective: Interval history: The patient was seen and examined. No significant overnight events. Her mental status has remained more or less the same. Not really following commands. She has been off of sedation since yesterday morning. Medications: Reviewed: Yes Vitals/I&O/Wt Last Vital Signs Temp 98.4 F 07/11/21 04:00 Pulse 81 07/11/21 09:30 Resp 16 07/11/21 07:47 BP 117/64 07/11/21 09:30 Pulse Ox 95 07/11/21 09:30 07/10/21 07/11/21 07/11/21 22:59 06:59 14:59 Intake Total 600 / 911.433 782.096 / 1693.529 Output Total 1600 / 1600 750 / 2350 Balance -1000 / -688.567 32.096 / -656.471 Weight last 48 hrs Weight 146 lb Weight 146 lb Physical Exam Narrative: EXAM NARRATIVE: General: Patient is intubated. Not on sedation. Opens eyes intermittently, not following commands Neck: No JVD Respiratory: Auscultation: Minimal crackles at bilateral lung bases, no wheezing or rhonchi Cardiovascular: Regular rate and rhythm, S1-S2 present, no murmur, no peripheral edema. Abdomen: Soft, nondistended, positive bowel sound Skin: No rash Neuro: Opens eyes intermittently, not moving her extremities Urinary Catheter Management^: Aggarwal: Cath Placed During This Visit: yes Reason for Continuing Indwelling Catheter: Accurate Measurement of Urinary Output in Critically Ill Patients Urinary Catheter Date of Insertion: 06/28/21 Urinary Catheter Time of Insertion: 18:41 Data : 07/11/21 04:15 07/11/21 04:15 Attestation for Other Data: I personally reviewed and interpreted the following: Other data: I have reviewed the patient's laboratory, microbiologic and radiologic data. She has developed hypokalemia. The BUN and creatinine is s table. A&P Assessment and plan (1) Acute respiratory distress syndrome: This is a 76-year-old lady with severe COVID-19. She suffered from ARDS secondary to COVID-19. Currently the patient is on 45% oxygen. She is on pressure support ventilation and doing well. The patient is empirically covered with Zosyn for the time being. The primary problem with attempts to extubation is the patient's mental status. The patient is opening her eyes however she is unable to follow any command. Her CT scan had been negative for any vascular insult. At this point, the patient is not any sedation. If there is no significant change in the mental status, the patient will get tracheostomy and PEG tube placement. Status: Acute (2) Acute respiratory failure with hypoxia: See above Status: Acute (3) Pneumonia due to 2019 novel coronavirus: Dexamethasone was discontinued on July 10. Status: Acute (4) AMS (altered mental status): The altered mental status is the primary deterrent for extubation evaluation. Her trazodone was started yesterday. Overall, no significant change. Status: Acute Qualifiers: Altered mental status type: disorientation Qualified Code(s): R41.0 - Disorientation, unspecified (5) BETSY (acute kidney injury): The patient is likely in polyuric phase of ATN. She has also developed hypokalemia. Starting her on a D5 LR with potassium drip for a total of 2 L. Status: Acute Attestations Medical Necessity Statement*: Will defer to the primary team Coding Level of Care Code Acute Prn Physical Therapist for [facility] Diagnoses Acute respiratory distress syndrome J80 Acute respiratory failure with hypoxia J96.01 Pneumonia due to 2019 novel coronavirus U07.1; J12.82 AMS (altered mental status) R41.0 Altered mental status type: disorientation BETSY (acute kidney injury) N17.9
--- NOTE | 2021-07-11 17:16 | P.PN_ITS ---
Subjective Subjective: Interval history: Patient was seen this morning, she does have's some degree of spontaneous eye opening, does not withdraw from pain, remained afebrile overnight, normotensive, on 40% vent Vitals/I&O/Wt Last Vital Signs Temp 98.4 F 07/11/21 04:00 Pulse 88 07/11/21 16:30 Resp 14 07/11/21 16:00 BP 159/82 07/11/21 16:30 Pulse Ox 93 07/11/21 16:30 07/11/21 07/11/21 07/11/21 06:59 14:59 22:59 Intake Total 782.096 / 1693.529 105 / 105 50 / 155 Output Total 750 / 2350 Balance 32.096 / -656.471 105 / 105 50 / 155 Weight last 48 hrs Weight 66.224 kg Weight 66.224 kg Physical Exam Const: COMMON NORMALS: no acute distress OTHER: Intubated, off sedation Resp: COMMON NORMALS: normal respiratory effort, No retractions, No use of accessory muscles and clear to auscultation bilaterally AUSCULTATION: clear to auscultation bilaterally Cardio: COMMON NORMALS: regular rate, regular rhythm, S1 normal heart sound present and S2 normal heart sound present RATE: regular rate RHYTHM: regular rhythm HEART SOUNDS: S1 normal heart sound present and S2 normal heart sound present GI: COMMON NORMALS: Normal to inspection, nondistended, normoactive bowel sounds present and Soft to palpation PALPATION: Yes Soft to palpation OTHER: Rectal tube in place Urinary Catheter Management^: Aggarwal: Cath Placed During This Visit: yes Reason for Continuing Indwelling Catheter: Accurate Measurement of Urinary Output in Critically Ill Patients Urinary Catheter Date of Insertion: 06/28/21 Urinary Catheter Time of Insertion: 18:41 Data : 07/11/21 04:15 07/11/21 04:15 A&P Assessment and plan (1) Pneumonia due to 2019 novel coronavirus: Acute hypoxic respiratory failure secondary to COVID-19 pneumonia -With acute respiratory distress syndrome -Completed remdesivir course -Decadron will be discontinued today -Completed three proning sessions completed -Empirically covered with Zosyn -Currently intubated, on mechanical ventilation, minimize tidal volume, minimize FiO2 -Sedating medications on hold monitoring mentation, as needed for agitation, if uncomfortable -Currently altered mental status precluding extubation trial -Plan on tracheostomy and PEG tube placement in the next 24-48 hrs. Acute encephalopathy, multifactorial hypoxia, COVID-19, polypharmacy, underlying dementia, CT head so far negative for vascular insult, carotid artery ultrasound pending, continue neurochecks, monitor mentation, hold sedating medications BETSY, creatinine 1.2 Anemia, Status: Acute (2) Acute encephalopathy: Status: Acute (3) BETSY (acute kidney injury): Improving. Responded to gentle fluid challenge. Stopped. Mild rhabdomyolysis improving. Decreasing CK. Unremarkable renal US. Possibly secondary to COVID-19 itself. Perhaps less likely contrast-induced nephropathy as CTA was on 06/27, unless is peaking and may expect improvement otherwise, possibly prerenal component. Monitor I&O. Status: Acute (4) Acute respiratory failure with hypoxia: Status: Acute (5) Acute respiratory distress syndrome: Status: Acute Additional A&P Information Anemia: Normocytic, some worsening hemoglobin down to 10.9. Negative Hemoccult. Hypokalemia: Replaced Possible atrial flutter: Repeat EKG with sinus rhythm. Computer read on EKG, but I do not appreciate flutter waves. Does appear to have some inferolateral T wave inversions. Nonvalvular. Monitor on telemetry. Aspirin. Consider event monitor. Diarrhea: C. difficile negative, diarrhea, rectal tube in place HTN HLD Attestations Medical Necessity Statement*: Patient requires hospitalization due to pneumonia secondary COVID-19, acute encephalopathy Coding Level of Care Code Acute Mba Internship for [facility] F[facility] Diagnoses Pneumonia due to 2019 novel coronavirus U07.1; J12.82 Acute encephalopathy G93.40 BETSY (acute kidney injury) N17.9 Acute respiratory failure with hypoxia J96.01 Acute respiratory distress syndrome J80
[2021-07-11] MEDS: enoxaparin 30 mg/0.3 mL Syringe SUBCUT (18:09)
--- NOTE | 2021-07-11 18:18 | PC.NURSE ---
Shift Note Frequent safety and comfort rounds continue. Orders and nursing care completed as indicated. Pt still remains intubated with sedation off. Pt responding slightly more than yesterday- moving head towards her name being called and squeezing of the hands when asked occasionally. Pt turned and oral care given every 2 hours with assistance of other nursing staff. 550ml out in urine output this shift and 300ml total in tube feeding. SonFreddy was called and updated on Pt status and to come visit tomorrow afternoon, physician aware. Patient monitored for response to intervention and treatments. Will continue to monitor.
--- NOTE | 2021-07-11 19:09 | PC.NURSE ---
Nurse entered room for beeping IV pump. Patient was tracking nurse with her eyes. Was able to very lightly squeeze both hands. Was able to shake her head yes to command.
[2021-07-11] MEDS: trazodone 50 mg Tablet 25 MG PO (20:12)
[2021-07-12] VITALS (59 sets, daily range): BP systolic 138–179; BP diastolic 64–107; PULSE 77–106; RESP 16–29; TEMP 36.5–37.4; O2SAT 90–99; BMI 11.4
[2021-07-12] MEDS: fentaNYL 50 mcg/mL INJ 2mL 25 MCG IVP (01:23)
[2021-07-12] MEDS: piperacillin-tazobactam 3.375 GM in dextrose 5% (plus) 50 ML IV ×3 (02:50→20:00)
[2021-07-12 04:16] LABS: Basophils % 0.3 %; Eosinophils % 0.1 %; Hematocrit 33.7 % (37.0-47.0); Hemoglobin 10.8 g/dL (11.5-15.3); Lymphocytes # 0.5 10^3/uL (0.8-4.8); Lymphocytes % 3.1 %; Mean Corpuscular Hemoglobin 28.2 pg (28.0-34.0); Mean Platelet Volume 12.8 fL (7.4-10.4); Monocytes # 0.5 10^3/uL (0.2-0.9); Monocytes % 3.3 %; Neutrophils # 14.31 10^3/uL (1.8-7.7); Neutrophils % 91.3 %; Nucleated Red Blood Cells % 0 %; Platelet Count 245 10^3/cmm (130-400); Red Blood Count 3.83 10^6/uL (4.1-5.3); Red Cell Distribution Width 14.6 % (12.1-15.1); White Blood Count 15.7 10^3/uL (4.0-10.0)
[2021-07-12 04:34] LABS: INR 1.05 (0.8-1.2)
[2021-07-12 04:37] LABS: Lactate (Lactic Acid level) 1.8 mmol/L (0.5-2.2)
[2021-07-12 04:38] LABS: Alanine Aminotransferase 26 U/L (0-33); Albumin Level 2.6 g/dL (3.5-5.2); Alkaline Phosphatase 98 IU/L (35-105); Anion Gap 16.1 (5-19); Aspartate Amino Transferase 29 U/L (0-32); Blood Urea Nitrogen 32 mg/dL (8-23); Calcium 8.2 mg/dL (8.5-10.5); Carbon Dioxide 22 mmol/L (22-29); Chloride 104 mmol/L (98-107); Globulin 3.2 g/dL (1.3-4.6); Glucose 103 mg/dL (65-115); Magnesium 1.6 mg/dL (1.7-2.3); Osmolality Calculated 295 mOsm/kg (285-295); Phosphorus 1.6 mg/dL (2.5-4.5); Potassium 3.1 mmol/L (3.5-5.1); Sodium 139 mmol/L (136-145); Total Bilirubin 0.3 mg/dL (0.15-1.2); Total Protein 5.8 g/dL (6.6-8.7)
[2021-07-12 05:11] LABS: ABG PCO2 30.6 mmHg (35-45); ABG PH Result 7.49 (7.35-7.45); Arterial Blood Gas Hematocrit 46.2 % (37-47); Base Excess ABG 0.6 mmol/L (-2.0-2.0); Blood Gas Operator Identificat JB; Blood Gas Sample Site Brachial, right; Blood Gas Sample Type Arterial; Blood Gas Tidal Volume 0.38; HCO3 ABG 23.1 mmol/L (22-26); Oxygen Device VENT; PO2 ABG 68.7 mmHg (80.0-100.0)
[2021-07-12 06:03] LABS: NT Pro B Type Natriuretic Pept 1761 pg/mL (0-450); Procalcitonin 0.22 ng/mL (0-0.5)
[2021-07-12 06:15] LABS: Creatine Phosphokinase 40 U/L (26-192)
[2021-07-12] MEDS: pantoprazole 40 mg SDV IVP ×2 (06:31→17:41)
--- NOTE | 2021-07-12 07:13 | PC.NURSE ---
Shift Note Frequent safety and comfort rounds continue. Orders and/or nursing care completed as indicated. Patient monitored for response to intervention and treatment(s). There were no significant changes with the patient during the shift. The patient had been completely off sedation since day shift, and there was a fentanyl push that was given once during overnight caregiver to help with the tachypnea. Respirations ranged from 19 bpm to 33 bpm.
[2021-07-12] MEDS: budesonide 0.5 mg/2 mL Neb INHALATION ×2 (08:20→20:22)
[2021-07-12] MEDS: ipratropium-albuterol 3 mL Neb INHALATION ×2 (08:20→20:22)
--- NOTE | 2021-07-12 08:51 | PC.NURSE ---
Shift Note Frequent safety and comfort rounds continue. Orders and/or nursing care completed as indicated. Patient monitored for response to intervention and treatment(s). Education provided includes[nutrition, skin integrity, and possible extubation]. 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 Will continue to monitor. Received bed side shift report from off going nurse. Pt's plan of care reviewed. Pt resting in bed. Respirations are even and unlabored. No s/sx of distress noted. Pt is able to follow me with her eyes and I was able to get her to squeeze my hand with her right hand. When explaining to her that we are planning to remove to tube from her throat she nodded her head yes. Pt appear to be resting comfortably at this time. Bed in lowest and locked position, call light within reach, x's 3 rails up. Will continue to monitor pt.
[2021-07-12] MEDS: aspirin 81 mg Chew Tablet PO (09:10)
--- NOTE | 2021-07-12 09:36 | P.PN_ITS ---
Subjective Subjective: Interval history: The patient was seen and examined this morning. Her mental status has actually improved. The patient is more awake alert and actually following commands. She has been on pressure support ventilation without any significant difficulty. Mild electrolyte abnormalities. Medications: Reviewed: Yes Vitals/I&O/Wt Last Vital Signs Temp 98.5 F 07/12/21 08:00 Pulse 90 07/12/21 08:06 Resp 18 07/12/21 08:02 BP 179/80 07/12/21 08:00 Pulse Ox 94 07/12/21 08:02 07/11/21 07/12/21 07/12/21 22:59 06:59 14:59 Intake Total 400 / 505 230 / 735 Output Total 550 / 550 525 / 1075 Balance -150 / -45 -295 / -340 Weight last 48 hrs Weight 62 lb 5 oz Weight 146 lb Physical Exam Narrative: EXAM NARRATIVE: General: Patient is definitely more awake, able to follow simple commands. Likely significant hearing difficulty Neck: No JVD Respiratory: Auscultation: Minimal crackles at bilateral lung bases, no wheezing or rhonchi Cardiovascular: Regular rate and rhythm, S1-S2 present, no murmur, no peripheral edema. Abdomen: Soft, nontender, nondistended, positive bowel sound Skin: No rash Neuro: More awake and able to follow command, Moving extremities Urinary Catheter Management^: Aggarwal: Cath Placed During This Visit: yes Reason for Continuing Indwelling Catheter: Accurate Measurement of Urinary Output in Critically Ill Patients Urinary Catheter Date of Insertion: 06/28/21 Urinary Catheter Time of Insertion: 18:41 Data : 07/12/21 03:45 07/12/21 03:45 Attestation for Other Data: I personally reviewed and interpreted the following: Other data: Reviewed her laboratory, microbiologic and radiologic data. There is mild worsening of the leukocytosis. The potassium is improving slowly. The creatinine stable. Mild reduction in mag and phosphorus level. A&P Assessment and plan (1) Acute respiratory distress syndrome: This is a 76-year-old lady with severe COVID-19. She suffered from ARDS secondary to COVID-19. The patient is doing very well today on pressure support ventilation. More importantly, her mental status has improved significantly. The patient is actually able to follow commands. The plan is for extubating her today. Status: Acute (2) Acute respiratory failure with hypoxia: See above Status: Acute (3) Pneumonia due to 2019 novel coronavirus: Dexamethasone was discontinued on July 10. The patient is currently on Zosyn. There is mild worsening leukocytosis. We will keep an eye on that. Status: Acute (4) AMS (altered mental status): Her mental status is improved. Hopefully she will do well after extubation. Status: Acute Qualifiers: Altered mental status type: disorientation Qualified Code(s): R41.0 - Disorientation, unspecified (5) BETSY (acute kidney injury): The patient is likely in polyuric phase of ATN. Currently the patient is on dextrose, LR and potassium. We will replete electrolytes for hypokalemia, hypomagnesemia and hypophosphatemia. Hypophosphatemia can actually affect diaphragmatic function. I am hoping the patient will improve in the next couple of days. Status: Acute Attestations Medical Necessity Statement*: Will defer to the primary team Coding Level of Care Code Acute Glazing Machine Operator for [facility] Diagnoses Acute respiratory distress syndrome J80 Acute respiratory failure with hypoxia J96.01 Pneumonia due to 2019 novel coronavirus U07.1; J12.82 AMS (altered mental status) R41.0 Altered mental status type: disorientation BETSY (acute kidney injury) N17.9 Time Spent (min) 31
--- NOTE | 2021-07-12 09:48 | PC.CHAP ---
Pastoral Care Encounter/Spiritual Assessment Type of Contact [] Declined investigator claims visit [] Patient/Family/Request visit [] Outpatient visit [] Follow-up visit [] Physician referral [] Code/Alert x] Routine visit [] Staff referral [] Actively dying [] Patient sleeping [] Family support [] [] Out of room [] Palliative care [] [] Receiving care in room [] Pre-surgical visit [] Trauma [] Long length of stay [x] ICU visit [x] Other: eyes open .. Relational/Emotional Strength [] Patient feels connected with others/family/visitors/staff [] Distress [] Loneliness/isolation [] Abandonment Spirituality of Patient [] Person of Wendy [] Attends Bahai of their Wendy [] Believes in Prayer [] Reads Bible or Latter Day materials [] There are Spiritual issues to be addressed [place] Interventions [x] Prayer [] Active listening [] Non-anxious presence [] Spiritual/emotional support [] Crisis/trauma care [] Spiritual counseling [] Bereavement support [] Provided bereavement packet [] Provided Bible/devotional materials [] Provided toy/stuffed animal, coloring book to patient or family member [] Provided Communion [] Anointing/Coventry [] Salvation [x] Completed spiritual assessment [] Other: Impact on Illness or Injury [] Angry [] Fearful [] Anxious [] Often cries [] Exhaustion [] Unable to work [] Unable to attend sabianism [] Unable to walk/stand [] Unable to read [] Unable to drive [] Unable to eat/drink [] Unable to sleep [] Unable to be with family [] Patient intubated [] Other: Summary Time spent with patient
[2021-07-12] MEDS: magnesium sulfate premix 2 GM/50 ML PIGGYBACK IV (10:58)
--- NOTE | 2021-07-12 12:00 | PC.NURSE ---
Pt was extubated and transitioned over to heated high flow at 40L and 35% Fio2. Pt tolerated well and is saturating 92%. Attempted to inserted NG tube twice while ET was still placed. NG was attempted once by 2 nurses without success. Will give the pt a break and try again later. Bilateral soft wrist restraints were taken off at this time. Pt is resting comfortably at this time on heated high flow. Bed in lowest and locked position, call light within reach, x's 3 rails up. Bed alarm on. Will continue to monitor pt.
--- NOTE | 2021-07-12 14:20 | PC.SOCIAL ---
IMM Updated Updated pt's son, Freddy, on IMM, via phone. No questions voiced. Provided pt care nurse a copy to give to pt. Initialed, dated, & timed copy in chart.
--- NOTE | 2021-07-12 16:02 | PC.NURSE ---
Attempted to inserted NG tube using a 10F and still unsuccessful. Pt is unable to follow commands and tube continues to travel towards the lungs. Dr. Diane was notified.
--- NOTE | 2021-07-12 17:14 | PM.PN ---
Subjective Subjective: Interval history: This morning patient was seen, she is on pressure support, off sedation, she is following commands, she squeezes my fingers, she is able to follow me, she is able to nod her head, afebrile overnight, normotensive, Vitals/I&O/Wt Last Vital Signs Temp 98.0 F 07/12/21 16:30 Pulse 82 07/12/21 16:30 Resp 24 H 07/12/21 16:30 BP 168/89 07/12/21 16:30 Pulse Ox 94 07/12/21 16:30 07/12/21 07/12/21 07/12/21 06:59 14:59 22:59 Intake Total 1230 / 1735 50 / 50 159.0909 / 209.0909 Output Total 525 / 1075 Balance 705 / 660 50 / 50 159.0909 / 209.0909 Weight last 48 hrs Weight 28.264 kg Weight 66.224 kg Physical Exam Const: COMMON NORMALS: no acute distress ORIENTATION/CONSCIOUSNESS: Yes awake and Yes oriented to person; not oriented to place and not oriented to time Resp: COMMON NORMALS: normal respiratory effort, No retractions, No use of accessory muscles and clear to auscultation bilaterally AUSCULTATION: clear to auscultation bilaterally Cardio: COMMON NORMALS: regular rate, regular rhythm, S1 normal heart sound present and S2 normal heart sound present RATE: regular rate RHYTHM: regular rhythm HEART SOUNDS: S1 normal heart sound present and S2 normal heart sound present GI: COMMON NORMALS: Normal to inspection, nondistended, normoactive bowel sounds present, Soft to palpation and non-tender PALPATION: Yes Soft to palpation Extremity: COMMON NORMALS: no pedal edema Neuro: SENSORIUM/ORIENTATION: Yes oriented to person, No oriented to place and No oriented to time Urinary Catheter Management^: Aggarwal: Cath Placed During This Visit: yes Reason for Continuing Indwelling Catheter: Accurate Measurement of Urinary Output in Critically Ill Patients Urinary Catheter Date of Insertion: 06/28/21 Urinary Catheter Time of Insertion: 18:41 Data : 07/12/21 03:45 07/12/21 03:45 A&P Assessment and plan (1) Pneumonia due to 2019 novel coronavirus: Acute hypoxic respiratory failure secondary to COVID-19 pneumonia -With acute respiratory distress syndrome -Completed remdesivir course -Decadron will be discontinued today -Completed three proning sessions completed -Empirically covered with Zosyn -Currently intubated, on mechanical ventilation, minimize tidal volume, minimize FiO2 -Continue spontaneous breathing trial, plan on extubation later on this morning -Currently mentation significantly improved, following commands, Acute encephalopathy, improved, multifactorial hypoxia, COVID-19, polypharmacy, underlying dementia, CT head so far negative for vascular insult, carotid artery ultrasound pending, continue neurochecks, monitor mentation, hold sedating medications BETSY, creatinine 1.1 Hypokalemia, hypomagnesemia, hypophosphatemia, will replace Anemia, continue to monitor Status: Acute (2) Acute encephalopathy: Status: Acute (3) BETSY (acute kidney injury): Improving. Responded to gentle fluid challenge. Stopped. Mild rhabdomyolysis improving. Decreasing CK. Unremarkable renal US. Possibly secondary to COVID-19 itself. Perhaps less likely contrast-induced nephropathy as CTA was on 06/27, unless is peaking and may expect improvement otherwise, possibly prerenal component. Monitor I&O. Status: Acute (4) Acute respiratory failure with hypoxia: Status: Acute (5) Acute respiratory distress syndrome: Status: Acute Additional A&P Information Anemia: Normocytic, some worsening hemoglobin down to 10.9. Negative Hemoccult. Hypokalemia: Replaced Possible atrial flutter: Repeat EKG with sinus rhythm. Computer read on EKG, but I do not appreciate flutter waves. Does appear to have some inferolateral T wave inversions. Nonvalvular. Monitor on telemetry. Aspirin. Consider event monitor. Diarrhea: C. difficile negative, diarrhea, rectal tube in place HTN HLD Attestations Medical Necessity Statement*: Patient requires hospitalization due to pneumonia secondary COVID-19, acute encephalopathy Coding Level of Care Code Acute Specialty Department Supervisor for [facility] Diagnoses Pneumonia due to 2019 novel coronavirus U07.1; J12.82 Acute encephalopathy G93.40 BETSY (acute kidney injury) N17.9 Acute respiratory failure with hypoxia J96.01 Acute respiratory distress syndrome J80
[2021-07-12] MEDS: enoxaparin 30 mg/0.3 mL Syringe SUBCUT (17:41)
[2021-07-13] VITALS (37 sets, daily range): BP systolic 136–170; BP diastolic 63–83; PULSE 67–104; RESP 16–26; TEMP 36.6–37.1; O2SAT 88–97; BMI 12.0
[2021-07-13] MEDS: pantoprazole 40 mg SDV IVP ×2 (05:10→17:41)
[2021-07-13] MEDS: piperacillin-tazobactam 3.375 GM in dextrose 5% (plus) 50 ML IV ×3 (05:10→18:51)
[2021-07-13 05:26] LABS: Basophils % 0.2 %; Eosinophils # 0.1 10^3/uL (0.0-0.8); Hemoglobin 9.8 g/dL (11.5-15.3); Lymphocytes # 0.5 10^3/uL (0.8-4.8); Lymphocytes % 4.8 %; Mean Corpuscular HGB Conc 31.6 g/dL (30.0-36.0); Mean Corpuscular Hemoglobin 27.8 pg (28.0-34.0); Mean Corpuscular Volume 88.1 fl (81-99); Monocytes # 0.3 10^3/uL (0.2-0.9); Monocytes % 2.3 %; Neutrophils # 9.83 10^3/uL (1.8-7.7); Neutrophils % 90.2 %; Nucleated Red Blood Cells % 0 %; Platelet Count 216 10^3/cmm (130-400); Red Blood Count 3.52 10^6/uL (4.1-5.3); Red Cell Distribution Width 14.6 % (12.1-15.1); White Blood Count 10.9 10^3/uL (4.0-10.0)
[2021-07-13 05:35] LABS: Alanine Aminotransferase 20 U/L (0-33); Albumin Level 2.3 g/dL (3.5-5.2); Alkaline Phosphatase 92 IU/L (35-105); Anion Gap 12.9 (5-19); Aspartate Amino Transferase 23 U/L (0-32); Blood Urea Nitrogen 23 mg/dL (8-23); C Reactive Protein 189.4 mg/L (0.0-4.9); Calcium 7.9 mg/dL (8.5-10.5); Carbon Dioxide 23 mmol/L (22-29); Chloride 105 mmol/L (98-107); Globulin 3.2 g/dL (1.3-4.6); Glucose 87 mg/dL (65-115); Magnesium 1.8 mg/dL (1.7-2.3); Osmolality Calculated 289 mOsm/kg (285-295); Phosphorus 3.2 mg/dL (2.5-4.5); Sodium 138 mmol/L (136-145); Total Bilirubin 0.4 mg/dL (0.15-1.2); Total Protein 5.5 g/dL (6.6-8.7)
[2021-07-13 06:01] LABS: NT Pro B Type Natriuretic Pept 5375 pg/mL (0-450); Procalcitonin 0.23 ng/mL (0-0.5)
[2021-07-13 06:11] LABS: Creatine Phosphokinase 31 U/L (26-192)
[2021-07-13 06:13] LABS: Potassium 2.9 mmol/L (3.5-5.1)
--- NOTE | 2021-07-13 07:00 | XR_ITS ---
WS: [id number] Portable AP semiupright chest, 07/13/2021 Clinical Data: sob Comparison: Portable chest, 07/10/2021 Findings: The internal jugular venous catheter, nasogastric tube and endotracheal tube have been jade aislinn. The patchy bilateral pulmonary opacities remain the same. Bilateral shoulder prostheses are in p osition. Monitor leads are on the chest wall. XR/XR chest 1V portable [id number] Impression: 1. Removal of multiple tubes. 2. No change in bilateral pulmonary opacities.
--- NOTE | 2021-07-13 07:08 | PC.NURSE ---
Shift Note Frequent safety and comfort rounds continue. Orders and/or nursing care completed as indicated. Patient monitored for response to intervention and treatment(s). Education provided to patient, however patient does not talk. It's uncertain how much she actually understands. During the shift the patient experienced several hypertensive episodes where the SBP was in the high 160's to high 170's. Current SBP is in the 140's. The patient did well on heated HiFLO at 35/40, with a oxygen saturation that remained in the low 90's. It was difficult to determine if the patient could follow any commands, as her response was not very quick when being asked to squeeze the hands. The patient's central line was pulled during the shift per request from a daytime physician. A critical lab was called this morning for a low potassium of 2.9.
--- NOTE | 2021-07-13 07:43 | PC.NURSE ---
Shift report received, patient assessed and found to have diminished, clear lung sounds throughout. 2+ lower extremity edema bilaterally. Pupils equal and reactive to light approximately 5mm. Patient shook head, denying pain at this time, no verbal response.
[2021-07-13] MEDS: lidocaine 1% 5 ML in potassium chloride premix 100 ML 25 ML IV (07:55)
[2021-07-13] MEDS: budesonide 0.5 mg/2 mL Neb INHALATION ×2 (08:03→20:41)
[2021-07-13] MEDS: ipratropium-albuterol 3 mL Neb INHALATION (08:03)
--- NOTE | 2021-07-13 08:58 | CT_ITS ---
WS: [id number] CT HEAD TECHNIQUE: Noncontrast CT of the head obtained from the skullbase to the vertex. CLINICAL INFORMATION: right hand weakness COMPARISON: July 07, 2021 DLP: 2080.[address] scans at [facility] use at least one of these dose optimization techniques: automated e xposure control; mA and/or kV adjustment per patient size (includes targeted exams where dose is matc hed to clinical indication); or iterative reconstruction. FINDINGS: No evidence of intracranial hemorrhage or mass effect. Ventricular system and basal cisterns are hamlin nt. Mild small vessel changes with moderate parenchymal volume loss. No extra-axial fluid collections . No evidence of mass or mass effect. Benign basal ganglia calcifications. Opacification left greater than right mastoid air cells. Fluid in the ethmoid air cells and sphenoid sinuses. Small amount of mucosal thickening in the right middle ear. CT/CT head wo con* [id number] IMPRESSION: 1. No evidence of intracranial hemorrhage or mass effect. 2. Mild small vessel changes. Moderate parenchymal volume loss. 3. Opacification left greater than right mastoid air cells. Fluid in the ethmo id air cells and sphenoid sinuses. 4. No acute intracranial findings.
--- NOTE | 2021-07-13 08:58 | USCV_ITS ---
Clare Stewart Age: 76 Gender: F : 1945 Exam Date: 07/13/2021 09:40 Ordering Phys: Benson Diane MD Technologist: Exam Location[place] [facility] [place]: RT HAND WEAKNESS Risk Factors: Previous Vascular Surgery: Right Brachial BP: / Left Brachial BP: / Right Left Velocity (cm/s) Spectral Plaque Velocity (cm/s) Spectral Plaque Syst/Diast Broadening Syst/Diast Broadening 55.45/ 9.80 Prox CCA 89.50 / 10.70 67.40/ 9.60 Mid CCA 75.90 / 9.70 62.25/ 8.80 Distal CCA 69.10 / 8.80 59.10/ 7.25 Prox ICA 81.50 / 9.10 48.90/ 5.80 Mid ICA 85.60 / 9.90 51.45/ 8.50 Distal ICA 83.10 / 9.90 99.50 ECA 74.90 0.84 ICA/CCA 0.96 Antegrade Vertebral Antegrade 30.00/ 7.90 cm/s 65.00/ 22.20 cm/s Tri Subclavian Tri 44.70 73.20 CONCLUSIONS Right ICA stenosis <50%. Mild calcified atheromatous plaque right carotid bulb/ICA. Left ICA stenosis <50%. Mild calcified atheromatous plaque left carotid bulb/ICA. Normal antegrade Doppler flow noted in the right vertebral artery. Normal antegrade Doppler flow noted in the left vertebral artery. Mckay Hightower MD (Electronically Signed) Final Date: 13 July 2021 17:30 S
--- NOTE | 2021-07-13 09:24 | XR_ITS ---
WS: [id number] Portable AP upright chest, 07/13/2021, 0932 hours Clinical Data: NG placement Comparison: Portable chest, 07/13/2021, 0521 hours Findings: A nasogastric tube has been inserted and the distal tip is at the gastroesophageal junction . XR/XR chest 1V portable [id number] Impression: Nasogastric tube ends at the gastroesophageal junction.
--- NOTE | 2021-07-13 10:21 | XR_ITS ---
WS: [id number] Portable AP semiupright chest, 07/13/2021, 1030 hours Clinical Data: NG placement Comparison: Portable chest, today, 0932 hours. Findings: The nasogastric tube has been advanced into the stomach and now probably ends in the body o f the stomach XR/XR chest 1V portable [id number] Impression: Nasogastric tube probably ending in body of the stomach.
--- NOTE | 2021-07-13 10:47 | PC.CHAP ---
Pastoral Care Encounter/Spiritual Assessment Type of Contact [] Declined office machine repair shop supervisor visit [] Patient/Family/Request visit [] Outpatient visit [] Follow-up visit [] Physician referral [] Code/Alert [x] Routine visit [] Staff referral [] Actively dying [x] Patient sleeping [] Family support [] [] Out of room [] Palliative care [] [] Receiving care in room [] Pre-surgical visit [] Trauma [] Long length of stay [x] ICU visit [] Other: Relational/Emotional Strength [] Patient feels connected with others/family/visitors/staff [] Distress [] Loneliness/isolation [] Abandonment Spirituality of Patient [] Person of Wendy [] Attends [employer] of their Wendy [] Believes in Prayer [] Reads Bible or Yarsanism materials [] There are Spiritual issues to be addressed Baking Powder Mixer Interventions [x] Prayer [] Active listening [] Non-anxious presence [] Spiritual/emotional support [] Crisis/trauma care [] Spiritual counseling [] Bereavement support [] Provided bereavement packet [] Provided Bible/devotional materials [] Provided toy/stuffed animal, coloring book to patient or family member [] Provided Communion [] Anointing/[place] [] Salvation [x] Completed spiritual assessment [] Other: Impact on Illness or Injury [] Angry [] Fearful [] Anxious [] Often cries [] Exhaustion [] Unable to work [] Unable to attend mu-ism [] Unable to walk/stand [] Unable to read [] Unable to drive [] Unable to eat/drink [] Unable to sleep [] Unable to be with family [] Patient intubated [] Other: Summary Time spent with patient
[2021-07-13] MEDS: potassium chloride premix 100 ML 50 MEQ IV (11:18)
--- NOTE | 2021-07-13 11:47 | PC.NUTR ---
Late addition to 07/12 assessment: Current TF is Jevity 1.2 @ 15 ml/hr with FW flushes 60 ml Q6H. If TF continues and if medically appropriate, recommend increasing goal rate to Jevity 1.2 @ 25 ml/hr with H2O flushes 60 ml Q6H. See full RD assessment for details.
--- NOTE | 2021-07-13 13:12 | PC.NURSE ---
16F NG tube placed and verified via auscultation and X-ray. First X-ray verified with Dr. Ontiveros that advancement of 5cm was needed. Tube was advanced and second x-ray verified tube was in stomach. NG auscultated, Jevity 1.2 15ml/hr Q6hr 60ml flushes started at 1300.
--- NOTE | 2021-07-13 13:28 | PC.NURSE ---
[address] order [address] Dr. Bourgeois. Orders to give 60 MEQ KCL IV and repeat BMP after infusion. Orders to place NGT. 1150 Spoke to safety administrator about tube feeding diet. Order reviewed and confirmed with safety administrator and Dr. Bourgeois.
--- NOTE | 2021-07-13 15:38 | P.PN_ITS ---
Subjective Subjective: Interval history: Yesterday morning, patient was successfully extubated on heated high flow, This morning patient was seen, she is alert to person, not to place, not to time , she does not follow commands at times, preferably leans to the left, does not move the right upper right lower extremity, no facial droop, afebrile overnight, remains on heated high flow, normotensive Vitals/I&O/Wt Last Vital Signs Temp 97.9 F 07/13/21 11:30 Pulse 68 07/13/21 14:26 Resp 17 07/13/21 12:30 BP 136/73 07/13/21 12:30 Pulse Ox 92 07/13/21 12:30 07/13/21 07/13/21 07/13/21 06:59 14:59 22:59 Intake Total 50 / 259.0909 155 / 155 Output Total 700 / 1500 Balance -650 / -1240.9091 155 / 155 Weight last 48 hrs Weight 29.739 kg Weight 28.264 kg Physical Exam Const: COMMON NORMALS: no acute distress EXAM LIMITATIONS: altered mental status ORIENTATION/CONSCIOUSNESS: Yes awake, Yes oriented to person and Yes confused; not oriented to place and not oriented to time Resp: COMMON NORMALS: normal respiratory effort, No retractions, No use of accessory muscles and clear to auscultation bilaterally AUSCULTATION: clear to auscultation bilaterally Cardio: COMMON NORMALS: regular rate, regular rhythm, S1 normal heart sound present and S2 normal heart sound present RATE: regular rate RHYTHM: regular rhythm HEART SOUNDS: S1 normal heart sound present and S2 normal heart sound present GI: COMMON NORMALS: Normal to inspection, nondistended, normoactive bowel sounds present and Soft to palpation PALPATION: Yes Soft to palpation OTHER: Rectal tube in place Extremity: COMMON NORMALS: no pedal edema Neuro: SENSORIUM/ORIENTATION: Yes oriented to person, No oriented to place and No oriented to time Urinary Catheter Management^: Aggarwal: Cath Placed During This Visit: yes Reason for Continuing Indwelling Catheter: Accurate Measurement of Urinary Output in Critically Ill Patients Urinary Catheter Date of Insertion: 06/28/21 Urinary Catheter Time of Insertion: 18:41 Data : 07/13/21 04:45 07/13/21 04:45 A&P Assessment and plan (1) Pneumonia due to 2019 novel coronavirus: Acute hypoxic respiratory failure secondary to COVID-19 pneumonia -With acute respiratory distress syndrome -Completed remdesivir course -Decadron will be discontinued today -Completed three proning sessions completed -Empirically covered with Zosyn -Extubated 07/12/2021 -Incentive spirometer, flutter valve, up into a chair, PT OT -Continue to monitor mentation closely -Speech therapy evaluation, advance diet as tolerated -Will moved to general medical floors -lovenox for dvt ppx -full ode Right upper and right lower extremity deficit, on physical exam, has no spontaneous movements of right upper right lower extremity, strength is 0 out of 5 compared to 2 out of 5 on the left -Possibly related to encephalopathy -We will do CT of the head, carotid artery ultrasound -Continue aspirin, statin -We will consider MRI Acute encephalopathy, improved, but not back to baseline, multifactorial hyp oxia, COVID-19, polypharmacy, underlying dementia, CT head so far negative for vascular insult, carotid artery ultrasound pending, continue neurochecks, monitor mentation, hold sedating medications BETSY, creatinine 1.1 Hypokalemia, hypomagnesemia, hypophosphatemia, will replace Anemia, continue to monitor Status: Acute (2) Acute encephalopathy: Status: Acute (3) BETSY (acute kidney injury): Improving. Responded to gentle fluid challenge. Stopped. Mild rhabdomyolysis improving. Decreasing CK. Unremarkable renal US. Possibly secondary to COVID-19 itself. Perhaps less likely contrast-induced nephropathy as CTA was on 06/27, unless is peaking and may expect improvement otherwise, possibly prerenal component. Monitor I&O. Status: Acute (4) Acute respiratory failure with hypoxia: Status: Acute (5) Acute respiratory distress syndrome: Status: Acute Additional A&P Information Anemia: Normocytic, some worsening hemoglobin down to 10.9. Negative Hemoccult. Hypokalemia: Replaced Possible atrial flutter: Repeat EKG with sinus rhythm. Computer read on EKG, but I do not appreciate flutter waves. Does appear to have some inferolateral T wave inversions. Nonvalvular. Monitor on telemetry. Aspirin. Consider event monitor. Diarrhea: C. difficile negative, diarrhea, rectal tube in place HTN HLD Attestations Medical Necessity Statement*: Patient requires hospitalization due to pneumonia secondary COVID-19, acute respiratory failure, acute encephalopathy, right upper right lower extremity weakness Coding Level of Care Code Acute Food And Nutrition Services Supervisor for Chg Fwd Diagnoses Pneumonia due to 2019 novel coronavirus U07.1; J12.82 Acute encephalopathy G93.40 BETSY (acute kidney injury) N17.9 Acute respiratory failure with hypoxia J96.01 Acute respiratory distress syndrome J80
--- NOTE | 2021-07-13 16:24 | PC.NURSE ---
Patient is able to follow commands on occasion. Only once today did patient squeeze fingers on command. Will consistently nod head to yes or no questions.
[2021-07-13] MEDS: enoxaparin 30 mg/0.3 mL Syringe SUBCUT (16:26)
--- NOTE | 2021-07-13 18:45 | PC.NURSE ---
All charting by Senia Mccauley reviewed and confirmed.
[2021-07-13] MEDS: trazodone 50 mg Tablet 25 MG PO (21:42)
[2021-07-13] MEDS: atorvastatin 40 mg Tablet PO (21:42)
[2021-07-14] VITALS (10 sets, daily range): BP systolic 134–178; BP diastolic 69–83; PULSE 61–87; RESP 16–21; TEMP 36.3–37.3; O2SAT 90–96
[2021-07-14] MEDS: piperacillin-tazobactam 3.375 GM in dextrose 5% (plus) 50 ML IV ×3 (03:28→18:06)
[2021-07-14] MEDS: pantoprazole 40 mg SDV IVP ×2 (05:02→16:41)
[2021-07-14 05:36] LABS: Basophils % 0.2 %; Eosinophils # 0.2 10^3/uL (0.0-0.8); Eosinophils % 2.4 %; Hematocrit 30.1 % (37.0-47.0); Hemoglobin 9.4 g/dL (11.5-15.3); Lymphocytes # 0.5 10^3/uL (0.8-4.8); Lymphocytes % 6.2 %; Mean Corpuscular HGB Conc 31.2 g/dL (30.0-36.0); Mean Corpuscular Volume 89.6 fl (81-99); Mean Platelet Volume 12.6 fL (7.4-10.4); Monocytes # 0.2 10^3/uL (0.2-0.9); Monocytes % 2.1 %; Neutrophils # 7.72 10^3/uL (1.8-7.7); Neutrophils % 87.8 %; Nucleated Red Blood Cells % 0 %; Platelet Count 185 10^3/cmm (130-400); Red Blood Count 3.36 10^6/uL (4.1-5.3); Red Cell Distribution Width 14.6 % (12.1-15.1); White Blood Count 8.8 10^3/uL (4.0-10.0)
[2021-07-14 06:01] LABS: Alanine Aminotransferase 18 U/L (0-33); Albumin Level 2.2 g/dL (3.5-5.2); Alkaline Phosphatase 95 IU/L (35-105); Anion Gap 14.2 (5-19); Aspartate Amino Transferase 18 U/L (0-32); Blood Urea Nitrogen 24 mg/dL (8-23); C Reactive Protein 171.9 mg/L (0.0-4.9); Calcium 7.7 mg/dL (8.5-10.5); Carbon Dioxide 24 mmol/L (22-29); Chloride 105 mmol/L (98-107); Glucose 113 mg/dL (65-115); Magnesium 1.7 mg/dL (1.7-2.3); Osmolality Calculated 295 mOsm/kg (285-295); Phosphorus 2.9 mg/dL (2.5-4.5); Potassium 3.2 mmol/L (3.5-5.1); Sodium 140 mmol/L (136-145); Total Bilirubin 0.4 mg/dL (0.15-1.2); Total Protein 5.2 g/dL (6.6-8.7)
[2021-07-14 06:03] LABS: NT Pro B Type Natriuretic Pept 6567 pg/mL (0-450); Procalcitonin 0.23 ng/mL (0-0.5)
[2021-07-14 06:15] LABS: Creatine Phosphokinase 26 U/L (26-192)
[2021-07-14] MEDS: ipratropium-albuterol 3 mL Neb INHALATION (08:38)
[2021-07-14] MEDS: budesonide 0.5 mg/2 mL Neb INHALATION ×2 (08:38→20:41)
--- NOTE | 2021-07-14 09:23 | PC.NUTR ---
Patient's current TF is Jevity 1.2 @ 25 ml/hr with FW flushes 100 ml Q6H. When medically appropriate and as tolerated recommend increasing to goal rate of Jevity 1.2 @ 40 ml/hr with FW flushes 100 ml Q6H to more fully meet assessed calorie and protein needs of Pt. See full RD assessment for details.
[2021-07-14] MEDS: aspirin 81 mg Chew Tablet PO (09:56)
[2021-07-14] MEDS: polyethylene glycol 3350 Pkt 17 gm PO (09:56)
--- NOTE | 2021-07-14 12:33 | P.PN_ITS ---
Subjective Subjective: Interval history: Patient was seen this morning, she responds to her name, she does try to say a few words, but they are hard to make out, she tends not to move the right upper and right lower extremity, has minimal movement, but does have spontaneous movement in the left upper left lower extremity, pupils equal round reactive to light, afebrile overnight, normotensive, on 5 L Vitals/I&O/Wt Last Vital Signs Temp 99.0 F 07/14/21 11:34 Pulse 61 07/14/21 11:34 Resp 18 07/14/21 11:34 BP 143/69 07/14/21 11:34 Pulse Ox 96 07/14/21 11:34 07/13/21 07/14/21 07/14/21 22:59 06:59 14:59 Intake Total 200 / 355 50 / 50 Balance 200 / 355 50 / 50 Weight last 48 hrs Weight 30.028 kg Weight 30.028 kg Weight 29.739 kg Physical Exam Const: COMMON NORMALS: no acute distress and patient oriented x3 Resp: COMMON NORMALS: normal respiratory effort, No retractions, No use of accessory muscles and clear to auscultation bilaterally AUSCULTATION: clear to auscultation bilaterally Cardio: COMMON NORMALS: regular rate, regular rhythm, S1 normal heart sound present and S2 normal heart sound present RATE: regular rate RHYTHM: regular rhythm HEART SOUNDS: S1 normal heart sound present and S2 normal heart sound present GI: COMMON NORMALS: Normal to inspection, nondistended, normoactive bowel sounds present, Soft to palpation and non-tender PALPATION: Yes Soft to palpation Extremity: COMMON NORMALS: no pedal edema Neuro: COMMON NORMALS: patient oriented x3 Psych: COMMON NORMALS: mental status grossly normal Urinary Catheter Management^: Aggarwal: Cath Placed During This Visit: yes Reason for Continuing Indwelling Catheter: Other Urinary Catheter Date of Insertion: 06/28/21 Urinary Catheter Time of Insertion: 18:41 Data : 07/14/21 05:09 07/14/21 05:09 A&P Assessment and plan (1) Pneumonia due to 2019 novel coronavirus: Acute hypoxic respiratory failure secondary to COVID-19 pneumonia -With acute respiratory distress syndrome -Completed remdesivir course -Decadron will be discontinued today -Completed three proning sessions completed -Empirically covered with Zosyn -Extubated 07/12/2021 -Incentive spirometer, flutter valve, up into a chair, PT OT -Continue to monitor mentation closely -Speech therapy evaluation, advance diet as tolerated -NG tube in place, receiving tube feedings, Jevity at 25 cc an hour, free water flushes 60 every 4 hours, nutrition consult -1 dose of Lasix today -On general medical floors -lovenox for dvt ppx -full ode Right upper and right lower extremity deficit, on physical exam, has no spontaneous movements of right upper right lower extremity, strength is 0 out of 5 compared to 2 out of 5 on the left -Possibly related to encephalopathy -We will do MRI of the brain -Continue aspirin, statin Acute encephalopathy, improved, but not back to baseline, multifactorial hypoxia, COVID-19, polypharmacy, underlying dementia, CT head so far negative for vascular insult, carotid artery ultrasound pending, continue neurochecks, monitor mentation, hold sedating medications BETSY, resolved Hypokalemia, hypomagnesemia, hypophosphatemia, will replace Anemia, continue to monitor Status: Acute (2) Acute encephalopathy: Status: Acute (3) BETSY (acute kidney injury): Improving. Responded to gentle fluid challenge. Stopped. Mild rhabdomyolysis improving. Decreasing CK. Unremarkable renal US. Possibly secondary to COVID-19 itself. Perhaps less likely contrast-induced nephropathy as CTA was on 06/27, unless is peaking and may expect improvement otherwise, possibly prerenal component. Monitor I&O. Status: Acute (4) Acute respiratory failure with hypoxia: Status: Acute (5) Acute respiratory distress syndrome: Status: Acute Additional A&P Information Anemia: Normocytic, some worsening hemoglobin down to 10.9. Negative Hemoccult. Hypokalemia: Replaced Possible atrial flutter: Repeat EKG with sinus rhythm. Computer read on EKG, but I do not appreciate flutter waves. Does appear to have some inferolateral T wave inversions. Nonvalvular. Monitor on telemetry. Aspirin. Consider event monitor. Diarrhea: C. difficile negative, diarrhea, rectal tube in place HTN HLD Attestations Medical Necessity Statement*: Patient requires hospitalization for pneumonia secondary COVID-19 Coding Level of Care Code Acute [employer] Property Manager for g Fwd Diagnoses Pneumonia due to 2019 novel coronavirus U07.1; J12.82 Acute encephalopathy G93.40 BETSY (acute kidney injury) N17.9 Acute respiratory failure with hypoxia J96.01 Acute respiratory distress syndrome J80
[2021-07-14] MEDS: FUROsemide 10 mg/mL SDV 2mL 20 MG IVP (13:48)
--- NOTE | 2021-07-14 14:30 | MRR_ITS ---
PROCEDURE INFORMATION: Exam: MR Head Without Contrast Exam date and time: 07/14/2021 2:30 PM Age: 76 years old Clinical indication: Altered mental status/memory loss; Additional info: Rue and rle weakness TECHNIQUE: Imaging protocol: MR of the head without contrast. COMPARISON: CT head wo con* [id number] 07/13/2021 2:47 PM FINDINGS: Limitations: Image quality is limited by extensive motion artifact. Brain: There is diffuse volume loss and periventricular and deep white matter T2 bright signal intensity compatible with chronic small vessel disease changes. There is no acute infarct. No edema or mass effect. Cerebral ventricles: Normal. No ventriculomegaly. Bones/joints: Unremarkable. Paranasal sinuses: There is mild mucosal thickening in the sinuses. Mastoid air cells: There is bilateral opacification of the mastoid air cells compatible with bilateral mastoiditis. Orbital cavity: Unremarkable. Soft tissues: Unremarkable. MR/MR head wo con* [id number] IMPRESSION: 1. No acute intracranial abnormality. Chronic findings are noted as above. 2. There is bilateral opacification of the mastoid air cells compatible with bilateral mastoiditis. Radiation Dose CTDIVOL = (mGy): DLP = (mGy-cm)
--- NOTE | 2021-07-14 14:47 | PC.SOCIAL ---
IMM Update: pg 2 of IMM updated via telephone w/ son Freddy. Copy provided to patient.
[2021-07-14] MEDS: enoxaparin 30 mg/0.3 mL Syringe SUBCUT (16:40)
[2021-07-14] MEDS: trazodone 50 mg Tablet 25 MG PO (20:45)
[2021-07-14] MEDS: atorvastatin 40 mg Tablet PO (20:45)
[2021-07-15] VITALS (13 sets, daily range): BP systolic 112–158; BP diastolic 62–78; PULSE 52–79; RESP 16–20; TEMP 36.1–36.7; O2SAT 90–98
[2021-07-15] MEDS: piperacillin-tazobactam 3.375 GM in dextrose 5% (plus) 50 ML IV ×3 (04:16→18:04)
[2021-07-15] MEDS: pantoprazole 40 mg SDV IVP ×2 (05:42→18:03)
[2021-07-15 06:40] LABS: Basophils % 0.2 %; Eosinophils # 0.4 10^3/uL (0.0-0.8); Eosinophils % 4.6 %; Lymphocytes # 0.7 10^3/uL (0.8-4.8); Lymphocytes % 8.2 %; Mean Corpuscular Hemoglobin 27.4 pg (28.0-34.0); Mean Corpuscular Volume 88.4 fl (81-99); Mean Platelet Volume 13.2 fL (7.4-10.4); Monocytes # 0.3 10^3/uL (0.2-0.9); Monocytes % 2.9 %; Neutrophils % 83.4 %; Nucleated Red Blood Cells % 0 %; Platelet Count 187 10^3/cmm (130-400); Red Blood Count 3.28 10^6/uL (4.1-5.3); Red Cell Distribution Width 13.8 % (12.1-15.1); White Blood Count 8.5 10^3/uL (4.0-10.0)
--- NOTE | 2021-07-15 06:41 | PC.NURSE ---
upon rounding at 0630, Nurse observed patient breathing rapidly and appeared to be in distress, O2 sat noted to be 74% on 5L NC, Nurse increased NC flow to 10 L and paged charge nurse and respiratory. Pt then switched to 15 L non rebreather and suctioned. Large amount of thick tenacious secretions removed. Pt O2 sat improved to 90% after suctioning. Dr. Lyle notified and verbal orders received for Nasotracheal suction.
[2021-07-15 07:05] LABS: Alanine Aminotransferase 19 U/L (0-33); Albumin Level 2.4 g/dL (3.5-5.2); Alkaline Phosphatase 101 IU/L (35-105); Anion Gap 14.7 (5-19); Aspartate Amino Transferase 19 U/L (0-32); Blood Urea Nitrogen 22 mg/dL (8-23); C Reactive Protein 114.7 mg/L (0.0-4.9); Calcium 7.8 mg/dL (8.5-10.5); Carbon Dioxide 27 mmol/L (22-29); Chloride 101 mmol/L (98-107); Glucose 90 mg/dL (65-115); Magnesium 1.6 mg/dL (1.7-2.3); Osmolality Calculated 293 mOsm/kg (285-295); Phosphorus 3.5 mg/dL (2.5-4.5); Sodium 140 mmol/L (136-145); Total Bilirubin 0.5 mg/dL (0.15-1.2); Total Protein 5.4 g/dL (6.6-8.7)
[2021-07-15 07:09] LABS: NT Pro B Type Natriuretic Pept 3968 pg/mL (0-450); Procalcitonin 0.24 ng/mL (0-0.5)
[2021-07-15 07:20] LABS: Creatine Phosphokinase 20 U/L (26-192)
[2021-07-15 07:32] LABS: Potassium 2.7 mmol/L (3.5-5.1)
[2021-07-15] MEDS: budesonide 0.5 mg/2 mL Neb INHALATION ×2 (08:25→19:59)
[2021-07-15] MEDS: ipratropium-albuterol 3 mL Neb INHALATION ×2 (08:25→19:59)
[2021-07-15] MEDS: lidocaine 1% 5 ML in potassium chloride premix 100 ML 25 ML IV ×2 (09:39→13:47)
[2021-07-15] MEDS: polyethylene glycol 3350 Pkt 17 gm PO (09:39)
[2021-07-15] MEDS: aspirin 81 mg Chew Tablet PO (09:39)
[2021-07-15] MEDS: magnesium sulfate premix 2 GM/50 ML PIGGYBACK IV (09:39)
--- NOTE | 2021-07-15 11:15 | CTR_ITS ---
PROCEDURE INFORMATION: Exam: CTA Chest With Contrast Exam date and time: 07/15/2021 11:15 AM Age: 76 years old Clinical indication: Cough and shortness of breath with hemorrhage. Hemoptysis. He of history of COVID 19 pneumonia. TECHNIQUE: Imaging protocol: Computed tomographic angiography of the chest with contrast. 3D rendering (Not supervised by radiologist): MIP and/or 3D reconstructed images were created by the technologist. Radiation optimization: All CT scans at this facility use at least one of these dose optimization techniques: automated exposure control; mA and/or kV adjustment per patient size (includes targeted exams where dose is matched to clinical indication); or iterative reconstruction. Contrast material: VISI 320; Contrast volume: 27 ml; Contrast route: INTRAVENOUS (IV); COMPARISON: CT angio chest PE protcl [id number] 06/27/2021 2:32 PM RADIATION DOSE METRICS: Total DLP (mGy-cm): 503.9 FINDINGS: Pulmonary arteries: Motion artifact compromises assessment for pulmonary embolus. No main, central or lobar pulmonary embolus is identified. Aorta: There is aneurysmal dilatation of the ascending thoracic aorta measuring 3.9 x 4.1 cm. There is no gross evidence of rupture. Thyroid: A left thyroid nodule measuring less than 1.5 cm is too small to accurately characterize and requires no follow-up. Lungs: There are extensive ground-glass and airspace opacities bilaterally suspicious for ongoing COVID 19 pneumonia. A more typical multifocal pneumonia is a consideration. No pulmonary mass.. Calcified granuloma in the left upper lobe. Pleural spaces: Trace bilateral pleural effusions. No pneumothorax. Heart: Coronary arterial calcifications are noted. No pericardial effusion. Lymph nodes: A pretracheal lymph node measures 1.2 x 1.1 cm. A right hilar lymph node measures 1.2 x 1.7 cm. A left hilar lymph node measures 1.1 x 1.3 cm. Diaphragm: No hiatal hernia. Upper abdomen: There has been prior cholecystectomy. An indeterminate left adrenal nodule measures 1.4 cm. Nasogastric tube projects into the stomach. Its tip is not included on the current study. Bones/joints: Bilateral shoulder arthroplasties are incompletely visualized. No acute fracture is seen. CT/CT angio chest PE protcl [id number] IMPRESSION: 1. Motion artifact compromises assessment for pulmonary embolus. No main, central or lobar pulmonary embolus is identified. 2. There are extensive ground-glass and airspace opacities bilaterally suspicious for ongoing COVID 19 pneumonia. A more typical multifocal pneumonia is a consideration. 3. There is aneurysmal dilatation of the ascending thoracic aorta measuring 3.9 x 4.1 cm. There is no gross evidence of rupture. 4. Trace bilateral pleural effusions. 5. Coronary artery disease. 6. Mediastinal and bilateral hilar lymphadenopathy. 7. Indeterminate left adrenal nodule. Recommend nonemergent MR abdomen to better characterize. COMMENTS: Consistent with the [employer] [place] [employer]'s Incidental Findings Committee white paper (J [employer]iol 2015): In patients aged 35 years and older with an incidental thyroid nodule equal to or greater than 1.[address], MRI or extrathyroidal US, further evaluation with dedicated thyroid US is recommended for patients with normal life expectancy and without comorbidities. For smaller nodules without suspicious features, no further evaluation or follow up is recommended. Radiation Dose CTDIVOL = (mGy): DLP = 503.9 (mGy-cm)
[2021-07-15] MEDS: FUROsemide 10 mg/mL SDV 2mL 20 MG IVP (12:36)
[2021-07-15] MEDS: iodixanol 320 mg/mL 100mL Btl IV (15:37)
--- NOTE | 2021-07-15 16:41 | PM.PN ---
Subjective Subjective: Interval history: Overnight patient had episodes of increased shortness of breath, requiring up to 15 L nonrebreather, also was less responsive, afebrile, looking more short of breath Patient was examined by me this morning, she is currently on 10 L, she does open her eyes, she does follow commands such as squeezing my fingers, but is more somnolent requires more arousable, Vitals/I&O/Wt Last Vital Signs Temp 97.7 F 07/15/21 16:00 Pulse 63 07/15/21 16:00 Resp 18 07/15/21 16:00 BP 154/68 07/15/21 16:00 Pulse Ox 98 07/15/21 16:00 07/15/21 07/15/21 07/15/21 06:59 14:59 22:59 Intake Total 300 / 450 203.333 / 203.333 Balance 300 / -1000 203.333 / 203.333 Weight last 48 hrs Weight 60.328 kg Weight 60.526 kg Weight 30.028 kg Weight 30.028 kg Physical Exam Const: COMMON NORMALS: no acute distress EXAM LIMITATIONS: altered mental status GENERAL APPEARANCE: ill appearing and frail appearing ORIENTATION/CONSCIOUSNESS: Yes awake, Yes oriented to person and Yes confused; not oriented to place and not oriented to time Resp: COMMON NORMALS: normal respiratory effort and No retractions AUSCULTATION: crackles Cardio: COMMON NORMALS: regular rate, regular rhythm, S1 normal heart sound present and S2 normal heart sound present RATE: regular rate RHYTHM: regular rhythm HEART SOUNDS: S1 normal heart sound present and S2 normal heart sound present GI: COMMON NORMALS: Normal to inspection, nondistended, normoactive bowel sounds present, Soft to palpation and non-tender PALPATION: Yes Soft to palpation Extremity: COMMON NORMALS: no pedal edema Neuro: SENSORIUM/ORIENTATION: Yes oriented to person, No oriented to place and No oriented to time Urinary Catheter Management^: Aggarwal: Cath Placed During This Visit: yes Reason for Continuing Indwelling Catheter: Other Urinary Catheter Date of Insertion: 06/28/21 Urinary Catheter Time of Insertion: 18:41 Data : 07/15/21 05:59 07/15/21 05:59 A&P Assessment and plan (1) Pneumonia due to 2019 novel coronavirus: Acute hypoxic respiratory failure secondary to COVID-19 pneumonia -With acute respiratory distress syndrome -Completed remdesivir course -Completed three proning sessions completed -Empirically covered with Zosyn -Extubated 07/12/2021 -Incentive spirometer, flutter valve, up into a chair, PT OT -Continue to monitor mentation closely -Speech therapy evaluation, advance diet as tolerated -NG tube in place, receiving tube feedings, Jevity at 25 cc an hour, free water flushes 60 every 4 hours, nutrition consult, currently on hold as residuals greater than 100 -1 dose of Lasix today -On general medical floors -Increase hypoxia l, more somnolent this morning, will do CT angiogram to evaluate for pulmonary embolism -lovenox for dvt ppx -full ode Right upper and right lower extremity deficit, on physical exam, has no spontaneous movements of right upper right lower extremity, strength is 1 out of 5 compared to 2 out of 5 on the left -Possibly related to encephalopathy -MRI brain no acute stroke -Continue aspirin, statin Acute encephalopathy, increased confusion this morning, but not back to baseline, multifactorial hypoxia, COVID-19, polypharmacy, underlying dementia, CT head so far negative for vascular insult, carotid artery no hemodynamically significant stenosis, continue neurochecks, monitor mentation, hold sedating medications BETSY, resolved Hypokalemia, hypomagnesemia, hypophosphatemia, will replace Anemia, continue to monitor Status: Acute (2) Acute encephalopathy: Status: Acute (3) BETSY (acute kidney injury): Improving. Responded to gentle fluid challenge. Stopped. Mild rhabdomyolysis improving. Decreasing CK. Unremarkable renal US. Possibly secondary to COVID-19 itself. Perhaps less likely contrast-induced nephropathy as CTA was on 06/27, unless is peaking and may expect improvement otherwise, possibly prerenal component. Monitor I&O. Status: Acute (4) Acute respiratory failure with hypoxia: Status: Acute (5) Acute respiratory distress syndrome: Status: Acute Additional A&P Information Anemia: Normocytic, some worsening hemoglobin down to 10.9. Negative Hemoccult. Hypokalemia: Replaced Possible atrial flutter: Repeat EKG with sinus rhythm. Computer read on EKG, but I do not appreciate flutter waves. Does appear to have some inferolateral T wave inversions. Nonvalvular. Monitor on telemetry. Aspirin. Consider event monitor. Diarrhea: C. difficile negative, diarrhea, rectal tube in place HTN HLD Attestations Medical Necessity Statement*: Patient requires hospitalization for pneumonia secondary COVID-19 Coding Level of Care Code Acute Broadband Technician for Chg Fwd Diagnoses Pneumonia due to 2019 novel coronavirus U07.1; J12.82 Acute encephalopathy G93.40 BETSY (acute kidney injury) N17.9 Acute respiratory failure with hypoxia J96.01 Acute respiratory distress syndrome J80
[2021-07-15] MEDS: enoxaparin 40 mg/0.4 mL Syringe SUBCUT (18:03)
[2021-07-15] MEDS: lactulose oral liq 20 gm/30 mL UDC PO (18:03)
[2021-07-15] MEDS: atorvastatin 40 mg Tablet PO (20:37)
[2021-07-15] MEDS: trazodone 50 mg Tablet 25 MG PO (20:37)
[2021-07-16] VITALS (12 sets, daily range): BP systolic 132–146; BP diastolic 75–82; PULSE 66–91; RESP 16–18; TEMP 36.3–37; O2SAT 94–99
[2021-07-16] MEDS: piperacillin-tazobactam 3.375 GM in dextrose 5% (plus) 50 ML IV ×2 (02:14→11:33)
--- NOTE | 2021-07-16 02:33 | PC.NURSE ---
patient requesting something to drink, nurse explained patient's current diet, offered to swab mouth, patient refused and turned head away.
[2021-07-16] MEDS: pantoprazole 40 mg SDV IVP (05:23)
[2021-07-16 06:00] LABS: Basophils % 0.3 %; Eosinophils # 0.4 10^3/uL (0.0-0.8); Eosinophils % 4.6 %; Hematocrit 33.8 % (37.0-47.0); Hemoglobin 10.7 g/dL (11.5-15.3); Lymphocytes # 0.7 10^3/uL (0.8-4.8); Lymphocytes % 9.3 %; Mean Corpuscular HGB Conc 31.7 g/dL (30.0-36.0); Mean Corpuscular Hemoglobin 28.2 pg (28.0-34.0); Mean Corpuscular Volume 89.2 fl (81-99); Mean Platelet Volume 12.7 fL (7.4-10.4); Monocytes # 0.3 10^3/uL (0.2-0.9); Monocytes % 3.4 %; Neutrophils # 6.47 10^3/uL (1.8-7.7); Neutrophils % 81.9 %; Nucleated Red Blood Cells % 0 %; Platelet Count 148 10^3/cmm (130-400); Red Blood Count 3.79 10^6/uL (4.1-5.3); Red Cell Distribution Width 13.9 % (12.1-15.1); White Blood Count 7.9 10^3/uL (4.0-10.0)
[2021-07-16 08:14] LABS: Alanine Aminotransferase 19 U/L (0-33); Albumin Level 2.5 g/dL (3.5-5.2); Alkaline Phosphatase 122 IU/L (35-105); Aspartate Amino Transferase 21 U/L (0-32); Blood Urea Nitrogen 22 mg/dL (8-23); Calcium 7.9 mg/dL (8.5-10.5); Carbon Dioxide 28 mmol/L (22-29); Chloride 103 mmol/L (98-107); Globulin 3.4 g/dL (1.3-4.6); Glucose 132 mg/dL (65-115); Magnesium 2.2 mg/dL (1.7-2.3); NT Pro B Type Natriuretic Pept 1352 pg/mL (0-450); Osmolality Calculated 297 mOsm/kg (285-295); Phosphorus 2.5 mg/dL (2.5-4.5); Sodium 141 mmol/L (136-145); Total Bilirubin 0.4 mg/dL (0.15-1.2); Total Protein 5.9 g/dL (6.6-8.7)
[2021-07-16] MEDS: ipratropium-albuterol 3 mL Neb INHALATION (08:14)
[2021-07-16] MEDS: budesonide 0.5 mg/2 mL Neb INHALATION ×2 (08:14→19:45)
--- NOTE | 2021-07-16 08:17 | XRR_ITS ---
PROCEDURE INFORMATION: Exam: XR Abdomen Exam date and time: 07/16/2021 8:17 AM Age: 76 years old Clinical indication: Abdominal pain; Generalized; Additional info: Sbo vs ileus TECHNIQUE: Imaging protocol: XR of the abdomen. Views: Frontal supine view of the abdomen. 1 View. Total images: 1 COMPARISON: CR XR chest 1V portable [id number] 07/13/2021 10:27 AM FINDINGS: Tubes, catheters and devices: Enteric tube is seen with the tip in the body of the stomach. Lungs: Coarse chronic pulmonary markings. Bilateral pulmonary opacities are again noted and appear unchanged. Gastrointestinal tract: Bowel gas pattern is nondistended and nonobstructive. Organs: Surgical clips are present in the right upper quadrant which are suggestive of prior cholecystectomy. Bones/joints: Osseous structures are unchanged from the prior exam. XR/XR abdomen 1V* [id number] IMPRESSION: 1. Enteric tube is seen with the tip in the body of the stomach. 2. Coarse chronic pulmonary markings. 3. Bilateral pulmonary opacities are again noted and appear unchanged. 4. Normal bowel gas pattern Radiation Dose CTDIVOL = (mGy): DLP = (mGy-cm)
[2021-07-16] MEDS: polyethylene glycol 3350 Pkt 17 gm PO (09:15)
[2021-07-16] MEDS: aspirin 81 mg Chew Tablet PO (09:15)
[2021-07-16] MEDS: pantoprazole DR 40 mg Tablet PO ×2 (09:18→17:36)
--- NOTE | 2021-07-16 12:39 | PC.SOCIAL ---
IMM update IMM updated with patient's son. Verbalized an understanding. Initialled, dated, timed, and placed in chart.
--- NOTE | 2021-07-16 13:30 | P.PN_ITS ---
Subjective Subjective: Interval history: Patient was seen this morning, she is much more alert this morning, down to 7 L, she follows commands such as squeezing my fingers, wiggling her toes, she does have good range of motion and movement in the right upper extremity, he tries to mouth a couple of words, but tires out, Vitals/I&O/Wt Last Vital Signs Temp 97.8 F 07/16/21 11:18 Pulse 66 07/16/21 11:18 Resp 16 07/16/21 11:18 BP 136/77 07/16/21 11:18 Pulse Ox 99 07/16/21 11:18 07/15/21 07/16/21 07/16/21 22:59 06:59 14:59 Intake Total 205 / 408.333 50 / 458.333 Output Total 900 / 900 1000 / 1900 Balance -695 / -491.667 -950 / -1441.667 Weight last 48 hrs Weight 58.513 kg Weight 60.328 kg Weight 60.526 kg Physical Exam Const: COMMON NORMALS: no acute distress GENERAL APPEARANCE: cooperative and frail appearing ORIENTATION/CONSCIOUSNESS: Yes awake and Yes oriented to person; not oriented to place and not oriented to time Resp: COMMON NORMALS: normal respiratory effort, No retractions, No use of accessory muscles and clear to auscultation bilaterally AUSCULTATION: clear to auscultation bilaterally Cardio: COMMON NORMALS: regular rate, regular rhythm, S1 normal heart sound present and S2 normal heart sound present RATE: regular rate RHYTHM: regul ar rhythm HEART SOUNDS: S1 normal heart sound present and S2 normal heart sound present GI: COMMON NORMALS: Normal to inspection, nondistended, normoactive bowel sounds present, Soft to palpation and non-tender PALPATION: Yes Soft to palpation Extremity: COMMON NORMALS: no pedal edema Neuro: SENSORIUM/ORIENTATION: Yes oriented to person, No oriented to place and No oriented to time Urinary Catheter Management^: Aggarwal: Cath Placed During This Visit: yes Reason for Continuing Indwelling Catheter: Acute Urinary Retention or Obstruction Urinary Catheter Date of Insertion: 06/28/21 Urinary Catheter Time of Insertion: 18:41 Data : 07/16/21 05:12 07/16/21 07:00 A&P Assessment and plan (1) Pneumonia due to 2019 novel coronavirus: Acute hypoxic respiratory failure secondary to COVID-19 pneumonia -With acute respiratory distress syndrome -Completed remdesivir course -Completed three proning sessions completed -Empirically covered with Zosyn, de-escalate to Augmentin -Extubated 07/12/2021 -Incentive spirometer, flutter valve, up into a chair, PT OT -Continue to monitor mentation closely -Speech therapy evaluation, advance diet as tolerated -NG tube in place, receiving tube feedings, Jevity at 25 cc an hour, free water flushes 60 every 4 hours, nutrition consult, hold if residuals greater than 100, -1 dose of Lasix today, potassium placement -On general medical floors -Because of increased somnolence yesterday and hypoxia, CTA was ordered, no evidence of pulmonary embolism -lovenox for dvt ppx -full ode Right upper and right lower extremity deficit, has resolved -Possibly related to encephalopathy -MRI brain no acute stroke -Continue aspirin, statin Acute encephalopathy, alert, to person, follows some commands,, but not back to baseline, multifactorial hypoxia, COVID-19, polypharmacy, underlying dementia, CT head so far negative for vascular insult, carotid artery no hemodynamically significant stenosis, continue neurochecks, monitor mentation, hold sedating medications BETSY, resolved Hypokalemia, hypomagnesemia, hypophosphatemia, will replace Anemia, continue to monitor Status: Acute (2) Acute encephalopathy: Status: Acute (3) BETSY (acute kidney injury): Improving. Responded to gentle fluid challenge. Stopped. Mild rhabdomyolysis improving. Decreasing CK. Unremarkable renal US. Possibly secondary to COVID-19 itself. Perhaps less likely contrast-induced nephropathy as CTA was on 06/27, unless is peaking and may expect improvement otherwise, possibly prerenal component. Monitor I&O. Status: Acute (4) Acute respiratory failure with hypoxia: Status: Acute (5) Acute respiratory distress syndrome: Status: Acute Additional A&P Information Anemia: Normocytic, some worsening hemoglobin down to 10.7. Negative Hemoccult. Hypokalemia: Replaced Possible atrial flutter: Repeat EKG with sinus rhythm. Computer read on EKG, but I do not appreciate flutter waves. Does appear to have some inferolateral T wave inversions. Nonvalvular. Monitor on telemetry. Aspirin. Consider event monitor. Diarrhea: C. difficile negative, diarrhea, resolved, rectal tube was removed HTN HLD Attestations Medical Necessity Statement*: Patient requires hospitalization due to pneumonia sec to COVID-19 Coding Level of Care Code Acute Senior Information Systems Architect for g Fwd Diagnoses Pneumonia due to 2019 novel coronavirus U07.1; J12.82 Acute encephalopathy G93.40 BETSY (acute kidney injury) N17.9 Acute respiratory failure with hypoxia J96.01 Acute respiratory distress syndrome J80
[2021-07-16] MEDS: potassium chloride ER 20 mEq Tablet PO (14:54)
[2021-07-16] MEDS: FUROsemide 10 mg/mL SDV 2mL 20 MG IVP (14:55)
[2021-07-16] MEDS: lidocaine 1% 5 ML in potassium chloride premix 100 ML 25 ML IV (14:55)
[2021-07-16] MEDS: amoxicillin-clav 875-125 mg Tablet 1 TAB PO (17:36)
[2021-07-16] MEDS: enoxaparin 40 mg/0.4 mL Syringe SUBCUT (17:36)
--- NOTE | 2021-07-16 20:28 | PC.NUTR ---
Nutrition follow up: TF remaining at 25 ml/hr, providing 49% estimated kcal needs and 56% estimated protein needs if running continuously, however noted to be held for residuals at times. (timeframe unclear). Recommend to consider obtaining 2 or more consecutive GRV of 250 ml or more prior to holding EN, and monitor for other signs/symptoms of poor tolerance. (per [facility] practice guidelines). Recommend elevating head of bed at least 30 degrees for feeding. Could consider bolus feeds to minimize aspiration risk time. Recommend increasing to goal rate 50 ml/hr as tolerated to better meet nutritional needs. See full RD assessments for further details.
[2021-07-16] MEDS: trazodone 50 mg Tablet 25 MG PO (21:29)
[2021-07-16] MEDS: atorvastatin 40 mg Tablet PO (21:29)
[2021-07-17] VITALS (10 sets, daily range): BP systolic 114–152; BP diastolic 57–85; PULSE 64–81; RESP 16–20; TEMP 36.2–36.9; O2SAT 91–100
[2021-07-17 06:34] LABS: Basophils % 0.2 %; Eosinophils # 0.4 10^3/uL (0.0-0.8); Hematocrit 31.6 % (37.0-47.0); Hemoglobin 9.9 g/dL (11.5-15.3); Lymphocytes # 0.9 10^3/uL (0.8-4.8); Lymphocytes % 11.2 %; Mean Corpuscular HGB Conc 31.3 g/dL (30.0-36.0); Mean Corpuscular Hemoglobin 28.3 pg (28.0-34.0); Mean Corpuscular Volume 90.3 fl (81-99); Mean Platelet Volume 12.8 fL (7.4-10.4); Monocytes # 0.3 10^3/uL (0.2-0.9); Monocytes % 3.8 %; Neutrophils # 6.37 10^3/uL (1.8-7.7); Neutrophils % 79.1 %; Nucleated Red Blood Cells % 0 %; Platelet Count 145 10^3/cmm (130-400); Red Cell Distribution Width 13.5 % (12.1-15.1); White Blood Count 8.1 10^3/uL (4.0-10.0)
[2021-07-17 07:36] LABS: Alanine Aminotransferase 19 U/L (0-33); Albumin Level 2.8 g/dL (3.5-5.2); Alkaline Phosphatase 113 IU/L (35-105); Anion Gap 14.2 (5-19); Aspartate Amino Transferase 18 U/L (0-32); Blood Urea Nitrogen 21 mg/dL (8-23); Calcium 8.4 mg/dL (8.5-10.5); Carbon Dioxide 28 mmol/L (22-29); Chloride 99 mmol/L (98-107); Globulin 3.5 g/dL (1.3-4.6); Glucose 111 mg/dL (65-115); Magnesium 1.7 mg/dL (1.7-2.3); NT Pro B Type Natriuretic Pept 1431 pg/mL (0-450); Osmolality Calculated 290 mOsm/kg (285-295); Phosphorus 2.7 mg/dL (2.5-4.5); Potassium 3.2 mmol/L (3.5-5.1); Sodium 138 mmol/L (136-145); Total Bilirubin 0.3 mg/dL (0.15-1.2); Total Protein 6.3 g/dL (6.6-8.7)
[2021-07-17] MEDS: budesonide 0.5 mg/2 mL Neb INHALATION ×2 (08:13→20:26)
[2021-07-17] MEDS: ipratropium-albuterol 3 mL Neb INHALATION (08:13)
[2021-07-17] MEDS: amoxicillin-clav 875-125 mg Tablet 1 TAB PO ×2 (09:11→17:50)
[2021-07-17] MEDS: polyethylene glycol 3350 Pkt 17 gm PO (09:11)
[2021-07-17] MEDS: aspirin 81 mg Chew Tablet PO (09:12)
[2021-07-17] MEDS: pantoprazole DR 40 mg Tablet PO ×2 (09:12→17:50)
[2021-07-17] MEDS: enoxaparin 40 mg/0.4 mL Syringe SUBCUT (17:50)
--- NOTE | 2021-07-17 20:16 | PC.NURSE ---
This nurse walked into patient's room and she was pointing to her mouth. She mumbled water . This nurse went to swab her mouth out but before I could the patient started to cough. The cough was full of mucous. This nurse suctioned her mouth out and patient could not cough up mucous plug. Patient dropped to 83. This nurse encouraged patient to cough and I continued to suction. Patients stats came up to 95 on 5L. Will continue to monitor.
[2021-07-17] MEDS: atorvastatin 40 mg Tablet PO (21:11)
[2021-07-17] MEDS: trazodone 50 mg Tablet 25 MG PO (21:11)
--- NOTE | 2021-07-17 21:17 | PM.PN ---
Subjective Subjective: Interval history: Somewhat hard of hearing, but when spoken to loudly nods answers. Follows commands. Generally very weak, tries to speak, but weak slurred speech. Discussed with her her condition and need for rehabilitation. Discussed with generalized weakness, continued concern for aspiration consideration of obtaining feeding tube to be able to continue hydration, tube feeds and medications. Initially states not interested in seeking feeding tube. But on temporary basis states would consider. Discussed with her we cannot entirely know that the G-tube may be temporary, however, as she overall gradually has been improving, anticipated continued improvement and resumption of oral feeds may in the future alleviate need for feeding tube. Discussed also with her son who is coming with his (who works in healthcare) to speak with her further. Vitals/I&O/Wt Last Vital Signs Temp 97.5 F L 07/17/21 20:00 Pulse 69 07/17/21 20:31 Resp 18 07/17/21 20:31 BP 139/68 07/17/21 20:00 Pulse Ox 96 07/17/21 20:31 07/17/21 07/17/21 07/17/21 06:59 14:59 22:59 Intake Total 240 / 395 Output Total 500 / 1750 Balance -260 / -1355 Weight last 48 hrs Weight 58.513 kg Physical Exam Const: COMMON NORMALS: alert GENERAL APPEARANCE: cooperative and comfortable ORIENTATION/CONSCIOUSNESS: Yes awake OTHER: Awake, alert, frail, generally weak. Makes eye contact, nods answers, follows basic commands. HENMT: COMMON NORMALS: oropharynx normal Neck/C-Spine: COMMON NORMALS: no JVD Resp: COMMON NORMALS: clear to auscultation bilaterally AUSCULTATION: clear to auscultation bilaterally Cardio: COMMON NORMALS: no JVD, regular rhythm, S1 normal heart sound present, S2 normal heart sound present and No murmurs present (Cardio) RHYTHM: regular rhythm HEART SOUNDS: S1 normal heart sound present and S2 normal heart sound present GI: COMMON NORMALS: Normal to inspection, nondistended, normoactive bowel sounds present and Soft to palpation PALPATION: Yes Soft to palpation Extremity: COMMON NORMALS: no joint enlargement and no pedal edema Neuro: COMMON NORMALS: moves all extremities SENSORIUM/ORIENTATION: Yes alert Skin: COMMON NORMALS: no rashes or lesions noted GENERAL SKIN EXAM: no rashes or lesions noted Urinary Catheter Management^: Aggarwal: Cath Placed During This Visit: yes Reason for Continuing Indwelling Catheter: Not indwelling catheter Urinary Catheter Date of Insertion: 06/28/21 Urinary Catheter Time of Insertion: 18:41 Data : 07/17/21 05:55 07/17/21 05:55 A&P Assessment and plan (1) Pneumonia due to 2019 novel coronavirus: Hypoxia overall better, although disunion requiring up to 5 L of oxygen. She has been generally weak, inconsistently speaking, slurred speech. Risk of aspiration. She is considering with regards to feeding tube, hopefully on temporary basis. She would much rather not have a permanent feeding tube. Discussed with her and her son that this cannot be entirely guaranteed at this time, but may anticipate improvement based on her overall trajectory. Acute hypoxic respiratory failure secondary to COVID-19 pneumonia -With acute respiratory distress syndrome -Completed remdesivir course -Completed proning sessions -Empirically covered with Zosyn, de-escalated to Augmentin -Extubated 07/12/2021 -Incentive spirometer, flutter valve, up into a chair, PT OT -Continue to monitor mentation closely -Speech therapy evaluation, advance diet as tolerated -NG tube in place, receiving tube feedings, Jevity at 25 cc an hour, free water flushes 60 every 4 hours, nutrition consult, hold if residuals greater than 100, -On general medical floors -Because of increased somnolence and hypoxia, CTA was ordered, no evidence of pulmonary embolism -lovenox for dvt ppx Status: Acute (2) Acute encephalopathy: Status: Acute (3) BETSY (acute kidney injury): Resolved Mild rhabdomyolysis resolved Unremarkable renal US. Possibly secondary to COVID-19 itself. Perhaps less likely contrast-induced nephropathy as CTA was on 06/27, unless is peaking and may expect improvement otherwise, possibly prerenal component. Monitor I&O. Status: Acute (4) Acute respiratory failure with hypoxia: Status: Acute (5) Acute respiratory distress syndrome: Status: Acute Additional A&P Information Right upper and right lower extremity deficit, has resolved -Possibly related to encephalopathy -MRI brain no acute stroke -Continue aspirin, statin Acute encephalopathy, improving. Alert, to person, follows some commands, but not back to baseline, multifactorial hypoxia, COVID-19, polypharmacy, underlying dementia, CT head so far negative for vascular insult, carotid artery no hemodynamically significant stenosis, continue neurochecks, monitor mentation, hold sedating medications BETSY, resolved Hypokalemia, hypomagnesemia, hypophosphatemia, will replace Anemia, continue to monitor. Negative Hemoccult. Hypokalemia: Replaced Possible atrial flutter: Repeat EKG with sinus rhythm. Computer read on EKG, but I do not appreciate flutter waves. Does appear to have some inferolateral T wave inversions. Nonvalvular. Monitor on telemetry. Aspirin. Consider event monitor. Diarrhea: C. difficile negative, diarrhea, resolved, rectal tube was removed HTN HLD Attestations Medical Necessity Statement*: Continue admission for assessment of gradually improving hypoxia following severe COVID-19 pneumonia, requiring persistent intubation, with prolonged encephalopathy, with generalized weakness, unable to tolerate p.o. intake Due to aspiration, consideration of feeding tube placement. Disposition planning and arrangements. 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
[2021-07-18] VITALS (34 sets, daily range): BP systolic 96–172; BP diastolic 53–96; PULSE 80–132; RESP 11–98; TEMP 36.3–36.9; O2SAT 82–100; BMI 20.9
[2021-07-18] MEDS: potassium chloride oral liq 20 mEq/15 mL UDC 40 MEQ PO (00:02)
--- NOTE | 2021-07-18 00:42 | XRR_ITS ---
PROCEDURE INFORMATION: Exam: XR Chest Exam date and time: 07/18/2021 12:42 AM Age: 76 years old Clinical indication: Device placement; Ng tube; Additional info: Dyspnea/cough TECHNIQUE: Imaging protocol: XR of the chest. Views: 1 view. COMPARISON: CR XR chest 1V portable [id number] 07/13/2021 10:27 AM FINDINGS: Tubes, catheters and devices: Apparent NG tube present, passing beneath the diaphragm. The tip is likely in the body of the stomach. Lungs: No definite CHF/pulmonary edema. Scattered bilateral parenchymal opacities have improved somewhat in the interval. Findings are suspicious for pneumonia and/or atelectasis. Pleural spaces: No visible pneumothorax. No definite pleural fluid. Heart/Mediastinum: Heart size is within normal limits. Bones/joints: As before, patient has bilateral shoulder prostheses. XR/XR chest 1V portable [id number] IMPRESSION: 1. NG tube placement as above. 2. Improved bilateral lung opacities. 3. Other findings discussed above. Radiation Dose CTDIVOL = (mGy): DLP = (mGy-cm)
--- NOTE | 2021-07-18 02:33 | PM.CCN ---
Critical Care Event Note Critical Care Event The high probability of a clinically significant, sudden or life threatening deterioration of the patient's respiratory system(s) required my full and direct attention, intervention and personal management. The critical care time is as shown. This time is in addition to time spent performing any reported procedures but includes the following: [x] Data and vital sign review and interpretation [x] Patient assessment, examination and intervention [x] Documentation [x] Medication orders and management Called with patient's oxygen saturations in the 50s to 60s. On arrival she is tachypneic. She is on a nonrebreather. She has no perioral cyanosis. She has no acrocyanosis. She is breathing around 20 times a minute. She does have some supraclavicular retractions and is mouth breathing. She has some audible wheezes. Bilateral breath sounds noted. Regular rythm. Cap refil not prolonged. She will make eye contact but not talk. Murse report that she spoke to family today but not to staff. Nursing staff have been doing deep suction trying to get mucus up this evening without good result. Chest x-ray was done earlier and shows decrease in infiltrates compared to the one on the . She had a CTA of the chest done on the that did not show any evidence of emboli. It did continue to show infiltrates consistent with Covid, which she was diagnosed with first week of the month. She had been on 4 L via oxygen mask prior to this. She is okay this evening when she is not having episodes of coughing but with the coughing becomes more hypoxic. She does not answer questions. ABG was ordered. Results showed 7.4 . I have asked for it to be redrawn. Ordered repeat CTA chest and cxr. No beds in ICU or CSU will adjust treatment and monitor closely. Plan to order lasix 20mg IV once and potassium, solumedrol once, guaifenesin per NGT, bipap as needed. She was extubated on 06/2020. Zosyn stopped 07/16 and put on oral augmentin. Had been on antibiotics almost since admit that I can tell from chart review. Only ~650 ml + fluid balance this hospital stay. Critical Care Time Critical Care Time: Code activated: No Critical Care Time (min): 45 Coding Level of Care Code Acute Gas Appliance Repairer for Chg Fwnir
--- NOTE | 2021-07-18 02:40 | XRR_ITS ---
PROCEDURE INFORMATION: Exam: XR Chest Exam date and time: 07/18/2021 2:40 AM Age: 76 years old Clinical indication: Dyspnea; Additional info: Hypoxemia TECHNIQUE: Imaging protocol: XR of the chest. Views: 1 view. COMPARISON: CR (CHEST, ) 07/18/2021 1:03 AM FINDINGS: Tubes, catheters and devices: NG tube passes beneath the diaphragm, tip likely in the body of the stomach, not significantly changed. Lungs: No definite CHF/pulmonary edema. Newly visible prominent opacities in the right lower lung, suspicious for atelectasis and/or pneumonia. Question if there is a history of recent aspiration. Mild scattered bilateral lung opacities are otherwise essentially unchanged. Pleural spaces: No visible pneumothorax. No definite pleural fluid. Heart/Mediastinum: Heart size is within normal limits. Bones/joints: No significant acute finding. XR/XR chest 1V portable [id number] IMPRESSION: 1. Newly visible prominent opacities in the right lower lung, see above discussion. 2. Other findings discussed above. Radiation Dose CTDIVOL = (mGy): DLP = (mGy-cm)
--- NOTE | 2021-07-18 02:41 | CTR_ITS ---
PROCEDURE INFORMATION: Exam: CTA Chest With Contrast Exam date and time: 07/18/2021 2:41 AM Age: 76 years old Clinical indication: Dyspnea; Additional info: Hypoxemia, aware had one done 2 days ago TECHNIQUE: Imaging protocol: Computed tomographic angiography of the chest with contrast. 3D rendering (Not supervised by radiologist): MIP and/or 3D reconstructed images were created by the technologist. Radiation optimization: All CT scans at this facility use at least one of these dose optimization techniques: automated exposure control; mA and/or kV adjustment per patient size (includes targeted exams where dose is matched to clinical indication); or iterative reconstruction. Contrast material: VISI; Contrast volume: 95 ml; Contrast route: INTRAVENOUS (IV); COMPARISON: CT angio chest PE protcl [id number] 07/15/2021 3:28 PM RADIATION DOSE METRICS: Total DLP (mGy-cm): 547.76 FINDINGS: Tubes, catheters and devices: Feeding tube is in satisfactory position. Pulmonary arteries: Normal. No pulmonary emboli. Aorta: Stable ectatic ascending aorta measuring 3.7 cm in diameter. Other arteries: Mild diffuse atherosclerotic disease is present. Lungs: Persistent bilateral ground-glass opacities in a predominantly peripheral distribution, with interval worsening of scattered areas of consolidation. There is new extensive mucous plugging of the right middle and lower lobe bronchi. Tiny calcified granuloma noted in the left upper lobe. Pleural spaces: Unremarkable. No pneumothorax. No pleural effusion. Heart: Normal heart size. Coronary atherosclerotic calcifications seen. No pericardial effusion. Mediastinal space: There is a new small amount of pneumomediastinum. Lymph nodes: Unremarkable. No enlarged lymph nodes. Gallbladder and bile ducts: The gallbladder has been surgically removed. Adrenal glands: Unchanged thickening of the left adrenal gland. Bones/joints: The patient is status post bilateral shoulder arthroplasty. Degenerative changes of the spine seen. Soft tissues: Unremarkable. CT/CT angio chest PE protcl [id number] IMPRESSION: 1. No pulmonary embolus. 2. New extensive mucous plugging in the right middle and lower lobe bronchi, and interval worsening of bilateral airspace opacities/consolidations. Radiation Dose CTDIVOL = (mGy): DLP = 547.76 (mGy-cm)
--- NOTE | 2021-07-18 04:00 | PC.NURSE ---
Transfer Note Patient transferred to ICU from [facility] via bed. Handoff report received from Omari Dugan. Patient oriented to environment and equipment. Covering service notified. Orders reviewed and will continue to monitor. Family and/or office services representative notified.
--- NOTE | 2021-07-18 04:02 | PC.NURSE ---
This nurse was notified that patient O2 was 60%. When this nurse walked in patients room RT was deep suctioning the patient to clear airway from mucous. Patient continued to decline so I called Dr. Larose. Doctor requested ABG to be drawn. Nurse and RT continued to try and clear airway with suction. Nurse called family to verify code status and son said he wanted everything to be done to save patient. Patient stayed around 50-60% on 15L nonrebreather. Bipap was brought in by RT and put on patient, patient came up to 65-70%. Called family and updated on patient status and that patient would be transferred to ICU.
[2021-07-18 04:41] LABS: ABG PH Result 7.47 (7.35-7.45); Blood Gas Allen Test Pos; Blood Gas Sample Site Radial, right; Blood Gas Sample Type Arterial; Carboxyhemoglobin 0.9 %THgb (0.4-20.1); Ionized Calcium Level - ABG 1.1 mmol/L (1.1-1.4); Oxygen Device NRB
[2021-07-18 04:46] LABS: Blood Gas Operator Identificat glc
[2021-07-18 04:52] LABS: ABG PCO2 40.8 mmHg (35-45); ABG PH Result 7.47 (7.35-7.45); PO2 ABG 29.2 mmHg (80.0-100.0)
[2021-07-18 04:53] LABS: Base Excess ABG 5.1 mmol/L (-2.0-2.0); Blood Gas Allen Test POS; Blood Gas Operator Identificat GLC; Blood Gas Sample Type Arterial; HCO3 ABG 29.3 mmol/L (22-26); Oxygen Device NRB
[2021-07-18 04:54] LABS: Arterial Blood Gas Hematocrit 35.7 % (37-47); Blood Gas CCRB Time 1430
[2021-07-18] MEDS: FUROsemide 10 mg/mL SDV 2mL 20 MG IVP (04:55)
[2021-07-18] MEDS: lidocaine 1% 5 ML in potassium chloride premix 100 ML 50 ML IV (04:56)
[2021-07-18] MEDS: metroNIDAZOLE IV 500 MG/100 ML PREMIX 100 MG IV ×2 (06:44→11:51)
[2021-07-18 07:22] LABS: Alanine Aminotransferase 21 U/L (0-33); Albumin Level 3.3 g/dL (3.5-5.2); Alkaline Phosphatase 123 IU/L (35-105); Anion Gap 18.2 (5-19); Aspartate Amino Transferase 20 U/L (0-32); Blood Urea Nitrogen 23 mg/dL (8-23); Calcium 8.7 mg/dL (8.5-10.5); Carbon Dioxide 27 mmol/L (22-29); Chloride 96 mmol/L (98-107); Globulin 4.1 g/dL (1.3-4.6); Glucose 113 mg/dL (65-115); Magnesium 1.7 mg/dL (1.7-2.3); NT Pro B Type Natriuretic Pept 1628 pg/mL (0-450); Osmolality Calculated 288 mOsm/kg (285-295); Phosphorus 3.3 mg/dL (2.5-4.5); Potassium 4.2 mmol/L (3.5-5.1); Sodium 137 mmol/L (136-145); Total Bilirubin 0.6 mg/dL (0.15-1.2); Total Protein 7.4 g/dL (6.6-8.7)
--- NOTE | 2021-07-18 07:32 | PC.NURSE ---
Shift Summary Patient resting comfortably in bed. BIPAP is at 95% FiO2. No wounds or skin issues noted at this time. Patient noted to have low O2 sats in the 70's upon arrival to ICU. Patient has since then recovered and is satting in the 90's.
[2021-07-18 07:53] LABS: ABG PCO2 38.8 mmHg (35-45); Alveolar-Arterial Oxygen Gradi 83.5 mmHg (5-10); Arterial Blood Gas Hematocrit 35.5 % (37-47); Base Excess ABG 4.3 mmol/L (-2.0-2.0); HCO3 ABG 28.3 mmol/L (22-26); HGB O2 Sat 43.4 % (95-100); Methemoglobin 0.6 % (0.4-1.5); Oxygen Saturation ABG 44.1; Potassium Level - ABG 4.2 mmol/L (3.5-5.0); Total Hemoglobin 11.6 g/dL (12-16)
[2021-07-18 07:54] LABS: PO2 ABG 23.8 mmHg (80.0-100.0)
[2021-07-18 07:56] LABS: Basophils % 0.3 %; Eosinophils % 0.3 %; Hematocrit 37.4 % (37.0-47.0); Hemoglobin 11.8 g/dL (11.5-15.3); Lymphocytes # 0.5 10^3/uL (0.8-4.8); Mean Corpuscular HGB Conc 31.6 g/dL (30.0-36.0); Mean Corpuscular Hemoglobin 28.4 pg (28.0-34.0); Mean Corpuscular Volume 90.1 fl (81-99); Mean Platelet Volume 13.6 fL (7.4-10.4); Monocytes # 0.4 10^3/uL (0.2-0.9); Neutrophils # 11.94 10^3/uL (1.8-7.7); Neutrophils % 91.4 %; Nucleated Red Blood Cells % 0 %; Platelet Count 204 10^3/cmm (130-400); Red Blood Count 4.15 10^6/uL (4.1-5.3); Red Cell Distribution Width 13.2 % (12.1-15.1); White Blood Count 13.1 10^3/uL (4.0-10.0)
[2021-07-18] MEDS: budesonide 0.5 mg/2 mL Neb INHALATION ×2 (08:16→20:00)
[2021-07-18] MEDS: ipratropium-albuterol 3 mL Neb INHALATION ×3 (08:16→20:00)
[2021-07-18 08:19] LABS: Slide Review Slide Review Perform
--- NOTE | 2021-07-18 09:10 | PC.SLP ---
Attempted to see patient today to re-assess swallowing function. Due to decline in respiratory status, patient is not able to fully participate in a re-assessment. Will continue to follow and re-assess when it is appropriate.
[2021-07-18] MEDS: pantoprazole DR 40 mg Tablet PO ×2 (09:27→22:16)
[2021-07-18] MEDS: aspirin 81 mg Chew Tablet PO (09:27)
[2021-07-18] MEDS: polyethylene glycol 3350 Pkt 17 gm PO (09:27)
[2021-07-18] MEDS: amoxicillin-clav 875-125 mg Tablet 1 TAB PO ×2 (09:27→22:16)
--- NOTE | 2021-07-18 10:05 | PC.NUTR ---
Addendum entered by Nata Back OT 07/18/21 13:24: note entered in error under wrong discipline. Original Note: OT treatment attempted this date. Patient guarded and pulled away when assist provided for hand washing with a wash cloth. Patient's goals reviewed and updated. Continue treatment per plan of care.
--- NOTE | 2021-07-18 10:54 | P.PN_ITS ---
Subjective Subjective: Interval history: Decompensated overnight. Noted to have some aspiration/cough yesterday by her son during the visit. Overnight requiring BiPAP support, transferred to ICU. She is awake, alert, overall weaker than yesterday, little bit more confused, not communicating well this morning. Vitals/I&O/Wt Last Vital Signs Temp 98.5 F 07/18/21 00:00 Pulse 106 H 07/18/21 08:42 Resp 29 H 07/18/21 08:20 BP 129/75 07/18/21 06:30 Pulse Ox 88 L 07/18/21 08:40 Weight last 48 hrs Weight 51.88 kg Physical Exam Const: COMMON NORMALS: alert ORIENTATION/CONSCIOUSNESS: Yes awake and Yes confused OTHER: Awake, alert, frail, generally weak. HENMT: COMMON NORMALS: oropharynx normal Neck/C-Spine: COMMON NORMALS: no JVD Resp: AUSCULTATION: diminished lung sounds Cardio: COMMON NORMALS: no JVD, regular rhythm, S1 normal heart sound present, S2 normal heart sound present and No murmurs present (Cardio) RHYTHM: regular rhythm HEART SOUNDS: S1 normal heart sound present and S2 normal heart sound present GI: COMMON NORMALS: Normal to inspection, nondistended, normoactive bowel sounds present and Soft to palpation PALPATION: Yes Soft to palpation Extremity: COMMON NORMALS: no joint enlargement and no pedal edema Neuro: COMMON NORMALS: moves all extremities SENSORIUM/ORIENTATION: Yes alert Skin: COMMON NORMALS: no rashes or lesions noted GENERAL SKIN EXAM: no rash es or lesions noted Urinary Catheter Management^: Aggarwal: Cath Placed During This Visit: yes Reason for Continuing Indwelling Catheter: Accurate Measurement of Urinary Output in Critically Ill Patients Urinary Catheter Date of Insertion: 06/28/21 Urinary Catheter Time of Insertion: 18:41 Data : 07/18/21 06:15 07/18/21 06:15 A&P Assessment and plan (1) Pneumonia due to 2019 novel coronavirus: Decompensated overnight. Suspected possible aspiration given her son witnessed may have been aspirating yesterday. Noted to have mucus plugging in the right middle and lower lobe, with worsening consolidation/pneumonia. Discussed with pulmonology, his son. Discussed possibility of bronchoscopy to help alleviate mucus plugging and help with oxygenation. She is generally weak, today more confused, not likely to be able to effectively cough things on her own, and currently also requiring BiPAP support. Son states he understands that she may require mechanical ventilation at least transiently following intubation for bronchoscopy. Discussed also given recurrence of aspiration, still inability to establish oral intake additional consideration again of feeding tube and tracheostomy given she has had recurrence of aspiration despite no oral intake with everything going by NGT. Currently on Augmentin, Flagyl was added overnight. MRSA PCR had been negative. Acute hypoxic respiratory failure secondary to COVID-19 pneumonia -With acute respiratory distress syndrome -Completed remdesivir course -Completed proning sessions -Empirically covered with Zosyn, de-escalated to Augmentin -Extubated 07/12/2021 -Incentive spirometer, flutter valve, up into a chair, PT OT -Continue to monitor mentation closely -Speech therapy evaluation, advance diet as tolerated -NG tube in place, receiving tube feedings, Jevity at 25 cc an hour, free water flushes 60 every 4 hours, nutrition consult, hold if residuals greater than 100, -lovenox for dvt ppx Status: Acute (2) Acute encephalopathy: Status: Acute (3) BETSY (acute kidney injury): Resolved Mild rhabdomyolysis resolved Unremarkable renal US. Possibly secondary to COVID-19 itself. Perhaps less likely contrast-induced nephropathy as CTA was on 06/27, unless is peaking and may expect improvement otherwise, possibly prerenal component. Monitor I&O. Status: Acute (4) Acute respiratory failure with hypoxia: Status: Acute (5) Acute respiratory distress syndrome: Status: Acute Additional A&P Information Right upper and right lower extremity deficit, has resolved -Possibly related to encephalopathy -MRI brain no acute stroke -Continue aspirin, statin Acute encephalopathy, improving. Alert, to person, follows some commands, but not back to baseline, multifactorial hypoxia, COVID-19, polypharmacy, underlying dementia, CT head so far negative for vascular insult, carotid artery no hemodynamically significant stenosis, continue neurochecks, monitor mentation, hold sedating medications BETSY, resolved Hypokalemia, hypomagnesemia, hypophosphatemia, will replace Anemia, continue to monitor. Negative Hemoccult. Hypokalemia: Replaced Possible atrial flutter: Repeat EKG with sinus rhythm. Computer read on EKG, but I do not appreciate flutter waves. Does appear to have some inferolateral T wave inversions. Nonvalvular. Monitor on telemetry. Aspirin. Consider event monitor. Diarrhea: C. difficile negative, diarrhea, resolved, rectal tube was removed HTN HLD Attestations Medical Necessity Statement*: Continue admission for assessment of management of worsening hypoxic respiratory failure, mucous plugging, worsening pneumoniav after aspiration, protracted generalized weakness, cognitive decline following severe COVID-19 infection. Coding Level of Care Code Acute Mail Order Biller for [facility] Fwd Diagnoses Pneumonia due to 2019 novel coronavirus U07.1; J12.82 Acute encephalopathy G93.40 BETSY (acute kidney injury) N17.9 Acute respiratory failure with hypoxia J96.01 Acute respiratory distress syndrome J80
[2021-07-18] MEDS: hyDRALAzine 20 mg/mL INJ 1 mL 10 MG IVP (11:57)
--- NOTE | 2021-07-18 13:25 | PC.OT ---
OT treatment attempted this date. Patient guarded and pulled away when assist provided for hand washing with a wash cloth. Patient's goals reviewed and updated. Continue treatment per plan of care.
[2021-07-18] MEDS: fentaNYL 50 mcg/mL INJ 2mL IVP (13:30)
[2021-07-18] MEDS: midazolam 1 mg/mL INJ 2 mL 2 MG IVP (13:31)
[2021-07-18] MEDS: rocuronium 10 mg/mL INJ 5mL 50 MG IVP (13:32)
[2021-07-18] MEDS: lidocaine 1% INJ 20 mL XX (13:48)
--- NOTE | 2021-07-18 13:56 | PC.NURSE ---
Midline ready for use. Primary nurse notified.
[2021-07-18 16:27] LABS: ABG PCO2 38.1 mmHg (35-45); ABG PH Result 7.46 (7.35-7.45); Alveolar-Arterial Oxygen Gradi 77.7 mmHg (5-10); Arterial Blood Gas Hematocrit 35.2 % (37-47); Base Excess ABG 2.9 mmol/L (-2.0-2.0); Blood Gas Allen Test Pos; Blood Gas Operator Identificat CAK; Blood Gas Sample Site Radial, right; Blood Gas Sample Type Arterial; Blood Gas Tidal Volume 0.38; Carboxyhemoglobin 0.6 %THgb (0.4-20.1); HCO3 ABG 26.9 mmol/L (22-26); HGB O2 Sat 92.8 % (95-100); Ionized Calcium Level - ABG 1.1 mmol/L (1.1-1.4); Methemoglobin 0.7 % (0.4-1.5); Oxygen Device VENT; PO2 ABG 63.9 mmHg (80.0-100.0); Potassium Level - ABG 3.8 mmol/L (3.5-5.0); Total Hemoglobin 11.5 g/dL (12-16)
--- NOTE | 2021-07-18 16:42 | PM.ACPR ---
Procedure/Consent Time out: Time Out Performed: Yes Consent: Consent for Procedure: Consent obtained from other (indicate) (Son, verbal consent obtained via telephone) Procedure Narrative: Name of the procedure: Endotracheal intubation. Indication: Hypoxic respiratory failure and need for airway for bronchoscopy intervention. Medications: Etomidate 15 mg, rocuronium 50 mg Procedure: The patient was positioned optimally. The patient was oxygenated with 100% oxygen with noninvasive ventilator. After appropriate medications were given, the video laryngoscope blade was introduced. Clotted blood was noted at the back of the tongue and over the glottic structures. The arytenoid cartilage, aryepiglottic fold or vocal cords were not visualized. Suction was applied. After vigorous suctioning, blood clots was noted to extend through the vocal cords into the trachea. The clot was cleaned up as much as possible. The video laryngoscope blade was then advanced till vocal cords were visualized. The endotracheal tube was advanced through the vocal cords under direct visualization. There was fogging of the ET tube, positive change in end-tidal CO2 monitor, bilateral chest rise, bilateral positive breath sound. The ET tube was secured at 21 cm at the lips. Complications: There was no immediate complications. Chest x-ray: Pending. Acute Procedures Epistaxis Control: Time out performed: Yes
--- NOTE | 2021-07-18 16:45 | XRR_ITS ---
PROCEDURE INFORMATION: Exam: XR Chest Exam date and time: 07/18/2021 4:45 PM Age: 76 years old Clinical indication: Shortness of breath; Prior surgery; Surgery date: Post-operative (0-2 days); Additional info: Post bronchoscopy TECHNIQUE: Imaging protocol: XR of the chest. Views: 1 view. COMPARISON: CR (CHEST, ) 07/18/2021 4:16 AM FINDINGS: Tubes, catheters and devices: Endotracheal tube tip is approximately 2 cm above the franky. Lungs: There is much improved aeration of the right lower and middle lobes. There is some increasing infiltrate or atelectasis in the left mid lung. There are mild residual patchy infiltrates on the right. Pleural spaces: Unremarkable. No pleural effusion. No pneumothorax. Heart/Mediastinum: There are findings of pneumomediastinum similar to CT scan 07/18/2021. Bones/joints: Bilateral shoulder replacements are noted. XR/XR chest 1V portable [id number] IMPRESSION: 1. Satisfactory position of endotracheal tube 2. Improving right pulmonary aeration. 3. Increasing infiltrate on the left. 4. No change in pneumomediastinum. Radiation Dose CTDIVOL = (mGy): DLP = (mGy-cm)
--- NOTE | 2021-07-18 16:46 | P.PN_ITS ---
Subjective Subjective: Interval history: The patient was seen and examined feels last time I saw the patient was 6 days ago. The patient at that time was extubated and her oxygen requirement was coming down. The patient continued to improve on the floor however over the past couple of days her oxygen requirement has been progressively getting worse. Today the patient was in the ICU on 85% oxygen on BiPAP. CT angiogram of the chest did not reveal any pulmonary embolism however extensive mucus in the right bronchus intermedius and lower lobe bronchus with increasing consolidation was noted. The plan was made to perform a bronchoscopy and the patient was intubated for that purpose. Medications: Reviewed: Yes Vitals/I&O/Wt Last Vital Signs Temp 97.4 F L 07/18/21 08:00 Pulse 103 H 07/18/21 14:53 Resp 21 H 07/18/21 16:18 BP 144/96 07/18/21 08:00 Pulse Ox 92 07/18/21 16:18 07/18/21 07/18/21 07/18/21 06:59 14:59 22:59 Intake Total 100 / 100 Output Total 1150 / 1150 Balance -1150 / -1150 100 / 100 Weight last 48 hrs Weight 114 lb 6 oz Physical Exam Narrative: EXAM NARRATIVE: General: The patient is awake and somewhat alert, tachypneic, uncomfortable and appears to be short of breath Neck: No JVD Respiratory: Auscultation: Reduced breath sound in the right hemithorax, crackles at wayne ateral lung bases Cardiovascular: Regular rate and rhythm, S1-S2 present, no murmur, no peripheral edema. Abdomen: Soft,nondistended, positive bowel sound Skin: No rash Neuro: The patient is alert, moves all extremities, no gross motor deficit Urinary Catheter Management^: Aggarwal: Cath Placed During This Visit: yes Reason for Continuing Indwelling Catheter: Accurate Measurement of Urinary Output in Critically Ill Patients Urinary Catheter Date of Insertion: 06/28/21 Urinary Catheter Time of Insertion: 18:41 Data : 07/18/21 06:15 07/18/21 06:15 Attestation for Other Data: I personally reviewed and interpreted the following: Other data: I have reviewed the patient's laboratory, [place] and radiologic data. Please see the HPI for radiologic data. The patient has mild leukocytosis. Electrolytes are normal. Creatinine stable. A&P Assessment and plan (1) Acute respiratory failure with hypoxia: This is a 76-year-old lady who had recovered from COVID-19. The patient was extubated a few days ago and her oxygen requirement had been slowly coming down. Unfortunately, over the past 48 hours her oxygen requirement continued to increase and today the patient was on 85% oxygen. CT angiogram of the chest revealed extensive mucus plugging on the right side of the chest. On bronchoscopic evaluation the patient had mucous plugging extending from the lower trachea into the entire length of the right mainstem bronchus. The patient was intubated for the procedure. Given the patient's poor cough and severe weakness after a 3-week hospital admission already I believe this is more likely to happen in the future again. We are getting microbiologic study from the bronchoalveolar lavage. For now the patient is going to stay intubated. She will likely be candidate for trach and PEG in the near future. Patient is currently on Augmentin. It will provide adequate anaerobic coverage for the time being. If there is any resistant organism on the bronchoalveolar lavage will change antibiotic appropriately. Her white count has been stable. Believe the reason for her worsening shortness of breath and hypoxia is a mucous plugging. Status: Acute (2) Mucus plugging of bronchi: The mucous plugging was cleared out with bronchoscopy. Follow-up chest x-ray is pending. I believe there will be significant improvement in her oxygenation in the near future. Status: Acute Attestations Medical Necessity Statement*: Will defer to the primary team Coding Level of Care Code Acute Physical Testing Supervisor for [facility] Diagnoses Acute respiratory failure with hypoxia J96.01 Mucus plugging of bronchi T17.500A Time Spent (min) 33
--- NOTE | 2021-07-18 17:01 | PM.ACPR ---
Procedure/Consent Time out: Time Out Performed: Yes Consent: Consent for Procedure: Consent obtained from other (indicate) (Son) Procedure Narrative: Name of the procedure: Bronchoscopy with inspection of the airway, clearance of the airway, bronchoalveolar lavage. Indication: Acute hypoxic respiratory failure in the setting of extensive mucous plugging of the right lung Medication: The patient is on intravenous fentanyl and propofol drip. Description of the procedure: Consent was obtained for the bronchoscopy procedure from her son. The patient was intubated for acute hypoxic respiratory failure and for the purpose of the bronchoscopy. 1% lidocaine 5 mL was introduced through the ET tube. The bronchoscope was introduced into the endotracheal tube. Significant amount of mucus was noted at the lower part of the endotracheal tube which was suctioned out. After a significant amount of mucus was removed from the endotracheal tube and the lower part of the trachea, the franky was visible. Mucus plugging was noted starting from the franky all the way down to the right lower lobe bronchus. The left mainstem bronchus was patent and the left upper lobe, lingula and lower segmental and subsegmental bronchi were examined without any abnormalities. There was mild mucus. Mucomyst was instilled into the right mainstem bronchus. After extensive suctioning approximately over 30 minutes all the inspissated mucus was cleared out. Bronchoalveolar lavage was performed from the medial lobe of the right middle lobe. 60 cc of fluid was instilled, fluid return was 30 mm, fluid was cloudy. The BAL was sent for Gram stain culture, fungal stain and culture. Complications: No immediate complication was noted. Postprocedure chest x-ray was pending. Acute Procedures Epistaxis Control: Time out performed: Yes
[2021-07-18] MEDS: enoxaparin 40 mg/0.4 mL Syringe SUBCUT (17:53)
[2021-07-18] MEDS: propofol 1,000 MG/100 ML INJ 7.78 MG IV (19:00)
--- NOTE | 2021-07-18 19:43 | PC.NURSE ---
Shift Summary: Patient had a bronchoscopy which resulted in large amounts of mucus removed from lungs. Patient remains intubated. On levophed, propofol, fentanyl. Rested in bed throughout the day. Family was updated on status.
--- NOTE | 2021-07-18 19:50 | PC.NURSE ---
Patient's NG tube was removed during bronch/intubation. NUrse attempted to place a new OG tube, but was unsuccessful. Unable to give PO meds at this time. Nurse alerted junior accountant RN who will attempt OG placement, or, if unsuccessful, look into changing medication routes.
--- NOTE | 2021-07-18 21:39 | XRR_ITS ---
PROCEDURE INFORMATION: Exam: XR Chest Exam date and time: 07/18/2021 9:39 PM Age: 76 years old Clinical indication: Device placement; Other: Og placement; Prior surgery; Surgery date: Post-operative (0-2 days); Additional info: Check og tube placement TECHNIQUE: Imaging protocol: XR of the chest. Views: 1 view. COMPARISON: CR (CHEST, ) 07/18/2021 4:56 PM FINDINGS: Tubes, catheters and devices: Endotracheal tube tip is approximately 1.5 cm above the franky. Orogastric tube tip is in the stomach. Lungs: Bilateral pulmonary infiltrates not significantly changed from the prior examination. Pleural spaces: Unremarkable. No pleural effusion. No pneumothorax. Heart/Mediastinum: Small pneumomediastinum not significantly changed. Bones/joints: Unremarkable. XR/XR chest 1V portable [id number] IMPRESSION: 1. NG tube tip is in the stomach. 2. No change in bilateral pulmonary infiltrates. 3. Stable pneumomediastinum Radiation Dose CTDIVOL = (mGy): DLP = (mGy-cm)
[2021-07-18] MEDS: atorvastatin 40 mg Tablet PO (22:15)
[2021-07-18] MEDS: trazodone 50 mg Tablet 25 MG PO (22:15)
--- NOTE | 2021-07-18 23:12 | PC.NURSE ---
PICC Line Upon reassessment of patient, noted right radial pulse was absent and hand was cool to the touch. Right radial pulse was dopplered and was able to obtain a faint pulse. Flushed PICC line and leandro back blood, upon saline locking line RN noted pulsation in line. Dr. Larose notified, discontinued PICC line and obtained over the phone verbal informed consent from patient son Freddy for a central line.
[2021-07-19] VITALS (68 sets, daily range): BP systolic 69–146; BP diastolic 46–92; PULSE 96–157; RESP 9–31; TEMP 36.4–37.1; O2SAT 65–100; BMI 18.8
--- NOTE | 2021-07-19 01:23 | XRR_ITS ---
PROCEDURE INFORMATION: Exam: XR Chest Exam date and time: 07/19/2021 1:23 AM Age: 76 years old Clinical indication: Other vascular access device placement or adjustment; Central line, non-tunnelled; Patient HX: Check S/P central line placement. TECHNIQUE: Imaging protocol: XR of the chest. Views: 1 view. COMPARISON: CR (CHEST, ) 07/18/2021 9:50 PM FINDINGS: Tubes, catheters and devices: Stable enteric tube. Stable endotracheal tube. Stable right central line with tip over the proximal right atrium, 1.5 cm distal to the atrial caval junction. Lungs: Continued [id number] bilateral nonspecific pulmonary opacities most consistent with pneumonia. Pleural spaces: Unremarkable. No pleural effusion. No pneumothorax. Heart/Mediastinum: Unremarkable. No cardiomegaly. Bones/joints: Stable bilateral total shoulder replacement with metallic artifact. XR/XR chest 1V portable [id number] IMPRESSION: 1. Stable enteric tube. 2. Stable endotracheal tube. 3. Stable right central line with tip over the proximal right atrium, 1.5 cm distal to the atrial caval junction. 4. Continued [id number] bilateral nonspecific pulmonary opacities most consistent with pneumonia. Radiation Dose CTDIVOL = (mGy): DLP = (mGy-cm)
--- NOTE | 2021-07-19 01:30 | PC.NURSE ---
Central Line Insertion Obtained over the phone informed consent from patient son Freddy since patient is unable to give consent due to being intubated and sedated. Second nurse TOSIN Caraballo witnessed verbal consent over telephone. Dr. Larose at bedside to insert central line, time out performed by Dr. Larose. Central line placed in the right IJ, chest x-ray obtained to confirm placement.
[2021-07-19] MEDS: ipratropium-albuterol 3 mL Neb INHALATION ×3 (02:58→20:05)
--- NOTE | 2021-07-19 07:19 | PC.NURSE ---
Shift Note Frequent safety and comfort rounds continue. Orders and/or nursing care completed as indicated. Patient monitored for response to intervention and treatment(s). Education provided includes sedation medication and central line placement. Patient needs further reinforcement. Vent settings are as follows; mode-CMV, FiO2-60%, VT-380, rate-14, PEEP-10. Right IJ central line infusing Levophed, Propofol, and Fentanyl. Please see MAR for infusion rates. No wounds or skin issues noted at this time. Aggarwal catheter drained 250 mls of dark yellow urine overnight. Patient is unresponsive to painful and verbal stimuli at this time. Will continue to monitor.
[2021-07-19] MEDS: propofol 1,000 MG/100 ML INJ 12.45 MG IV ×2 (07:44→15:53)
[2021-07-19] MEDS: budesonide 0.5 mg/2 mL Neb INHALATION ×2 (07:49→20:06)
--- NOTE | 2021-07-19 07:49 | PC.OT ---
OT TREATMENT HELD DUE TO PATIENT INTUBATION
[2021-07-19] MEDS: pantoprazole DR 40 mg Tablet PO ×2 (09:12→18:25)
[2021-07-19] MEDS: polyethylene glycol 3350 Pkt 17 gm PO (09:12)
[2021-07-19] MEDS: amoxicillin-clav 875-125 mg Tablet 1 TAB PO (09:12)
[2021-07-19] MEDS: aspirin 81 mg Chew Tablet PO (09:12)
--- NOTE | 2021-07-19 09:43 | P.CONIM_ITS ---
Providers/Reason For Consult Consulting Physician/Specialty*: General Surgery Ciro Rdz MD Reason for Consult*: Requesting PEG tube placement. Attending Physician: Lars Valentine History of Present Illness History of Present Illness Clare Stewart is a 76 year old female originally admitted weeks ago with COVID-19 pneumonia. She has had a waxing and waning course but is now reintubated in the intensive care unit. She has had nutrition via orogastric tubes, etc. but now the family has been approached regarding a possible PEG tube placement. I believe a tracheostomy has also been discussed, as well. I was asked to place a PEG tube. Review of Systems General: Reports: ROS unobtainable due to endotracheal tube Meds/Allergies Home Medications and Allergies Home Medications Medication Instructions Recorded Confirmed Last Taken Type hydrochlorothiazide 25 mg PO QAM 06/27/21 06/27/21 Unknown History methocarbamol [Robaxin] 750 - 1,500 mg PO TID PRN 06/27/21 06/27/21 Unknown History pantoprazole [Protonix] 40 mg PO DAILY 06/27/21 06/27/21 Unknown History potassium chloride 5 meq PO DAILY 06/27/21 06/27/21 Unknown History pramipexole 0.5 mg PO DAILY 06/27/21 06/27/21 Unknown History prednisolone acetate 1 drp OPHTHALMIC (EYE) . DIRECTED 06/27/21 06/27/21 Unknown History simvastatin [Zocor] 20 mg PO DAILY 06/27/21 06/27/21 Unknown History sucralfate [Carafate] 1 g PO .BEFORE MEALS AND HS 06/27/21 06/27/21 Unknown History trazodone 50 mg PO BEDTIME 06/27/21 06/27/21 Unknown History Allergies Allergy/AdvReac Type Severity Reaction Status Date / Time No Known Allergies Allergy Verified 07/15/21 16:11 Current Medications Current Medications Generic Name Dose Route Start Last Admin Trade Name Freq PRN Reason Stop Dose Admin Albuterol/Ipratropium 3 ml 06/27/21 16:28 07/19/21 07:49 Ipratropium-Albuterol 3 Ml Neb INHALATION 3 ml Q6H PRN Administration SHORTNESS OF BREATH Amoxicillin/Clavulanate Potassium 1 tab 07/16/21 18:00 07/19/21 09:12 Amoxicillin-Clav 875-125 Mg Tablet PO 1 tab BID MARC Administration Protocol Aspirin 81 mg 07/11/21 09:00 07/19/21 09:12 Aspirin 81 Mg Chew Tablet PO 81 mg DAILY MARC Administration Atorvastatin Calcium 40 mg 07/13/21 21:00 07/18/21 22:15 Atorvastatin 40 Mg Tablet PO 40 mg BEDTIME MARC Administration Budesonide 0.5 mg 06/27/21 20:00 07/19/21 07:49 Budesonide 0.5 Mg/2 Ml Neb INHALATION 0.5 mg BID.RESPIRATORY MARC Administration Enoxaparin Sodium 40 mg 07/15/21 17:00 07/18/21 17:53 Enoxaparin 40 Mg/0.4 Ml Syringe SUBCUT 40 mg Q24H MARC Administration Propofol 1,000 mg in 100 mls @ 0 mls/hr 07/18/21 13:30 07/19/21 07:44 Diprivan IV 40 mcg/kg/min .Q0M MARC 12.45 mls/hr Administration Protocol Per Protocol Fentanyl 1,000 mcg/ Sodium 100 mls @ 0 mls/hr 07/18/21 13:30 07/19/21 06:43 Chloride IV 100 mcg/hr .Q0M MARC 10 mls/hr Titration Protocol Per Protocol Norepinephrine Bitartrate 4 mg 254 mls @ 10.583 mls/hr 07/18/21 13:45 07/19/21 08:02 / Dextrose IV 07/19/21 13:44 8 mcg/min .Q24H ONE 30.48 mls/hr Administration Protocol Lanolin 1 applic 07/09/21 10:33 07/09/21 10:40 Lanolin Oint 7 Gm TOPICAL 1 applic PRN PRN Administration DRYNESS Pantoprazole Sodium 40 mg 07/16/21 09:00 07/19/21 09:[address] 40 Mg Tablet PO 40 mg BID MARC Administration Polyethylene Glycol 17 gm 06/29/21 10:00 07/19/21 09:12 Polyethylene Glycol 3350 Pkt 17 Gm PO 17 gm DAILY MARC Administration Trazodone HCl 25 mg 07/10/21 21:00 07/18/21 22:15 Trazodone 50 Mg Tablet PO 25 mg BEDTIME MARC Administration PFSH Acute PFSH: Medical History (Updated 07/19/21 @ 09:49 by Ciro Rdz MD) History of gastritis EGD 2018 History of hyperlipidemia History of hypertension Surgical History (Updated 07/19/21 @ 09:49 by Ciro Rdz MD) History of cholecystectomy History of hysterectomy History of shoulder surgery Right Family History (Updated 07/19/21 @ 09:50 by Ciro Rdz MD) Sister Diabetes Social History Smoking and tobacco status: never smoked Alcohol intake: never Substance/Drug Use: never Vitals/I&O/Wt Last Vital Signs Temp 97.8 F 07/19/21 04:00 Pulse 112 H 07/19/21 07:51 Resp 14 07/19/21 07:51 BP 102/58 07/19/21 05:00 Pulse Ox 95 07/19/21 07:51 07/18/21 07/19/21 07/19/21 22:59 06:59 14:59 Intake Total 297.667 / 837.452 234.785 / 837.452 189.348 / 189.348 Output Total 200 / 460 260 / 460 Balance 97.667 / 377.452 -25.215 / 377.452 189.348 / 189.348 Weight last 48 hrs Weight 103 lb 6 oz Weight 114 lb 6 oz Physical Exam Narrative: EXAM NARRATIVE: The patient was encountered in her room in the intensive care unit. She is intubated and sedated. The heart sounds regular but she is somewhat tachycardic with a rate of 120. The abdomen is nondistended and is soft. I cannot see any upper abdominal scars. The extremities do not reveal any significant edema. Urinary Catheter Management^: Aggarwal: Cath Placed During This Visit: yes Reason for Continuing Indwelling Catheter: Accurate Measurement of Urinary Output in Critically Ill Patients Urinary Catheter Date of Insertion: 06/28/21 Urinary Catheter Time of Insertion: 18:41 A&P Assessment and plan (1) Malnutrition of moderate degree: The patient needs an ongoing source of nutrition. A PEG tube has been discussed with the family (son) already and he has consented to this. I understand a tracheostomy may also be planned at some point in the near future. The patient last received her Lovenox at 5 PM yesterday. The recent CTA of the chest was reviewed. The gastric anatomy appears amenable to attempted PEG tube placement. I will make arrangements for a PEG tube placement later today. Status: Acute (2) Acute respiratory failure with hypoxia: Status: Acute Consult Attestations Medical Necessity Statement: See admitting service's notation. 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
--- NOTE | 2021-07-19 09:59 | PC.CHAP ---
Pastoral Care Encounter/Spiritual Assessment Type of Contact [] Declined security systems engineer visit [] Patient/Family/Request visit [] Outpatient visit [] Follow-up visit [] Physician referral [] Code/Alert [x] Routine visit [] Staff referral [] Actively dying [] Patient sleeping [] Family support [] [] Out of room [] Palliative care [] [] Receiving care in room [] Pre-surgical visit [] Trauma [] Long length of stay [x] ICU visit [x] Other: continue to pray for patient.. covid.. vent Relational/Emotional Strength [] Patient feels connected with others/family/visitors/staff [] Distress [] Loneliness/isolation [] Abandonment Spirituality of Patient [] Person of Wendy [] Attends Mu-Ism of their Wendy [] Believes in Prayer [] Reads Bible or Latter Day materials [] There are Spiritual issues to be addressed [employer] Interventions [x] Prayer [] Active listening [] Non-anxious presence [] Spiritual/emotional support [] Crisis/trauma care [] Spiritual counseling [] Bereavement support [] Provided bereavement packet [] Provided Bible/devotional materials [] Provided toy/stuffed animal, coloring book to patient or family member [] Provided Communion [] Anointing/Murphy [] Salvation [x] Completed spiritual assessment [] Other: Impact on Illness or Injury [] Angry [] Fearful [] Anxious [] Often cries [] Exhaustion [] Unable to work [] Unable to attend congregational [] Unable to walk/stand [] Unable to read [] Unable to drive [] Unable to eat/drink [] Unable to sleep [] Unable to be with family [] Patient intubated [] Other: Summary Time spent with patient
--- NOTE | 2021-07-19 12:09 | P.PN_ITS ---
Subjective Subjective: Interval history: Intubated, on mechanical ventilator. Vitals/I&O/Wt Last Vital Signs Temp 97.9 F 07/19/21 08:00 Pulse 113 H 07/19/21 08:00 Resp 14 07/19/21 11:04 BP 106/63 07/19/21 08:00 Pulse Ox 95 07/19/21 11:04 07/18/21 07/19/21 07/19/21 22:59 06:59 14:59 Intake Total 297.667 / 602.667 234.785 / 837.452 189.348 / 189.348 Output Total 200 / 200 260 / 460 Balance 97.667 / 402.667 -25.215 / 377.452 189.348 / 189.348 Weight last 48 hrs Weight 46.89 kg Weight 51.88 kg Physical Exam Const: COMMON NORMALS: no acute distress GENERAL APPEARANCE: patient mechanically ventilated OTHER: Frail HENMT: COMMON NORMALS: oropharynx normal Neck/C-Spine: COMMON NORMALS: no JVD Resp: AUSCULTATION: rhonchi, wheezes and diminished lung sounds Cardio: COMMON NORMALS: no JVD, regular rhythm, S1 normal heart sound present, S2 normal heart sound present and No murmurs present (Cardio) RHYTHM: regular rhythm HEART SOUNDS: S1 normal heart sound present and S2 normal heart sound present GI: COMMON NORMALS: Normal to inspection, nondistended, normoactive bowel sounds present and Soft to palpation PALPATION: Yes Soft to palpation Extremity: COMMON NORMALS: no joint enlargement and no pedal edema Skin: COMMON NORMALS: no rashes or lesions noted GENERAL SKIN EXAM: no rashes or lesions noted Urinary Catheter Management^: Aggarwal: Cath Placed During This Visit: yes Reason for Continuing Indwelling Catheter: Accurate Measurement of Urinary Output in Critically Ill Patients Urinary Catheter Date of Insertion: 06/28/21 Urinary Catheter Time of Insertion: 18:41 Data : 07/18/21 06:15 07/18/21 06:15 Micro: Microbiology 07/18/21 14:13 Gram Stain - Final Lung Right Middle Lobe Bronchoalveolar Lavage Culture - Preliminary A&P Assessment and plan (1) Acute respiratory failure with hypoxia: Significant mucus plugging, underwent bronchoscopy with evacuation of large amounts of mucus, with mucous plugs, blood clots noted extending from na sopharynx into the trachea. Discussed with her son. Appears she has not been able to clear any of the secretions on her own, and even when trying to suction her mouth was not cooperative yesterday. Decompensated rapidly and severely night before last requiring readmission to ICU, respiratory support. All this despite not taking anything by mouth with feeding, hydration, medications by NG tube. At very high risk of persistent aspiration, unresolving aspiration pneumonia, as well as asphyxiation in case of severe aspiration. Discussed tracheostomy placement with goal of this being transient, although certainly cannot guarantee temporary nature as this may depend on her overall recovery, but would allow for some airway protection, as well as much better pulmonary toilet, continued work with speech and swallow therapy. Discussed mechanical delivery support to be provided as well as needed. Discussed likely would need to be at a facility like LTAC to help with weaning, especially if requiring additional mechanical ventilatory support. Based on prior discussion yesterday ENT consulted. Today son request to give some time so he can discuss this afternoon with his father. Additionally as she has not been able to tolerate any oral intake, requiring persistent feeds by NG tube which cannot remain chronically, as per discussion additional consultation placed to surgery for placement of PEG tube which the son anticipates may be done today. Change antibiotic to Zosyn for aspiration pneumonia. MRSA PCR had been negative. Requiring low rate Levophed support overnight, possibly secondary to sedation. Right IJ CVC placed 07/19 overnight I am told due to arterial blood return from the midline which had to be removed. Status: Acute (2) Pneumonia due to 2019 novel coronavirus: With protracted recovery, with persistent encephalopathy, cognitive and functional decline, inability to resume oral intake with recurrent aspiration, inability to clear secretions, generalized weakness, deconditioning. Noted pneumomediastinum. Hypoxic respiratory failure secondary to COVID-19 pneumonia. Subsequently aspiration, aspiration pneumonia. -With acute respiratory distress syndrome -Completed remdesivir course -Completed proning sessions -Empirically covered with Zosyn, de-escalated to Augmentin -Extubated 07/12/2021 -Incentive spirometer, flutter valve, up into a chair, PT OT -Continue to monitor mentation closely -Speech therapy evaluation, advance diet as tolerated -NG tube in place, receiving tube feedings, Jevity at 25 cc an hour, free water flushes 60 every 4 hours, nutrition consult, hold if residuals greater than 100, -lovenox for dvt ppx Status: Acute (3) Acute encephalopathy: Status: Acute (4) BETSY (acute kidney injury): Resolved Mild rhabdomyolysis resolved Unremarkable renal US. Possibly secondary to COVID-19 itself. Perhaps less likely contrast-induced nephropathy as CTA was on 06/27, unless is peaking and may expect improvement otherwise, possibly prerenal component. Monitor I&O. Status: Acute (5) Acute respiratory distress syndrome: Status: Acute Additional A&P Information Right upper and right lower extremity deficit, has resolved -Possibly related to encephalopathy -MRI brain no acute stroke -Continue aspirin, statin Acute encephalopathy, improving. Alert, to person, followed some commands, but not back to baseline, multifactorial hypoxia, COVID-19, polypharmacy, underlying dementia, CT head so far negative for vascular insult, carotid artery no hemodynamically significant stenosis, continue neurochecks, monitor mentation, hold sedating medications BETSY, resolved Hypokalemia, hypomagnesemia, hypophosphatemia, will replace Anemia, continue to monitor. Negative Hemoccult. Hypokalemia: Replaced Possible atrial flutter: Repeat EKG with sinus rhythm. Computer read on EKG, but I do not appreciate flutter waves. Does appear to have some inferolateral T wave inversions. Nonvalvular. Monitor on telemetry. Aspirin. Consider event monitor. Diarrhea: C. difficile negative, diarrhea, resolved, rectal tube was removed HTN HLD Attestations Medical Necessity Statement*: Continue admission for cyst management of hypoxic respiratory failure with recurrent aspiration, aspiration pneumonia, inability to clear secretions, inability to tolerate oral intake and medications, arrangements for placement of PEG tube, arrangements for tracheostomy. Coding Level of Care Code Acute Build Manager for [facility] Fwd Diagnoses Acute respiratory failure with hypoxia J96.01 Pneumonia due to 2019 novel coronavirus U07.1; J12.82 Acute encephalopathy G93.40 BETSY (acute kidney injury) N17.9 Acute respiratory distress syndrome J80
[2021-07-19] MEDS: piperacillin-tazobactam 3.375 GM in sodium chloride 0.9% (plus) 50 ML IV ×2 (12:15→21:02)
--- NOTE | 2021-07-19 12:49 | P.CONIM_ITS ---
Providers/Reason For Consult Consulting Physician/Specialty*: Rob Painter/otolaryngology Reason for Consult*: Long-term ventilatory support and need for tracheotomy Attending Physician: Lars Valentine History of Present Illness History of Present Illness Clare Stewart is a 76 year old female Review of Systems General: Reports: 10 or more systems reviewed and unremarkable except in HPI and below Meds/Allergies Home Medications and Allergies Home Medications Medication Instructions Recorded Confirmed Last Taken Type hydrochlorothiazide 25 mg PO QAM 06/27/21 06/27/21 Unknown History methocarbamol [Robaxin] 750 - 1,500 mg PO TID PRN 06/27/21 06/27/21 Unknown History pantoprazole [Protonix] 40 mg PO DAILY 06/27/21 06/27/21 Unknown History potassium chloride 5 meq PO DAILY 06/27/21 06/27/21 Unknown History pramipexole 0.5 mg PO DAILY 06/27/21 06/27/21 Unknown History prednisolone acetate 1 drp OPHTHALMIC (EYE) . DIRECTED 06/27/21 06/27/21 Unknown History simvastatin [Zocor] 20 mg PO DAILY 06/27/21 06/27/21 Unknown History sucralfate [Carafate] 1 g PO .BEFORE MEALS AND HS 06/27/21 06/27/21 Unknown His tory trazodone 50 mg PO BEDTIME 06/27/21 06/27/21 Unknown History Allergies Allergy/AdvReac Type Severity Reaction Status Date / Time No Known Allergies Allergy Verified 07/15/21 16:11 Current Medications Current Medications Generic Name Dose Route Start Last Admin Trade Name Freq PRN Reason Stop Dose Admin Albuterol/Ipratropium 3 ml 06/27/21 16:28 07/19/21 07:49 Ipratropium-Albuterol 3 Ml Neb INHALATION 3 ml Q6H PRN Administration SHORTNESS OF BREATH Aspirin 81 mg 07/11/21 09:00 07/19/21 09:12 Aspirin 81 Mg Chew Tablet PO 81 mg DAILY MARC Administration Atorvastatin Calcium 40 mg 07/13/21 21:00 07/18/21 22:15 Atorvastatin 40 Mg Tablet PO 40 mg BEDTIME MARC Administration Budesonide 0.5 mg 06/27/21 20:00 07/19/21 07:49 Budesonide 0.5 Mg/2 Ml Neb INHALATION 0.5 mg BID.RESPIRATORY MARC Administration Enoxaparin Sodium 40 mg 07/15/21 17:00 07/18/21 17:53 Enoxaparin 40 Mg/0.4 Ml Syringe SUBCUT 40 mg Q24H MARC Administration Propofol 1,000 mg in 100 mls @ 0 mls/hr 07/18/21 13:30 07/19/21 07:44 Diprivan IV 40 mcg/kg/min .Q0M MARC 12.45 mls/hr Administration Protocol Per Protocol Fentanyl 1,000 mcg/ Sodium 100 mls @ 0 mls/hr 07/18/21 13:30 07/19/21 06:43 Chloride IV 100 mcg/hr .Q0M MARC 10 mls/hr Titration Protocol Per Protocol Norepinephrine Bitartrate 4 mg 254 mls @ 10.583 mls/hr 07/18/21 13:45 07/19/21 08:02 / Dextrose IV 07/19/21 13:44 8 mcg/min .Q24H ONE 30.48 mls/hr Administration Protocol Lanolin 1 applic 07/09/21 10:33 07/09/21 10:40 Lanolin Oint 7 Gm TOPICAL 1 applic PRN PRN Administration DRYNESS Pantoprazole Sodium 40 mg 07/16/21 09:00 07/19/21 09:[address] 40 Mg Tablet PO 40 mg BID MARC Administration Trazodone HCl 25 mg 07/10/21 21:00 07/18/21 22:15 Trazodone 50 Mg Tablet PO 25 mg BEDTIME MARC Administration PFSH Acute PFSH: Medical History History of gastritis EGD 2018 History of hyperlipidemia History of hypertension Surgical History History of cholecystectomy History of hysterectomy History of shoulder surgery Right Family History Sister Diabetes Social History Smoking and tobacco status: never smoked Alcohol intake: never Substance/Drug Use: never Vitals/I&O/Wt Last Vital Signs Temp 97.9 F 07/19/21 08:00 Pulse 113 H 07/19/21 08:00 Resp 14 07/19/21 11:04 BP 106/63 07/19/21 08:00 Pulse Ox 95 07/19/21 11:04 07/18/21 07/19/21 07/19/21 22:59 06:59 14:59 Intake Total 297.667 / 602.667 234.785 / 837.452 189.348 / 189.348 Output Total 200 / 200 260 / 460 Balance 97.667 / 402.667 -25.215 / 377.452 189.348 / 189.348 Weight last 48 hrs Weight 103 lb 6 oz Weight 114 lb 6 oz Physical Exam Narrative: EXAM NARRATIVE: Previous exam completely reviewed. Asked to perform tracheotomy on this patient. Patient's neck examined. She has vascular lines in place. She has a very stiff short neck. Very little space between the larynx and sternal notch. No mass-effect in that area. 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
--- NOTE | 2021-07-19 12:53 | W.PM.OPSUD ---
Surgery/Procedure H&P Update DATE OF PROCEDURE: July 19, 2021 DATE H&P PERFORMED: 07/19/21 H&P UPDATE INFORMATION: I have reviewed H&P completed within last 30 days, I have examined patient prior to procedure and No changes to prior documentation PLANNED PROCEDURE: Operation Date: 07/18/21 13:10 Proposed Procedures p Bronchoscopy(Not Applicable) - Burke Bourgeois MD Operation Date: 07/19/21 12:30 Proposed Procedures p PEG Tube Insertion(Not Applicable) - Ciro Rdz MD
--- NOTE | 2021-07-19 14:06 | ANES.PREANE2 ---
Pre-Anesthetic Assessment Pre-Anesthetic Assessment: Height/Weight: Height 1.57 m Weight 46.89 kg Temp Pulse Resp BP Pulse Ox 97.9 F 113 H 14 106/63 98 07/19/21 08:00 07/19/21 08:00 07/19/21 13:23 07/19/21 08:00 07/19/21 13:23 Proposed Procedure: Operation Date: 07/18/21 13:10 Proposed Procedures p Bronchoscopy(Not Applicable) - Bukre Bourgeois MD Operation Date: 07/19/21 12:30 Proposed Procedures p PEG Tube Insertion(Not Applicable) - Ciro Rdz MD Operation Date: 07/19/21 13:50 Proposed Procedures p Tracheostomy(Not Applicable) - Rob Painter MD Was Beta Luisa taken within 24 hours: N/A Was Clonidine taken within 24 hours: N/A Social: Social History: No alcohol and No tobacco Exam: Pre-Anes Outpt Exam: alert and regular rate & rhythm Additional Exam Findings (including area of procedure): Intubated in ICU Airway: Additional comments: ETT Pulmonary: Comments: Respiratory failure, recent COVID (06/27) CV/HEM: CV/HEM: Anemia GI: GI: GERD Metabolic: Metabolic: Hyperlipidemia Neuropsych: Neuropsych: Dementia Anesthetic Plan: ASA status: 4 Risk of > 500 ml blood loss (7ml/kg in children): No Meds/Allergies Current Medications: Current Medications Generic Name Dose Route Start Last Admin Trade Name Freq PRN Reason Stop Dose Admin Albuterol/Ipratrop ium 3 ml 06/27/21 16:28 07/19/21 07:49 Ipratropium-Albu terol 3 Ml Neb INHALATION 3 ml Q6H PRN Administration SHORTNESS OF CHONG TH Aspirin 81 mg 07/11/21 09:00 07/19/21 09:12 Aspirin 81 Mg Ch ew Tablet PO 81 mg DAILY MARC Administration Atorvastatin Calci um 40 mg 07/13/21 21:00 07/18/21 22:15 Atorvastatin 40 Mg Tablet PO 40 mg BEDTIME MARC Administration Budesonide 0.5 mg 06/27/21 20:00 07/19/21 07:49 Budesonide 0.5 M g/2 Ml Neb INHALATION 0.5 mg BID.RESPIRATORY S CH Administration Enoxaparin Sodium 40 mg 07/15/21 17:00 07/18/21 17:53 Enoxaparin 40 Mg /0.4 Ml Syringe SUBCUT 40 mg Q24H MARC Administration Propofol 1,000 mg in 100 m ls @ 0 mls/hr 07/18/21 13:30 07/19/21 07:44 Diprivan IV 40 mcg/kg/min .Q0M MARC 12.45 mls/hr Administration Protocol Per Protocol Fentanyl 1,000 mcg / Sodium 100 mls @ 0 mls/h r 07/18/21 13:30 07/19/21 06:43 Chloride IV 100 mcg/hr .Q0M MARC 10 mls/hr Titration Protocol Per Protocol Lanolin 1 applic 07/09/21 10:33 07/09/21 10:40 Lanolin Oint 7 G m TOPICAL 1 applic PRN PRN Administration DRYNESS Pantoprazole Sodiu m 40 mg 07/16/21 09:00 07/19/21 09:[address] 40 Mg Tablet PO 40 mg BID MARC Administration Trazodone HCl 25 mg 07/10/21 21:00 07/18/21 22:15 Trazodone 50 Mg Tablet PO 25 mg BEDTIME MARC Administration PFSH Anesthesia PFSH: Medical History History of gastritis EGD 2018 History of hyperlipidemia History of hypertension Surgical History History of cholecystectomy History of hysterectomy History of shoulder surgery Right Family History Sister Diabetes Social History Smoking and tobacco status: never smoked Alcohol intake: never Substance/Drug Use: never Data Anesthesia CBC & Chem 7: 07/18/21 06:15 07/18/21 06:15 Other Labs: Laboratory Results - last 48 hr 07/18/21 07/18/21 07/18/21 02:32 02:45 06:15 WBC 13.1 H RBC 4.15 Hgb 11.8 Hct 37.4 MCV 90.1 MCH 28.4 MCHC 31.6 RDW 13.2 Plt Count 204 D MPV 13.6 H Neut % (Auto) 91.4 Lymph % (Auto) 4.0 [place] % (Auto) 3.0 Eos % (Auto) 0.3 Baso % (Auto) 0.3 Neut # (Auto) 11.94 H Lymph # (Auto) 0.5 L [place] # (Auto) 0.4 Eos # (Auto) 0.0 Baso # (Auto) 0.0 Nucleated RBC % (auto) 0 Nucleated RBCs # 0.0 Specimen Type Arterial Arterial Sample Site Radial, right Radial,right ABG pH 7.47 H 7.47 H ABG pCO2 38.8 40.8 ABG pO2 23.8 L* 29.2 L* ABG HCO3 28.3 H 29.3 H ABG O2 Saturation 44.1 ABG Base Excess 4.3 H 5.1 H Tr Test Pos Pos A-a O2 Gradient 83.5 H Hematocrit 35.5 L 35.7 L Hgb O2 Saturation 43.4 L Carboxyhemoglobin 0.9 Methemoglobin 0.6 Total Hemoglobin 11.6 L Sodium 139.0 Potassium 4.2 Glucose 150.0 H Ionized Calcium 1.1 O2 Delivery Device Nrb Nrb FiO2 100.0 100.0 Tidal Volume PEEP Entry Level Project Coordinator ID glc Glc Blood Gas Notified Time 1430 Chloride Carbon Dioxide Anion Gap BUN Creatinine GFR Calculation Calculated Osmolality Calcium Phosphorus Magnesium Total Bilirubin AST ALT Alkaline Phosphatase NT-Pro-B Natriuret Pep Total Protein Albumin Globulin 07/18/21 07/18/21 06:15 16:15 WBC RBC Hgb Hct MCV MCH MCHC RDW Plt Count MPV Neut % (Auto) Lymph % (Auto) [place] % (Auto) Eos % (Auto) Baso % (Auto) Neut # (Auto) Lymph # (Auto) [place] # (Auto) Eos # (Auto) Baso # (Auto) Nucleated RBC % (auto) Nucleated RBCs # Specimen Type Arterial Sample Site Radial, right ABG pH 7.46 H ABG pCO2 38.1 ABG pO2 63.9 L ABG HCO3 26.9 H ABG O2 Saturation 94.0 ABG Base Excess 2.9 H Tr Test Pos A-a O2 Gradient 77.7 H Hematocrit 35.2 L Hgb O2 Saturation 92.8 L Carboxyhemoglobin 0.6 Methemoglobin 0.7 Total Hemoglobin 11.5 L Sodium 137 140.0 Potassium 4.2 3.8 Glucose 113 191.0 H Ionized Calcium 1.1 O2 Delivery Device Vent FiO2 100.0 Tidal Volume 0.38 PEEP 8.0 Entry Level Project Coordinator ID Cak Blood Gas Notified Time Chloride 96 L Carbon Dioxide 27 Anion Gap 18.2 BUN 23 Creatinine 1.0 H GFR Calculation Not Reportable Calculated Osmolality 288 Calcium 8.7 Phosphorus 3.3 Magnesium 1.7 Total Bilirubin 0.6 AST 20 ALT 21 Alkaline Phosphatase 123 H NT-Pro-B Natriuret Pep 1628 H Total Protein 7.4 Albumin 3.3 L Globulin 4.1 Micro: Microbiology 07/18/21 14:13 Gram Stain - Final Lung Right Middle Lobe Bronchoalveolar Lavage Culture - Preliminary Cardiac Studies: Echocardiogram 07/04/21
--- NOTE | 2021-07-19 14:57 | P.OP_ITS ---
Operative Report Date of procedure: July 19, 2021 Pre-op Diagnosis: Acute respiratory distress with hypoxia/need for long-term patient and pulm Post-op diagnosis: same Post-op Findings: 6 [place] Citizen Shiley trach tube in place cuff up and sutured to neck Procedure Done: Tracheotomy Implants: 6 [place] Citizen Shiley trach tube Pathology: none sent Surgeon: Rob Painter Anesthesia: General and Local Estimated blood loss (mL): 5 Complications: No complications encountered Findings: Normal trach in place and sutured to neck skin in 4 quadrants and [place] placed as a secondary stabilization. Condition: stable Disposition: ICU Brief History: 76-year-old female patient who developed significant symptoms from COVID-19. This led into more serious respiratory distress with hypoxia and developed acute encephalopathy requiring intubation. She has been intubated for several days and then extubated. She was breathing on her own but could not handle the secretions. She had mucous plugging of her bronchi and had to have bronchoscopy. Since it appears that she is going to need aggressive pulmonary toilet for an extended period of time and still potentially need ventilation support the patient is going to undergo a tracheotomy. Discussion was carried out with her son who is the legal guardian as she has dementia and was sedated. He understands the risks and complications of the procedure. Informed consent was granted and witnessed over the phone by 2 nurses. Procedure: Description of procedure: The patient was placed on the operating table in the supine position. Adequate general anesthesia was maintained after PEG placement by general surgery. The patient was positioned for tracheotomy. Shoulder roll was placed under the shoulders. Head was supported appropriately. The neck was cleansed with alcohol and then 3.4 mL of 2% Xylocaine with 1- 100,000 epinephrine was used to infiltrate the skin and down to the region of the trachea. The patient was then prepped and draped in usual fashion. A timeout was accomplished identifying the patient date of plan procedure allergies fire risk and medications given. Oxygen level was reduced for the procedure. Cut mode of the Bovie was used to create the horizontal incision approximately 1.5 cm above the sternal notch. This was approximately 2 cm in length. Careful dissection down through the subcutaneous tissue and control of small vessels with cauterization. The larger vessels were maintained and dissected lateral to the trachea. There was a segment of the thyroid isthmus overlying the area where the tracheotomy was going to be placed. Therefore I resected the segment of isthmus. The trachea was bared appropriately except for the vascular supply and mucous membrane. With the anesthesiologist ready for removal of the tube a trach hook was placed between rain 1 and 2 superiorly and a 15 blade was used to incise into the tracheal ring 2 and 3 region extending laterally on each side and then a downward cut was created through ring 3 laterally to create a slight flap. Significant calcification was noted but the incision was able to be created without removing any ring. The endotracheal tube was withdrawn and the area was suctioned as the withdrawal occurred. The new 6 [place] Citizen Shiley cuffed tube was inserted and the cuff was inflated and the inner cannula was placed and the anesthesiologist talked the ventilator to the inner cannula appropriately. There was no bleeding encountered. Good oxygenation was maintained and good CO2 return was noted. A four-quadrant suturing was accomplished with 0 silk. Then the [place] straps were placed. The drapes were removed and the patient was returned to anesthesia for wake-up and transport to ICU. Patient tolerated the procedure well at maximum had 5 mL blood loss for this procedure.
--- NOTE | 2021-07-19 15:03 | PC.NURSE ---
Pt returned from OR s/p PEG and trach placement. Per Dr. dRz we can administer medications through PEG but must wait 24 hours before starting tube feedings. Pt has a 6 shiley trach. Moderate amount of oozing dark red blood noted from trach incision site. Site was reinforced with gauze. Pt appears to be resting well at this time. Respirations are even and unlabored. No s/sx of distress noted. Vitals within normal. Will continue to monitor pt.
--- NOTE | 2021-07-19 15:48 | ANE.PACU2 ---
Inpatient post-anesthesia follow up: Airway intact: Yes (Trach) Vital signs: Temperature 97.9 F Pulse Rate [Monito r] 89 Pulse Rate [Therap y Changed] 74 Pulse Rate [Curren t] 85 Pulse Rate 113 Respiratory Rate [ Therapy 16 Changed] Respiratory Rate [ Current] 21 Respiratory Rate 14 Blood Pressure [Le ft Arm] 132/64 Blood Pressure 106/63 Pulse Oximetry [Th erapy 93 Changed] Pulse Oximetry [Cu rrent] 91 Pulse Oximetry 98 Oxygen Delivery Me thod [ Oxymask Current Rate & Del tony] Oxygen Delivery Me thod Mechanical Ventila tion Oxygen Flow Rate [ Therapy 40 Changed] Oxygen Flow Rate [ Current] 40 Oxygen Flow Rate [ Current Rate 2 & Delivery] Oxygen Flow Rate 4 Fraction of Inspir ed Oxygen [ 35 Therapy Changed] Fraction of Inspir ed Oxygen [ 35 Current] Fraction of Inspir ed Oxygen 60 Hydration adequate: Yes Nausea and vomiting: No Pain level: 1 Mental status: Baseline
[2021-07-19] MEDS: enoxaparin 40 mg/0.4 mL Syringe SUBCUT (17:00)
--- NOTE | 2021-07-19 18:57 | XRR_ITS ---
PROCEDURE INFORMATION: Exam: XR Chest Exam date and time: 07/19/2021 6:57 PM Age: 76 years old Clinical indication: Other: Hypoxia TECHNIQUE: Imaging protocol: XR of the chest. Views: 1 view. COMPARISON: CR XR chest 1V portable [id number] 07/19/2021 1:15 AM FINDINGS: Tubes, catheters and devices: Tracheostomy tube. Right central venous catheter tip just distal to the atrial caval junction. Lungs: Emphysematous changes. Pleural spaces: Unremarkable. No pleural effusion. No pneumothorax. Heart/Mediastinum: Unremarkable. No cardiomegaly. Bones/joints: Unremarkable. Soft tissues: Patchy bilateral airspace opacities similar to prior exam suggestive of an infectious process. XR/XR chest 1V portable [id number] IMPRESSION: 1. Tracheostomy tube. 2. Emphysematous changes. 3. Patchy bilateral airspace opacities similar to prior exam suggestive of an infectious process. 4. Right central venous catheter tip just distal to the atrial caval junction. Radiation Dose CTDIVOL = (mGy): DLP = (mGy-cm)
[2021-07-19 19:25] LABS: ABG PCO2 40.4 mmHg (35-45); ABG PH Result 7.41 (7.35-7.45); Arterial Blood Gas Hematocrit 33.9 % (37-47); Base Excess ABG 0.6 mmol/L (-2.0-2.0); Blood Gas Sample Site Brachial, right; Blood Gas Sample Type Arterial; HCO3 ABG 25.4 mmol/L (22-26); Oxygen Device VENT; PO2 ABG 47.8 mmHg (80.0-100.0)
[2021-07-19 19:26] LABS: Blood Gas Tidal Volume 0.36
[2021-07-19] MEDS: vancomycin 750 MG in sodium chloride 0.9% 250 ML 250 MG IV (20:28)
--- NOTE | 2021-07-19 20:51 | PC.NURSE ---
Came on shift at 1900 patient oxygen sat 80-85, RR 24, on FiO2 100%. Dr Larose notified, obtained ABG and CXR. Dr Valentine at bedside made vent changes(reported to respiratory), ordered to increase levophed-okay to max at 25mcg/min. Dr Larose and Dr Valentine communicated between each other. Epinephrine and vasopressin ordered. Sedation titrated off until blood pressure stable. See titrations for IV medications.Dr Thuan gipson to hold trazodone tonight, will try ativan. Dr Thuan gipson with heart rate at 130-150-do not treat. Son Freddy notified of all changes and updated on patient condition, will come in to see family member.
[2021-07-19] MEDS: hydrocortisone 100 mg/2 mL SDV IVP (21:01)
[2021-07-19] MEDS: LORazepam 2 mg/mL INJ 1 mL 0.5 MG IVP (21:01)
[2021-07-19 21:09] LABS: Basophils # 0.1 10^3/uL (0.0-0.1); Basophils % 0.5 %; Eosinophils # 0.2 10^3/uL (0.0-0.8); Eosinophils % 2.1 %; Hematocrit 30.4 % (37.0-47.0); Hemoglobin 10.3 g/dL (11.5-15.3); Lymphocytes # 1.1 10^3/uL (0.8-4.8); Lymphocytes % 10.3 %; Mean Corpuscular HGB Conc 33.9 g/dL (30.0-36.0); Mean Corpuscular Hemoglobin 28.5 pg (28.0-34.0); Mean Corpuscular Volume 84.2 fl (81-99); Mean Platelet Volume 12.7 fL (7.4-10.4); Monocytes # 0.1 10^3/uL (0.2-0.9); Monocytes % 0.9 %; Neutrophils # 8.92 10^3/uL (1.8-7.7); Neutrophils % 84.6 %; Nucleated Red Blood Cells % 0 %; Platelet Count 273 10^3/cmm (130-400); Red Blood Count 3.61 10^6/uL (4.1-5.3); Red Cell Distribution Width 13.5 % (12.1-15.1); White Blood Count 10.6 10^3/uL (4.0-10.0)
[2021-07-19 21:16] LABS: Anion Gap 22.2 (5-19); Blood Urea Nitrogen 35 mg/dL (8-23); Calcium 7.9 mg/dL (8.5-10.5); Carbon Dioxide 22 mmol/L (22-29); Chloride 94 mmol/L (98-107); Glucose 98 mg/dL (65-115); Osmolality Calculated 286 mOsm/kg (285-295); Potassium 4.2 mmol/L (3.5-5.1); Sodium 134 mmol/L (136-145)
[2021-07-19 21:51] LABS: Troponin T (5th) Once 239 ng/L (0-10)
--- NOTE | 2021-07-19 22:01 | PC.NURSE ---
Family updated on patient condition, family at bedside. Educated on medication, ventilation, vital signs, process.
--- NOTE | 2021-07-19 22:05 | ECG_ITS ---
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 Measurements Intervals [place] Rate: 142 P: 36 TN: 118 QRS: 50 QRSD: 74 T: 66 QT: 335 QTc: 515 Interpretive Statements SINUS TACHYCARDIA WITH SHORT TN INTERVAL, POSSIBLE ATRIAL FLUTTER ST DEVIATION AND MODERATE T-WAVE ABNORMALITY, CONSIDER LATERAL ISCHEMIA [-0.1+ mV T-WAVE IN I/aVL/V5/V6] Compared to ECG 07/07/2021 15:49:29 T-wave abnormality now present Possible ischemia now present Sinus rhythm no longer present Electronically Signed On 07-20-2021 1:26:04 CDT by Serg Asencio M.D. [id number]
--- NOTE | 2021-07-19 22:06 | PM.EVENT ---
Event Note Event Note: Troponin was checked and came back at 239. Earlier in hospital stay, at the beginning of the month, troponin was in the 40s. She underwent surgery today and while heart rate was initially stable, she recently has been tachycardic in the setting of hypotension requiring escalating pressor support and persistent hypoxemia. She is already receiving aspirin and statin therapy. She received 40 mg of Lovenox at around 5 PM. She weighs 46 kg so this is just below treatment dose for her. Can evaluate for change to every 12 hours rather than daily dosing in the morning pending how she does postoperatively. Had clots in her oropharynx earlier which is not unexpected after tracheostomy placement. Unable to provide beta-blockade secondary to hypotension on 2 pressors. I have ordered repeat troponin and EKG. With comorbid issues extremely poor candidate for any invasive cardiac evaluation or intervention. Remains critically ill with poor prognosis given continued decline despite maximal support. Remains full code but family was updated of current condition and limited options for additional care for stabilization by Dr. Valentine earlier this evening as well as nursing staff.
[2021-07-19 22:54] LABS: Troponin 5 2HR 519.7 ng/L (0-10)
[2021-07-19 23:02] LABS: Troponin 5 2HR Delta 0 ABS# (0-10)
[2021-07-19] MEDS: metoprolol tartrate 1 mg/1 mL SDV 5 mL 2.5 MG IVP (23:07)
[2021-07-20] VITALS (108 sets, daily range): BP systolic 77–171; BP diastolic 37–81; PULSE 69–120; RESP 14–16; TEMP 36.8–37.4; O2SAT 93–100
--- NOTE | 2021-07-20 02:05 | ECG_ITS ---
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 Measurements Intervals [place] Rate: 76 P: 32 PA: 136 QRS: 45 QRSD: 72 T: 65 QT: 376 QTc: 425 Interpretive Statements SINUS RHYTHM Compared to ECG 07/19/2021 22:35:54 T-wave abnormality no longer present Possible ischemia no longer present Electronically Signed On 07-20-2021 23:58:17 CDT by Serg Asencio M.D. [email or web address], Incpearl river county hospitalSavi Healthnorwalk memorial hospitalAmgen [id number]
[2021-07-20] MEDS: propofol 1,000 MG/100 ML INJ 6.23 MG IV ×2 (02:29→12:37)
[2021-07-20] MEDS: sodium chloride 0.9% 250 ML 999 ML IV (02:37)
[2021-07-20] MEDS: ipratropium-albuterol 3 mL Neb INHALATION ×3 (03:04→20:06)
[2021-07-20] MEDS: piperacillin-tazobactam 3.375 GM in sodium chloride 0.9% (plus) 50 ML IV ×3 (04:45→20:06)
[2021-07-20 05:01] LABS: ABG PCO2 43.3 mmHg (35-45); ABG PH Result 7.35 (7.35-7.45); Arterial Blood Gas Hematocrit 28.6 % (37-47); Blood Gas Sample Site Brachial, right; Blood Gas Sample Type Arterial; Blood Gas Tidal Volume 0.38; HCO3 ABG 23.7 mmol/L (22-26); Oxygen Device VENT
--- NOTE | 2021-07-20 05:42 | NUR.SHIFT ---
Family updated on patient status. Poor oxygenation at the beginning of shift. Approximately 2300 patient given metoprolol and shortly after oxygen saturation improved >90%. Heart rate decreased to 70-120s. Vent management controlled. Able to titrate levophed down to 6mcg/min. Low urine output 120cc for entire shift. Having liquid brown bowel movements. No signs of distress at this time.
[2021-07-20 05:56] LABS: Basophils % 0.3 %; Eosinophils # 0.1 10^3/uL (0.0-0.8); Eosinophils % 0.7 %; Hematocrit 25.7 % (37.0-47.0); Hemoglobin 8.6 g/dL (11.5-15.3); Lymphocytes # 0.3 10^3/uL (0.8-4.8); Lymphocytes % 2.4 %; Mean Corpuscular HGB Conc 33.5 g/dL (30.0-36.0); Mean Corpuscular Hemoglobin 28.3 pg (28.0-34.0); Mean Corpuscular Volume 84.5 fl (81-99); Mean Platelet Volume 12.9 fL (7.4-10.4); Monocytes # 0.3 10^3/uL (0.2-0.9); Monocytes % 2.6 %; Neutrophils # 10.08 10^3/uL (1.8-7.7); Neutrophils % 92.1 %; Nucleated Red Blood Cells % 0.3 %; Platelet Count 195 10^3/cmm (130-400); Red Blood Count 3.04 10^6/uL (4.1-5.3); Red Cell Distribution Width 13.6 % (12.1-15.1)
--- NOTE | 2021-07-20 06:00 | XR_ITS ---
WS: [id number] Exam: XR chest 1V portable [id number] Date/Time of Exam: 07/20/2021 4:58 AM Reason For Exam: Hypoxia Comparison 07/19/2021 at 0659 hours. There are patchy infiltrates noted throughout the right lung as well as the mid and lower left lung z one. Very little change since previous study. Normal cardiomediastinal silhouette. A right IJ cathete r appears to extend into the right atrium. A tracheostomy tube is in place in satisfactory position. The lungs are fully expanded. Bilateral shoulder prostheses are noted. Multiple monitoring leads and wires superimpose the chest. XR/XR chest 1V portable [id number] IMPRESSION: 1. Bilateral pulmonary infiltrates showing no significant change. 2. Right IJ catheter appears to end in the right atrium. 3. Tracheostomy tube in satisfactory position.
[2021-07-20 06:19] LABS: Alanine Aminotransferase 14 U/L (0-33); Albumin Level 2.4 g/dL (3.5-5.2); Alkaline Phosphatase 92 IU/L (35-105); Anion Gap 16.2 (5-19); Aspartate Amino Transferase 21 U/L (0-32); Blood Urea Nitrogen 36 mg/dL (8-23); Calcium 7.2 mg/dL (8.5-10.5); Carbon Dioxide 22 mmol/L (22-29); Chloride 94 mmol/L (98-107); Globulin 3.2 g/dL (1.3-4.6); Glucose 180 mg/dL (65-115); Osmolality Calculated 279 mOsm/kg (285-295); Potassium 4.2 mmol/L (3.5-5.1); Sodium 128 mmol/L (136-145); Total Bilirubin 0.4 mg/dL (0.15-1.2); Total Protein 5.6 g/dL (6.6-8.7)
[2021-07-20] MEDS: budesonide 0.5 mg/2 mL Neb INHALATION ×2 (08:06→20:06)
[2021-07-20] MEDS: pantoprazole DR 40 mg Tablet PO (08:32)
[2021-07-20] MEDS: aspirin 81 mg Chew Tablet PO (08:32)
--- NOTE | 2021-07-20 09:02 | PM.PN ---
Subjective Subjective: Interval history: Mechanical ventilated, sedated. Her progressive deterioration condition was discussed yesterday with her son. Family reported conditions to visit and see her. Vitals/I&O/Wt Last Vital Signs Temp 98.4 F 07/20/21 08:00 Pulse 100 07/20/21 08:30 Resp 14 07/20/21 08:08 BP 102/59 07/20/21 08:30 Pulse Ox 97 07/20/21 08:30 07/19/21 07/20/21 07/20/21 22:59 06:59 14:59 Intake Total 1215.825 / 1405.173 646.370 / 2051.543 202.151 / 202.151 Output Total 200 / 200 120 / 320 Balance 1015.825 / 1205.173 526.370 / 1731.543 202.151 / 202.151 Weight last 48 hrs Weight 58.06 kg Weight 46.89 kg Physical Exam Const: COMMON NORMALS: no acute distress GENERAL APPEARANCE: patient mechanically ventilated OTHER: Frail HENMT: COMMON NORMALS: oropharynx normal Neck/C-Spine: COMMON NORMALS: no JVD Resp: COMMON NORMALS: clear to auscultation bilaterally AUSCULTATION: clear to auscultation bilaterally Cardio: COMMON NORMALS: no JVD, regular rhythm, S1 normal heart sound present, S2 normal heart sound present and No murmurs present (Cardio) RHYTHM: regular rhythm HEART SOUNDS: S1 normal heart sound present and S2 normal heart sound present GI: COMMON NORMALS: Normal to inspection, nondistended, normoactive bowel sounds present and Soft to palpation PALPATION: Yes Soft to palpation Extremity: COMMON NORMALS: no joint enlargement and no pedal edema Neuro: COMMON NORMALS: moves all extremities Skin: COMMON NORMALS: no rashes or lesions noted GENERAL SKIN EXAM: no rashes or lesions noted Urinary Catheter Management^: Aggarwal: Cath Placed During This Visit: yes Reason for Continuing Indwelling Catheter: Accurate Measurement of Urinary Output in Critically Ill Patients Urinary Catheter Date of Insertion: 06/28/21 Urinary Catheter Time of Insertion: 18:41 Data : 07/20/21 05:12 07/20/21 05:12 Micro: Microbiology 07/18/21 14:13 Fungal Smear - Preliminary Tissue 07/18/21 14:13 Gram Stain - Final Lung Right Middle Lobe Bronchoalveolar Lavage Culture - Preliminary A&P Assessment and plan (1) Acute respiratory failure with hypoxia: Yesterday with further decompensation, with ARDS, with progressive hypoxia, requiring 100% FiO2 in the evening with bilateral infiltrates with some worsening on the x-ray. Septic shock requiring 2 pressors, up to 25 mg/min Levophed, 0.04 vasopressin. Hypotension, desaturation despite maximal efforts. Antibiotics were broadened with additional coverage with vancomycin. Requested also IV steroids due to severity of aspiration pneumonia, poor response to pressors. With treatment gradually improved. Overnight noted elevated troponin, up to 519. Acute kidney injury, creatinine up to 1.7. This morning oxygenation doing little better, coming down to 65% FiO2, and coming down on pressors down to 6 MCG per minute Levophed, discontinuing vasopressin. Continue antibiotic coverage. Status post tracheostomy and PEG tube on 07/19. Additionally as she has not been able to tolerate any oral intake, requiring persistent feeds by NG tube which cannot remain chronically, as per discussion additional consultation placed to surgery for placement of PEG tube which the son anticipates may be done today. Change antibiotic to Zosyn for aspiration pneumonia. MRSA PCR had been negative. Requiring low rate Levophed support overnight, possibly secondary to sedation. Right IJ CVC placed 07/19 overnight I am told due to arterial blood return from the midline which had to be removed. Status: Acute (2) Pneumonia due to 2019 novel coronavirus: With protracted recovery, with persistent encephalopathy, cognitive and functional decline, inability to resume oral intake with recurrent aspiration, inability to clear secretions, generalized weakness, deconditioning. Currently again with decompensation, ARDS following aspiration, with aspiration pneumonia, septic shock as above. Noted pneumomediastinum. Hypoxic respiratory failure secondary to COVID-19 pneumonia. Subsequently aspiration, aspiration pneumonia. -With acute respiratory distress syndrome -Completed remdesivir course -Completed proning sessions -Empirically covered with Zosyn, de-escalated to Augmentin -Extubated 07/12/2021 -Incentive spirometer, flutter valve, up into a chair, PT OT -Continue to monitor mentation closely -Speech therapy evaluation, advance diet as tolerated -NG tube in place, receiving tube feedings, Jevity at 25 cc an hour, free water flushes 60 every 4 hours, nutrition consult, hold if residuals greater than 100, -lovenox for dvt ppx Status: Acute (3) Acute encephalopathy: Status: Acute (4) BETSY (acute kidney injury): Worsened acute kidney injury again, secondary to hypotension with septic shock with initial of response to pressors. Currently blood pressures are better. Maintain. Monitor I&O. Renal function. Prior BETSY resolved. Mild rhabdomyolysis resolved Unremarkable renal US. Possibly secondary to COVID-19 itself. Perhaps less likely contrast-induced nephropathy as CTA was on 06/27, unless is peaking and may expect improvement otherwise, possibly prerenal component. Monitor I&O. Status: Acute (5) Acute respiratory distress syndrome: Status: Acute Additional A&P Information Troponin elevation: Suspect demand ischemia in the setting of hypotension, septic shock, hypoxia. May benefit from additional investigation once she is more stable. Continue aspirin. Started on anticoagulation. Received small dose metoprolol for atrial flutter, otherwise no beta-chris for now due to hypotension. Continue statin. Right upper and right lower extremity deficit, has resolved -Possibly related to encephalopathy -MRI brain no acute stroke -Continue aspirin, statin Acute encephalopathy, improving. Alert, to person, followed some commands, but not back to baseline, multifactorial hypoxia, COVID-19, polypharmacy, underlying dementia, CT head so far negative for vascular insult, carotid artery no hemodynamically significant stenosis, continue neurochecks, monitor mentation, hold sedating medications Hypokalemia, hypomagnesemia, hypophosphatemia, will replace Anemia, continue to monitor. Negative Hemoccult. Hypokalemia: Replaced Possible atrial flutter: Tachycardia overnight, heart rates 140s-150s. Atrial flutter. Received 2.5 mg IV push metoprolol x1.Lovenox dose was changed to therapeutic based on renal function. Nonvalvular. Monitor on telemetry. Aspirin. Consider event monitor. Diarrhea: C. difficile negative, diarrhea, resolved, rectal tube was removed HTN HLD Attestations Medical Necessity Statement*: Continue admission for management of hypoxic respiratory failure secondary to aspiration pneumonia, ARDS, septic shock, acute kidney injury. Critical Care Time: In addition to noncritical issues 50 minutes critical care time spent assess management of life-threatening issues including hypoxic respiratory failure, septic shock, adjustment of pressor support, reassessment of volume status, antibiotic regimen. 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
--- NOTE | 2021-07-20 09:49 | PC.NURSE ---
0700 Report received. Assessment completed. VSS. Gtts infusing per orders. Remains on ventilator to trach, trach site with dry blood noted to area. Cleaned. Pt has liquid stool, cleaned and repositioned per staff. Aggarwal draining freely to BSD. Will monitor.
--- NOTE | 2021-07-20 10:03 | PC.CHAP ---
Pastoral Care Encounter/Spiritual Assessment Type of Contact [] Declined concrete carpenter visit [] Patient/Family/Request visit [] Outpatient visit [] Follow-up visit [] Physician referral [] Code/Alert [x] Routine visit [] Staff referral [] Actively dying [] Patient sleeping [] Family support [] [] Out of room [] Palliative care [] [] Receiving care in room [] Pre-surgical visit [] Trauma [] Long length of stay [x] ICU visit [x] Other: Relational/Emotional Strength [] Patient feels connected with others/family/visitors/staff [] Distress [] Loneliness/isolation [] Abandonment Spirituality of Patient [] Person of Wendy [] Attends Anabaptist of their Wendy [] Believes in Prayer [] Reads Bible or Quaker materials [] There are Spiritual issues to be addressed Image Assembler Interventions [x] Prayer [] Active listening [] Non-anxious presence [] Spiritual/emotional support [] Crisis/trauma care [] Spiritual counseling [] Bereavement support [] Provided bereavement packet [] Provided Bible/devotional materials [] Provided toy/stuffed animal, coloring book to patient or family member [] Provided Communion [] Anointing/[place] [] Salvation [x] Completed spiritual assessment [] Other: Impact on Illness or Injury [] Angry [] Fearful [] Anxious [] Often cries [] Exhaustion [] Unable to work [] Unable to attend adventism [] Unable to walk/stand [] Unable to read [] Unable to drive [] Unable to eat/drink [] Unable to sleep [] Unable to be with family [] Patient intubated [] Other: Summary patient no longer on vent... trach has been installed.... Time spent with patient
--- NOTE | 2021-07-20 12:10 | PC.NUTR ---
Nutrition follow up: Anticipate TF to begin at 2 pm per nurse, however no order in place at this time. Noted altered renal labs since last review, may benefit from change to Nepro at this time. Recommend Nepro, starting at 10 ml/hr, increasing by 10 ml q 8 hours to goal rate of 25 ml/hr while on the vent, and 35 ml/hr when extubated. H2O flushes per MD discretion, minimum of 30 ml q 4 hrs to prevent tube clogging. Noted may be able to resume Jevity if renal function improves at later time. See full RD assessments for further details.
--- NOTE | 2021-07-20 12:13 | PC.SOCIAL ---
IMM Update: pg 2 of IMM not updated. Patient remains on vent not anticipating discharge.
[2021-07-20 12:18] LABS: Basophils % 0.3 %; Eosinophils # 0.2 10^3/uL (0.0-0.8); Eosinophils % 1.5 %; Hematocrit 25.9 % (37.0-47.0); Hemoglobin 8.2 g/dL (11.5-15.3); Lymphocytes # 0.6 10^3/uL (0.8-4.8); Mean Corpuscular HGB Conc 31.7 g/dL (30.0-36.0); Mean Corpuscular Hemoglobin 28.3 pg (28.0-34.0); Mean Corpuscular Volume 89.3 fl (81-99); Mean Platelet Volume 12.5 fL (7.4-10.4); Monocytes # 0.4 10^3/uL (0.2-0.9); Monocytes % 3.6 %; Neutrophils # 9.71 10^3/uL (1.8-7.7); Nucleated Red Blood Cells % 0 %; Platelet Count 204 10^3/cmm (130-400); Red Cell Distribution Width 13.6 % (12.1-15.1)
[2021-07-20] MEDS: pantoprazole 40 mg SDV IVP (17:23)
--- NOTE | 2021-07-20 17:39 | PC.NURSE ---
Nepro started at 10ml/h per kangaroo pump with h20 flushes of 100ml/h per PEG tube. Will monitor.
--- NOTE | 2021-07-20 17:52 | PC.NURSE ---
Shift Note Frequent safety and comfort rounds continue. Orders and/or nursing care completed as indicated. Patient monitored for response to intervention and treatment(s). Education provided includes treatment plan and medication regimen. Son, Dimas, verbalizes understanding. Pt with small amount of blood noted to trach area and in mouth at times. Lovenox held this evening d/t decreased H/H. SCD's in place to BLE. Aggarwal cath draining freely to BSD. VSS. Levophed, fentanyl, and propofol infusing per orders. Will continue to monitor.
[2021-07-20] MEDS: vancomycin 750 MG in sodium chloride 0.9% 250 ML 250 MG IV (20:02)
[2021-07-20] MEDS: trazodone 50 mg Tablet 25 MG PO (20:06)
[2021-07-20] MEDS: atorvastatin 40 mg Tablet PO (20:06)
[2021-07-21] VITALS (95 sets, daily range): BP systolic 88–119; BP diastolic 45–66; PULSE 77–96; RESP 13–16; TEMP 36.4–37.7; O2SAT 88–99
[2021-07-21] MEDS: propofol 1,000 MG/100 ML INJ 6.23 MG IV (00:37)
[2021-07-21 02:20] LABS: Basophils % 0.5 %; Eosinophils # 0.6 10^3/uL (0.0-0.8); Eosinophils % 6.9 %; Hematocrit 21.7 % (37.0-47.0); Hemoglobin 7.2 g/dL (11.5-15.3); Mean Corpuscular HGB Conc 33.2 g/dL (30.0-36.0); Mean Corpuscular Hemoglobin 27.8 pg (28.0-34.0); Mean Corpuscular Volume 83.8 fl (81-99); Monocytes # 0.3 10^3/uL (0.2-0.9); Monocytes % 3.2 %; Neutrophils # 6.73 10^3/uL (1.8-7.7); Neutrophils % 76.6 %; Nucleated Red Blood Cells % 0 %; Platelet Count 167 10^3/cmm (130-400); Red Blood Count 2.59 10^6/uL (4.1-5.3); Red Cell Distribution Width 13.7 % (12.1-15.1); White Blood Count 8.8 10^3/uL (4.0-10.0)
[2021-07-21 02:40] LABS: Alanine Aminotransferase 10 U/L (0-33); Alkaline Phosphatase 76 IU/L (35-105); Anion Gap 14.6 (5-19); Aspartate Amino Transferase 12 U/L (0-32); Blood Urea Nitrogen 35 mg/dL (8-23); Calcium 7.1 mg/dL (8.5-10.5); Carbon Dioxide 23 mmol/L (22-29); Chloride 97 mmol/L (98-107); Globulin 2.9 g/dL (1.3-4.6); Glucose 103 mg/dL (65-115); Osmolality Calculated 282 mOsm/kg (285-295); Sodium 132 mmol/L (136-145); Total Bilirubin 0.2 mg/dL (0.15-1.2); Total Protein 4.9 g/dL (6.6-8.7)
[2021-07-21 02:50] LABS: Potassium 2.6 mmol/L (3.5-5.1)
[2021-07-21] MEDS: ipratropium-albuterol 3 mL Neb INHALATION ×3 (02:58→19:55)
[2021-07-21 03:02] LABS: Troponin 5 6HR 307.6 ng/L (0-10); Troponin 5 6HR Delta 0 ng/L (0-12)
[2021-07-21] MEDS: potassium chloride premix 40 MEQ/100 ML PREMIX 25 MEQ IV (03:56)
[2021-07-21] MEDS: piperacillin-tazobactam 3.375 GM in sodium chloride 0.9% (plus) 50 ML IV ×3 (03:56→20:28)
[2021-07-21 04:03] LABS: Arterial Blood Gas Hematocrit 39.1 % (37-47); Base Excess ABG 1.2 mmol/L (-2.0-2.0)
[2021-07-21 04:12] LABS: Magnesium 1.5 mg/dL (1.7-2.3); Phosphorus 3.6 mg/dL (2.5-4.5)
[2021-07-21] MEDS: pantoprazole 40 mg SDV IVP ×2 (05:06→16:11)
--- NOTE | 2021-07-21 05:15 | NUR.SHIFT ---
Able to decrease FiO2 to 35%, levophed titrated off this AM, see titrations. Replacing potassium per orders. Patient has had small amount of bloody oral secretions, no other signs of active bleeding. Urine output has increased. At this time no signs or symptoms of distress noted.
--- NOTE | 2021-07-21 06:00 | XR_ITS ---
WS: [id number] Exam: XR chest 1V portable [id number] Date/Time of Exam: 07/21/2021 5:07 AM Reason For Exam: Hypoxia Comparison 07/20/2021. Bilateral pulmonary infiltrates are noted and demonstrate little change. The lungs are fully inflated . Heart size is within normal limits. A tracheostomy tube is in place in satisfactory position. Right IJ catheter ends at about the level of the cavoatrial junction. Bilateral shoulder prostheses are no anita. XR/XR chest 1V portable [id number] IMPRESSION: 1. Bilateral pulmonary infiltrates showing little change since prior study. 2. Right-sided central line and tracheostomy tube both in satisfactory position .
--- NOTE | 2021-07-21 07:26 | PC.NURSE ---
0700 Report received, assessment completed. Pt remains on vent, settings per RT flowsheet. Pt repositioned, oral care performed. Gtts infusing per orders. Peg tube feedings infusing per orders. Tolerated well. VSS. Will monitor.
[2021-07-21] MEDS: budesonide 0.5 mg/2 mL Neb INHALATION ×2 (08:08→19:55)
[2021-07-21] MEDS: aspirin 81 mg Chew Tablet PO (08:11)
[2021-07-21] MEDS: magnesium sulfate premix 2 GM/50 ML PIGGYBACK IV (08:23)
[2021-07-21] MEDS: sodium chloride 0.9% 250 ML 100 ML IV (09:28)
--- NOTE | 2021-07-21 09:56 | PC.CHAP ---
Pastoral Care Encounter/Spiritual Assessment Type of Contact [] Declined dust collector treater visit [] Patient/Family/Request visit [] Outpatient visit [] Follow-up visit [] Physician referral [] Code/Alert [x] Routine visit [] Staff referral [] Actively dying [] Patient sleeping [] Family support [] [] Out of room [] Palliative care [] [x] Receiving care in room [] Pre-surgical visit [] Trauma [] Long length of stay [x] ICU visit [x] Other: 2 doctors present .. still on trach... Relational/Emotional Strength [] Patient feels connected with others/family/visitors/staff [] Distress [] Loneliness/isolation [] Abandonment Spirituality of Patient [] Person of Wendy [] Attends Bahai of their Wendy [] Believes in Prayer [] Reads Bible or Temple materials [] There are Spiritual issues to be addressed Flour Inspector Interventions [x] Prayer [] Active listening [] Non-anxious presence [] Spiritual/emotional support [] Crisis/trauma care [] Spiritual counseling [] Bereavement support [] Provided bereavement packet [] Provided Bible/devotional materials [] Provided toy/stuffed animal, coloring book to patient or family member [] Provided Communion [] Anointing/[place] [] Salvation [x] Completed spiritual assessment [] Other: Impact on Illness or Injury [] Angry [] Fearful [] Anxious [] Often cries [] Exhaustion [] Unable to work [] Unable to attend mosque [] Unable to walk/stand [] Unable to read [] Unable to drive [] Unable to eat/drink [] Unable to sleep [] Unable to be with family [] Patient intubated [] Other: Summary Time spent with patient
[2021-07-21 13:27] LABS: ABG PCO2 35.8 mmHg (35-45); ABG PH Result 7.47 (7.35-7.45); Blood Gas Sample Site Brachial, right; Blood Gas Sample Type Arterial; Blood Gas Tidal Volume 0.38; HCO3 ABG 25.8 mmol/L (22-26); Oxygen Device VENT; PO2 ABG 58.2 mmHg (80.0-100.0)
[2021-07-21] MEDS: propofol 1,000 MG/100 ML INJ 3.11 MG IV (13:45)
[2021-07-21 13:48] LABS: Basophils % 0.2 %; Eosinophils # 0.6 10^3/uL (0.0-0.8); Eosinophils % 7.6 %; Hematocrit 28.9 % (37.0-47.0); Hemoglobin 9.3 g/dL (11.5-15.3); Lymphocytes # 0.8 10^3/uL (0.8-4.8); Lymphocytes % 9.8 %; Mean Corpuscular HGB Conc 32.2 g/dL (30.0-36.0); Mean Corpuscular Hemoglobin 28.2 pg (28.0-34.0); Mean Corpuscular Volume 87.6 fl (81-99); Mean Platelet Volume 11.7 fL (7.4-10.4); Monocytes # 0.2 10^3/uL (0.2-0.9); Monocytes % 2.6 %; Neutrophils # 6.05 10^3/uL (1.8-7.7); Neutrophils % 75.2 %; Nucleated Red Blood Cells % 0 %; Platelet Count 144 10^3/cmm (130-400); Red Cell Distribution Width 13.8 % (12.1-15.1); White Blood Count 8.1 10^3/uL (4.0-10.0)
[2021-07-21 14:09] LABS: Magnesium 2.1 mg/dL (1.7-2.3); Potassium 3.7 mmol/L (3.5-5.1)
--- NOTE | 2021-07-21 14:41 | PC.OT ---
Patient continues to not be appropriate for occupatioanl therapy treatment. Patient currently ventilated and sedated for covid 19 and is not able to tolerate therapy at this time.
--- NOTE | 2021-07-21 17:42 | PC.NURSE ---
Shift Note Frequent safety and comfort rounds continue. Orders and/or nursing care completed as indicated. Patient monitored for response to intervention and treatment(s). Education provided includes treatment plan, medication regimen and oxygen usage. Family verbalizes understanding. Resting in bed. VSS. Pt sedation decreased, pt more alert and responsive, still not following any commands. Aggarwal draining freely to BSD. Will continue to monitor.
--- NOTE | 2021-07-21 18:14 | PC.NURSE ---
PT followed simple commands: squeeze hands and blink eyes. Another nurse verified the presence of following commands.
--- NOTE | 2021-07-21 18:40 | P.PN_ITS ---
Subjective Subjective: Interval history: Intubated and sedated this morning. Vitals/I&O/Wt Last Vital Signs Temp 99.2 F 07/21/21 15:58 Pulse 88 07/21/21 15:58 Resp 14 07/21/21 18:16 BP 115/58 07/21/21 15:58 Pulse Ox 96 07/21/21 17:51 07/21/21 07/21/21 07/21/21 06:59 14:59 22:59 Intake Total 290.607 / 1296.277 876.490 / 876.490 392.25 / 1268.740 Output Total 925 / 1175 620 / 620 Balance -634.393 / 121.277 876.490 / 876.490 -227.75 / 648.740 Weight last 48 hrs Weight 58.315 kg Weight 58.06 kg Physical Exam Const: COMMON NORMALS: no acute distress GENERAL APPEARANCE: patient mechanically ventilated OTHER: Frail HENMT: OTHER: Yesterday oropharynx with suctioning of some old blood, similar this morning. Shallow ulceration on the tongue. Neck/C-Spine: COMMON NORMALS: no JVD Resp: COMMON NORMALS: clear to auscultation bilaterally AUSCULTATION: clear to auscultation bilaterally Cardio: COMMON NORMALS: no JVD, regular rhythm, S1 normal heart sound present, S2 normal heart sound present and No murmurs present (Cardio) RHYTHM: regular rhythm HEART SOUNDS: S1 normal heart sound present and S2 normal heart sound present GI: COMMON NORMALS: Normal to inspection, nondistended, normoactive bowel sounds present and Soft to palpation PALPATION: Yes Soft to palpation Extremity: COMMON NORMALS: no joint enlargement and no pedal edema Neuro: COMMON NORMALS: moves all extremities Skin: COMMON NORMALS: no rashes or lesions noted GENERAL SKIN EXAM: no rashes or lesions noted Urinary Catheter Management^: Aggarwal: Cath Placed During This Visit: yes Reason for Continuing Indwelling Catheter: Accurate Measurement of Urinary Output in Critically Ill Patients Urinary Catheter Date of Insertion: 06/28/21 Urinary Catheter Time of Insertion: 18:41 Data : 07/21/21 13:42 07/21/21 13:42 A&P Assessment and plan (1) Acute respiratory failure with hypoxia: Oxygenation continues to improve. She is weaning down on pressors. Can attempt to de-escalate sedation wake her in the morning. Discussed with her son. Continue mechanical ventilatory support. Depending on how well she is weaning of sedation, as well as her oxygenation, consideration may be given to weaning off mechanical ventilator. Continue antibiotic coverage. Status post tracheostomy and PEG tube on 07/19. MRSA PCR had been negative. Right IJ CVC placed 07/19. Arterial blood return from the midline which had to be removed. Status: Acute (2) Pneumonia due to 2019 novel coronavirus: With protracted recovery, with persistent encephalopathy, cognitive and functional decline, inability to resume oral intake with recurrent aspiration, inability to clear secretions, generalized weakness, deconditioning. Currently again with decompensation, ARDS following aspiration, with aspiration pneumonia, septic shock as above. Noted pneumomediastinum. Hypoxic respiratory failure secondary to COVID-19 pneumonia. Subsequently aspiration, aspiration pneumonia. -With acute respiratory distress syndrome -Completed remdesivir course -Completed proning sessions -Empirically covered with Zosyn, de-escalated to Augmentin -Extubated 07/12/2021 -Incentive spirometer, flutter valve, up into a chair, PT OT -Continue to monitor mentation closely -Speech therapy evaluation, advance diet as tolerated -NG tube in place, receiving tube feedings, Jevity at 25 cc an hour, free water flushes 60 every 4 hours, nutrition consult, hold if residuals greater than 100, -lovenox for dvt ppx Status: Acute (3) Acute encephalopathy: Waking trial in the morning. Status: Acute (4) BETSY (acute kidney injury): Improving. Blood pressure better. Weaning off pressor. Currently blood pressures are better. Monitor I&O. Renal function. Prior BETSY resolved. Mild rhabdomyolysis resolved Unremarkable renal US. Possibly secondary to COVID-19 itself. Perhaps less likely contrast-induced nephropathy as CTA was on 06/27, unless is peaking and may expect improvement otherwise, possibly prerenal component. Monitor I&O. Status: Acute (5) Acute respiratory distress syndrome: Status: Acute (6) Acute anemia: Hemoglobin trending down, came down to 7.2 this morning, so received 1 unit PBC transfusion with good response, up to 9.6. Suctioned old blood and clots from nasopharynx. Possibly from prior bleeding, perhaps after insertion and/or removal of NG tube. Discussed with her son. Reassess hemoglobin. Monitor for any additional signs of rebleeding. Status: Acute Additional A&P Information Troponin elevation: Suspect demand ischemia in the setting of hypotension, septic shock, hypoxia. May benefit from additional investigation once she is more stable. Continue aspirin. Started on anticoagulation. Received small dose metoprolol for atrial flutter, otherwise no beta-chris for now due to hypotension. Continue statin. Right upper and right lower extremity deficit, has resolved -Possibly related to encephalopathy -MRI brain no acute stroke -Continue aspirin, statin Acute encephalopathy, improving. Alert, to person, followed some commands, but not back to baseline, multifactorial hypoxia, COVID-19, polypharmacy, underlying dementia, CT head so far negative for vascular insult, carotid artery no hemodynamically significant stenosis, continue neurochecks, monitor mentation, hold sedating medications Hypokalemia, hypomagnesemia, hypophosphatemia, will replace Anemia, continue to monitor. Negative Hemoccult previously. Hypokalemia: Replaced Possible atrial flutter: Tachycardia overnight, heart rates 140s-150s. Atrial flutter. Received 2.5 mg IV push metoprolol x1.Lovenox dose was changed to therapeutic based on renal function. Nonvalvular. Monitor on telemetry. Aspirin. Consider event monitor. Diarrhea: C. difficile negative, diarrhea, resolved, rectal tube was removed HTN HLD Attestations Medical Necessity Statement*: Continue admission for assessment management of hypoxic respiratory failure, septic shock, acute anemia. Coding Level of Care Code Acute Human Resources Assistant for [facility] Fwd Diagnoses Acute respiratory failure with hypoxia J96.01 Pneumonia due to 2019 novel coronavirus U07.1; J12.82 Acute encephalopathy G93.40 BETSY (acute kidney injury) N17.9 Acute respiratory distress syndrome J80 Acute anemia D64.9
[2021-07-21 19:35] LABS: Vancomycin Trough 13.4 ug/mL (10-15)
[2021-07-21] MEDS: atorvastatin 40 mg Tablet PO (20:27)
[2021-07-21] MEDS: vancomycin 750 MG in sodium chloride 0.9% 250 ML 250 MG IV (20:27)
[2021-07-21] MEDS: trazodone 50 mg Tablet 25 MG PO (20:27)
[2021-07-22] VITALS (56 sets, daily range): BP systolic 104–148; BP diastolic 48–87; PULSE 66–104; RESP 14–20; TEMP 36.9–37.6; O2SAT 90–97
[2021-07-22] MEDS: ipratropium-albuterol 3 mL Neb INHALATION ×2 (03:08→08:29)
[2021-07-22] MEDS: piperacillin-tazobactam 3.375 GM in sodium chloride 0.9% (plus) 50 ML IV ×3 (04:25→20:16)
[2021-07-22] MEDS: pantoprazole 40 mg SDV IVP ×2 (04:25→17:40)
[2021-07-22 04:30] LABS: ABG PCO2 43.4 mmHg (35-45); ABG PH Result 7.39 (7.35-7.45); Arterial Blood Gas Hematocrit 36.2 % (37-47); Base Excess ABG 1.3 mmol/L (-2.0-2.0); Blood Gas Allen Test Pos; Blood Gas Sample Site Radial, right; Blood Gas Sample Type Arterial; Blood Gas Tidal Volume 0.38; HCO3 ABG 26.5 mmol/L (22-26); Oxygen Device VENT; PO2 ABG 69.6 mmHg (80.0-100.0)
[2021-07-22 05:48] LABS: Basophils % 0.3 %; Eosinophils # 0.6 10^3/uL (0.0-0.8); Eosinophils % 8.5 %; Hematocrit 28.9 % (37.0-47.0); Hemoglobin 9.5 g/dL (11.5-15.3); Lymphocytes # 0.7 10^3/uL (0.8-4.8); Lymphocytes % 9.8 %; Mean Corpuscular HGB Conc 32.9 g/dL (30.0-36.0); Mean Corpuscular Hemoglobin 29.1 pg (28.0-34.0); Mean Corpuscular Volume 88.4 fl (81-99); Monocytes # 0.2 10^3/uL (0.2-0.9); Monocytes % 2.8 %; Neutrophils # 5.35 10^3/uL (1.8-7.7); Neutrophils % 74.2 %; Nucleated Red Blood Cells % 0.3 %; Platelet Count 156 10^3/cmm (130-400); Red Blood Count 3.27 10^6/uL (4.1-5.3); Red Cell Distribution Width 14.6 % (12.1-15.1); White Blood Count 7.2 10^3/uL (4.0-10.0)
[2021-07-22 06:23] LABS: Alanine Aminotransferase 10 U/L (0-33); Albumin Level 2.1 g/dL (3.5-5.2); Alkaline Phosphatase 104 IU/L (35-105); Anion Gap 12.2 (5-19); Aspartate Amino Transferase 16 U/L (0-32); Blood Urea Nitrogen 21 mg/dL (8-23); Calcium 7.7 mg/dL (8.5-10.5); Carbon Dioxide 24 mmol/L (22-29); Chloride 103 mmol/L (98-107); Glucose 84 mg/dL (65-115); Osmolality Calculated 284 mOsm/kg (285-295); Potassium 3.2 mmol/L (3.5-5.1); Sodium 136 mmol/L (136-145); Total Bilirubin 0.3 mg/dL (0.15-1.2); Total Protein 5.1 g/dL (6.6-8.7)
--- NOTE | 2021-07-22 07:00 | PC.NURSE ---
Report received, assessment completed. Oral care performed and tracheal suctioning performed d/t desaturation. FiO2 30%. Pt repositioned. Fentanyl and propofol infusing per orders. TF infusing per orders to peg tube. SCDs in place. Did not follow commands this AM. Will continue to monitor.
[2021-07-22] MEDS: potassium chloride premix 40 MEQ/100 ML PREMIX 25 MEQ IV (07:10)
[2021-07-22] MEDS: aspirin 81 mg Chew Tablet PO (08:05)
[2021-07-22] MEDS: budesonide 0.5 mg/2 mL Neb INHALATION ×2 (08:29→20:22)
--- NOTE | 2021-07-22 08:43 | PC.NURSE ---
Tf increased to 25ml/h per orders
--- NOTE | 2021-07-22 15:04 | PC.SOCIAL ---
IMM Update pg 2 of IMM not updated. Patient is not anticipated to discharge in the next 72 hours.
[2021-07-22] MEDS: heparin 5,000 unit/mL INJ 1 mL 5000 UNIT SUBCUT (17:41)
--- NOTE | 2021-07-22 17:58 | PC.NURSE ---
Shift Note Frequent safety and comfort rounds continue. Orders and/or nursing care completed as indicated. Patient monitored for response to intervention and treatment(s). Education provided includes treatment plan, medication regimen and ventilator management. Son verbalizes understanding. Pt has been more alert and able to follow commands at times. Fentanyl infusing at 25. VSS. No issues noted. Will continue to monitor.
[2021-07-22] MEDS: vancomycin 750 MG in sodium chloride 0.9% 250 ML 250 MG IV (20:15)
[2021-07-22] MEDS: atorvastatin 40 mg Tablet PO (20:16)
[2021-07-22] MEDS: trazodone 50 mg Tablet 25 MG PO (20:16)
--- NOTE | 2021-07-22 22:04 | PM.PN ---
Subjective Subjective: Interval history: Waking up today on weaning sedation. This has been decreased, not yet following commands for me, but reported by nursing staff to have bleed, squeezed hands, wiggled toes. Vitals/I&O/Wt Last Vital Signs Temp 99.7 F H 07/22/21 19:27 Pulse 89 07/22/21 20:21 Resp 16 07/22/21 20:21 BP 104/58 07/22/21 16:00 Pulse Ox 94 07/22/21 20:21 07/22/21 07/22/21 07/22/21 06:59 14:59 22:59 Intake Total 244.875 / 1763.615 242.102 / 242.102 826 / 1068.102 Output Total 1050 / 1670 450 / 450 Balance -805.125 / 93.615 242.102 / 242.102 376 / 618.102 Weight last 48 hrs Weight 58.967 kg Weight 58.315 kg Physical Exam Const: COMMON NORMALS: no acute distress GENERAL APPEARANCE: patient mechanically ventilated (via trach); not cooperative ORIENTATION/CONSCIOUSNESS: Yes confused OTHER: Frail Waking up HENMT: COMMON NORMALS: oropharynx normal OTHER: Yesterday oropharynx with suctioning of some old blood, similar this morning. Shallow ulceration on the tongue. Neck/C-Spine: COMMON NORMALS: no JVD Resp: AUSCULTATION: diminished lung sounds Cardio: COMMON NORMALS: no JVD, regular rhythm, S1 normal heart sound present, S2 normal heart sound present and No murmurs present (Cardio) RHYTHM: regular rhythm HEART SOUNDS: S1 normal heart sound present and S2 normal heart sound present GI: COMMON NORMALS: Normal to inspection, nondistended, normoactive bowel sounds present and Soft to palpation PALPATION: Yes Soft to palpation Extremity: COMMON NORMALS: no joint enlargement and no pedal edema Neuro: COMMON NORMALS: moves all extremities Skin: COMMON NORMALS: no rashes or lesions noted GENERAL SKIN EXAM: no rashes or lesions noted Urinary Catheter Management^: Aggarwal: Cath Placed During This Visit: yes Reason for Continuing Indwelling Catheter: Accurate Measurement of Urinary Output in Critically Ill Patients Urinary Catheter Date of Insertion: 06/28/21 Urinary Catheter Time of Insertion: 18:41 Data : 07/22/21 05:13 07/22/21 05:13 A&P Assessment and plan (1) Acute respiratory failure with hypoxia: Exudation getting better. She is waking up. Not following commands yet for me. Continue to wean down sedation. Weaning off pressor. Oxygenation continues to improve. She is weaning down on pressors. Can attempt to de-escalate sedation wake her in the morning. Discussed with her son. Continue mechanical ventilatory support. Depending on how well she is weaning of sedation, as well as her oxygenation, consideration may be given to weaning off mechanical ventilator. Continue antibiotic coverage. Status post tracheostomy and PEG tube on 07/19. MRSA PCR had been negative. Right IJ CVC placed 07/19. Arterial blood return from the midline which had to be removed. Status: Acute (2) Acute anemia: Hemoglobin responded to PBC transfusion. Staying steady at 9.5. So far no overt bleeding noted apart from minor bleeding at the ulceration of the tongue. Cautiously resume prophylactic dose heparin for now. Monitor for signs of bleeding. Previously suctioned old blood and clots from nasopharynx. Possibly from prior bleeding, perhaps after NG tube. Status: Acute (3) Pneumonia due to 2019 novel coronavirus: With protracted recovery, with persistent encephalopathy, cognitive and functional decline, inability to resume oral intake with recurrent aspiration, inability to clear secretions, generalized weakness, deconditioning. Improving oxygenation. Status post tracheostomy, PEG on 07/19. Improved after recurrent aspiration, recurrence of decompensation, ARDS, septic shock. Acute blood loss anemia. Weaning off pressor support. Noted pneumomediastinum. Hypoxic respiratory failure secondary to COVID-19 pneumonia. Subsequently aspiration, aspiration pneumonia. -With acute respiratory distress syndrome -Completed remdesivir course -Completed proning sessions -Empirically covered with Zosyn, de-escalated to Augmentin -Originally extubated 07/12/2021 Status: Acute (4) Acute encephalopathy: Waking trial in the morning. Status: Acute (5) BETSY (acute kidney injury): Improving. Blood pressure better. Weaning off pressor. Currently blood pressures are better. Monitor I&O. Renal function. Prior BETSY resolved. Mild rhabdomyolysis resolved Unremarkable renal US. Possibly secondary to COVID-19 itself. Perhaps less likely contrast-induced nephropathy as CTA was on 06/27, unless is peaking and may expect improvement otherwise, possibly prerenal component. Monitor I&O. Status: Acute (6) Acute respiratory distress syndrome: Status: Acute Additional A&P Information Troponin elevation: Suspect demand ischemia in the setting of hypotension, septic shock, hypoxia. May benefit from additional investigation once she is more stable. Continue aspirin. Anticoagulation was held due to worsening of anemia. Received small dose metoprolol for atrial flutter, otherwise no beta-chris for now due to hypotension. Continue statin. Right upper and right lower extremity deficit, has resolved -Possibly related to encephalopathy -MRI brain no acute stroke -Continue aspirin, statin Acute encephalopathy, improving. Alert, to person, followed some commands, but not back to baseline, multifactorial hypoxia, COVID-19, polypharmacy, underlying dementia, CT head so far negative for vascular insult, carotid artery no hemodynamically significant stenosis, continue neurochecks, monitor mentation, hold sedating medications Hypokalemia: Received replacement today. Possible atrial flutter: Tachycardia overnight, heart rates 140s-150s. Atrial flutter. Received 2.5 mg IV push metoprolol x1.Lovenox dose was changed to therapeutic based on renal function. Nonvalvular. Monitor on telemetry. Aspirin. Transiently on anticoagulation, currently held due to worsened anemia. Resuming on trial of low-dose prophylactic heparin. Diarrhea: C. difficile negative, diarrhea, resolved, rectal tube was removed HTN HLD Attestations Medical Necessity Statement*: Continue admission for hypoxic respiratory failure, post tracheostomy care, weaning off sedation and ventilator support. Coding Level of Care Code Acute Director Of Community Education [facility] Diagnoses Acute respiratory failure with hypoxia J96.01 Acute anemia D64.9 Pneumonia due to 2019 novel coronavirus U07.1; J12.82 Acute encephalopathy G93.40 BETSY (acute kidney injury) N17.9 Acute respiratory distress syndrome J80
[2021-07-23] VITALS (60 sets, daily range): BP systolic 123–167; BP diastolic 56–94; PULSE 52–98; RESP 10–18; TEMP 36–37.6; O2SAT 95–100
[2021-07-23] MEDS: piperacillin-tazobactam 3.375 GM in sodium chloride 0.9% (plus) 50 ML IV ×3 (04:10→19:18)
[2021-07-23] MEDS: heparin 5,000 unit/mL INJ 1 mL 5000 UNIT SUBCUT ×2 (04:10→17:22)
[2021-07-23] MEDS: pantoprazole 40 mg SDV IVP ×2 (04:10→17:22)
[2021-07-23 05:14] LABS: Basophils % 0.4 %; Eosinophils # 0.5 10^3/uL (0.0-0.8); Eosinophils % 7.1 %; Hematocrit 28.5 % (37.0-47.0); Lymphocytes # 0.6 10^3/uL (0.8-4.8); Lymphocytes % 8.9 %; Mean Corpuscular HGB Conc 31.6 g/dL (30.0-36.0); Mean Corpuscular Volume 88.5 fl (81-99); Mean Platelet Volume 13.3 fL (7.4-10.4); Monocytes # 0.3 10^3/uL (0.2-0.9); Monocytes % 4.5 %; Neutrophils # 4.88 10^3/uL (1.8-7.7); Neutrophils % 71.2 %; Nucleated Red Blood Cells % 0 %; Platelet Count 159 10^3/cmm (130-400); Red Blood Count 3.22 10^6/uL (4.1-5.3); Red Cell Distribution Width 14.6 % (12.1-15.1); White Blood Count 6.9 10^3/uL (4.0-10.0)
[2021-07-23 05:34] LABS: Alanine Aminotransferase 8 U/L (0-33); Albumin Level 2.3 g/dL (3.5-5.2); Alkaline Phosphatase 110 IU/L (35-105); Anion Gap 13.2 (5-19); Aspartate Amino Transferase 14 U/L (0-32); Blood Urea Nitrogen 18 mg/dL (8-23); Calcium 7.8 mg/dL (8.5-10.5); Carbon Dioxide 25 mmol/L (22-29); Chloride 105 mmol/L (98-107); Creatinine Clr Calc Pharmacy 43.6294; Globulin 3.1 g/dL (1.3-4.6); Glucose 116 mg/dL (65-115); Magnesium 1.6 mg/dL (1.7-2.3); Osmolality Calculated 293 mOsm/kg (285-295); Potassium 3.2 mmol/L (3.5-5.1); Sodium 140 mmol/L (136-145); Total Bilirubin 0.3 mg/dL (0.15-1.2); Total Protein 5.4 g/dL (6.6-8.7)
[2021-07-23 05:37] LABS: Slide Review Slide Review Perform
--- NOTE | 2021-07-23 06:34 | PC.RESP ---
Addendum entered by RT Meredith 07/23/21 06:41: Time of change 5672 Original Note: RT called by pt's nurse for low minute volume alarm on ventilator. Vent showing pt tidal volumes of .20 and under att. RT changed vent settings att to PC of 22, Pres support 10, RR 16, +8, and 30%. Pt sustaining tidal volumes of .35 and above. Pt tolerating well, will continue to monitor
[2021-07-23] MEDS: magnesium sulfate premix 2 GM/50 ML PIGGYBACK IV ×2 (06:43→08:59)
[2021-07-23] MEDS: ipratropium-albuterol 3 mL Neb INHALATION (07:33)
[2021-07-23] MEDS: budesonide 0.5 mg/2 mL Neb INHALATION ×2 (07:33→20:31)
[2021-07-23] MEDS: aspirin 81 mg Chew Tablet PO (08:29)
[2021-07-23] MEDS: magnesium oxide 400 mg tablet PEG-TUBE ×2 (08:29→17:22)
[2021-07-23] MEDS: potassium chloride oral liq 20 mEq/15 mL UDC PEG-TUBE (08:29)
[2021-07-23] MEDS: potassium chloride oral liq 20 mEq/15 mL UDC PO (08:59)
[2021-07-23 09:27] LABS: ABG PCO2 25.9 mmHg (35-45); Base Excess ABG 2.5 mmol/L (-2.0-2.0); Blood Gas Allen Test Pos; Blood Gas Sample Site Radial, left; Blood Gas Sample Type Arterial; Carboxyhemoglobin 0.9 %THgb (0.4-20.1); HCO3 ABG 24.2 mmol/L (22-26); HGB O2 Sat 98.7 % (95-100); Ionized Calcium Level - ABG 1.2 mmol/L (1.1-1.4); Methemoglobin 0.7 % (0.4-1.5); Oxygen Device VENT; Oxygen Saturation ABG > 100.0; Potassium Level - ABG 3.1 mmol/L (3.5-5.0); Total Hemoglobin 7.8 g/dL (12-16)
[2021-07-23 09:28] LABS: ABG PH Result 7.58 (7.35-7.45)
--- NOTE | 2021-07-23 10:14 | PM.PN ---
Subjective Subjective: Interval history: Slightly difficult to arouse, opens eyes, does not attempt to communicate or mouth words. Does close eyes on command. Does take deep breaths on command. Does not take hands or perform other actions. Vitals/I&O/Wt Last Vital Signs Temp 98 F 07/23/21 04:00 Pulse 70 07/23/21 07:42 Resp 17 07/23/21 09:33 BP 141/64 07/23/21 06:30 Pulse Ox 98 07/23/21 09:33 07/22/21 07/23/21 07/23/21 22:59 06:59 14:59 Intake Total 826 / 1068.102 350 / 1418.102 200 / 200 Output Total 450 / 450 601 / 1051 Balance 376 / 618.102 -251 / 367.102 200 / 200 Weight last 48 hrs Weight 59.591 kg Weight 58.967 kg Physical Exam Const: COMMON NORMALS: no acute distress GENERAL APPEARANCE: patient mechanically ventilated (via trach); not cooperative ORIENTATION/CONSCIOUSNESS: Yes confused OTHER: Frail Waking up HENMT: COMMON NORMALS: oropharynx normal OTHER: Yesterday oropharynx with suctioning of some old blood, similar this morning. Shallow ulceration on the tongue. Neck/C-Spine: COMMON NORMALS: no JVD Resp: AUSCULTATION: diminished lung sounds Cardio: COMMON NORMALS: no JVD, regular rhythm, S1 normal heart sound present, S2 normal heart sound present and No murmurs present (Cardio) RHYTHM: regular rhythm HEART SOUNDS: S1 normal heart sound present and S2 normal heart sound present GI: COMMON NORMALS: Normal to inspection, nondistended, normoactive bowel sounds present and Soft to palpation PALPATION: Yes Soft to palpation Extremity: COMMON NORMALS: no joint enlargement and no pedal edema Neuro: COMMON NORMALS: moves all extremities Skin: COMMON NORMALS: no rashes or lesions noted GENERAL SKIN EXAM: no rashes or lesions noted Urinary Catheter Management^: Aggarwal: Cath Placed During This Visit: yes Reason for Continuing Indwelling Catheter: Accurate Measurement of Urinary Output in Critically Ill Patients Urinary Catheter Date of Insertion: 06/28/21 Urinary Catheter Time of Insertion: 18:41 Data : 07/23/21 04:25 07/23/21 04:25 A&P Assessment and plan (1) Acute respiratory failure with hypoxia: Oxygenation continues to improve. She is waking up, not yet communicating, following some very basic commands. Continue to wean down sedation. Stop fentanyl. Precedex if she needs it. Continue weaning on ventilatory support. Off pressor. Continue antibiotic coverage. Would plan for trach exchange around Saturday if all goes well. Status post tracheostomy and PEG tube on 07/19. MRSA PCR had been negative. Depending on IV medication use and peripheral access consider removal of central line. Right IJ CVC placed 07/19. Arterial blood return from the midline which had to be removed. Status: Acute (2) Acute anemia: Hemoglobin responded to PRBC transfusion. Mild decrease down to 9 with starting of prophylactic low-dose heparin subcu. For now holding off advancing to anticoagulation for atrial fibrillation until anemia found stable. In case additional bleeding, please contact ENT for assessment of nasopharynx for possible bleeding lesion, cautery. Previously suctioned old blood and clots from nasopharynx. Possibly from prior bleeding, perhaps after NG tube. Status: Acute (3) Pneumonia due to 2019 novel coronavirus: With protracted recovery, with persistent encephalopathy, cognitive and functional decline, inability to resume oral intake with recurrent aspiration, inability to clear secretions, generalized weakness, deconditioning. Improving oxygenation. Status post tracheostomy, PEG on 07/19. Improved after recurrent aspiration, recurrence of decompensation, ARDS, septic shock. Acute blood loss anemia. Weaning off pressor support. Noted pneumomediastinum. Hypoxic respiratory failure secondary to COVID-19 pneumonia. Subsequently aspiration, aspiration pneumonia. -With acute respiratory distress syndrome -Completed remdesivir course -Completed proning sessions -Empirically covered with Zosyn, de-escalated to Augmentin -Originally extubated 07/12/2021 Status: Acute (4) Acute encephalopathy: Continue weaning sedation. Precedex support as needed. Stop fentanyl. Status: Acute (5) BETSY (acute kidney injury): Improving. Blood pressure better. Weaning off pressor. Currently blood pressures are better. Monitor I&O. Renal function. Prior BETSY resolved. Mild rhabdomyolysis resolved Unremarkable renal US. Possibly secondary to COVID-19 itself. Perhaps less likely contrast-induced nephropathy as CTA was on 06/27, unless is peaking and may expect improvement otherwise, possibly prerenal component. Monitor I&O. Status: Acute (6) Acute respiratory distress syndrome: Status: Acute Additional A&P Information Troponin elevation: Suspect demand ischemia in the setting of hypotension, septic shock, hypoxia. May benefit from additional investigation once she is more stable. Continue aspirin. Anticoagulation was held due to worsening of anemia. Received small dose metoprolol for atrial flutter, otherwise no beta-chris for now due to hypotension. Continue statin. Right upper and right lower extremity deficit, has resolved -Possibly related to encephalopathy -MRI brain no acute stroke -Continue aspirin, statin Acute encephalopathy, improving. Alert, to person, followed some commands, but not back to baseline, multifactorial hypoxia, COVID-19, polypharmacy, underlying dementia, CT head so far negative for vascular insult, carotid artery no hemodynamically significant stenosis, continue neurochecks, monitor mentation, hold sedating medications Hypokalemia: Received replacement today. Possible atrial flutter: Tachycardia overnight, heart rates 140s-150s. Atrial flutter. Received 2.5 mg IV push metoprolol x1.Lovenox dose was changed to therapeutic based on renal function. Nonvalvular. Monitor on telemetry. Aspirin. Transiently on anticoagulation, currently held due to worsened anemia. Resuming on trial of low-dose prophylactic heparin. Diarrhea: C. difficile negative, diarrhea, resolved, rectal tube was removed HTN HLD Attestations Medical Necessity Statement*: Continue admission for weaning of sedation, weaning down mechanical ventilatory support, post tracheostomy care. Coding Level of Care Code Acute Member [employer] for [facility] Diagnoses Acute respiratory failure with hypoxia J96.01 Acute anemia D64.9 Pneumonia due to 2019 novel coronavirus U07.1; J12.82 Acute encephalopathy G93.40 BETSY (acute kidney injury) N17.9 Acute respiratory distress syndrome J80
--- NOTE | 2021-07-23 12:00 | PC.NURSE ---
fentanyl gtt off at this time sat up on side for approx 45 min had small bm noted with richelle care done
--- NOTE | 2021-07-23 17:52 | PC.NURSE ---
Shift Note Frequent safety and comfort rounds continue. Orders and/or nursing care completed as indicated. Patient monitored for response to intervention and treatment(s). Education provided includes[]. Patient and/or commercial pest control representative [ResponseToTeaching]. Will continue to monitor. sat pt on side of bed today with physical therapy and propped with pillows tolerated about 45 min frequent oral care done area tongue bleeding and dry noted tube feeding infusing via pump to g tube . Had weaned down to high flow o2 for approx 2 hrs today
--- NOTE | 2021-07-23 18:56 | PC.NURSE ---
Addendum entered by Rosalie Cardona RN 07/25/21 04:00: witnessed waste Original Note: wasted versed as medication discontinued witness rosalie
[2021-07-23] MEDS: vancomycin 750 MG in sodium chloride 0.9% 250 ML 250 MG IV (19:04)
[2021-07-23] MEDS: trazodone 50 mg Tablet 25 MG PO (20:16)
[2021-07-23] MEDS: atorvastatin 40 mg Tablet PO (20:16)
--- NOTE | 2021-07-23 23:08 | PC.NURSE ---
No acute changes so far thus shift. Continue care.
[2021-07-24] VITALS (56 sets, daily range): BP systolic 111–169; BP diastolic 55–109; PULSE 49–132; RESP 13–23; TEMP 36.2–36.8; O2SAT 91–100
[2021-07-24 03:37] LABS: Basophils % 0.6 %; Eosinophils # 0.4 10^3/uL (0.0-0.8); Eosinophils % 5.7 %; Hematocrit 27.9 % (37.0-47.0); Hemoglobin 9.1 g/dL (11.5-15.3); Lymphocytes # 0.6 10^3/uL (0.8-4.8); Lymphocytes % 8.7 %; Mean Corpuscular HGB Conc 32.6 g/dL (30.0-36.0); Mean Corpuscular Hemoglobin 29.2 pg (28.0-34.0); Mean Corpuscular Volume 89.4 fl (81-99); Mean Platelet Volume 12.8 fL (7.4-10.4); Monocytes # 0.4 10^3/uL (0.2-0.9); Monocytes % 6.2 %; Neutrophils # 4.99 10^3/uL (1.8-7.7); Neutrophils % 71.4 %; Nucleated Red Blood Cells % 0 %; Platelet Count 179 10^3/cmm (130-400); Red Blood Count 3.12 10^6/uL (4.1-5.3); Red Cell Distribution Width 14.6 % (12.1-15.1)
[2021-07-24 03:58] LABS: Alanine Aminotransferase 9 U/L (0-33); Alkaline Phosphatase 119 IU/L (35-105); Anion Gap 11.1 (5-19); Aspartate Amino Transferase 13 U/L (0-32); Blood Urea Nitrogen 18 mg/dL (8-23); Calcium 7.7 mg/dL (8.5-10.5); Carbon Dioxide 25 mmol/L (22-29); Chloride 104 mmol/L (98-107); Globulin 3.1 g/dL (1.3-4.6); Glucose 117 mg/dL (65-115); Osmolality Calculated 287 mOsm/kg (285-295); Potassium 3.1 mmol/L (3.5-5.1); Sodium 137 mmol/L (136-145); Total Bilirubin 0.3 mg/dL (0.15-1.2); Total Protein 5.1 g/dL (6.6-8.7)
[2021-07-24] MEDS: piperacillin-tazobactam 3.375 GM in sodium chloride 0.9% (plus) 50 ML IV ×3 (04:05→19:22)
[2021-07-24] MEDS: pantoprazole 40 mg SDV IVP ×2 (04:05→17:08)
[2021-07-24] MEDS: heparin 5,000 unit/mL INJ 1 mL 5000 UNIT SUBCUT ×2 (04:05→17:08)
[2021-07-24 04:17] LABS: Slide Review Slide Review Perform
[2021-07-24 05:06] LABS: ABG PCO2 35.4 mmHg (35-45); ABG PH Result 7.48 (7.35-7.45); Arterial Blood Gas Hematocrit 33.6 % (37-47); Base Excess ABG 3.2 mmol/L (-2.0-2.0); Blood Gas Allen Test Pos; Blood Gas Sample Site Radial, right; Blood Gas Sample Type Arterial; HCO3 ABG 26.6 mmol/L (22-26); Oxygen Device VENT; PO2 ABG 75.8 mmHg (80.0-100.0)
[2021-07-24 05:08] LABS: Blood Gas Tidal Volume 0.38
--- NOTE | 2021-07-24 06:10 | PC.NURSE ---
Shift Note Frequent safety and comfort rounds continue. Orders and/or nursing care completed as indicated. Patient monitored for response to intervention and treatment(s). Education provided includes pain management. Patient and/or development representative reinforcement needed. Will continue to monitor.
[2021-07-24] MEDS: magnesium oxide 400 mg tablet PEG-TUBE ×2 (08:09→17:08)
[2021-07-24] MEDS: aspirin 81 mg Chew Tablet PO (08:09)
[2021-07-24] MEDS: potassium chloride oral liq 20 mEq/15 mL UDC PEG-TUBE (08:09)
[2021-07-24] MEDS: budesonide 0.5 mg/2 mL Neb INHALATION ×2 (08:40→21:28)
[2021-07-24] MEDS: ipratropium-albuterol 3 mL Neb INHALATION ×4 (08:40→21:28)
--- NOTE | 2021-07-24 09:08 | PC.CHAP ---
Pastoral Care Encounter/Spiritual Assessment Type of Contact [] Declined student dean visit [] Patient/Family/Request visit [] Outpatient visit [] Follow-up visit [] Physician referral [] Code/Alert [x] Routine visit [] Staff referral [] Actively dying [] Patient sleeping [] Family support [] [] Out of room [] Palliative care [] [x] Receiving care in room [] Pre-surgical visit [] Trauma [] Long length of stay [x] ICU visit [x] Other: Relational/Emotional Strength [] Patient feels connected with others/family/visitors/staff [] Distress [] Loneliness/isolation [] Abandonment Spirituality of Patient [] Person of Wendy [] Attends Congregation of their Wendy [] Believes in Prayer [] Reads Bible or Evangelical materials [] There are Spiritual issues to be addressed Income Tax Manager Interventions [x] Prayer [] Active listening [] Non-anxious presence [] Spiritual/emotional support [] Crisis/trauma care [] Spiritual counseling [] Bereavement support [] Provided bereavement packet [] Provided Bible/devotional materials [] Provided toy/stuffed animal, coloring book to patient or family member [] Provided Communion [] Anointing/[place] [] Salvation [x] Completed spiritual assessment [] Other: Impact on Illness or Injury [] Angry [] Fearful [] Anxious [] Often cries [] Exhaustion [] Unable to work [] Unable to attend taoist [] Unable to walk/stand [] Unable to read [] Unable to drive [] Unable to eat/drink [] Unable to sleep [] Unable to be with family [] Patient intubated [] Other: Summary patient not responsive to student dean... made eye contact, but no reactions to questions or requests Time spent with patient
[2021-07-24 10:44] LABS: NT Pro B Type Natriuretic Pept 4542 pg/mL (0-450); Procalcitonin 0.54 ng/mL (0-0.5)
[2021-07-24 10:56] LABS: Iron 28 ug/dL (37-145); Percent Saturation 19.1 % (20-50); Total Iron Binding Capacity 146 mcg/dl; Unsaturated Iron Binding 118 ug/dL (112-347)
[2021-07-24] MEDS: potassium chloride oral liq 20 mEq/15 mL UDC 40 MEQ PO ×2 (11:02→13:16)
[2021-07-24] MEDS: amlodipine 10 mg Tablet PO (11:02)
[2021-07-24] MEDS: citalopram 20 mg Tablet PO (11:02)
--- NOTE | 2021-07-24 14:31 | PC.NURSE ---
This morning patient was sitting in bed with eyes open and she was able to follow commands. Patient was taken off of ventilator at around 1315 and placed on 15L. Frequent oral care has been performed. Central line intact. Patient was transferred to chair and sat up in chair this shift with PT. Tube feeding running with residuals less than 5.
--- NOTE | 2021-07-24 15:15 | PC.RESP ---
RT Shift Note Frequent safety and respiratory rounds continue. Orders completed as indicated. Patient monitored pre and post treatments throughout shift. Patient [Did.] tolerate treatments appropriately. Condition [.DidNotChange]. Patient and/or guest services representative educated on respiratory treatment and medications. Patient and/or guest services representative [unable to verbalize understanding]. Will continue to monitor patient progress.
--- NOTE | 2021-07-24 15:50 | P.PN_ITS ---
Subjective Subjective: Interval history: No acute events overnight. Hospital course and labs appreciated. Examination laying comfortably in bed. Need to stop but up in the chair with physical therapy. Did well. During the day was extubated and put on HAG at 8 L/min with saturation over 95%. Able to have conversation through sign language. Has remained hemodynamically stable and afebrile last 24 hours. Urine output in last 24 hours up to 900 cc. Medications: Reviewed: Yes Vitals/I&O/Wt Last Vital Signs Temp 98.2 F 07/24/21 08:00 Pulse 79 07/24/21 15:04 Resp 16 07/24/21 15:04 BP 116/68 07/24/21 13:00 Pulse Ox 96 07/24/21 15:04 07/24/21 07/24/21 07/24/21 06:59 14:59 22:59 Intake Total 450 / 2005.875 50 / 50 Output Total 400 / 900 Balance 50 / 1105.875 50 / 50 Weight last 48 hrs Weight 53.977 kg Weight 59.591 kg Physical Exam Const: COMMON NORMALS: no acute distress and patient oriented x3 EXAM LIMITATIONS: altered mental status GENERAL APPEARANCE: ill appearing, frail appearing and patient mechanically ventilated (via trach); not cooperative ORIENTATION/CONSCIOUSNESS: Yes oriented to person and Yes c onfused; not oriented to place and not oriented to time OTHER: Frail Waking up HENMT: COMMON NORMALS: oropharynx normal Eye: COMMON NORMALS: Equal, round and reactive pupils present PUPIL: Yes Equal, round and reactive pupils present Neck/C-Spine: COMMON NORMALS: no JVD Chest: COMMONS NORMALS: normal inspection of the chest Resp: COMMON NORMALS: normal respiratory effort, No retractions and No use of accessory muscles AUSCULTATION: crackles and diminished lung sounds Cardio: COMMON NORMALS: no JVD, regular rate, regular rhythm, S1 normal heart sound present, S2 normal heart sound present and No murmurs present (Cardio) RATE: regular rate RHYTHM: regular rhythm HEART SOUNDS: S1 normal heart sound present and S2 normal heart sound present GI: COMMON NORMALS: Normal to inspection, nondistended, normoactive bowel sounds present, Soft to palpation and non-tender PALPATION: Yes Soft to palpation OTHER: Rectal tube in place : COMMON NORMALS: Yes no CVA tenderness BLADDER/KIDNEY EXAM: Yes no CVA tenderness Back/Pelvis: COMMON NORMALS: no CVA tenderness Extremity: COMMON NORMALS: capillary refill normal, no joint enlargement, no clubbing, cyanosis or edema and no pedal edema Neuro: COMMON NORMALS: patient oriented x3, moves all extremities and no focal motor deficits SENSORIUM/ORIENTATION: Yes oriented to person, No oriented to place and No oriented to time OTHER: Difficult to follow neurologic testing Psych: COMMON NORMALS: mental status grossly normal Skin: COMMON NORMALS: no rashes or lesions noted GENERAL SKIN EXAM: no rashes or lesions noted Urinary Catheter Management^: Aggarwal: Cath Placed During This Visit: yes Reason for Continuing Indwelling Catheter: Accurate Measurement of Urinary Output in Critically Ill Patients Urinary Catheter Date of Insertion: 06/28/21 Urinary Catheter Time of Insertion: 18:41 Data : 07/24/21 03:00 07/24/21 03:00 A&P Assessment and plan (1) Acute respiratory failure with hypoxia: Oxygenation continues to improve. She is waking up, not yet communicating, following some very basic commands. Continue to wean down sedation. Stop fentanyl. Precedex if she needs it. Continue weaning on ventilatory support. Off pressor. Continue antibiotic coverage. Would plan for trach exchange around Saturday if all goes well. Status post tracheostomy and PEG tube on 07/19. MRSA PCR had been negative. Depending on IV medication use and peripheral access consider removal of central line. Right IJ CVC placed 07/19. Arterial blood return from the midline which had to be removed. Status: Acute (2) Acute anemia: Hemoglobin responded to PRBC transfusion. Mild decrease down to 9 with starting of prophylactic low-dose heparin subcu. For now holding off advancing to anticoagulation for atrial fibrillation until anemia found stable. In case additional bleeding, please contact ENT for assessment of nasopharynx for possible bleeding lesion, cautery. Previously suctioned old blood and clots from nasopharynx. Possibly from prior bleeding, perhaps after NG tube. Status: Acute (3) Pneumonia due to 2019 novel coronavirus: With protracted recovery, with persistent encephalopathy, cognitive and functional decline, inability to resume oral intake with recurrent aspiration, inability to clear secretions, generalized weakness, deconditioning. Improving oxygenation. Status post tracheostomy, PEG on 07/19. Improved after recurrent aspiration, recurrence of decompensation, ARDS, septic shock. Acute blood loss anemia. Weaning off pressor support. Noted pneumomediastinum. Hypoxic respiratory failure secondary to COVID-19 pneumonia. Subsequently aspiration, aspiration pneumonia. -With acute respiratory distress syndrome -Completed remdesivir course -Completed proning sessions -Empirically covered with Zosyn, de-escalated to Augmentin -Originally extubated 07/12/2021 Status: Acute (4) Acute encephalopathy: Continue weaning sedation. Precedex support as needed. Stop fentanyl. Status: Acute (5) BETSY (acute kidney injury): Improving. Blood pressure better. Weaning off pressor. Currently blood pressures are better. Monitor I&O. Renal function. Prior BETSY resolved. Mild rhabdomyolysis resolved Unremarkable renal US. Possibly secondary to COVID-19 itself. Perhaps less likely contrast-induced nephropathy as CTA was on 06/27, unless is peaking and may expect improvement otherwise, possibly prerenal component. Monitor I&O. Status: Acute (6) Acute respiratory distress syndrome: Status: Acute Additional A&P Information Troponin elevation: Suspect demand ischemia in the setting of hypotension, septic shock, hypoxia. May benefit from additional investigation once she is more stable. Continue aspirin. Anticoagulation was held due to worsening of anemia. Received small dose metoprolol for atrial flutter, otherwise no beta- chris for now due to hypotension. Continue statin. Right upper and right lower extremity deficit, has resolved -Possibly related to encephalopathy -MRI brain no acute stroke -Continue aspirin, statin Acute encephalopathy, improving. Alert, to person, followed some commands, but n ot back to baseline, multifactorial hypoxia, COVID-19, polypharmacy, underlying dementia, CT head so far negative for vascular insult, carotid artery no hemodynamically significant stenosis, continue neurochecks, monitor mentation, hold sedating medications Hypokalemia: Received replacement today. Possible atrial flutter: Tachycardia overnight, heart rates 140s-150s. Atrial flutter. Received 2.5 mg IV push metoprolol x1.Lovenox dose was changed to therapeutic based on renal function. Nonvalvular. Monitor on telemetry. Aspirin. Transiently on anticoagulation, currently held due to worsened anemia. Resuming on trial of low-dose prophylactic heparin. Diarrhea: C. difficile negative, diarrhea, resolved, rectal tube was removed HTN HLD Plan for the day: Extubated to [facility]. Plan to wean keeping saturation over 90%. Discussed with Dr. Painter from ENT who states he will plan to exchange on which would be 1 week after placing tracheostomy. Continue with physical therapy and out of bed to chair. Increase tube feed goal to 30 cc/h, free water flushes 100 cc every 6 hours. Start on DuoNeb 6 hourly. Celexa 20 mg orally, donepezil 5 mg at bedtime. Alerted case management for possible discharge to [facility] once tracheostomy is exchanged. Attestations Medical Necessity Statement*: Requires further hospitalization for management of severe hypoxia secondary to COVID-19 pneumonia, ventilator dependent, post tracheostomy Critical Care Time: The high probability of a clinically significant, sudden or life threatening deterioration of the patient's [respiratory] system(s) required my full and direct attention, intervention and personal management. The critical care time is as shown. This time is in addition to time spent performing any reported procedures but includes the following: [x] Data and vital sign review and interpretation [x] Patient assessment, examination and intervention [x] Documentation [x] Medication orders and management Critical Care Time (min): 60 Coding Level of Care Code Acute [employer] for [facility] Diagnoses Acute respiratory failure with hypoxia J96.01 Acute anemia D64.9 Pneumonia due to 2019 novel coronavirus U07.1; J12.82 Acute encephalopathy G93.40 BETSY (acute kidney injury) N17.9 Acute respiratory distress syndrome J80
--- NOTE | 2021-07-24 16:51 | PC.SOCIAL ---
IMM Update: pg 2 of IMM updated via phone w/ patients son Freddy.
[2021-07-24] MEDS: atorvastatin 40 mg Tablet PO (20:15)
[2021-07-24] MEDS: trazodone 50 mg Tablet 25 MG PO (20:15)
[2021-07-24] MEDS: donepezil 5 MG Tablet PO (20:16)
[2021-07-25] VITALS (43 sets, daily range): BP systolic 120–177; BP diastolic 60–102; PULSE 58–93; RESP 14–18; TEMP 36.5–36.9; O2SAT 89–100
[2021-07-25] MEDS: ipratropium-albuterol 3 mL Neb INHALATION ×4 (02:54→20:08)
--- NOTE | 2021-07-25 03:58 | PC.NURSE ---
Patients groin and bottom becoming very excoriated due to multiple incontinent bowel movements every shift. Cleaned area thoroughly with every void, still excoriated.
[2021-07-25] MEDS: piperacillin-tazobactam 3.375 GM in sodium chloride 0.9% (plus) 50 ML IV ×3 (04:04→22:18)
[2021-07-25] MEDS: heparin 5,000 unit/mL INJ 1 mL 5000 UNIT SUBCUT (04:04)
[2021-07-25] MEDS: pantoprazole 40 mg SDV IVP ×2 (04:04→17:52)
[2021-07-25 05:07] LABS: Basophils # 0.1 10^3/uL (0.0-0.1); Basophils % 0.8 %; Eosinophils # 0.4 10^3/uL (0.0-0.8); Hematocrit 30.4 % (37.0-47.0); Hemoglobin 9.7 g/dL (11.5-15.3); Lymphocytes # 0.7 10^3/uL (0.8-4.8); Lymphocytes % 7.8 %; Mean Corpuscular HGB Conc 31.9 g/dL (30.0-36.0); Mean Corpuscular Hemoglobin 28.6 pg (28.0-34.0); Mean Corpuscular Volume 89.7 fl (81-99); Monocytes # 0.7 10^3/uL (0.2-0.9); Monocytes % 8.4 %; Neutrophils % 71.3 %; Nucleated Red Blood Cells % 0 %; Platelet Count 222 10^3/cmm (130-400); Red Blood Count 3.39 10^6/uL (4.1-5.3); Red Cell Distribution Width 14.9 % (12.1-15.1); White Blood Count 8.8 10^3/uL (4.0-10.0)
--- NOTE | 2021-07-25 06:14 | PC.NURSE ---
Shift Note Frequent safety and comfort rounds continue. Orders and/or nursing care completed as indicated. Patient monitored for response to intervention and treatment(s). Education provided includes optimal respiratory function. Patient and/or liability claims representative reinforcement needed. Will continue to monitor.
[2021-07-25 06:24] LABS: Alanine Aminotransferase 10 U/L (0-33); Albumin Level 2.5 g/dL (3.5-5.2); Alkaline Phosphatase 139 IU/L (35-105); Anion Gap 14.5 (5-19); Aspartate Amino Transferase 15 U/L (0-32); Blood Urea Nitrogen 16 mg/dL (8-23); Calcium 8.1 mg/dL (8.5-10.5); Carbon Dioxide 24 mmol/L (22-29); Chloride 101 mmol/L (98-107); Chol HDL Ratio 2.54 mg/dL (0.0-4.40); Cholesterol 99 mg/dL (0-200); Globulin 3.2 g/dL (1.3-4.6); Glucose 104 mg/dL (65-115); HDL Cholesterol 39 mg/dL (60-100); LDL Cholesterol Calculated 28 mg/dL (50-129); Osmolality Calculated 283 mOsm/kg (285-295); Potassium 3.5 mmol/L (3.5-5.1); Sodium 136 mmol/L (136-145); Total Bilirubin 0.3 mg/dL (0.15-1.2); Total Protein 5.7 g/dL (6.6-8.7); Triglycerides 158 mg/dL (0-150); VLDL Cholestrol Calculation 32 mg/dL (0-30)
[2021-07-25 07:37] LABS: Estmated Average Glucose 120; Hemoglobin A1C 5.8 % (4.0-6.0)
[2021-07-25] MEDS: citalopram 20 mg Tablet PO (07:53)
[2021-07-25] MEDS: potassium chloride oral liq 20 mEq/15 mL UDC PEG-TUBE (07:53)
[2021-07-25] MEDS: aspirin 81 mg Chew Tablet PO (07:54)
[2021-07-25] MEDS: amlodipine 10 mg Tablet PO (07:54)
[2021-07-25] MEDS: magnesium oxide 400 mg tablet PEG-TUBE ×2 (07:54→17:53)
[2021-07-25 07:57] LABS: Slide Review Slide Review Perform
--- NOTE | 2021-07-25 08:42 | PC.NURSE ---
Shift Note Frequent safety and comfort rounds continue. Orders and/or nursing care completed as indicated. Patient monitored for response to intervention and treatment(s). Education provided includes[nutrition, skin integrity, trach management, and placement planning]. Patient and/or provider service representative [Pt unable to comprehend. Family has been kept updated on pt's plan and status]. Will continue to monitor. Received bed side shift report from off going nurse. Pt's plan of care reviewed. Pt resting in bed. Respirations are even and unlabored. No s/sx of distress noted. Pt appears to be drowsy today and wanting to sleep. Bed in lowest and locked position, call light within reach, x's 3 rails up. Will continue to monitor pt.
[2021-07-25] MEDS: budesonide 0.5 mg/2 mL Neb INHALATION ×2 (09:05→20:08)
[2021-07-25] MEDS: losartan 50 mg Tablet 25 MG PO (11:02)
--- NOTE | 2021-07-25 14:05 | PC.SLP ---
Speech therapy planned to see patient today to assess needs for communication and/or swallowing. Nursing reported patient very sleepy and needing rest. Will continue to monitor and see patient when appropriate.
--- NOTE | 2021-07-25 14:27 | P.PN_ITS ---
Subjective Subjective: Interval history: No acute events overnight. Today morning on examination patient transitioned onto humidified room air. Tolerating and saturating well. Did have episode of thick bloody secretion post extubation yesterday which seem to be improving today morning. No soakage around the tracheostomy. Has remained hemodynamically stable and afebrile. Vitals/I&O/Wt Last Vital Signs Temp 97.9 F 07/25/21 12:00 Pulse 61 07/25/21 12:30 Resp 16 07/25/21 09:07 BP 144/68 07/25/21 12:30 Pulse Ox 97 07/25/21 12:30 07/24/21 07/25/21 07/25/21 22:59 06:59 14:59 Intake Total 464 / 514 710 / 1224 50 / 50 Output Total 600 / 600 1000 / 1600 Balance -136 / -86 -290 / -376 50 / 50 Weight last 48 hrs Weight 49.498 kg Weight 53.977 kg Physical Exam Const: COMMON NORMALS: no acute distress and patient oriented x3 EXAM LIMITATIONS: altered mental status GENERAL APPEARANCE: ill appearing, frail appearing and patient mechanically ventilated (via trach); not cooperative ORIENTATION/CONSCIOUSNESS: Yes oriented to person and Yes confused; not oriented to place and not oriented to time OTHER: Frail Waking up HENMT: COMMON NORMALS: oropharynx normal Eye: COMMON NORMALS: Equal, round and reactive pupils present PUPIL: Yes Equal, round and reactive pupils present Neck/C-Spine: COMMON NORMALS: no JVD Chest: COMMONS NORMALS: normal inspection of the chest Resp: COMMON NORMALS: normal respiratory effort, No retractions and No use of accessory muscles AUSCULTATION: crackles and diminished lung sounds Cardio: COMMON NORMALS: no JVD, regular rate, regular rhythm, S1 normal heart sound present, S2 normal heart sound present and No murmurs present (Cardio) RATE: regular rate RHYTHM: regular rhythm HEART SOUNDS: S1 normal heart sound present and S2 normal heart sound present GI: COMMON NORMALS: Normal to inspection, nondistended, normoactive bowel sounds present, Soft to palpation and non-tender PALPATION: Yes Soft to palpation OTHER: Rectal tube in place : COMMON NORMALS: Yes no CVA tenderness BLADDER/KIDNEY EXAM: Yes no CVA tenderness Back/Pelvis: COMMON NORMALS: no CVA tenderness Extremity: COMMON NORMALS: capillary refill normal, no joint enlargement, no clubbing, cyanosis or edema and no pedal edema Neuro: COMMON NORMALS: patient oriented x3, moves all extremities and no focal motor deficits SENSORIUM/ORIENTATION: Yes oriented to person, No oriented to place and No oriented to time OTHER: Difficult to follow neurologic testing Psych: COMMON NORMALS: mental status grossly normal Skin: COMMON NORMALS: no rashes or lesions noted GENERAL SKIN EXAM: no rashes or lesions noted Urinary Catheter Management^: Aggarwal: Cath Placed During This Visit: yes Reason for Continuing Indwelling Catheter: Accurate Measurement of Urinary Output in Critically Ill Patients Urinary Catheter Date of Insertion: 06/28/21 Urinary Catheter Time of Insertion: 18:41 Data : 07/25/21 04:13 07/25/21 04:13 A&P Assessment and plan (1) Acute respiratory failure with hypoxia: Oxygenation continues to improve. She is waking up, not yet c ommunicating, following some very basic commands. Continue to wean down sedation. Stop fentanyl. Precedex if she needs it. Continue weaning on ventilatory support. Off pressor. Continue antibiotic coverage. Would plan for trach exchange around Saturday if all goes well. Status post tracheostomy and PEG tube on 07/19. MRSA PCR had been negative. Depending on IV medication use and peripheral access consider removal of central line. Right IJ CVC placed 07/19. Arterial blood return from the midline which had to be removed. Status: Acute (2) Acute anemia: Hemoglobin responded to PRBC transfusion. Mild decrease down to 9 with starting of prophylactic low-dose heparin subcu. For now holding off advancing to anticoagulation for atrial fibrillation until anemia found stable. In case additional bleeding, please contact ENT for assessment of nasopharynx for possible bleeding lesion, cautery. Previously suctioned old blood and clots from nasopharynx. Possibly from prior bleeding, perhaps after NG tube. Status: Acute (3) Pneumonia due to 2019 novel coronavirus: With protracted recovery, with persistent encephalopathy, cognitive and functional decline, inability to resume oral intake with recurrent aspiration, i nability to clear secretions, generalized weakness, deconditioning. Improving oxygenation. Status post tracheostomy, PEG on 07/19. Improved after recurrent aspiration, recurrence of decompensation, ARDS, septic shock. Acute blood loss anemia. Weaning off pressor support. Noted pneumomediastinum. Hypoxic respiratory failure secondary to COVID-19 pneumonia. Subsequently aspiration, aspiration pneumonia. -With acute respiratory distress syndrome -Completed remdesivir course -Completed proning sessions -Empirically covered with Zosyn, de-escalated to Augmentin -Originally extubated 07/12/2021 Status: Acute (4) Acute encephalopathy: Continue weaning sedation. Precedex support as needed. Stop fentanyl. Status: Acute (5) BETSY (acute kidney injury): Improving. Blood pressure better. Weaning off pressor. Currently blood pressures are better. Monitor I&O. Renal function. Prior BETSY resolved. Mild rhabdomyolysis resolved Unremarkable renal US. Possibly secondary to COVID-19 itself. Perhaps less likely contrast-induced nephropathy as CTA was on 06/27, unless is peaking and may expect improvement otherwise, possibly prerenal component. Monitor I&O. Status: Acute (6) Acute respiratory distress syndrome: Status: Acute Additional A&P Information Troponin elevation: Suspect demand ischemia in the setting of hypotension, septic shock, hypoxia. May benefit from additional investigation once she is more stable. Continue aspirin. Anticoagulation was held due to worsening of anemia. Received small dose metoprolol for atrial flutter, otherwise no beta- chris for now due to hypotension. Continue statin. Right upper and right lower extremity deficit, has resolved -Possibly related to encephalopathy -MRI brain no acute stroke -Continue aspirin, statin Acute encephalopathy, improving. Alert, to person, followed some commands, but not back to baseline, multifactorial hypoxia, COVID-19, polypharmacy, underlying dementia, CT head so far negative for vascular insult, carotid artery no hemodynamically significant stenosis, continue neurochecks, monitor mentation, hold sedating medications Hypokalemia: Received replacement today. Possible atrial flutter: Tachycardia overnight, heart rates 140s-150s. Atrial flutter. Received 2.5 mg IV push metoprolol x1.Lovenox dose was changed to therapeutic based on renal function. Nonvalvular. Monitor on telemetry. Aspir in. Transiently on anticoagulation, currently held due to worsened anemia. Resuming on trial of low-dose prophylactic heparin. Diarrhea: C. difficile negative, diarrhea, resolved, rectal tube was removed HTN HLD Plan for the day: Increase tube feeding to 35 cc/h which is the goal. Transfer out of ICU to [facility]. Given bloody secretion yesterday for now hold off on heparin. Plan to exchange tracheostomy tomorrow with ENT. Start patient on amlodipine 10 mg daily and losartan 25 mg daily with goal blood pressure less than 140/90 mmHg. Having bradycardia so we will hold off on beta-blockers. Patient having diarrhea. Check for C. difficile if negative start on Imodium as needed. Out of bed to chair. Physical therapy. Discharge planning: Once trach collar has been exchanged can be transitioned to [facility] once accepted and authorized through insurance. Attestations Medical Necessity Statement*: Requires further hospitalization for management of hypoxia secondary COVID-19 pneumonia, post tracheostomy care while she awaits trach exchange while safe discharge planning is sought Time Spent in Patient Care: Greater than 35 minutes (>than 50% of time spent in counselling and/or direct pt care on unit) . Coding Level of Care Code Acute [employer] for [employer] Diagnoses Acute respiratory failure with hypoxia J96.01 Acute anemia D64.9 Pneumonia due to 2019 novel coronavirus U07.1; J12.82 Acute encephalopathy G93.40 BETSY (acute kidney injury) N17.9 Acute respiratory distress syndrome J80
--- NOTE | 2021-07-25 15:40 | PC.OT ---
OT TREATMENT ATTEMPTED. PATIENT IS SLEEPING SOUNDLY. WILL ATTEMPT AGAIN TOMORROW.
[2021-07-25] MEDS: trazodone 50 mg Tablet 25 MG PO (22:17)
[2021-07-25] MEDS: atorvastatin 40 mg Tablet PO (22:18)
[2021-07-26] VITALS (11 sets, daily range): BP systolic 127–150; BP diastolic 63–71; PULSE 61–84; RESP 14–19; TEMP 36.4–36.8; O2SAT 92–98
[2021-07-26] MEDS: ipratropium-albuterol 3 mL Neb INHALATION ×4 (03:21→20:00)
[2021-07-26] MEDS: pantoprazole 40 mg SDV IVP ×2 (04:18→15:57)
[2021-07-26] MEDS: piperacillin-tazobactam 3.375 GM in sodium chloride 0.9% (plus) 50 ML IV (04:18)
[2021-07-26 05:09] LABS: Hematocrit 30.6 % (37.0-47.0); Hemoglobin 9.8 g/dL (11.5-15.3); Mean Corpuscular Hemoglobin 28.2 pg (28.0-34.0); Mean Corpuscular Volume 87.9 fl (81-99); Mean Platelet Volume 12.6 fL (7.4-10.4); Platelet Count 232 10^3/cmm (130-400); Red Blood Count 3.48 10^6/uL (4.1-5.3); Red Cell Distribution Width 14.6 % (12.1-15.1); White Blood Count 9.3 10^3/uL (4.0-10.0)
[2021-07-26 05:32] LABS: Alanine Aminotransferase 10 U/L (0-33); Albumin Level 2.3 g/dL (3.5-5.2); Alkaline Phosphatase 135 IU/L (35-105); Anion Gap 14.8 (5-19); Aspartate Amino Transferase 15 U/L (0-32); Blood Urea Nitrogen 17 mg/dL (8-23); Calcium 7.5 mg/dL (8.5-10.5); Carbon Dioxide 25 mmol/L (22-29); Chloride 98 mmol/L (98-107); Globulin 3.2 g/dL (1.3-4.6); Glucose 125 mg/dL (65-115); Osmolality Calculated 283 mOsm/kg (285-295); Sodium 135 mmol/L (136-145); Total Bilirubin 0.3 mg/dL (0.15-1.2); Total Protein 5.5 g/dL (6.6-8.7)
[2021-07-26 05:36] LABS: Potassium 2.8 mmol/L (3.5-5.1)
[2021-07-26 06:19] LABS: Slide Review Slide Review Perform
[2021-07-26 06:21] LABS: Band Neutrophils Absolute 0.7 10^3/cmm (0.0-1.2); Eosinophils 1 %; Lymphocytes 13 %; Monocytes Absolute 0.6 10^3/cmm (0.1-0.6); Segmented Neutrophils 65 %; Total Cells Counted 100 (0-100)
[2021-07-26 06:22] LABS: Absolute Neutrophil 6.8 10^3/cmm (1.4-6.5); Lymphocytes Absolute 1.2 10^3/cmm (1.2-3.4); Platelet Estimate Normal (Normal)
--- NOTE | 2021-07-26 08:27 | PM.CONSULT ---
Providers/Reason For Consult Consulting Physician/Specialty*: Rob Painter MD/otolaryngology Reason for Consult*: Change trach day 7 postop. Requesting Physician: Venita Kennedy Attending Physician: Venita Claros History of Present Illness History of Present Illness Clare Stewart is a 76 year old female who had a trach placed 1 week ago for airway support and pulmonary toilet. Ready to be moved to another facility for continued care and required change of trach for that to occur. Here for that purpose. Review of Systems General: Reports: 10 or more systems reviewed and unremarkable except in HPI and below Narrative: The patient's trach is in place at this time. With Mobeetie strap and four-point sutures still in place. Cuff is down. This trach is removed. The trach site is cleaned. A new 6 Green[place]ic trach tube was placed with the inner cannula placed. Cuff was left down. Cuff was checked before insertion and know that it is able to hold air if necessary. A Brando strap was placed to hold the trach tube in its proper position. Patient was breathing easily through it after the insertion. There was no active bleeding encountered. One finger was placed between the skin and the Mobeetie strap. Meds/Allergies Home Medications and Allergies Home Medications Medication Instructions Recorded Confirmed Last Taken Type hydrochlorothiazide 25 mg PO QAM 06/27/21 06/27/21 Unknown History methocarbamol [Robaxin] 750 - 1,500 mg PO TID PRN 06/27/21 06/27/21 Unknown History pantoprazole [Protonix] 40 mg PO DAILY 06/27/21 06/27/21 Unknown History potassium chloride 5 meq PO DAILY 06/27/21 06/27/21 Unknown History pramipexole 0.5 mg PO DAILY 06/27/21 06/27/21 Unknown History prednisolone acetate 1 drp OPHTHALMIC (EYE) . DIRECTED 06/27/21 06/27/21 Unknown History simvastatin [Zocor] 20 mg PO DAILY 06/27/21 06/27/21 Unknown History sucralfate [Carafate] 1 g PO .BEFORE MEALS AND HS 06/27/21 06/27/21 Unknown History trazodone 50 mg PO BEDTIME 06/27/21 06/27/21 Unknown History Allergies Allergy/AdvReac Type Severity Reaction Status Date / Time No Known Allergies Allergy Verified 07/15/21 16:11 Current Medications Current Medications Generic Name Dose Route Start Last Admin Trade Name Freq PRN Reason Stop Dose Admin Albuterol/Ipratropium 3 ml 07/25/21 21:00 07/26/21 03:21 Ipratropium-Albuterol 3 Ml Neb INHALATION 3 ml Q6H.RESPIRATORY MARC Administration Amlodipine Besylate 10 mg 07/24/21 09:55 07/25/21 07:54 Amlodipine 10 Mg Tablet PO 10 mg DAILY MARC Administration Aspirin 81 mg 07/11/21 09:00 07/25/21 07:54 Aspirin 81 Mg Chew Tablet PO 81 mg DAILY MARC Administration Atorvastatin Calcium 40 mg 07/13/21 21:00 07/25/21 22:18 Atorvastatin 40 Mg Tablet PO 40 mg BEDTIME MARC Administration Budesonide 0.5 mg 06/27/21 20:00 07/25/21 20:08 Budesonide 0.5 Mg/2 Ml Neb INHALATION 0.5 mg BID.RESPIRATORY MARC Administration Citalopram Hydrobromide 20 mg 07/24/21 09:55 07/25/21 07:53 Citalopram 20 Mg Tablet PO 20 mg DAILY MARC Administration Heparin Sodium (Porcine) 5,000 unit 07/22/21 17:00 07/25/21 04:04 Heparin 5,000 Unit/Ml Inj 1 Ml SUBCUT 5,000 unit Q12H MARC Administration Piperacillin Sod/Tazobactam 50 mls @ 12.5 mls/hr 07/19/21 12:15 07/26/21 04:18 Sod 3.375 gm/ Sodium Chloride IV 07/26/21 12:14 12.5 mls/hr Q8H MARC Administration Protocol Lanolin 1 applic 07/09/21 10:33 07/09/21 10:40 Lanolin Oint 7 Gm TOPICAL 1 applic PRN PRN Administration DRYNESS Losartan Potassium 25 mg 07/25/21 10:25 07/25/21 11:02 Losartan 50 Mg Tablet PO 25 mg DAILY MARC Administration Magnesium Oxide 400 mg 07/23/21 09:00 07/25/21 17:53 Magnesium Oxide 400 Mg Tablet PEG-TUBE 400 mg BID MARC Administration Pantoprazole Sodium 40 mg 07/20/21 17:00 07/26/21 04:18 Pantoprazole 40 Mg Sdv IVP 40 mg Q12H MARC Administration Potassium Chloride 20 meq 10/31/21 09:00 07/25/21 07:53 Potassium Chloride Oral Liq 20 Meq/15 Ml Udc PEG-TUBE 20 meq DAILY MARC Administration Saliva Substitute 1 spray 07/23/21 17:51 07/23/21 18:18 Saliva Stimulant [place] 44 Ml Btl MUCOUS MEM 1 spray PRN PRN Administration DRYNESS Trazodone HCl 25 mg 07/10/21 21:00 07/25/21 22:17 Trazodone 50 Mg Tablet PO 25 mg BEDTIME MARC Administration PFSH Acute PFSH: Medical History History of gastritis EGD 2018 History of hyperlipidemia History of hypertension Surgical History History of cholecystectomy History of hysterectomy History of shoulder surgery Right Family History Sister Diabetes Social History Smoking and tobacco status: never smoked Alcohol intake: never Substance/Drug Use: never Vitals/I&O/Wt Last Vital Signs Temp 98.3 F 07/26/21 04:00 Pulse 81 07/26/21 04:00 Resp 18 07/26/21 04:00 BP 142/71 07/26/21 04:00 Pulse Ox 92 07/26/21 03:21 07/25/21 07/26/21 07/26/21 22:59 06:59 14:59 Intake Total 1207 / 1257 430 / 1687 Output Total 700 / 700 600 / 1300 Balance 507 / 557 -170 / 387 Weight last 48 hrs Weight 109 lb 2 oz Physical Exam Narrative: EXAM NARRATIVE: Trach tube changed to a new 6 cuffed tube. Cuff is down. No Mobeetie strap placed. Sutures are removed. Patient tolerated well. Breathing easily through the new tube with inner cannula in place. No active bleeding encountered. Urinary Catheter Management^: Aggarwal: Cath Placed During This Visit: yes Reason for Continuing Indwelling Catheter: Acute Urinary Retention or Obstruction Urinary Catheter Date of Insertion: 06/28/21 Urinary Catheter Time of Insertion: 18:41 Data Micro: Micro: Microbiology 07/25/21 16:03 C.difficile Toxin B Gene (PCR) - Nadir ramos Stool Routine Col lection 07/18/21 14:13 Fungal Smear - Pre liminary Tissue A&P Assessment and plan (1) Attention to tracheostomy tube: Assessment: Patient's initial trach tube removed with sutures removed. Site cleaned. New 6 [place] with cuff inserted with inner cannula in place. Tube functioning properly. No bleeding encountered. Cough is left down in case it is necessary to be inflated at some point. Plan: Routine trach care as before. Status: Acute (2) Acute respiratory failure with hypoxia: Status: Acute Coding Level of Care Code Established Pt Acute School Office Manager for g Fwd Patient Type Established History Problem Focused Exam Problem Focused Medical Decision Making Straight Forward Diagnoses Attention to tracheostomy tube Z43.0 Acute respiratory failure with hypoxia J96.01
[2021-07-26] MEDS: budesonide 0.5 mg/2 mL Neb INHALATION ×2 (08:40→20:00)
--- NOTE | 2021-07-26 09:05 | PC.SOCIAL ---
IMM update IMM updated with son Freddy. Copy Pg 2 provided at patient's bedside. Son verbalized an understanding. Initialled, dated, timed, and placed in chart.
[2021-07-26] MEDS: citalopram 20 mg Tablet PO (09:25)
[2021-07-26] MEDS: amlodipine 10 mg Tablet PO (09:25)
[2021-07-26] MEDS: aspirin 81 mg Chew Tablet PO (09:25)
[2021-07-26] MEDS: losartan 50 mg Tablet 25 MG PO (09:26)
[2021-07-26] MEDS: magnesium oxide 400 mg tablet PEG-TUBE ×2 (09:26→18:09)
[2021-07-26] MEDS: potassium chloride oral liq 20 mEq/15 mL UDC PEG-TUBE (09:26)
--- NOTE | 2021-07-26 09:57 | PC.NURSE ---
Meds Medication given via PEG tube, flushed with 5 mL in between each med, 15 mL after Reconnected feeding tube
--- NOTE | 2021-07-26 10:53 | PC.RESP ---
trach care done.
--- NOTE | 2021-07-26 14:08 | PC.NURSE ---
Dr. Burrows notified that patient's potassium is 2.8. No orders received at this time.
[2021-07-26] MEDS: lidocaine 1% 5 ML in potassium chloride premix 100 ML 25 ML IV (15:57)
--- NOTE | 2021-07-26 18:55 | PM.PN ---
Subjective Subjective: Interval history: Continues to be very weak requring two person assist, did however work with therapy, trach collar, no new clinical events overnight. Medications: Reviewed: Yes Medication Review Details: Current Medications Acetaminophen (Acetaminophen 325 Mg Tablet) 650 mg PO Q6H PRN PRN Reason: Mild/Mod Pain Or Temp >/= 101 Last Admin: 06/30/21 00:48 Dose: 650 mg Documented by: Albuterol/Ipratropium (Ipratropium-Albuterol 3 Ml Neb) 3 ml INHALATION Q6H PRN PRN Reason: SHORTNESS OF BREATH Last Admin: 07/05/21 20:05 Dose: 3 ml Documented by: Artificial Tears (Artificial Tears Op Oint 3.5 Gm) 1 applic EYE-BOTH PRN PRN PRN Reason: DRY EYE(S) Ascorbic Acid (Ascorbic Acid 500 Mg Tablet) 500 mg PO BID MARC Last Admin: 07/05/21 17:33 Dose: 500 mg Documented by: Aspirin (Aspirin 325 Mg Tablet) 325 mg OG-TUBE DAILY MARC Last Admin: 07/05/21 08:27 Dose: 325 mg Documented by: Bisacodyl (Bisacodyl 10 Mg Supp) 10 mg [place] ONCE PRN; Protocol PRN Reason: Constipation (see protocol) Budesonide (Budesonide 0.5 Mg/2 Ml Neb) 0.5 mg INHALATION BID.RESPIRATORY MARC Last Admin: 07/05/21 20:05 Dose: 0.5 mg Documented by: Dexamethasone (Dexamethasone 10 Mg/Ml Inj) 6 mg IVP Q24H MARC Last Admin: 07/05/21 14:25 Dose: 6 mg Documented by: Docusate Sodium (Docusate Sodium 100 Mg Capsule) 100 mg PO BID MARC Last Admin: 07/01/21 08:29 Dose: 100 mg Documented by: Enoxaparin Sodium (Enoxaparin 30 Mg/0.3 Ml Syringe) 30 mg SUBCUT Q24H MARC Last Admin: 07/05/21 17:33 Dose: 30 mg Documented by: Fentanyl (Fentanyl 50 Mcg/Ml Inj 2ml) 25 mcg IVP Q2H PRN PRN Reason: SEVERE PAIN Last Admin: 07/05/21 19:25 Dose: 25 mcg Documented by: Hydralazine HCl (Hydralazine 20 Mg/Ml Inj 1 Ml) 10 mg IVP Q6H PRN PRN Reason: HYPERTENSION Last Admin: 07/06/21 03:36 Dose: 10 mg Documented by: Norepinephrine Bitartrate 4 mg (/ Dextrose) 254 mls @ 0 mls/hr IV .Q0M MARC; Protocol Propofol (Diprivan) 1,000 mg in 100 mls @ 0 mls/hr IV .Q0M MARC; Protocol Last Titration: 07/04/21 13:36 Dose: 0 mcg/kg/min, 0 mls/hr Documented by: Cisatracurium Besylate 100 mg/ (Dextrose) 100 mls @ 0 mls/hr IV .Q0M MARC; Protocol Last Titration: 07/04/21 07:09 Dose: 0 mcg/kg/min, 0 mls/hr Documented by: Fentanyl 1,000 mcg/ Dextrose 100 mls @ 0 mls/hr IV .Q0M MARC; Protocol Last Titration: 07/06/21 01:55 Dose: 50 mcg/hr, 5 mls/hr Documented by: Midazolam HCl 100 mg/ Dextrose 100 mls @ 0 mls/hr IV .Q0M MARC; Protocol Last Titration: 07/04/21 10:31 Dose: 0 mg/hr, 0 mls/hr Documented by: Piperacillin Sod/Tazobactam (Sod 3.375 gm/ Dextrose) 50 mls @ 12.5 mls/hr IV Q12H MARC; Protocol Last Admin: 07/06/21 01:59 Dose: 12.5 mls/hr Documented by: dexmedeTOMIDine 0.9 % NaCL (Dexmedetomidine-Ns) 400 mcg in 100 mls @ 0 mls/hr IV .Q0M MARC; Protocol Last Titration: 07/06/21 05:00 Dose: 0.3 mcg/kg/hr, 4.61 mls/hr Documented by: Lactulose (Lactulose Oral Liq 20 Gm/30 Ml Udc) 10 gm PO DAILY PRN; Protocol PRN Reason: Constipation (see protocol) Metoclopramide HCl (Metoclopramide 10 Mg Tablet) 5 mg PO TID MARC Last Admin: 07/05/21 21:27 Dose: 5 mg Documented by: Ondansetron HCl (Ondansetron 2 Mg/Ml Sdv 2 Ml) 4 mg IVP Q8H PRN PRN Reason: vomiting, or N/V if npo Pantoprazole Sodium (Pantoprazole 40 Mg Sdv) 40 mg IVP Q12H [facility] Last Admin: 07/06/21 05:02 Dose: 40 mg Documented by: Polyethylene Glycol (Polyethylene Glycol 3350 Pkt 17 Gm) 17 gm PO DAILY [facility] Last Admin: 07/05/21 08:27 Dose: 17 gm Documented by: Sucralfate (Sucralfate 1 Gm/10 Ml Oral Liq Udc) 1 gm PO AC&BEDTIME [facility] Last Admin: 07/06/21 06:04 Dose: 1 gm Documented by: Vitamin D (Cholecalciferol (Vitamin D3) 1,000 Unit Tablet) 1,000 unit PO DAILY [facility] Last Admin: 07/05/21 08:27 Dose: 1,000 unit Documented by: Zinc Gluconate (Zinc Gluconate 50 Mg Tablet) 50 mg PO DAILY [facility] Last Admin: 07/05/21 08:27 Dose: 50 mg Documented by: Vitals/I&O/Wt Last Vital Signs Temp 97.7 F 07/26/21 11:22 Pulse 70 07/26/21 15:54 Resp 16 07/26/21 15:54 BP 150/70 07/26/21 11:22 Pulse Ox 96 07/26/21 15:54 07/26/21 07/26/21 07/26/21 06:59 14:59 22:59 Intake Total 430 / 1687 115 / 115 Output Total 600 / 1300 Balance -170 / 387 115 / 115 Weight last 48 hrs Weight 49.498 kg Physical Exam Const: COMMON NORMALS: no acute distress and patient oriented x3 EXAM LIMITATIONS: altered mental status GENERAL APPEARANCE: ill appearing, frail appearing and patient mechanically ventilated (via trach); not cooperative ORIENTATION/CONSCIOUSNESS: Yes oriented to person and Yes confused; not oriented to place and not oriented to time OTHER: Frail Waking up HENMT: COMMON NORMALS: oropharynx normal OTHER: Yesterday oropharynx with suctioning of some old blood, similar this morning. Shallow ulceration on the tongue. Eye: COMMON NORMALS: Equal, round and reactive pupils present PUPIL: Yes Equal, round and reactive pupils present Neck/C-Spine: COMMON NORMALS: no JVD Chest: COMMONS NORMALS: normal inspection of the chest Resp: COMMON NORMALS: normal respiratory effort, No retractions and No use of accessory muscles AUSCULTATION: crackles and diminished lung sounds Cardio: COMMON NORMALS: no JVD, regular rate, regular rhythm, S1 normal heart sound present, S2 normal heart sound present and No murmurs present (Cardio) RATE: regular rate RHYTHM: regular rhythm HEART SOUNDS: S1 normal heart sound present and S2 normal heart sound present GI: COMMON NORMALS: Normal to inspection, nondistended, normoactive bowel sounds present, Soft to palpation and non-tender PALPATION: Yes Soft to palpation OTHER: Rectal tube in place : COMMON NORMALS: Yes no CVA tenderness BLADDER/KIDNEY EXAM: Yes no CVA tenderness Back/Pelvis: COMMON NORMALS: no CVA tenderness Extremity: COMMON NORMALS: capillary refill normal, no joint enlargement, no clubbing, cyanosis or edema and no pedal edema Neuro: COMMON NORMALS: patient oriented x3, moves all extremities and no focal motor deficits SENSORIUM/ORIENTATION: Yes oriented to person, No oriented to place and No oriented to time OTHER: Difficult to follow neurologic testing Psych: COMMON NORMALS: mental status grossly normal Skin: COMMON NORMALS: no rashes or lesions noted GENERAL SKIN EXAM: no rashes or lesions noted Urinary Catheter Management^: Aggarwal: Cath Placed During This Visit: yes Reason for Continuing Indwelling Catheter: Accurate Measurement of Urinary Output in Critically Ill Patients Urinary Catheter Date of Insertion: 06/28/21 Urinary Catheter Time of Insertion: 18:41 Data : 07/26/21 04:36 07/26/21 04:36 Micro: Microbiology 07/25/21 16:03 C.difficile Toxin B Gene (PCR) - Final Stool Routine Collection 07/18/21 14:13 Fungal Smear - Preliminary Tissue A&P Assessment and plan (1) Acute respiratory failure with hypoxia: Continue current management Neb tx Pulmicort 0.5 mg inh BID IV zosyn Trach management per ENT Repeat chest xray if worsening Status: Acute (2) Acute anemia: s/p transfusion Hb 9.8 Monitor H/H Status: Acute (3) Pneumonia due to 2019 novel coronavirus: With protracted recovery, with persistent encephalopathy, cognitive and functional decline, inability to resume oral intake with recurrent aspiration, inability to clear secretions, generalized weakness, deconditioning. Continue PT/OT Improving oxygenation. Status post tracheostomy, PEG on 07/19. Improved after recurrent aspiration, recurrence of decompensation, ARDS, septic shock. Acute blood loss anemia. Weaning off pressor support. Noted pneumomediastinum. Hypoxic respiratory failure secondary to COVID-19 pneumonia. Subsequently aspiration, aspiration pneumonia. -With acute respiratory distress syndrome -Completed remdesivir course -Completed proning sessions -Empirically covered with Zosyn, de-escalated to Augmentin -Originally extubated 07/12/2021 Status: Acute (4) Acute encephalopathy: stable Status: Acute (5) BETSY (acute kidney injury): Resolved. Creatinine at baseline BMP in am Status: Acute (6) Acute respiratory distress syndrome: As noted above. Status: Acute Additional A&P Information Hypokalemia - Replace and recheck in am Discharge planning: Once trach collar has been exchanged can be [facility]ed to [facility] once accepted and authorized through insurance. Plan for [facility] on 07/27/21 at 1 pm Attestations Medical Necessity Statement*: Will continue hospitalization for managment of respiratory, IV abx and placement Time Spent in Patient Care: Greater than 35 minutes (>than 50% of time spent in counselling and/or direct pt care on unit). Coding Level of Care Code Acute Double Head Machine Operator for Librado Paz Diagnoses Acute respiratory failure with hypoxia J96.01 Acute anemia D64.9 Pneumonia due to 2019 novel coronavirus U07.1; J12.82 Acute encephalopathy G93.40 BETSY (acute kidney injury) N17.9 Acute respiratory distress syndrome J80
[2021-07-26] MEDS: trazodone 50 mg Tablet 25 MG PO (20:59)
[2021-07-26] MEDS: atorvastatin 40 mg Tablet PO (20:59)
[2021-07-26] MEDS: loperamide liquid 1 mg/7.5 mL Btl 120 mL PO (21:08)
[2021-07-27] VITALS (11 sets, daily range): BP systolic 128–144; BP diastolic 65–76; PULSE 67–87; RESP 15–19; TEMP 36.6–37; O2SAT 92–99; BMI 19.2
[2021-07-27] MEDS: ipratropium-albuterol 3 mL Neb INHALATION ×3 (03:04→15:57)
[2021-07-27] MEDS: heparin 5,000 unit/mL INJ 1 mL 5000 UNIT SUBCUT ×2 (05:52→16:40)
[2021-07-27] MEDS: pantoprazole 40 mg SDV IVP ×2 (05:52→16:40)
[2021-07-27] MEDS: budesonide 0.5 mg/2 mL Neb INHALATION (08:29)
[2021-07-27] MEDS: aspirin 81 mg Chew Tablet PO (09:26)
[2021-07-27] MEDS: amlodipine 10 mg Tablet PO (09:26)
[2021-07-27] MEDS: citalopram 20 mg Tablet PO (09:26)
[2021-07-27] MEDS: losartan 50 mg Tablet 25 MG PO (09:26)
[2021-07-27] MEDS: potassium chloride oral liq 20 mEq/15 mL UDC PEG-TUBE (09:27)
[2021-07-27] MEDS: magnesium oxide 400 mg tablet PEG-TUBE ×2 (09:27→16:40)
--- NOTE | 2021-07-27 13:00 | PC.RESP ---
trach care with inner cannula changed
[2021-07-27 14:30] LABS: Anion Gap 12.1 (5-19); Blood Urea Nitrogen 21 mg/dL (8-23); Calcium 7.8 mg/dL (8.5-10.5); Carbon Dioxide 26 mmol/L (22-29); Chloride 102 mmol/L (98-107); Glucose 115 mg/dL (65-115); Osmolality Calculated 286 mOsm/kg (285-295); Potassium 4.1 mmol/L (3.5-5.1); Sodium 136 mmol/L (136-145)
--- NOTE | 2021-07-27 15:52 | PC.OT ---
PER NURSING, PATIENT IS SCHEDULED FOR DISCHARGE TO [facility] THIS EVENING. WILL HOLD TREATMENT TODAY DUE TO SCHEDULED DISCHARGE.
--- NOTE | 2021-07-27 15:53 | PM.DCS ---
Discharge Providers Date of Admission: 06/27/21 14:20 Date of Discharge: July 27, 2021 Attending Provider at Admission: Benson Diane MD Attending Provider at Discharge: Venita Claros Diagnoses at Discharge Discharge Diagnosis (1) Acute respiratory failure with hypoxia: Status: Acute (2) Acute anemia: Status: Acute (3) Pneumonia due to 2019 novel coronavirus: Status: Resolved (4) Acute encephalopathy: Status: Acute (5) BETSY (acute kidney injury): Status: Resolved (6) Acute respiratory distress syndrome: Status: Resolved Reason for Visit Reason for Visit: AMS, COVID 19556 R41.82 Hospital Course Hospital Course 76 year old female is a 68-year-old female with a past medical history of hypertension, hyperlipidemia, who presents to [facility] due to cough, shortness of breath, confusion. Currently patient is alert to person, to place, not to time, does know who the president is, she does follow commands, but is quite forgetful during my examination, she does not remember how long she has had the symptoms for, she tells me that she did a home Covid test and that she was Covid positive, she does complain of cough, shortness of breath, she is not sure if she has had any fevers, denies any history of strokes, denies a history of heart attacks, no history of heart failure, no history of diabetes, no history of lung disease, denies smoking. In the emergency room patient was requiring 6 L, CT angiogram of the chest showed no pulmonary embolism, but multilobar groundglass opacifications, did show right hilar consolidation probably combination pneumonia and adenopathy. Upon admission to the hospital patient was placed on Precedex and ventilatory support. This was weaned throughout hospitalization. Initially required pressors however this was discontinued. Provided with antibiotic coverage. MRSA PCR was negative. Antibiotics at this time this escalated. ENT was consulted in the trach was changed and cough down. Patients O2 requirements have fluctuated prior to discharge with the slow but gradual improvement. Patient was also very weak and requiring 2 person assist to ambulate. At this time patient was stable for discharge to long-term acute care. Physical Exam Const: COMMON NORMALS: no acute distress and patient oriented x3 EXAM LIMITATIONS: altered mental status GENERAL APPEARANCE: ill appearing, frail appearing and patient mechanically ventilated (via trach); not cooperative ORIENTATION/CONSCIOUSNESS: Yes oriented to person and Yes confused; not oriented to place and not oriented to time OTHER: Frail Waking up HENMT: COMMON NORMALS: oropharynx normal OTHER: Yesterday oropharynx with suctioning of some old blood, similar this morning. Shallow ulceration on the tongue. Eye: COMMON NORMALS: Equal, round and reactive pupils present PUPIL: Yes Equal, round and reactive pupils present Neck/C-Spine: COMMON NORMALS: no JVD Chest: COMMONS NORMALS: normal inspection of the chest Resp: COMMON NORMALS: normal respiratory effort, No retractions and No use of accessory muscles AUSCULTATION: crackles and diminished lung sounds Cardio: COMMON NORMALS: no JVD, regular rate, regular rhythm, S1 normal heart sound present, S2 normal heart sound present and No murmurs present (Cardio) RATE: regular rate RHYTHM: regular rhythm HEART SOUNDS: S1 normal heart sound present and S2 normal heart sound present GI: COMMON NORMALS: Normal to inspection, nondistended, normoactive bowel sounds present, Soft to palpation and non-tender PALPATION: Yes Soft to palpation OTHER: Rectal tube in place : COMMON NORMALS: Yes no CVA tenderness BLADDER/KIDNEY EXAM: Yes no CVA tenderness Back/Pelvis: COMMON NORMALS: no CVA tenderness Extremity: COMMON NORMALS: capillary refill normal, no joint enlargement, no clubbing, cyanosis or edema and no pedal edema Neuro: COMMON NORMALS: patient oriented x3, moves all extremities and no focal motor deficits SENSORIUM/ORIENTATION: Yes oriented to person, No oriented to place and No oriented to time OTHER: Difficult to follow neurologic testing Psych: COMMON NORMALS: mental status grossly normal Skin: COMMON NORMALS: no rashes or lesions noted GENERAL SKIN EXAM: no rashes or lesions noted Urinary Catheter Management^: Aggarwal: Cath Placed During This Visit: yes Reason for Continuing Indwelling Catheter: Acute Urinary Retention or Obstruction Urinary Catheter Date of Insertion: 06/28/21 Urinary Catheter Time of Insertion: 18:41 Discharge Data Data Completed and Pending: Completed Studies During Hospitalization Category Date Time Status CT angio chest PE protcl 60773 Rout ine Cat Scan 07/15/21 11:[address] angio chest PE protcl 55023 Stat Cat Scan 06/27/21 12:[address] angio chest PE protcl 42890 Stat Cat Scan 07/18/21 02:[address] head wo con* 7 0450 Routine Cat Scan 07/07/21 08:[address] head wo con* 7 0450 Routine Cat Scan 07/13/21 08:[address] head wo con* 7 0450 Stat Cat Scan 06/27/21 15:05 Completed CXRP [XR chest 1V portable 18894] S tat Exams 07/13/21 09:24 Completed XR abdomen 1V* 74 018 Routine Exams 07/16/21 08:17 Completed XR chest 1V manohar ble 50758 Routine Exams 06/28/21 07:00 Completed XR chest 1V manohar ble 19868 Routine Exams 06/29/21 07:00 Completed XR chest 1V manohar ble 36017 Routine Exams 06/30/21 16:58 Completed XR chest 1V manohar ble 84440 Routine Exams 07/01/21 07:00 Completed XR chest 1V manohar ble 92233 Routine Exams 07/02/21 07:00 Completed XR chest 1V manohar ble 72208 Routine Exams 07/03/21 07:44 Completed XR chest 1V manohar ble 22270 Routine Exams 07/04/21 06:30 Completed XR chest 1V manohar ble 80926 Routine Exams 07/06/21 10:27 Completed XR chest 1V manohar ble 62041 Routine Exams 07/10/21 07:00 Completed XR chest 1V manohar ble 41938 Routine Exams 07/13/21 07:00 Completed XR chest 1V manohar ble 25723 Routine Exams 07/18/21 02:40 Completed XR chest 1V manohar ble 31577 Routine Exams 07/20/21 06:00 Completed XR chest 1V manohar ble 09458 Routine Exams 07/21/21 06:00 Completed XR chest 1V manohar ble 40559 Stat Exams 06/27/21 11:38 Completed XR chest 1V manohar ble 06776 Stat Exams 06/30/21 13:51 Completed XR chest 1V manohar ble 28689 Stat Exams 07/13/21 10:21 Completed XR chest 1V manohar ble 95098 Stat Exams 07/18/21 00:42 Completed XR chest 1V manohar ble 49054 Stat Exams 07/18/21 16:45 Completed XR chest 1V manohar ble 01458 Stat Exams 07/18/21 21:39 Completed XR chest 1V manohar ble 37582 Stat Exams 07/19/21 01:23 Completed XR chest 1V manohar ble 58534 Stat Exams 07/19/21 18:57 Completed MR head wo con* 7 0551 Routine MRI 07/14/21 14:30 Completed CV carotid duplex BI* 94208 Stat Ultrasound 07/13/21 08:58 Completed CV. echo complete * [id number] Routine Ultrasound 07/04/21 09:13 Completed US renal BI* 7677 0 Routine Ultrasound 07/04/21 16:17 Completed Pending at discharge Category Date Time Status Fungal Culture no t HR/SK/BL Routine Lab 07/18/21 14:13 Results Labs from last 24 hours 07/27/21 13:00 Sodium 136 Potassium 4.1 Chloride 102 Carbon Dioxide 26 Anion Gap 12.1 BUN 21 Creatinine 0.6 GFR Calculation Not Reportable Glucose 115 Calculated Osmolal ity 286 Calcium 7.8 L Vitals: Last Vital Signs Temp 98.1 F 07/27/21 15:45 Pulse 79 07/27/21 15:45 Resp 16 07/27/21 15:45 BP 129/65 07/27/21 15:45 Pulse Ox 99 07/27/21 15:45 Discharge Plan Discharge Patient Disposition: Xfer [facility] Condition: Stable Prescriptions: New losartan 50 mg Tablet 25 mg feeding tube DAILY Qty: 30 RF: 0 atorvastatin 40 mg Tablet 40 mg feeding tube BEDTIME Qty: 30 RF: 0 ipratropium-albuterol 0.5 mg-3 mg(2.5 mg base)/3 mL Solution For Nebulization 3 ml inhalation Q6H.RESPIRATORY 30 Days RF: 0 trazodone 50 mg Tablet 25 mg feeding tube BEDTIME Qty: 30 RF: 0 potassium chloride 20 mEq/15 mL Liquid 20 meq peg-tube DAILY Qty: 250 RF: 0 citalopram 20 mg Tablet 20 mg feeding tube DAILY 30 Days RF: 0 amlodipine 10 mg Tablet 10 mg feeding tube DAILY Qty: 30 RF: 0 budesonide 0.5 mg/2 mL Suspension For Nebulization 0.5 mg inhalation BID.RESPIRATORY Qty: 10 RF: 0 Children's Aspirin 81 mg Tablet,Chewable 81 mg feeding tube DAILY Qty: 30 RF: 0 Discontinued trazodone 50 mg tablet 50 mg PO BEDTIME RF: 0 potassium chloride 10 mEq tablet extended release 5 meq PO DAILY RF: 0 pramipexole 0.25 mg tablet 0.5 mg PO DAILY RF: 0 sucralfate [Carafate] 1 gram Tablet 1 g PO .BEFORE MEALS AND HS RF: 0 prednisolone acetate 1 % Drops,Suspension 1 drp ophthalmic (eye) . DIRECTED RF: 0 methocarbamol [Robaxin] 750 mg Tablet 750 - 1,500 mg PO TID PRN (Reason: see pharmacy comments-last filled 12/2019) RF: 0 pantoprazole [Protonix] 40 mg Tablet,Delayed Release (Dr/Ec) 40 mg PO DAILY RF: 0 simvastatin [Zocor] 20 mg Tablet 20 mg PO DAILY RF: 0 hydrochlorothiazide 25 mg Tablet 25 mg PO QAM RF: 0 Discharge Orders: Discharge Order (Routine); Ordered 07/27/21 Ordered By: Venita Claros Discharge Diet: Start new tube feeds as directed Discharge Activity: As per PT/OT instructions Patient Instructions: Tracheostomy Care (GEN), PEG Tube Insertion (GEN), GI Discharge Instructions, Opioid Safety Activity Restrictions/Additional Instructions: Tube Feeding : Jevity at goal of 50ml/hr, Free H20 flushes q6hr Trach care Discharge Attestations Time Spent in Discharge Care*: greater than 30 min Specific Discharge Activities: educating patient, educating and/or supporting family/caregiver, discussing with pcp/other providers, discussing with shelter case manager/social workers/dc planners, documenting/other paperwork and evaluating patient/reviewing data Status at Discharge: Cognitive status at discharge: moderately impaired cognition, Behavioral status at discharge: cooperative, Functional status at discharge: bed bound Overall status at discharge: patient is progressing back to baseline Quality Metrics Clinical Quality Measures During this hospital stay, did patient experience: None Coding Level of Care Code Acute g DC note Diagnoses Acute respiratory failure with hypoxia J96.01 Acute anemia D64.9 Pneumonia due to 2019 novel coronavirus U07.1; J12.82 Acute encephalopathy G93.40 BETSY (acute kidney injury) N17.9 Acute respiratory distress syndrome J80
--- NOTE | 2021-07-27 16:14 | PC.NURSE ---
Report called to Lisa Urbina RN, at [facility].
== END 2021-07-27 20:00 | DRG 4 ==
LOC: ER 14:55 → MEDSURG 15:14 → ICU 06-28 13:49 → MEDSURG 07-13 18:12 → ICU 07-18 03:44 → MEDSURG 07-25 19:07
PROVIDERS: Hospitalist; Internal Medicine; Internal Medicine Critical Care Medicine; Internal Medicine Nephrology; Internal Medicine Pulmonary Disease; Otolaryngology; Student in an Organized Health Care Education/Training Program; Surgery; Admitting Provider Family Medicine; Emergency Provider Family Medicine; Visit Provider Hospitalist
PROC: 0BJ08ZZ Inspection of Tracheobronchial Tree, Via Natural or Artificial Opening Endoscopic (ICD-10-PCS; CPT 31622; principal; 2021-07-18 13:00)
PROC: 0B110F4 Bypass Trachea to Cutaneous with Tracheostomy Device, Open Approach (ICD-10-PCS; principal; 2021-07-19 13:50)
PROC: 0DH63UZ Insertion of Feeding Device into Stomach, Percutaneous Approach (ICD-10-PCS; CPT 43246; 2021-07-19 13:50)
DX: U07.1 COVID-19 (principal); J12.82 Pneumonia due to coronavirus disease 2019; J80 Acute respiratory distress syndrome; G93.41 Metabolic encephalopathy; N17.9 Acute kidney failure, unspecified; E87.1 Hypo-osmolality and hyponatremia; I48.92 Unspecified atrial flutter; E44.0 Moderate protein-calorie malnutrition; Z68.1 Body mass index [BMI] 19.9 or less, adult; B37.0 Candidal stomatitis; E87.2 Acidosis; M62.82 Rhabdomyolysis; I10 Essential (primary) hypertension; E78.5 Hyperlipidemia, unspecified; F03.90 Unspecified dementia, unspecified severity, without behavioral disturbance, psychotic disturbance, mood disturbance, and anxiety; E87.6 Hypokalemia; J98.2 Interstitial emphysema; E83.42 Hypomagnesemia; D64.9 Anemia, unspecified
CPT/HCPCS: 31624; 31645; 36415; 36430; 36569; 36592; 36600; 43246; 51702; 70450; 70551; 71045; 71275; 74018; 76770; 80048; 80051; 80053; 80061; 80202; 81001; 82274; 82330; 82436; 82550; 82570; 82728; 82803; 82805; 83036; 83540; 83550; 83605; 83690; 83735; 83880; 84100; 84132; 84133; 84145; 84300; 84443; 84484; 84550; 85007; 85025; 85378; 85610; 86140; 86850; 86900; 86920; 87040; 87070; 87102; 87205; 87206; 87426; 87493; 87635; 87641; 92507; 92523; 92526; 92610; 93005; 93306; 93880; 94002; 94003; 94640; 94660; 94664; 94762; 94799; 96365; 96372; 96375; 97110; 97161; 97166; 97530; 97535; 99285; C1751; C9113; J0360; J0456; J0696; J0743; J1100; J1450; J1644; J1650; J1720; J1940; J2060; J2250; J2543; J2704; J2920; J3010; J3370; J3475; J3480; J3490; J7030; J7050; J7626; J8597; P9016; P9047; Q3014; Q9967; S0030

== ENCOUNTER 2022-12-11 10:50 | Outpatient (CLI) | payer MEDICARE, SELFPAY ==
--- NOTE | 2022-12-11 | USCV_ITS ---
Terry Clare Age: 77 Gender: F : 1945 Exam Date: 12/11/2022 11:17 Ordering Phys: Deidre Rodriges NP Technologist: Diego Hughes [place] [facility] [place]: syncope and collapse BP: 150 / 70 HR: 74 Rhythm: Sinus Technical Quality: Adequate MEASUREMENTS (Male / Female) Normal Values 2D ECHO LV Diastolic Diameter PLAX 4.8 cm 4.2 - 5.9 / 3.9 - 5.3 cm LV Systolic Diameter PLAX 3.2 cm IVS Diastolic Thickness 0.6 cm 0.6 - 1.0 / 0.6 - 0.9 cm IVS Systolic Thickness 0.8 cm LVPW Diastolic Thickness 1.0 cm 0.6 - 1.0 / 0.6 - 0.9 cm LVPW Systolic Thickness 1.3 cm LVOT Diameter 2.0 cm LV Ejection Fraction 2D Teich 60.6 % LV Ejection Fraction MOD 2C 74.3 % LV Ejection Fraction 2C AL 73.8 % LA Diameter 3.2 cm LA Width 3.4 cm LA Height 2.7 cm RA Width 2.0 cm RA Height 3.3 cm Aorta at Sinotubular Diameter 2.5 cm IVC Diameter 1.7 cm M-MODE Aortic Annulus Diameter 2.4 cm LA Ao Ratio MM 1.4 MV E Point Septal Separation 0.3 cm DOPPLER AV Peak Velocity 122.3 cm/s LVOT Peak Velocity 129.0 cm/s AV Area Cont Eq vti 3.4 cm squared AV Area Cont Eq pk 3.3 cm squared MV Peak Velocity 94.0 cm/s MV Area PHT 3.7 cm squared Mitral E to A Ratio 0.8 MV E' Velocity 32.5 cm/s Mitral E to MV E' Ratio 7.3 Mitral E to LV E' Lateral Ratio 7.4 Mitral E to LV E' Septal Ratio 7.2 TR Peak Velocity 342.5 cm/s TR Peak Gradient 46.9 mmHg TR Mean Velocity 243.8 cm/s TR Mean Gradient 26.0 mmHg TR Velocity Time Integral 77.0 cm Right Atrial Pressure 3.0 mmHg Pulmonary Artery Systolic Pressu 49.9 mmHg PV Peak Velocity 80.0 cm/s RV Acceleration Time 0.1 s RV Ejection Time 0.3 s RV AcT/ET 0.5 FINDINGS Left Ventricle Left ventricle is normal in size. LV systolic function is normal with EF 60-65 %. No regional wall motion abnormalities are seen. Grade 1 diastolic dysfunction Right Ventricle Normal in size and function Right Atrium Normal in size Left Atrium Normal in size Mitral Valve Structurally normal mitral valve. Mild mitral regurgitation. Aortic Valve Aortic valve is thickened. Mild to moderate aortic regurgitation. No significant stenosis. Tricuspid Valve Mild tricuspid regurgitation. Pulmonary artery systolic pressure is 45 to 50 mmHg. Mild pulmonary hypertension Pulmonic Valve Not well-visualized Pericardium Normal Aorta Normal in size IVC Appears to be normal CONCLUSIONS LV systolic function is normal with EF of 60-65% Grade 1 diastolic dysfunction Mild mitral regurgitation Mild to moderate aortic regurgitation Mild tricuspid regurgitation. Mild pulmonary hypertension Compared to prior echocardiogram from 07/04/2021, no significant changes are noted Benjie Mary MD (Electronically Signed) Final Date: 22 December 2022 09:02 S
== END 2022-12-11 10:51 | disposition home or self-care (01) ==
LOC: RAD 10:53
PROVIDERS: PCP Nurse Practitioner Family; Visit Provider Nurse Practitioner Family
DX: R55 Syncope and collapse (principal); I08.3 Combined rheumatic disorders of mitral, aortic and tricuspid valves; I27.20 Pulmonary hypertension, unspecified
CPT/HCPCS: 93306

== ENCOUNTER → 2023-04-08 10:14 | Outpatient (BNVA) | payer MEDICARE, SELFPAY | PROVIDERS: PCP Nurse Practitioner Family; Visit Provider Internal Medicine Cardiovascular Disease | DX: R55 Syncope and collapse (principal); R06.09 Other forms of dyspnea; I10 Essential (primary) hypertension; I71.21 Aneurysm of the ascending aorta, without rupture; E78.5 Hyperlipidemia, unspecified | CPT/HCPCS: 99205 ==

== ENCOUNTER 2023-05-07 09:22 | Outpatient (CLI) | payer MEDICARE, SELFPAY ==
--- NOTE | 2023-05-07 09:28 | ECG_ITS ---
[facility] Test Date: 2023-05-07 Pat Name: Clare Stewart Department: Room: Gender: Female Management Consultant: : 1945 Requested By: Serg Asencio Order Number: [id number] Ingrid MD: Serg Asencio M.D. Interpretive Statements NAME OF STUDY: LEXISCAN SESTAMIBI STRESS TEST INDICATION: FARLEY/FATIGUE, PROCEDURE: At the baseline, the EKG revealed normal sinus rhythm with a poor R wave progression. Some nonspecific ST changes. The baseline heart was 70 bpm with a blood pressue of 151/65 mm of Hg Lexiscan was infused over a period of 20 seconds. A total of 0.4 milligrams of Lexiscan was infused. The stress phase was continued for a total of 5 minutes. Heart rate at the end of the stress phase was 89 bpm with a blood pressure 126/53 mm of Hg. The EKG at the peak infusion revealed no significant changes. Sestamibi was injected 20 seconds after the Lexiscan infusion. Heart rate at the end of the recovery phase was 86 bpm with a blood pressure of 126/59 mm of Hg. CONCLUSION: 1. No significant EKG changes with the LexiScan infusion 2. No LexiScan induced chest pain or cardiac arrhythmia 3. Normal blood pressure and heart rate response 4. Sestamibi/sestamibi perfusion scan pending; see separate report. Electronically Signed On 05-07-2023 23:53:49 CDT by Serg Asencio M.D. [id number]
--- NOTE | 2023-05-07 09:29 | NMCV_ITS ---
NM alyx perf SPECT r/s* [id number] Clare Stewart Age: 78 Gender: F : 1945 Exam Date: 05/07/2023 10:32 Ordering Phys: Serg Asencio MD ([email or web address]) Technologist: ALEXANDRO Abdalla Exam Location: [facility] Indications: CORONARY ANGIOPLASTY STATUS, SHORTNESS OF BREATH STRESS TEST Please see separate stress test report in [facility] for full findings IMAGE PROTOCOL Rest/Stress 1 Lexiscan Day Radiopharmaceutical Dose (mCi) Administration Site Administered by Rest: Tc-99m 10.5 IV ALEXANDRO Sanchez Sestamibi Stress:Tc-99m 32.6 IV ALEXANDRO Sanchez Sestamibi Rest: 07-May-2023 60 Discovery 630 Stress: 07-May-2023 30 Discovery 630 0.4mg Lexiscan. Images obtained in supine and prone position. SPECT RESULTS Technical Quality: Excellent Raw Data Analysis: Normal Image Corrections: No attenuation or motion correction applied Summed Stress Score: 0 Summed Rest Score: 1 Summed Difference Score: 0 PERFUSION FINDINGS Fairly uniform myocardial tracer uptake with no significant perfusion abnormalities FUNCTIONAL RESULTS (calculated via Gated SPECT) Stress Image LV EF (%): 89 Stress EDV (mL):46 TID: 1 Stress ESV (mL):5 FUNCTIONAL FINDINGS: Segmental wall motion analysis revealing no gross wall motion abnormalities IMPRESSIONS 1. Unremarkable Myocardial perfusion imaging 2. Normal LV ejection fraction of 89%. 3. LV wall motion analysis revealing no gross wall motion abnormalities. 4. Normal LV volume 5. Low probability for coronary ischemia, based on the above findings 6. No similar previous studies are available for comparison Dr Serg Asencio MD FACC (Electronically Signed) Final Date: 07 May 2023 23:11 S
[2023-05-07 09:57] VITALS: BMI 21.2
[2023-05-07] MEDS: regadenoson 0.4 Mg/5 ml Syringe IVP (11:07)
[2023-05-07 11:24] VITALS: BP 126/53; PULSE 92
== END 2023-05-07 09:23 | disposition home or self-care (01) ==
LOC: CDL 09:23
PROVIDERS: PCP Nurse Practitioner Family; Visit Provider Internal Medicine Cardiovascular Disease
DX: R06.00 Dyspnea, unspecified (principal); R53.83 Other fatigue
CPT/HCPCS: 36415; 78452; 93017; 96374; A9500; J2785

== ENCOUNTER → 2023-08-13 13:38 | Outpatient (BNVA) | payer MEDICARE, SELFPAY | PROVIDERS: PCP Nurse Practitioner Family; Visit Provider Internal Medicine Cardiovascular Disease | DX: R55 Syncope and collapse (principal); E78.5 Hyperlipidemia, unspecified; I10 Essential (primary) hypertension; I71.21 Aneurysm of the ascending aorta, without rupture; R06.09 Other forms of dyspnea | CPT/HCPCS: 99214 ==

== ENCOUNTER 2023-11-20 13:28 | Outpatient (CLI) | payer MEDICARE, SELFPAY ==
--- NOTE | 2023-11-20 13:34 | XR_ITS ---
WS: [id number] Exam: XR [id number] Date/Time of Exam: 11/20/2023 1:47 PM Reason For Exam: ABDOMINAL PAIN/DIARRHEA No bowel obstruction or free air. Signs of previous cholecystectomy and LEFT pelvic surgery. No sign of organ enlargement. Degenerative change and dextroscoliosis of the lumbar spine. IMPRESSION: 1. No acute abdominal process.
== END 2023-11-20 13:29 | disposition home or self-care (01) ==
LOC: RAD 13:29
PROVIDERS: PCP Nurse Practitioner Family; Visit Provider Nurse Practitioner Family
DX: R10.9 Unspecified abdominal pain (principal); R19.7 Diarrhea, unspecified
CPT/HCPCS: 74018

== ENCOUNTER 2024-01-10 14:00 | Outpatient (CLI) | payer MEDICARE, SELFPAY ==
--- NOTE | 2024-01-10 14:07 | CT_ITS ---
WS: [id number] CT ABDOMEN AND PELVIS NONCONTRAST HISTORY: LOWER ABDOMINAL PAIN TECHNIQUE: Imaging performed through the abdomen and pelvis. Coronal and sagittal reformats are submi tted. All CT scans at [facility] use at least one of these dose optimization techniques: auto mated exposure control; mA and/or kV adjustment per patient size (includes targeted exams where dose is matched to clinical indication); or iterative reconstruction. DLP: 249.60 mGy.cm COMPARISON: None available. Lower thorax: Mild dependent changes and interstitial thickening at the lung bases. Suspect this is r elated to chronic fibrotic disease. Moderate enlargement of the heart. Small hiatal hernia. Liver: Normal size liver. No mass or bile duct dilatation. Gallbladder: Prior cholecystectomy. Pancreas: Moderate diffuse pancreatic atrophy. No duct dilatation. Spleen: Normal. Adrenal glands: Normal. No mass. Right kidney: Normal size kidney with no mass or hydronephrosis. Left kidney: Mild atrophy with cortical thinning in the upper pole. No obstruction. No mass. Aorta: Mild atherosclerosis abdominal aorta with no aneurysm. No free fluid, intraperitoneal air or significant lymphadenopathy. GI tract: Stomach is markedly distended with contrast and food products. No small bowel obstruction. Mild diffuse fecal retention and constipation. No acute diverticulitis. The appendix is not identifie d. Abdominal wall: Negative. No hernia. Pelvis: Prior hysterectomy. No free fluid or adenopathy. Osseous structures: Increase in the lumbar lordosis. 2 mm anterolisthesis of L5. Bilateral facet join t arthritis in the lower lumbar spine. IMPRESSION: 1. Prior cholecystectomy and hysterectomy. 2. Mild constipation. 3. Stomach is markedly distended with food products and oral contrast. Component of gastroparesis sh ould be considered. No mechanical obstruction is identified. 4. No ascites or adenopathy.
[2024-01-10] MEDS: iohexol 350 mg/mL 500 mL Btl (per mL) PO (14:56)
== END 2024-01-10 14:01 | disposition home or self-care (01) ==
LOC: RAD 14:01
PROVIDERS: PCP Nurse Practitioner Family; Visit Provider Nurse Practitioner Family
DX: R10.30 Lower abdominal pain, unspecified (principal); K59.00 Constipation, unspecified; K31.89 Other diseases of stomach and duodenum
CPT/HCPCS: 74176; Q9967

== ENCOUNTER → 2024-02-10 14:13 | Outpatient (BNVA) | payer MEDICARE, SELFPAY | PROVIDERS: PCP Nurse Practitioner Family; Visit Provider Internal Medicine Cardiovascular Disease | DX: R06.09 Other forms of dyspnea (principal); I71.21 Aneurysm of the ascending aorta, without rupture; R55 Syncope and collapse; I10 Essential (primary) hypertension; E78.5 Hyperlipidemia, unspecified | CPT/HCPCS: 99214 ==

== ENCOUNTER 2024-03-09 12:24 | Outpatient (CLI) | payer MEDICARE, SELFPAY ==
[2024-03-09 13:30] LABS: Blood Urea Nitrogen 17 mg/dL (8-23)
== END 2024-03-09 12:25 | disposition home or self-care (01) ==
LOC: RAD 12:26
PROVIDERS: PCP Nurse Practitioner Family; Visit Provider Internal Medicine Cardiovascular Disease
DX: Z01.89 Encounter for other specified special examinations (principal)
CPT/HCPCS: 82565; 84520

== ENCOUNTER 2024-03-16 09:27 | Outpatient (CLI) | payer MEDICARE, SELFPAY ==
--- NOTE | 2024-03-16 09:43 | CT_ITS ---
WS: [id number] CTA THORACIC TECHNIQUE: Contrast enhanced CTA of the thoracic aorta with coronal and sagittal reformatted images a nd maximum intensity projection (MIP) images. CLINICAL INFORMATION: AAA COMPARISON: CTA chest 07/18/2021 DLP: 418.[address] scans at [facility] use at least one of these dose optimization techniques: automated e xposure control; mA and/or kV adjustment per patient size (includes targeted exams where dose is matc hed to clinical indication); or iterative reconstruction. FINDINGS: Chronic emphysematous changes. Subsegmental atelectasis in the lung bases. Aortic calcification. Marga nary calcification. Proximal pulmonary arteries are normal. Ascending thoracic aorta measures approximately 2.8 cm at the sinotubular junction and 3.3 cm in the mid ascending aorta. Descending thoracic aorta is normal caliber. Celiac and SMA appear patent. Splenic artery calcification. Adrenal glands are normal. Cortical scarr ing both kidneys. Small esophageal hiatal hernia. Fatty atrophy of the pancreas. Moderate thoracic ky phosis with moderate to advanced spondylitic changes thoracic spine. No mediastinal or hilar lymphade nopathy. Bilateral TSA's degrades some images. CT/CT angio chest [id number] IMPRESSION: 1. Ascending thoracic aorta measures approximately 2.8 cm at the sinotubular j unction and 3.3 cm in the mid ascending aorta. 2. Small esophageal hiatal hernia. 3. Chronic emphysematous changes with pleural parenchymal scarring and subsegm ental atelectasis in the lung bases.
[2024-03-16] MEDS: iohexol 350 mg/mL 500 mL Btl (per mL) IV (10:54)
== END 2024-03-16 09:28 | disposition home or self-care (01) ==
LOC: RAD 09:31
PROVIDERS: PCP Nurse Practitioner Family; Visit Provider Internal Medicine Cardiovascular Disease
DX: I71.21 Aneurysm of the ascending aorta, without rupture (principal); K44.9 Diaphragmatic hernia without obstruction or gangrene; J43.9 Emphysema, unspecified; J98.11 Atelectasis; I70.0 Atherosclerosis of aorta; I25.84 Coronary atherosclerosis due to calcified coronary lesion; D73.89 Other diseases of spleen; N28.89 Other specified disorders of kidney and ureter; K86.89 Other specified diseases of pancreas; M40.204 Unspecified kyphosis, thoracic region; M47.814 Spondylosis without myelopathy or radiculopathy, thoracic region
CPT/HCPCS: 71275; Q9967